=== PATIENT | male | born 1975 | race Caucasian/White ===

== ENCOUNTER 2019-03-24 03:13 | Emergency (ER) | payer OTHER, SELFPAY ==
[2019-03-24 03:17] VITALS: BMI 38.2
[2019-03-24 03:27] VITALS: BP 200/104; PULSE 97; RESP 18; TEMP 37.1; O2SAT 94
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
[2019-03-24 04:18] VITALS: RESP 16
[2019-03-24] MEDS: oxyCODONE-APAP 5-325 mg Tablet 2 TAB PO (04:18)
[2019-03-24 05:02] VITALS: BP 189/108; PULSE 84; RESP 16; O2SAT 95
== END 2019-03-24 05:02 | disposition home or self-care (01) ==
PROVIDERS: Emergency Provider Emergency Medicine; Family Provider Internal Medicine Cardiovascular Disease
DX: S00.83XA Contusion of other part of head, initial encounter (principal); Y04.2XXA Assault by strike against or bumped into by another person, initial encounter; Y99.0 Civilian activity done for income or pay; Z79.84 Long term (current) use of oral hypoglycemic drugs; Z79.82 Long term (current) use of aspirin
CPT/HCPCS: 70486; 99281

== ENCOUNTER 2020-06-23 09:14 | Outpatient (CLI) | payer OTHER, SELFPAY ==
--- NOTE | 2020-06-23 09:30 | USCV_ITS ---
Jose Douglas Age: 44 Gender: M : 1975 Exam Date: 06/23/2020 09:25 Ordering Phys: Kristen Fontenot MD ([email or web address]) Technologist: Tiara Em [place] [facility] [place]: Congestive heart failure BP: / HR: 81 Rhythm: Sinus Technical Quality: Adequate MEASUREMENTS (Male / Female) Normal Values 2D ECHO LV Diastolic Diameter PLAX 4.9 cm 4.2 - 5.9 / 3.9 - 5.3 cm LV Systolic Diameter PLAX 4.0 cm LV Chamber Size 4.4 cm IVS Diastolic Thickness 2.6 cm 0.6 - 1.0 / 0.6 - 0.9 cm IVS Systolic Thickness 1.7 cm LVPW Diastolic Thickness 1.2 cm 0.6 - 1.0 / 0.6 - 0.9 cm LVPW Systolic Thickness 2.5 cm RV Chamber Size 3.7 cm LVOT Diameter 2.0 cm LV Ejection Fraction 2D Teich 39.2 % LV Ejection Fraction MOD 2C 42.6 % LV Ejection Fraction 2C AL 42.1 % LA Diameter 4.7 cm LA Width 3.4 cm LA Height 4.9 cm RA Width 4.2 cm RA Height 4.5 cm Aorta at Sinotubular Diameter 3.8 cm M-MODE LV Diastolic Diameter MM 6.4 cm 4.2 - 5.9 / 3.9 - 5.3 cm LV Systolic Diameter MM 4.1 cm LV Ejection Fraction MM Teich 65.3 % IVS Diastolic Thickness MM 1.5 cm 0.6 - 1.0 / 0.6 - 0.9 cm IVS Systolic Thickness MM 2.0 cm LVPW Diastolic Thickness MM 1.4 cm 0.6 - 1.0 / 0.6 - 0.9 cm LVPW Systolic Thickness MM 2.0 cm Aortic Annulus Diameter 4.3 cm LA Ao Ratio MM 1.2 MV E Point Septal Separation 1.1 cm DOPPLER AV Peak Velocity 182.0 cm/s LVOT Peak Velocity 97.0 cm/s AV Area Cont Eq vti 2.2 cm squared AV Area Cont Eq pk 1.7 cm squared MV Area PHT 5.9 cm squared Mitral E to A Ratio 0.7 MV E' Velocity 34.0 cm/s Mitral E to MV E' Ratio 10.3 Mitral E to LV E' Lateral Ratio 8.0 Mitral E to LV E' Septal Ratio 15.0 TR Peak Velocity 131.9 cm/s TR Peak Gradient 7.0 mmHg TR Mean Velocity 105.8 cm/s TR Mean Gradient 4.6 mmHg TR Velocity Time Integral 31.7 cm TV Peak E Velocity 81.0 cm/s Right Atrial Pressure 3.0 mmHg Pulmonary Artery Systolic Pressu 10.0 mmHg PV Peak Velocity 97.0 cm/s RV Acceleration Time 0.1 s RV Ejection Time 0.4 s RV AcT/ET 0.4 FINDINGS Left Ventricle Normal left ventricular cavity size. Increased left ventricular wall thickness. Moderate concentric left ventricular hypertrophy. Normal left ventricular systolic function. Left ventricular ejection fraction is estimated at 65 %. No regional wall motion abnormalities. Grade I diastolic dysfunction (abnormal relaxation filling pattern), normal to mildly elevated filling pressures. Right Ventricle Normal right ventricular size and systolic function. Right ventricular systolic pressure 10 mmHg. Right Atrium Normal right atrial size. Left Atrium Mildly increased left atrial size. Mitral Valve Mild mitral annular calcification. Mildly thickened mitral valve. Trace mitral valve regurgitation. Aortic Valve Structurally normal trileaflet aortic valve. No aortic valve stenosis. Moderate aortic valve regurgitation. Tricuspid Valve Structurally normal tricuspid valve. Trace tricuspid valve regurgitation. Pulmonic Valve Structurally normal pulmonic valve. No pulmonary valve stenosis. Trace pulmonary valve regurgitation. Pericardium No pericardial effusion. Aorta Normal sized aortic root. CONCLUSIONS 1. Normal left ventricular cavity size. Moderate concentric left ventricular hypertrophy. Normal left ventricular systolic function. Left ventricular ejection fraction is estimated at 65 %. No regional wall motion abnormalities. Grade I diastolic dysfunction (abnormal relaxation filling pattern), normal to mildly elevated filling pressures. 2. Normal right ventricular size and systolic function. 3. Mildly increased left atrial size. 4. Moderate aortic valve regurgitation. 5. When compared to previous echocardiogram dated 09/22/2016, left ventricular systolic function has improved. Kristen Fontenot MD (Electronically Signed) Final Date: 26 June 2020 08:01 S
== END 2020-06-23 09:15 | disposition home or self-care (01) ==
LOC: US 09:15
PROVIDERS: PCP Nurse Practitioner Family; Visit Provider Internal Medicine Cardiovascular Disease
DX: I50.9 Heart failure, unspecified (principal); I51.7 Cardiomegaly; I35.1 Nonrheumatic aortic (valve) insufficiency
CPT/HCPCS: 93306

== ENCOUNTER 2021-05-12 06:19 | Observation (INO) | payer OTHER, SELFPAY ==
[2021-05-12] VITALS (23 sets, daily range): BP systolic 162–201; BP diastolic 84–106; PULSE 68–97; RESP 8–24; TEMP 36.4–37.1; O2SAT 96–99; BMI 37.5
--- NOTE | 2021-05-12 06:31 | ED_ITS ---
HPI - Chest Pain General: Chief Complaint: Chest Pain Stated Complaint: cp Time Seen by Provider: 05/12/21 06:25 Source: patient Mode of arrival: ambulatory Limitations: no limitations History of Present Illness: Patient reports chest pain waking him at 415 this morning. Chest pain is substernal and nonradiating. States chest pain lasted approximately 2 hours. Denies any chest pain now. Denies any shortness of breath or nausea. States he did have feeling of elevated heart rate. Patient states he had a heart cath about 5 years ago that was clear. MD complaint: chest pain Prior episodes: Yes Onset: during rest Pain location: substernal Pain radiation: none Severity: moderate Quality: aching Relieving factors: nothing Exacerbating factors: nothing Associated symptoms: Reports palpitations; Deny abdominal pain, diaphoresis, dyspnea, leg edema, nausea, syncope or vomiting Review of Systems Const: Denies: diaphoresis Eyes: Denies: change in vision ENMT: Denies: throat pain Card: Reports: chest pain and palpitations; Denies: irregular heart rhythm or syncope Resp: Denies: dyspnea, productive cough, non-productive cough or wheezing GI: Denies: abdominal pain, nausea, vomiting or diarrhea : Denies: flank pain Musc: Denies: neck pain, back pain, extremity pain or extremity swelling Skin/Breast: Denies: rash or pruritus Neuro: Denies: headache(s) or numbness in extremities Psych: Denies: anxiety Sam/Lymph: Denies: enlarged lymph nodes [facility] ED PFSH: Medical History Aortic regurgitation Cardiomyopathy Diabetes HTN (hypertension) Hyperlipidemia Family History Other Cancer Diabetes Hypertension Social History Smoking and tobacco status: never smoked Alcohol intake: current Alcohol intake frequency: other Supplemental [facility] Information: Patient reportedly had heart cath about 5 years ago that showed no coronary artery disease. I did review recent cardiology consult in December. Patient had aortic regurgitation on echocardiogram. Medical Data Entry Clerk did confirm he had normal heart cath with no obstructive coronary disease. Physical Exam Const: COMMON NORMALS: no acute distress, patient oriented x3, no limitations and well nourished GENERAL APPEARANCE: cooperative HENMT: COMMON NORMALS: normocephalic and atraumatic HEAD & SCALP: normocephalic and atraumatic FACE & SINUS: normal facial exam Eye: COMMON NORMALS: EOMs intact bilaterally Neck/C-Spine: COMMON NORMALS: full ROM, no lymphadenopathy, supple and no meningeal signs GENERAL: Yes normal visual inspection Lymph: LYMPHATIC: no lymphadenopathy noted Chest: COMMONS NORMALS: normal inspection of the chest and normal palpation of entire chest wall CHEST: No Ecchymosis present and No rash Resp: COMMON NORMALS: normal respiratory effort, No retractions and clear to auscultation bilaterally EFFORT & INSPECTION: No respiratory distress AU SCULTATION: clear to auscultation bilaterally Cardio: COMMON NORMALS: regular rhythm and Peripheral pulses 2+ throughout JUGULAR VENOUS DISTENTION: no JVD RHYTHM: regular rhythm PERIPHERAL PULSES: Peripheral pulses 2+ throughout OTHER: Mild tachycardia. Telemetry shows sinus tachycardia of 103 GI: COMMON NORMALS: Normal to inspection, nondistended, normoactive bowel sounds present and non-tender : COMMON NORMALS: Yes no CVA tenderness BLADDER/KIDNEY EXAM: Yes no CVA tenderness Back/Pelvis: COMMON NORMALS: no CVA tenderness Extremity: COMMON NORMALS: normal to inspection, full ROM and capillary refill normal Neuro: COMMON NORMALS: patient oriented x3, CN's II-XII intact bilaterally, no focal motor deficits and no sensory deficits noted MENINGEAL SIGNS: Yes no meningeal signs Psych: COMMON NORMALS: mental status grossly normal and Normal thought process present THOUGHT PROCESS: Normal thought process present Skin: COMMON NORMALS: no rashes or lesions noted and no wounds GENERAL SKIN EXAM: no rashes or lesions noted Course Vital Signs: Vital signs: Vital Signs Temperature 98.2 F 05/12/21 09:33 Pulse Rate 78 05/12/21 09:33 Respiratory Rate 16 05/12/21 09:33 Blood Pressure 190/85 05/12/21 09:33 Pulse Oximetry 96 05/12/21 09:33 MDM - Chest Pain Medical Decision Making Chest pain Heart score around 5 Lab Data I reviewed the patient's lab results. : 05/12/21 06:28 05/12/21 06:28 Radiology Impressions Chest X-Ray 05/12/21 06:32 IMPRESSION: 1. No definite CHF or pneumonia. 2. Other findings discussed above. Laboratory Results WBC 13.8 10^3/uL (4.0-10.0) H 05/12/21 06:28 RBC 5.93 10^6/uL (4.1-5.3) H 05/12/21 06:28 Hgb 14.9 g/dL (11.7-16.6) 05/12/21 06:28 Hct 46.0 % (42.0-52.0) 05/12/21 06:28 MCV 77.6 fl (80-94) L 05/12/21 06:28 MCH 25.1 pg (28.0-34.0) L 05/12/21 06:28 MCHC 32.4 g/dL (30.0-36.0) 05/12/21 06: RDW 15.2 % (12.1-15.1) H 05/12/21 06:28 Plt Count 301 10^3/cmm (130-400) 05/12/21 06:28 MPV 10.3 fL (7.4-10.4) 05/12/21 06:28 Neut % (Auto) 74.8 % 05/12/21 06:28 Lymph % (Auto) 14.7 % 05/12/21 06:28 [place] % (Auto) 6.2 % 05/12/21 06:28 Eos % (Auto) 2.4 % 05/12/21 06:28 Baso % (Auto) 0.7 % 05/12/21 06:28 Neut # (Auto) 10.34 10^3/uL (1.8-7.7) H 05/12/21 06:28 Lymph # (Auto) 2.0 10^3/uL (0.8-4.8) 05/12/21 06:28 [place] # (Auto) 0.9 10^3/uL (0.2-0.9) 05/12/21 06:28 Eos # (Auto) 0.3 10^3/uL (0.0-0.8) 05/12/21 06:28 Baso # (Auto) 0.1 10^3/uL (0.0-0.1) 05/12/21 06:28 Nucleated RBC % (auto) 0 % 05/12/21 06:28 Nucleated RBCs # 0.0 /100WBC 05/12/21 06:28 Sodium 137 mmol/L (136-145) 05/12/21 06:28 Potassium 3.7 mmol/L (3.5-5.1) 05/12/21 06:28 Chloride 97 mmol/L (98-107) L 05/12/21 06:28 Carbon Dioxide 27 mmol/L (22-29) 05/12/21 06:28 Anion Gap 16.7 (5-19) 05/12/21 06:28 BUN 14 mg/dL (6-20) 05/12/21 06:28 Creatinine 1.0 mg/dL (0.7-1.2) 05/12/21 06:28 GFR Calculation 80.1 mL/min (90-130) L 05/12/21 06:28 Glucose 292 mg/dL (65-115) H 05/12/21 06:28 Calculated Osmolality 295 mOsm/kg (285-295) 05/12/21 06:28 Calcium 8.9 mg/dL (8.5-10.5) 05/12/21 06:28 Troponin T Baseline 69 ng/L (0-15) H 05/12/21 06:28 Troponin T 120 Minute 63.59 ng/L (0-15) H 05/12/21 08:35 Delta Troponin T -5.41 ABS# (0-10) L 05/12/21 08:35 Imaging Data CXR: I personally reviewed and interpreted this imaging study as follows: My impression: No infiltrates or pneumothorax. Nothing acute seen. Radiologist's impression: Exam: XR Chest Exam date and time: 05/12/2021 6:32 AM Age: 45 years old Clinical indication: Angina; Patient HX: Chest pressure started at 430 this am but is gone now; Additional info: Chest pain TECHNIQUE: Imaging protocol: XR of the chest. Views: 1 view. COMPARISON: CR Ribs LEFT w PA Chest [id number] 11/23/2018 8:51 AM FINDINGS: Lungs: No CHF/pulmonary edema. ?Poor inspiration somewhat limits evaluation, especially of the lung bases. ?Visible lungs appear essentially clear. Pleural spaces: No visible pneumothorax. ?No definite pleural fluid. Heart/Mediastinum: Heart size is upper range of normal. Bones/joints: No significant acute finding. XR/XR chest 1V portable [id number] IMPRESSION: 1. No definite CHF or pneumonia. 2. Other findings discussed above. ? Dictated By: Ezkeiel Puga MD Signed By: Ezekiel Puga MD Signed Date/Time: 05/12/21726 EKG Data EKG 1: I personally reviewed and interpreted this EKG as follows: EKG interpretation date: 05/12/21 EKG interpretation time: 06:28 Prior EKG tracings: not available for review Interpretation: Sinus tachycardia with heart rate 103. Normal axis. Left atrial enlargement, normal T waves, except T wave inversion in lead I. LVH. Normal axis. Normal ST segments, except [address] segment elevation in leads V1 and V2 versus early repolarization. Normal QT interval, normal VA interval. EKG 2: I personally reviewed and interpreted this EKG as follows: EKG interpretation date: 05/12/21 EKG interpretation time: 08:33 Prior EKG tracings: available for review Interpretation: EKG shows normal sinus rhythm with heart rate of 77. Nonspecific ST-T changes. Normal VA interval, left atrial enlargement, normal QT interval. LVHT wave inversion lead I and aVL. Otherwise T waves are normal. [address] segment elevation in V1 and V2 versus early repolarization unchanged from previous EKG. Other Data Patient had 325 mg aspirin around 2100 last night 0738: Patient states he continues have no chest pain. 0935: Discussed with hospitalist Dr. Painter. Patient will be admitted to cardiac stepdown unit as observation patient. Discharge Plan Discharge Patient Disposition: Placed in Observation Clinical Impression: Benign essential hypertension Chest pain Qualifiers: Chest pain type: unspecified Qualified Code(s): R07.9 - Chest pain, unspecified Diabetes Qualifiers: Diabetes mellitus type: type 2 Diabetes mellitus fdc insulin use: without intermediate teacher use Diabetes mellitus complication status: with hyperglycemia Qualified Code(s): E11.65 - Type 2 diabetes mellitus with hyperglycemia Coding Level of Care Code ED Copy Coordinator for [facility] Fwd Exam Comprehensive
--- NOTE | 2021-05-12 06:32 | XRR_ITS ---
PROCEDURE INFORMATION: Exam: XR Chest Exam date and time: 05/12/2021 6:32 AM Age: 45 years old Clinical indication: Angina; Patient HX: Chest pressure started at 430 this am but is gone now; Additional info: Chest pain TECHNIQUE: Imaging protocol: XR of the chest. Views: 1 view. COMPARISON: CR Ribs LEFT w PA Chest [id number] 11/23/2018 8:51 AM FINDINGS: Lungs: No CHF/pulmonary edema. Poor inspiration somewhat limits evaluation, especially of the lung bases. Visible lungs appear essentially clear. Pleural spaces: No visible pneumothorax. No definite pleural fluid. Heart/Mediastinum: Heart size is upper range of normal. Bones/joints: No significant acute finding. XR/XR chest 1V portable [id number] IMPRESSION: 1. No definite CHF or pneumonia. 2. Other findings discussed above.
[2021-05-12 06:43] LABS: Basophils # 0.1 10^3/uL (0.0-0.1); Basophils % 0.7 %; Eosinophils # 0.3 10^3/uL (0.0-0.8); Eosinophils % 2.4 %; Hemoglobin 14.9 g/dL (11.7-16.6); Lymphocytes % 14.7 %; Mean Corpuscular HGB Conc 32.4 g/dL (30.0-36.0); Mean Corpuscular Hemoglobin 25.1 pg (28.0-34.0); Mean Corpuscular Volume 77.6 fl (80-94); Mean Platelet Volume 10.3 fL (7.4-10.4); Monocytes # 0.9 10^3/uL (0.2-0.9); Monocytes % 6.2 %; Neutrophils # 10.34 10^3/uL (1.8-7.7); Neutrophils % 74.8 %; Nucleated Red Blood Cells % 0 %; Platelet Count 301 10^3/cmm (130-400); Red Blood Count 5.93 10^6/uL (4.1-5.3); Red Cell Distribution Width 15.2 % (12.1-15.1); White Blood Count 13.8 10^3/uL (4.0-10.0)
--- NOTE | 2021-05-12 06:51 | PC.NURSE ---
report given to zion JOHANSEN
--- NOTE | 2021-05-12 06:58 | PC.NURSE ---
Received report assumed report. NO changes noted from report. at bedside. Denies chest pain.
[2021-05-12 07:00] LABS: Anion Gap 16.7 (5-19); Blood Urea Nitrogen 14 mg/dL (6-20); Calcium 8.9 mg/dL (8.5-10.5); Carbon Dioxide 27 mmol/L (22-29); Chloride 97 mmol/L (98-107); Glomerular Filtration Rate 80.1 mL/min (90-130); Glucose 292 mg/dL (65-115); Osmolality Calculated 295 mOsm/kg (285-295); Potassium 3.7 mmol/L (3.5-5.1); Sodium 137 mmol/L (136-145)
[2021-05-12 07:06] LABS: Troponin(5th) Baseline 69 ng/L (0-15)
[2021-05-12] MEDS: pantoprazole 40 mg SDV IVP (07:09)
[2021-05-12] MEDS: heparin 5,000 unit/mL INJ 1 mL 4000 UNIT IVP (07:50)
[2021-05-12] MEDS: labetalol 5 mg/mL SDV 20mL IVP (07:52)
--- NOTE | 2021-05-12 08:33 | ECG_ITS ---
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 Measurements Intervals [place] Rate: 103 P: 51 [place]: 194 QRS: 18 QRSD: 106 T: 106 QT: 339 QTc: 444 Interpretive Statements SINUS TACHYCARDIA WITH OCCASIONAL SUPRAVENTRICULAR PREMATURE COMPLEXES INCOMPLETE RIGHT BUNDLE BRANCH BLOCK [90+ ms QRS DURATION, TERMINAL R IN V1/V2, 40+ ms S IN I/aVL/V4/V5/V6] ABNORMAL QRS-T ANGLE [QRS-T AXIS DIFFERENCE > 60] Compared to ECG 09/23/2016 19:40:48 Incomplete right bundle-branch block now present Sinus rhythm no longer present T-wave abnormality no longer present Electronically Signed On 05-12-2021 16:06:16 WIRELESS OPERATOR by Oneil Muhammad M.D. [id number]
[2021-05-12] MEDS: insulin regular-human 100 units/1 mL 2 UNIT IVP (08:44)
[2021-05-12 09:17] LABS: Troponin 5 2HR 63.59 ng/L (0-15)
[2021-05-12 09:18] LABS: Troponin 5 2HR Delta -5.41 ABS# (0-10)
--- NOTE | 2021-05-12 10:02 | PC.PHAR ---
pt states he takes care of his own medications-pt states he takes hydralazine 100mg bid prescribed as 100mg tid-pt states he hasnt taken prednisone 20mg daily since last monday ext med history shows last filled 04/29/21 30d/s-notes are made in the pharmacy comments
--- NOTE | 2021-05-12 10:54 | PM.HP ---
Providers/Chief Complaint Admitting Physician: Raheel Painter MD Primary Care Provider: ALVARO Ellison Chief Complaint: cp History of Present Illness Jose Douglas is a 45 year old male which he had substernal chest discomfort as pressure, presented self and waking out of sleep around 4:15 AM this morning. It did not radiate. He reports he has had no recent chest discomfort or exertional symptoms. He reports the discomfort lasted at least 2 hours, but was gone away by the time he arrived in the emergency department. The pain changed over its duration to where it felt more like gas pain at the end. He reports absolutely no discomfort now. He has not had any fever or cough or other symptoms in the last week. He denies any pain with inspiration. He reports he does take Protonix for reflux. He recently thought he had injured his back and has been sleeping more in an upright position. Review of Systems General: Reports: 10 or more systems reviewed and unremarkable except in HPI and below Const: Denies: fever(s) Eyes: Denies: change in vision ENMT: Denies: throat pain Card: Reports: chest pain Resp: Denies: dyspnea GI: Reports: heartburn; Denies: abdominal pain : Denies: flank pain Musc: Reports: back pain Skin/Breast: Denies: rash Neuro: Denies: headache(s) Psych: Denies: anxiety Endo: Denies: polyuria Sam/Lymph: Denies: easy bruising All/Imm: Denies: urticaria Medications/Allergies Home Medications Medication Instructions Recorded Confirmed Last Taken Type amlodipine 10 mg tablet 10 mg PO DAILY 03/24/19 05/12/21 03/23/19 History glipizide 5 mg tablet 5 mg PO DAILY 03/24/19 05/12/21 03/23/19 History metformin 1,000 mg tablet 1,000 mg PO BID 03/24/19 05/12/21 03/23/19 History pantoprazole 40 mg tablet,delayed 40 mg PO DAILY 03/24/19 05/12/21 03/24/19 History release simvastatin 20 mg tablet 20 mg PO DAILY 03/24/19 05/12/21 03/23/19 History aspirin 325 mg tablet 325 mg PO DAILY 05/29/20 05/12/21 Unknown History carvedilol 12.5 mg tablet 12.5 mg PO .COMPLEX #270 tab 05/29/20 05/12/21 Unknown Rx potassium gluconate 595 mg (99 mg) 99 mg PO BID 05/29/20 05/12/21 Unknown History tablet cyclobenzaprine 10 mg tablet 10 mg PO TID PRN 05/12/21 05/12/21 05/11/21 History hydralazine 100 mg tablet 100 mg PO BID 05/12/21 05/12/21 Unknown History prednisone 20 mg tablet 20 mg PO DAILY 05/12/21 05/12/21 05/07/21 History Allergies Allergy/AdvReac Type Severity Reaction Status Date / Time No Known Allergies Allergy Verified 05/12/21 08:17 PFSH Acute PFSH: Medical History (Updated 05/12/21 @ 11:05 by Raheel Painter MD) Aortic regurgitation Cardiomyopathy Diabetes GERD (gastroesophageal reflux disease) History of retinal detachment HTN (hypertension) Hyperlipidemia Surgical History History of cataract surgery History of knee surgery History of tonsillectomy Family History Other Cancer Diabetes Hypertension Social History Smoking and tobacco status: never smoked Alcohol intake: current Alcohol intake frequency: other Vitals/I&O/Wt Last Vital Signs Temp 98.2 F 05/12/21 09:33 Pulse 78 05/12/21 09:33 Resp 16 05/12/21 09:33 BP 190/85 05/12/21 09:33 Pulse Ox 96 05/12/21 09:33 Weight last 48 hrs Weight 129.274 kg Physical Exam Narrative: General exam is a white male, no distress, denies any complaints of discomfort currently. Blood pressure noted to be high. He reports he has not received his medication yet this morning. HEENT pupils equally round. Oropharynx clear Neck is supple no lymphadenopathy or thyromegaly Cardiovascular regular in rhythm without murmur Lungs clear no wheezing or crackles Abdomen is soft nontender positive bowel sounds. No obvious organomegaly exam deferred Extremities no cyanosis clubbing or edema Skin no rash Neuro no focal deficits Data : 05/12/21 06:28 05/12/21 06:28 Other Labs: EKG demonstrates normal sinus rhythm, normal axis, flipped T waves aVL in 1. This is unchanged from previous EKGs Last echocardiogram June 2020 demonstrates LVH, EF 65%, 1/4 diastolic dysfunction and moderate aortic regurgitation Last angiogram 2017 demonstrated luminal irregularities but no formal limiting disease Troponin is 69 with repeat of 64 Chest no infiltrate A&P Assessment and plan (1) Chest pain: Patient with chest discomfort this morning, awakening him from sleep. Multiple risk factors for coronary disease. Last angiogram demonstrated some mild luminal abnormalities but this was in 2017. Serial troponins Has had a recent echocardiogram in June, see under other lab Telemetry Nuclear stress test Cardiology consultation Continue aspirin daily Status: Acute Qualifiers: Chest pain type: unspecified Qualified Code(s): R07.9 - Chest pain, unspecified (2) Aortic regurgitation: Most recent echocardiogram in June Status: Acute Qualifiers: Cardiac valve disease etiology: nonrheumatic Qualified Code(s): I35.1 - Nonrheumatic aortic (valve) insufficiency (3) HTN (hypertension): Did not receive his regular medications this morning Norvasc 10 mg, hydralazine 50 mg now Resume his normal medicine regimen Status: Acute (4) Diabetes: Check hemoglobin A1c, TSH Sliding scale insulin Status: Acute Qualifiers: Diabetes mellitus complication status: with hyperglycemia Diabetes mellitus ferry terminal supervisor insulin use: without ferry terminal supervisor use Diabetes mellitus type: type 2 Qualified Code(s): E11.65 - Type 2 diabetes mellitus with hyperglycemia (5) Hyperlipidemia: Continue statin Status: Acute Qualifiers: Hyperlipidemia type: mixed hyperlipidemia Qualified Code(s): E78.2 - Mixed hyperlipidemia (6) GERD (gastroesophageal reflux disease): Continue Protonix Status: Acute Plan Full code Lovenox for DVT prophylaxis Attestations Medical Necessity Statement*: Will need less than 2 midnight stay for evaluation and treatment of chest discomfort. Coding Level of Care Code Acute Utility Inspector for [facility] Fwd Diagnoses Chest pain R07.9 Chest pain type: unspecified Aortic regurgitation I35.1 Cardiac valve disease etiology: nonrheumatic HTN (hypertension) I10 Diabetes E11.65 Diabetes mellitus complication status: with hyperglycemia Diabetes mellitus mcfp insulin use: without ferry terminal supervisor use Diabetes mellitus type: type 2 Hyperlipidemia E78.2 Hyperlipidemia type: mixed hyperlipidemia GERD (gastroesophageal reflux disease) K21.9
--- NOTE | 2021-05-12 11:02 | ECG_ITS ---
[facility] Test Date: 2021-05-13 Pat Name: Jose Douglas Department: Room: 102 Gender: Male Electrical Cad Technician: Celine Ingram : 1975 Requested By: Raheel Franco Order Number: [id number] Adela MD: Kristen Fontenot M.D. Interpretive Statements NAME OF STUDY: LEXISCAN SESTAMIBI STRESS TEST INDICATION: Chest Pain PROCEDURE: At the baseline, the blood pressure was 196/84 mmHg, oxygen saturation 97% with a heart rate of 79 bpm. The electrocardiogram showed normal sinus rhythm, normal axis. ST and T wave abnormality consider lateral ischemia. The Lexiscan was infused over a period of 20 seconds. A total of 0.4 milligrams of Lexiscan was infused. The stress phase was continued for a total of 5 minutes. Heart rate at the end of the stress phase was 95 bpm, oxygen saturation 96% with a blood pressure of 200/82 mmHg. The EKG at the peak infusion revealed sinus rhythm with no significant ST-T wave changes. The study was terminated due to protocol completion. Sestamibi was injected 20 seconds after the Lexiscan infusion. Blood pressure at the end of the recovery phase was 188/74 mmHg, oxygen saturation 95% with a heart rate of 90 beats per minute. CONCLUSION: 1. No significant EKG changes with the LexiScan infusion. 2. No LexiScan induced chest pain or cardiac arrhythmia. 3. Normal blood pressure and heart rate response. 4. Sestamibi/sestamibi perfusion scan pending; see separate report. Electronically Signed On 05-13-2021 12:04:11 [employer]PERVISOR [employer] by Kristen Fontenot M.D. [id number]
[2021-05-12 11:25] LABS: Estmated Average Glucose 214; Hemoglobin A1C 9.1 % (4.0-6.0)
[2021-05-12] MEDS: hyDRALAzine 50 mg Tablet PO (11:26)
[2021-05-12] MEDS: amlodipine 10 mg Tablet PO (11:26)
[2021-05-12] MEDS: carvedilol 25 mg Tablet PO ×4 (11:27→20:45)
--- NOTE | 2021-05-12 12:04 | PM.CONSULT ---
Providers/Reason For Consult Consulting Physician/Specialty*: KIANNA Gavin MD/cardiology Reason for Consult*: Patient with chest pain and elevated troponin T Requesting Physician: Dr. Raheel Painter Attending Physician: Raheel Painter MD Primary Care Provider: ALVARO Ellison History of Present Illness History of Present Illness Jose Douglas is a 45 year old male with a history of high blood pressure, type 2 diabetes and dyslipidemia, he is present with complaints of chest pain. He was found to have an elevated troponin T. Cardiology consult is requested for further cardiac evaluation recommendations. This patient apparently has been in his baseline state of health up until 450 this morning when he woke up with chest pain. He described the pain as a pressure-like in nature, retrosternal in origin and is radiating across the chest. He may have some shortness of breath. The pain was waxing and waning and was moderate in intensity. The worst pain was 7/10. He waited for an hour or so to see whether the pain is going away. He was thinking that the pain was related to acid reflux. Since there was no relief of symptoms, he woke up his and was brought to the emergency room. By the time he reached the emergency room, the pain was almost completely gone. At the time of my examination, patient is pain-free. Patient has a history of chest pain and actually heart failure. In 2017, he presented with chest pain and uncontrolled blood pressure. He was found to have features of diastolic heart failure. Subsequently underwent a cardiac catheterization which revealed some intimal regularities in all the 3 coronary arteries with no significant stenosis. It was opted to treat him medically. Over the last few years, he has not had any recurrence of chest pain. His blood pressure has been staying somewhat uncontrolled. He has been compliant with medications. He has no documented history for myocardial infarction. His blood pressure was in the 200 range in the emergency room. It is slowly coming down. He was given IV labetalol in the emergency room. His diabetes is fairly under control. No history of a CVA or peripheral artery disease. No history for kidney disease, liver disease or bleeding disorders. Medications/Allergies Home Medications Medication Instructions Recorded Confirmed Last Taken Type amlodipine 10 mg tablet 10 mg PO DAILY 03/24/19 05/12/21 03/23/19 History glipizide 5 mg tablet 5 mg PO DAILY 03/24/19 05/12/21 03/23/19 History metformin 1,000 mg tablet 1,000 mg PO BID 03/24/19 05/12/21 03/23/19 History pantoprazole 40 mg tablet,delayed 40 mg PO DAILY 03/24/19 05/12/21 03/24/19 History release simvastatin 20 mg tablet 20 mg PO DAILY 03/24/19 05/12/21 03/23/19 History aspirin 325 mg tablet 325 mg PO DAILY 05/29/20 05/12/21 Unknown History carvedilol 12.5 mg tablet 12.5 mg PO .COMPLEX #270 tab 05/29/20 05/12/21 Unknown Rx potassium gluconate 595 mg (99 mg) 99 mg PO BID 05/29/20 05/12/21 Unknown History tablet cyclobenzaprine 10 mg tablet 10 mg PO TID PRN 05/12/21 05/12/21 05/11/21 History hydralazine 100 mg tablet 100 mg PO BID 05/12/21 05/12/21 Unknown History prednisone 20 mg tablet 20 mg PO DAILY 05/12/21 05/12/21 05/07/21 History Allergies Allergy/AdvReac Type Severity Reaction Status Date / Time No Known Allergies Allergy Verified 05/12/21 08:17 Current Medications Generic Name Dose Route Start Last Admin Trade Name Freq PRN Reason Stop Dose Admin Amlodipine Besylate 10 mg 05/12/21 11:00 05/12/21 11:26 Amlodipine 10 Mg Tablet PO 10 mg DAILY ASHLEY Administration Carvedilol 25 mg 05/12/21 11:15 05/12/21 11:27 Carvedilol 25 Mg Tablet PO 25 mg 0900 ASHLEY Administration PFSH Acute PFSH: Medical History Aortic regurgitation Cardiomyopathy Diabetes GERD (gastroesophageal reflux disease) History of retinal detachment HTN (hypertension) Hyperlipidemia Surgical History History of cataract surgery History of knee surgery History of tonsillectomy Family History Other Cancer Diabetes Hypertension Social History Smoking and tobacco status: never smoked Alcohol intake: current Alcohol intake frequency: other Vitals/I&O/Wt Last Vital Signs Temp 98.0 F 05/12/21 11:21 Pulse 78 05/12/21 11:21 Resp 16 05/12/21 11:21 BP 185/93 05/12/21 11:21 Pulse Ox 97 05/12/21 11:21 Weight last 48 hrs Weight 285 lb Physical Exam Narrative: GENERAL: The patient is alert and oriented times three. Not in any acute distress. HEENT: No significant pallor, icterus or lymphadenopathy. The pupils are reactant to light. Oral cavity: There are no mucous membrane lesions. Funduscopic examination: The fundus is not visualized NECK: Trachea appears to be central. No masses noted. No JVD or thyromegaly appreciated. No carotid bruit. RESPIRATORY: Chest is symmetrical. No intercostals muscle retraction or any accessory muscle activation. There is no chest wall tenderness. Breath sounds are heard bilaterally. No rales or rhonchi heard. No evidence of any consolidation. BREASTS: Deferred. HEART: The PMI could not be palpated. No other palpable precordial events. S1 and S2 are normal. No S3 or S4 heard. No pericardial rub or any click heard. ABDOMEN: No vessel pulsations or distention. No tenderness. No organomegaly appreciated. No abdominal bruit. Bowel sounds are normally heard. : Deferred. RECTAL: Deferred. LYMPHATIC: No lymphadenopathy noted in the neck or groin. EXTREMITIES: No edema or cyanosis. No clubbing. The pulses are symmetrical bilaterally. The radial, femoral, dorsalis pedis and the posterior tibial pulses are palpated and found to be in good volume and amplitude. MUSCULOSKELETAL: Gait is normal. There is no joint deformity or swelling noted. No joint tenderness or any effusion. The shoulder and hip joints appear to have normal range of motion. SKIN: There are no significant scars or skin rash noted. NEUROPSYCHIATRIC: The patient is alert and oriented x3. Appears to be in a good mood. The higher functions are grossly within normal limits. No tremors or rigidity noted. Data : 05/12/21 06:28 05/12/21 06:28 Other Labs: The EKG from today at 10/12/2021 revealed Normal sinus rhythm with nonspecific T wave changes in the anterolateral and high lateral leads. Normal WI and QRS duration. Possible left radiological. 06/23/20 Echocardiogram CONCLUSIONS ?1. Normal left ventricular cavity size. Moderate concentric left ?ventricular hypertrophy. Normal left ventricular systolic ?function. Left ventricular ejection fraction is estimated at 65 ?%. No regional wall motion abnormalities. Grade I diastolic ?dysfunction (abnormal relaxation filling pattern), normal to ?mildly elevated filling pressures. ?2. Normal right ventricular size and systolic function. ?3. Mildly increased left atrial size. ?4. Moderate aortic valve regurgitation. ?5. When compared to previous echocardiogram dated 09/22/2016, ?left ventricular systolic function has improved. EKG?showed sinus rhythm, possible left atrial enlargement and nonspecific T-wave changes. Transthoracic echocardiogram performed on September?showed mildly increased left ventricle cavity size with moderate left ventricle hypertrophy and mildly decreased left upper systolic function estimated at 45%. ?grade 2 diastolic dysfunction. right ventricle was normal in size and systolic function with mildly increased PA pressures at 44 mmHg. mild right atrial and moderate left atrial enlargement and no major valvular abnormalities. 07/21/17 RENAL US FINDINGS ?Renal arterial flow velocities and renal arterial to aortic flow ?velocity ratios are normal bilaterally.? Normal accleration ?indices.? Normal renal arterial Doppler wave forms.? Normal 2D ?images of the kidneys. ?CONCLUSIONS ?No sonographic evidence of hemodynamically significant renal ?artery stenosis bilaterally. 09/26/2016 [facility] ?Procedure Summary ?#1 Left main is normal ?#2 LAD has luminal irregularities ?#3 LCx has luminal irregularities ?#4 RCA has luminal irregularities Micro: Laboratory Last Values WBC 13.8 10^3/uL (4.0-10.0) H 05/12/21 06:28 RBC 5.93 10^6/uL (4.1-5.3) H 05/12/21 06:28 Hgb 14.9 g/dL (11.7-16.6) 05/12/21 06:28 Hct 46.0 % (42.0-52.0) 05/12/21 06:28 MCV 77.6 fl (80-94) L 05/12/21 06:28 MCH 25.1 pg (28.0-34.0) L 05/12/21 06:28 MCHC 32.4 g/dL (30.0-36.0) 05/12/21 06:28 RDW 15.2 % (12.1-15.1) H 05/12/21 06:28 Plt Count 301 10^3/cmm (130-400) 05/12/21 06:28 MPV 10.3 fL (7.4-10.4) 05/12/21 06:28 Neut % (Auto) 74.8 % 05/12/21 06:28 Lymph % (Auto) 14.7 % 05/12/21 06:28 Terrell % (Auto) 6.2 % 05/12/21 06:28 Eos % (Auto) 2.4 % 05/12/21 06:28 Baso % (Auto) 0.7 % 05/12/21 06:28 Neut # (Auto) 10.34 10^3/uL (1.8-7.7) H 05/12/21 06:28 Lymph # (Auto) 2.0 10^3/uL (0.8-4.8) 05/12/21 06:28 Terrell # (Auto) 0.9 10^3/uL (0.2-0.9) 05/12/21 06:28 Eos # (Auto) 0.3 10^3/uL (0.0-0.8) 05/12/21 06:28 Baso # (Auto) 0.1 10^3/uL (0.0-0.1) 05/12/21 06:28 Nucleated RBC % (auto) 0 % 05/12/21 06:28 Nucleated RBCs # 0.0 /100WBC 05/12/21 06:28 Sodium 137 mmol/L (136-145) 05/12/21 06:28 Potassium 3.7 mmol/L (3.5-5.1) 05/12/21 06:28 Chloride 97 mmol/L (98-107) L 05/12/21 06:28 Carbon Dioxide 27 mmol/L (22-29) 05/12/21 06:28 Anion Gap 16.7 (5-19) 05/12/21 06:28 BUN 14 mg/dL (6-20) 05/12/21 06:28 Creatinine 1.0 mg/dL (0.7-1.2) 05/12/21 06:28 GFR Calculation 80.1 mL/min (90-130) L 05/12/21 06:28 Glucose 292 mg/dL (65-115) H 05/12/21 06:28 Estimat Average Glucose 214 05/12/21 06:28 Hemoglobin A1c 9.1 % (4.0-6.0) H 05/12/21 06:28 Calculated Osmolality 295 mOsm/kg (285-295) 05/12/21 06:28 Calcium 8.9 mg/dL (8.5-10.5) 05/12/21 06:28 Troponin T Baseline 69 ng/L (0-15) H 05/12/21 06:28 Troponin T 120 Minute 63.59 ng/L (0-15) H 05/12/21 08:35 Delta Troponin T -5.41 ABS# (0-10) L 05/12/21 08:35 A&P Assessment and plan (1) Chest pain: The etiology of the chest pain is not clear. Possibly underlying coronary ischemia causing this is a consideration especially in view of his multiple risk factors. The troponin T is trending down. The elevated troponin T most likely related to type II UT. The blood pressure is currently a stage II. Patient seems to be stable otherwise from a hemodynamic standpoint. Status: Acute Qualifiers: Chest pain type: unspecified Qualified Code(s): R07.9 - Chest pain, unspecified (2) Aortic regurgitation: Patient was found to have moderate aortic regurgitation by echocardiogram in June 2020. Repeat echocardiogram would be helpful to reevaluate the aortic valve and LV function. Status: Acute Qualifiers: Cardiac valve disease etiology: nonrheumatic Qualified Code(s): I35.1 - Nonrheumatic aortic (valve) insufficiency (3) Accelerated hypertension: For better control of blood pressure, I may increase the dose of the hydralazine to 100 mg p.o. every 8 hours and carvedilol to 25 mg p.o. twice daily. The blood pressure needs to be closely monitored. Status: Acute (4) Hyperlipidemia: May continue on the current medications. Status: Acute Qualifiers: Hyperlipidemia type: mixed hyperlipidemia Qualified Code(s): E78.2 - Mixed hyperlipidemia (5) Diabetes: The blood sugar seems to be elevated. Management of the hyperglycemia as per the primary Status: Acute Qualifiers: Diabetes mellitus complication status: with hyperglycemia Diabetes mellitus watermelon harvesting supervisor insulin use: without watermelon harvesting supervisor use Diabetes mellitus type: type 2 Qualified Code(s): E11.65 - Type 2 diabetes mellitus with hyperglycemia Plan Based on the clinical progress on the results of the above, further recommendations will be made. Thank you for the opportunity to evaluate this patient make these recommendations Coding Level of Care Code Acute Client Relationship Executive for [facility] History Detailed Exam Detailed Medical Decision Making High Complexity Diagnoses Chest pain R07.9 Chest pain type: unspecified Aortic regurgitation I35.1 Cardiac valve disease etiology: nonrheumatic Accelerated hypertension I10 Hyperlipidemia E78.2 Hyperlipidemia type: mixed hyperlipidemia Diabetes E11.65 Diabetes mellitus complication status: with hyperglycemia Diabetes mellitus watermelon harvesting supervisor insulin use: without watermelon harvesting supervisor use Diabetes mellitus type: type 2
[2021-05-12 12:20] LABS: Glucose Point of Care 206 mg/dL (70-110)
--- NOTE | 2021-05-12 12:33 | ECG_ITS ---
[facility] Test Date: 2021-05-12 Pat Name: Jose Douglas Department: Room: Gender: Male Filler Sifter Helper: : 1975 Requested By: Ketan Duff Order Number: [id number] Adela MD: Oneil Muhammad M.D. Measurements Intervals [place] Rate: 77 P: 12 DC: 193 QRS: 7 QRSD: 102 T: 129 QT: 384 QTc: 435 Interpretive Statements SINUS RHYTHM ST DEVIATION AND MODERATE T-WAVE ABNORMALITY, CONSIDER LATERAL ISCHEMIA [-0.1+ mV T-WAVE IN I/aVL/V5/V6] Compared to ECG 05/12/2021 06:24:01 T-wave abnormality now present Possible ischemia now present Sinus tachycardia no longer present Incomplete right bundle-branch block no longer present Electronically Signed On 05-12-2021 16:05:18 CREDIT CORRESPONDENCE CLERK by Oneil Muhammad M.D. [email or web address] [email or web address].[email or web address]/store/[id number]
--- NOTE | 2021-05-12 12:52 | USCV_ITS ---
Jose Douglas Age: 45 Gender: M : 1975 Exam Date: 05/12/2021 13:51 Ordering Phys: Christie Gavin MD ([email or web address]) Technologist: JERMAIN Exam Location: [facility] [place] Indication: CHEST PAIN/AI BP: 175 / 84 HR: 84 Rhythm: Sinus Technical Quality: Adequate MEASUREMENTS (Male / Female) Normal Values 2D ECHO LV Diastolic Diameter PLAX 4.7 cm 4.2 - 5.9 / 3.9 - 5.3 cm LV Systolic Diameter PLAX 3.3 cm IVS Diastolic Thickness 2.8 cm 0.6 - 1.0 / 0.6 - 0.9 cm IVS Systolic Thickness 2.8 cm LVPW Diastolic Thickness 2.0 cm 0.6 - 1.0 / 0.6 - 0.9 cm LVPW Systolic Thickness 2.4 cm LVOT Diameter 2.0 cm LV Ejection Fraction 2D Teich 56.0 % LV Ejection Fraction MOD 2C 68.1 % LV Ejection Fraction 2C AL 70.5 % LA Diameter 4.1 cm LA Width 3.8 cm LA Height 4.5 cm RA Width 2.9 cm RA Height 4.0 cm Aorta at Sinotubular Diameter 3.4 cm M-MODE Aortic Annulus Diameter 4.1 cm LA Ao Ratio MM 0.9 MV E Point Septal Separation 0.6 cm DOPPLER AV Peak Velocity 144.3 cm/s LVOT Peak Velocity 131.0 cm/s AV Area Cont Eq vti 2.8 cm squared AV Area Cont Eq pk 3.0 cm squared MV Peak Velocity 82.0 cm/s MV Area PHT 3.0 cm squared Mitral E to A Ratio 0.8 MV E' Velocity 32.0 cm/s Mitral E to MV E' Ratio 10.2 Mitral E to LV E' Lateral Ratio 8.4 Mitral E to LV E' Septal Ratio 12.9 TR Peak Velocity 182.0 cm/s TR Peak Gradient 13.2 mmHg TR Mean Velocity 115.2 cm/s TR Mean Gradient 5.7 mmHg TR Velocity Time Integral 31.7 cm TV Peak E Velocity 52.0 cm/s PV Peak Velocity 156.0 cm/s RV Acceleration Time 0.1 s RV Ejection Time 0.3 s RV AcT/ET 0.3 FINDINGS Left Ventricle Normal left ventricular size and systolic function, EF 72 %. Moderate left ventricular hypertrophy. No regional wall motion abnormalities. Right Ventricle The right ventricle is normal in size and function. Right Atrium The right atrium is normal in size. Left Atrium Mildly increased left atrial size. Mitral Valve Thickened mitral valve. Mild mitral annular calcification. Mild mitral valve regurgitation. Aortic Valve Moderate aortic valve regurgitation. Tricuspid Valve Mild tricuspid valve regurgitation. Pulmonic Valve Mild pulmonary valve regurgitation. Pericardium Normal pericardium without effusion. Aorta Normal ascending aorta dimension. CONCLUSIONS Normal left ventricular size and systolic function, EF 72 %. Moderate left ventricular hypertrophy. No regional wall motion abnormalities. Mildly increased left atrial size. Thickened mitral valve. Mild mitral annular calcification. Mild mitral valve regurgitation. Moderate aortic valve regurgitation. Mild pulmonary valve regurgitation. There is no pericardial effusion. There are no intracardiac masses. Compared to the previous study from Jun 24, 2019, there may not be a significant change. Dr Christie Gavin MD FAC (Electronically Signed) Final Date: 12 May 2021 16:42 S
[2021-05-12] MEDS: insulin lispro 100 unit/1 mL SUBCUT ×3 (12:58→20:42)
[2021-05-12 13:01] LABS: Thyroid Stimulating Hormone 0.98 uIU/mL (0.27-4.20)
[2021-05-12 13:25] LABS: Troponin 5 6HR 65.76 ng/L (0-15)
[2021-05-12 13:26] LABS: Troponin 5 6HR Delta -3.24 ng/L (0-12)
[2021-05-12] MEDS: hyDRALAzine 50 mg Tablet 100 MG PO ×2 (15:43→20:41)
[2021-05-12 17:27] LABS: Glucose Point of Care 144 mg/dL (70-110)
[2021-05-12] MEDS: enoxaparin 40 mg/0.4 mL Syringe SUBCUT (18:23)
[2021-05-12 20:32] LABS: Glucose Point of Care 192 mg/dL (70-110)
[2021-05-12] MEDS: atorvastatin 40 mg Tablet 20 MG PO (20:40)
[2021-05-13] VITALS (11 sets, daily range): BP systolic 129–210; BP diastolic 74–100; PULSE 69–90; RESP 9–21; TEMP 36.5–36.7; O2SAT 96–97
[2021-05-13 04:45] LABS: Basophils # 0.1 10^3/uL (0.0-0.1); Basophils % 0.8 %; Eosinophils # 0.2 10^3/uL (0.0-0.8); Eosinophils % 2.2 %; Hematocrit 43.2 % (42.0-52.0); Hemoglobin 13.5 g/dL (11.7-16.6); Lymphocytes # 1.9 10^3/uL (0.8-4.8); Lymphocytes % 19.5 %; Mean Corpuscular HGB Conc 31.3 g/dL (30.0-36.0); Mean Corpuscular Hemoglobin 24.8 pg (28.0-34.0); Mean Corpuscular Volume 79.4 fl (80-94); Monocytes # 0.6 10^3/uL (0.2-0.9); Monocytes % 6.7 %; Neutrophils # 6.73 10^3/uL (1.8-7.7); Nucleated Red Blood Cells % 0 %; Platelet Count 233 10^3/cmm (130-400); Red Blood Count 5.44 10^6/uL (4.1-5.3); Red Cell Distribution Width 15.5 % (12.1-15.1); White Blood Count 9.6 10^3/uL (4.0-10.0)
[2021-05-13 05:07] LABS: Blood Urea Nitrogen 15 mg/dL (6-20); Calcium 8.5 mg/dL (8.5-10.5); Carbon Dioxide 25 mmol/L (22-29); Chloride 99 mmol/L (98-107); Glomerular Filtration Rate 90.4 mL/min (90-130); Glucose 188 mg/dL (65-115); Osmolality Calculated 286 mOsm/kg (285-295); Sodium 135 mmol/L (136-145)
[2021-05-13 05:11] LABS: Anion Gap 14.6 (5-19); Potassium 3.6 mmol/L (3.5-5.1)
--- NOTE | 2021-05-13 05:45 | PC.NURSE ---
Patient admitted with elevated bp x 1 day. Patient alert and oriented. Denied pain all through this shift. BP now 129/83. Patient for stress test this am. Will continue to monitor.
--- NOTE | 2021-05-13 05:50 | PC.NURSE ---
Shift Note Frequent safety and comfort rounds continue. Orders and/or nursing care completed as indicated. Patient monitored for response to intervention and treatment(s). Education provided includes stress test information Patient and/or customer response representative states verbalization. Will continue to monitor.
[2021-05-13 06:40] LABS: Glucose Point of Care 206 mg/dL (70-110)
--- NOTE | 2021-05-13 06:42 | PC.NURSE ---
Patient given dye for stress test today. Informed to drink water given to him. Will continue to monitor.
--- NOTE | 2021-05-13 07:09 | PC.NURSE ---
Dr. Tomas Painter notified of multiple administrations of beta blockers with Exercise Mibi ordered. Verbal orders received to switch patient to Lexiscan stress test.
[2021-05-13] MEDS: regadenoson 0.4 Mg/5 ml Syringe IVP (08:13)
[2021-05-13] MEDS: hyDRALAzine 50 mg Tablet 100 MG PO ×2 (10:42→13:21)
[2021-05-13] MEDS: amlodipine 10 mg Tablet PO (10:42)
[2021-05-13] MEDS: aspirin 325 mg Tablet PO (10:42)
[2021-05-13] MEDS: pantoprazole DR 40 mg Tablet PO (10:43)
--- NOTE | 2021-05-13 10:53 | PC.CHAP ---
Pastoral Care Encounter/Spiritual Assessment Type of Contact [] Declined cloth doffer visit [] Patient/Family/Request visit [] Outpatient visit [] Follow-up visit [] Physician referral [] Code/Alert [x] Routine visit [] Staff referral [] Actively dying [] Patient sleeping [] Family support [] [] Out of room [] Palliative care [] [x] Receiving care in room [] Pre-surgical visit [] Trauma [] Long length of stay [] ICU visit [] Other: Relational/Emotional Strength [x] Patient feels connected with others/family/visitors/staff [] Distress [] Loneliness/isolation [] Abandonment Spirituality of Patient [x] Person of Jenna [] Attends Latter-[employer] of their Jenna [x] Believes in Prayer [] Reads Bible or Mandaen materials [] There are Spiritual issues to be addressed [employer] Manager Interventions [x] Prayer [x] Active listening [x] Non-anxious presence [x] Spiritual/emotional support [] Crisis/trauma care [x] Spiritual counseling [] Bereavement support [] Provided bereavement packet [] Provided Bible/devotional materials [] Provided toy/stuffed animal, coloring book to patient or family member [] Provided Communion [] Anointing/[place] [] Salvation [x] Completed spiritual assessment [] Other: Impact on Illness or Injury [] Angry [] Fearful [x] Anxious [] Often cries [] Exhaustion [] Unable to work [] Unable to attend presybeterian [] Unable to walk/stand [] Unable to read [] Unable to drive [] Unable to eat/drink [] Unable to sleep [] Unable to be with family [] Patient intubated [] Other: Summary had an EKG feels good and is going home Time spent with patient 5 mins
--- NOTE | 2021-05-13 11:03 | NMCV_ITS ---
NM omid perf SPECT r/s* [id number] Jose Douglas Age: 45 Gender: M : 1975 Exam Date: 05/13/2021 07:04 Ordering Phys: Raheel Painter MD Technologist: CIPRIANO Jordan Exam Location: [facility] Indications: CHEST PAIN STRESS TEST [facility] IMAGE PROTOCOL Rest/Stress 1 Lexiscan Day Radiopharmaceutical Dose (mCi) Administration Site Administered by Rest: Tc-99m 10.9 IV CIPRIANO Amaya Sestamibi Stress:Tc-99m 33.0 IV CIPRIANO Amaya Sestamibi Rest: 13-May-2021 60 Discovery 630 Stress: 13-May-2021 30 Discovery 630 0.4mg Lexiscan. Images obtained in supine and prone position. SPECT RESULTS Technical Quality: Excellent Raw Data Analysis: Normal Image Corrections: No attenuation or motion correction applied Summed Stress Score: 0 Summed Rest Score: 0 Summed Difference Score: 0 PERFUSION FINDINGS SPECT images demonstrate homogeneous tracer distribution throughout the myocardium. FUNCTIONAL RESULTS (calculated via Gated SPECT) Stress Image LV EF (%): 45 Stress EDV (mL):212 TID: 0.93 Stress ESV (mL):117 FUNCTIONAL FINDINGS: The left ventricle is normal in size. Transient Ischemia Dilatation of 0.93. There is mildly reduced left ventricular systolic function. The left ventricular ejection fraction is mildly reduced with a value of 45%. There is mild global hypokinesis with no regional wall motion abnormality. Increased end-diastolic and end-systolic volumes. IMPRESSIONS 1. Myocardial perfusion imaging is normal. 2. The left ventricular ejection fraction is mildly reduced with a value of 45%. 3. There is mild global hypokinesis with no regional wall motion abnormality. 4. No EKG changes with Lexiscan infusion. 5. No prior similar studies to compare. Kristen Fontenot MD (Electronically Signed) Final Date: 13 May 2021 12:10 S
[2021-05-13 11:11] LABS: Glucose Point of Care 262 mg/dL (70-110)
[2021-05-13] MEDS: insulin lispro 100 unit/1 mL SUBCUT (11:33)
--- NOTE | 2021-05-13 12:00 | PM.PN ---
Subjective Subjective: No chest pains . Feels well. BP still running high. Medications: Reviewed: Yes Medication Review Details: Current Medications Acetaminophen (Acetaminophen 325 Mg Tablet) 650 mg PO Q6H PRN PRN Reason: Mild/Mod Pain Or Temp >/= 101 Aminophylline (Aminophylline 25 Mg/Ml Sdv 10 Ml) 25 mg IVP Q2M PRN PRN Reason: see dose instructions Stop: 05/14/21 07:11 Amlodipine Besylate (Amlodipine 10 Mg Tablet) 10 mg PO DAILY [facility] Last Admin: 05/13/21 10:42 Dose: 10 mg Documented by: Aspirin (Aspirin 325 Mg Tablet) 325 mg PO DAILY [facility] Last Admin: 05/13/21 10:42 Dose: 325 mg Documented by: Atorvastatin Calcium (Atorvastatin 40 Mg Tablet) 20 mg PO BEDTIME [facility] Last Admin: 05/12/21 20:40 Dose: 20 mg Documented by: Carvedilol (Carvedilol 25 Mg Tablet) 25 mg PO 0900 [facility] Last Admin: 05/12/21 20:44 Dose: 25 mg Documented by: Carvedilol (Carvedilol 25 Mg Tablet) 25 mg PO 2100 [facility] Last Admin: 05/12/21 20:45 Dose: 25 mg Documented by: Dextrose (Dextrose 50% Syringe 50 Ml) 25 ml IVP ONCE PRN; Protocol PRN Reason: hypoglycemia protocol Dextrose (Dextrose 50% Syringe 50 Ml) 50 ml IVP PRN PRN; Protocol PRN Reason: hypoglycemia protocol Enoxaparin Sodium (Enoxaparin 40 Mg/0.4 Ml Syringe) 40 mg SUBCUT Q24H [facility] Last Admin: 05/12/21 18:23 Dose: 40 mg Documented by: Glucagon (Glucagon 1 Mg/Ml Inj 1 Ml) 1 mg IM ONCE PRN; Protocol PRN Reason: Adult Acute Hypoglycemia Prot. Hydralazine HCl (Hydralazine 50 Mg Tablet) 100 mg PO TID [facility] Last Admin: 05/13/21 10:42 Dose: 100 mg Documented by: Dextrose (D5w) 500 mls @ 100 mls/hr IV ONCE PRN; Protocol PRN Reason: Adult Acute Hypoglycemia Prot Insulin Human Lispro (Insulin Lispro 100 Unit/1 Ml) 0 unit SUBCUT WM&BEDTIME [facility]; Protocol Last Admin: 05/13/21 11:33 Dose: 8 unit Documented by: Morphine Sulfate (Morphine 4 Mg/Ml Sdv 1 Ml) 4 mg IVP Q4H PRN PRN Reason: SEVERE PAIN Nitroglycerin (Nitroglycerin 0.4 Mg Sublingual Tablet) 0.4 mg SUBLINGUAL Q5M PRN PRN Reason: CHEST PAIN Stop: 05/14/21 07:11 Ondansetron HCl (Ondansetron 2 Mg/Ml Sdv 2 Ml) 4 mg IVP Q6H PRN PRN Reason: NAUSEA AND VOMITING Ondansetron HCl (Ondansetron 2 Mg/Ml Sdv 2 Ml) 4 mg IVP Q2M PRN PRN Reason: NAUSEA Pantoprazole Sodium (Pantoprazole Dr 40 Mg Tablet) 40 mg PO DAILY [facility] Last Admin: 05/13/21 10:43 Dose: 40 mg Documented by: Vitals/I&O/Wt Last Vital Signs Temp 98.0 F 05/13/21 08:00 Pulse 90 05/13/21 08:21 Resp 16 05/13/21 08:00 BP 188/74 05/13/21 08:21 Pulse Ox 96 05/13/21 08:00 05/12/21 05/13/21 05/13/21 22:59 06:59 14:59 Intake Total 354 / 714 118 / 832 118 / 118 Balance 354 / 714 118 / 832 118 / 118 Weight last 48 hrs Weight 285 lb Physical Exam Narrative: Gen: NAD HEENT/Neck: No JVD CVS: S1, S2 normal. No murmur, rub or gallop RS: CTAB/L INTERN RETAIL: AAOx3, No FND Ext: No edema Data : 05/13/21 04:15 05/13/21 04:15 A&P Assessment and plan (1) Chest pain: likely in setting of uncontrolled HTN -normal echo and stress test. -med changes as below Status: Acute Qualifiers: Chest pain type: unspecified Qualified Code(s): R07.9 - Chest pain, unspecified (2) Accelerated hypertension: -Coreg and hydralazine dose was increased -start on low dose losaratn as well -f/u BMP in 1-2 weeks and f/u with Ms. 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 use Diabetes mellitus type: type 2 Qualified Code(s): E11.65 - Type 2 diabetes mellitus with hyperglycemia (5) Hyperlipidemia: Status: Acute Qualifiers: Hyperlipidemia type: mixed hyperlipidemia Qualified Code(s): E78.2 - Mixed hyperlipidemia Attestations Medical Necessity Statement*: Stable to be discharged Coding Level of Care Code Acute Software Support Analyst for [facility] Fwd Diagnoses Chest pain R07.9 Chest pain type: unspecified Accelerated hypertension I10 Aortic regurgitation I35.1 Cardiac valve disease etiology: nonrheumatic Diabetes E11.65 Diabetes mellitus complication status: with hyperglycemia Diabetes mellitus terminal block assembler insulin use: without terminal block assembler use Diabetes mellitus type: type 2 Hyperlipidemia E78.2 Hyperlipidemia type: mixed hyperlipidemia
--- NOTE | 2021-05-13 12:32 | P.DS_ITS ---
Discharge Providers Date of Admission: 05/12/21 09:40 Date of Discharge: May 13, 2021 Attending Provider at Admission: Raheel Painter MD Attending Provider at Discharge: Raheel Painter MD Primary Care Provider: ALVARO Ellison Diagnoses at Discharge Discharge Diagnosis (1) Chest pain: Status: Acute Qualifiers: Chest pain type: unspecified Qualified Code(s): R07.9 - Chest pain, unspecified (2) Aortic regurgitation: Status: Acute Qualifiers: Cardiac valve disease etiology: nonrheumatic Qualified Code(s): I35.1 - Nonrheumatic aortic (valve) insufficiency (3) Accelerated hypertension: Status: Acute (4) Hyperlipidemia: Status: Acute Qualifiers: Hyperlipidemia type: mixed hyperlipidemia Qualified Code(s): E78.2 - Mixed hyperlipidemia (5) Diabetes: Status: Acute Qualifiers: Diabetes mellitus complication status: with hyperglycemia 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 EKG had no changes from prior EKGs. Past medical history included LVH, previous angiogram approximately 4 years ago with minimal luminal irregularities, hypertension, diabetes. Laboratory demonstrated mildly elevated troponin at 69 with repeat at 6 hours of 65. He had no further chest discomfort while in the hospital. An echocardiogram was performed without change from previous, preserved EF, moderate aortic regurgitation. Blood pressure medication was adjusted secondary to hypertension, and nuclear stress test was performed on May 13. This did not did not demonstrate any evidence of ischemia. He was able to be discharged home on May 13 with discharge instructions. Physical Exam Narrative: General exam no distress Neck is supple Cardiovascular regular rate and rhythm without murmur Lungs clear Abdomen is soft Extremities no cyanosis clubbing or edema Discharge Data Studies Completed and Pending Completed Studies During Hospitalization Category Date Time Status Cardiac Stress Test MIBI [Sestamibi Stress Test Request Exams 05/12/21 11:02 Completed ] Routine XR chest 1V portable [id number] Stat Exams 05/12/21 06:32 Completed NM omid perf SPECT r/s* [id number] Routine Nuc Med 05/13/21 11:03 Completed US echo complete [CV. echo complete* [id number]] Routine Ultrasound 05/12/21 12:52 Completed Pending at discharge Category Date Time Status Cardiac Stress Test MIBI [Sestamibi Stress Test Request Exams 05/12/21 11:02 Stop Req ] Routine Radiology Impressions Chest X-Ray 05/12/21 06:32 IMPRESSION: 1. No definite CHF or pneumonia. 2. Other findings discussed above. Laboratory Results WBC 9.6 10^3/uL (4.0-10.0) 05/13/21 04:15 RBC 5.44 10^6/uL (4.1-5.3) H 05/13/21 04:15 Hgb 13.5 g/dL (11.7-16.6) 05/13/21 04:15 Hct 43.2 % (42.0-52.0) 05/13/21 04:15 MCV 79.4 fl (80-94) L 05/13/21 04:15 MCH 24.8 pg (28.0-34.0) L 05/13/21 04:15 MCHC 31.3 g/dL (30.0-36.0) 05/13/21 04:15 RDW 15.5 % (12.1-15.1) H 05/13/21 04:15 Plt Count 233 10^3/cmm (130-400) 05/13/21 04:15 MPV 11.0 fL (7.4-10.4) H 05/13/21 04:15 Neut % (Auto) 70.0 % 05/13/21 04:15 Lymph % (Auto) 19.5 % 05/13/21 04:15 [place] % (Auto) 6.7 % 05/13/21 04:15 Eos % (Auto) 2.2 % 05/13/21 04:15 Baso % (Auto) 0.8 % 05/13/21 04:15 Neut # (Auto) 6.73 10^3/uL (1.8-7.7) 05/13/21 04:15 Lymph # (Auto) 1.9 10^3/uL (0.8-4.8) 05/13/21 04:15 [place] # (Auto) 0.6 10^3/uL (0.2-0.9) 05/13/21 04:15 Eos # (Auto) 0.2 10^3/uL (0.0-0.8) 05/13/21 04:15 Baso # (Auto) 0.1 10^3/uL (0.0-0.1) 05/13/21 04:15 Nucleated RBC % (auto) 0 % 05/13/21 04:15 Nucleated RBCs # 0.0 /100WBC 05/13/21 04:15 Sodium 135 mmol/L (136-145) L 05/13/21 04:15 Potassium 3.6 mmol/L (3.5-5.1) 05/13/21 04:15 Chloride 99 mmol/L (98-107) 05/13/21 04:15 Carbon Dioxide 25 mmol/L (22-29) 05/13/21 04:15 Anion Gap 14.6 (5-19) 05/13/21 04:15 BUN 15 mg/dL (6-20) 05/13/21 04:15 Creatinine 0.9 mg/dL (0.7-1.2) 05/13/21 04:15 GFR Calculation 90.4 mL/min (90-130) 05/13/21 04:15 Glucose 188 mg/dL (65-115) H 05/13/21 04:15 POC Glucose 262 mg/dL (70-110) H 05/13/21 11:08 Estimat Average Glucose 214 05/12/21 06:28 Hemoglobin A1c 9.1 % (4.0-6.0) H 05/12/21 06:28 Calculated Osmolality 286 mOsm/kg (285-295) 05/13/21 04:15 Calcium 8.5 mg/dL (8.5-10.5) 05/13/21 04:15 Troponin T Baseline 69 ng/L (0-15) H 05/12/21 06:28 Troponin T 120 Minute 63.59 ng/L (0-15) H 05/12/21 08:35 Delta Troponin T -5.41 ABS# (0-10) L 05/12/21 08:35 Troponin T Hi Sens 6Hr 65.76 ng/L (0-15) H 05/12/21 12:42 Troponin T Hi Sens 6Hr Delta -3.24 ng/L (0-12) L 05/12/21 12:42 TSH 0.98 uIU/mL (0.27-4.20) 05/12/21 08:35 Vitals Last Vital Signs Temp 98.0 F 05/13/21 08:00 Pulse 90 05/13/21 08:21 Resp 16 05/13/21 08:00 BP 188/74 05/13/21 08:21 Pulse Ox 96 05/13/21 08:00 Discharge Plan Discharge Patient Disposition: Home Condition: Stable Prescriptions: New hydralazine 50 mg Tablet 100 mg PO TID Qty: 90 0RF carvedilol [Coreg] 25 mg tablet 25 mg PO BID Qty: 60 0RF Rx Instructions: must administer with a meal/food losartan 50 mg tablet 50 mg PO DAILY Qty: 30 0RF Januvia 50 mg tablet 50 mg PO DAILY Qty: 30 0RF Continued aspirin 325 mg tablet 325 mg PO DAILY 0RF cyclobenzaprine 10 mg tablet 10 mg PO TID PRN (Reason: Muscle Spasm) 0RF amlodipine 10 mg Tablet 10 mg PO DAILY 0RF pantoprazole 40 mg Tablet,Delayed Release (Dr/Ec) 40 mg PO DAILY 0RF simvastatin 20 mg Tablet 20 mg PO DAILY 0RF metformin 1,000 mg Tablet 1,000 mg PO BID 0RF glipizide 5 mg Tablet 5 mg PO DAILY 0RF Discontinued potassium gluconate 595 mg (99 mg) tablet 99 mg PO BID 0RF carvedilol 12.5 mg tablet 12.5 mg PO .COMPLEX Qty: 270 3RF Rx Instructions: Take 2 tabs in morning and 1 tab in evening prednisone 20 mg tablet 20 mg PO DAILY 0RF hydralazine 100 mg tablet 100 mg PO BID 0RF Discharge Orders: Discharge Order (Routine); Ordered 05/13/21 Ordered By: Raheel Painter Referrals: Kristen Fontenot MD [Physician] - 2 weeks Guerra,ALVARO Rivas [Primary Care Provider] - 05/19/21 9:00 am Discharge Diet: Cardiac and Diabetic Discharge Activity: Increase activity as tolerated Patient Instructions: Hydralazine (By mouth) (Apresoline), Carvedilol (By mouth) (Coreg, Coreg CR, Hypertenevide-12.5), Sitagliptin (By mouth) (Januvia), Opioid Safety Activity Restrictions/Additional Instructions: Take all meds as prescribed. Take blood sugar morning before meal, and at bedtime before sleep and present to your primary care provider at follow-up. Return for any concerns. 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
--- NOTE | 2021-05-13 13:45 | PC.NURSE ---
Discharge Note Patient discharged to home via private vehicle. All lines removed. Discharge instructions reviewed with patient. Patient verbalized understanding of all teaching. Mobile pharmacy medications and/or prescriptions provided. Belongings/home medications returned.
== END 2021-05-13 13:15 | disposition home or self-care (01) ==
LOC: ER 09:45 → CSU 10:49
PROVIDERS: Admitting Provider Internal Medicine; Emergency Provider Family Medicine; PCP Nurse Practitioner Family; Visit Provider Internal Medicine
DX: R07.9 Chest pain, unspecified (principal); I35.1 Nonrheumatic aortic (valve) insufficiency; I10 Essential (primary) hypertension; E78.2 Mixed hyperlipidemia; E11.65 Type 2 diabetes mellitus with hyperglycemia; Z79.84 Long term (current) use of oral hypoglycemic drugs; Z79.82 Long term (current) use of aspirin
CPT/HCPCS: 36415; 36416; 71045; 78452; 80048; 82962; 83036; 84443; 84484; 85025; 93005; 93017; 93306; 96372; 96374; 96375; 99285; A9500; C9113; G0378; J1644; J1650; J1815; J2785; J3490

== ENCOUNTER 2021-05-15 07:35 | Outpatient (CLI) | payer OTHER, SELFPAY ==
--- NOTE | 2021-05-15 | XRR_ITS ---
PROCEDURE INFORMATION: Exam: XR Lumbosacral Spine Exam date and time: 05/15/2021 7:42 AM Age: 45 years old Clinical indication: Low back pain TECHNIQUE: Imaging protocol: XR of the lumbosacral spine. Views: 2 or 3 views. COMPARISON: No relevant prior studies available. FINDINGS: Bones/joints: Degenerative change. No acute bony injury or malalignment. Soft tissues: Unremarkable. Vasculature: Vascular calcification. XR/XR lumbar spine 2-3V* [id number] IMPRESSION: Degenerative change.
== END 2021-05-15 07:36 | disposition home or self-care (01) ==
LOC: RAD 07:37
PROVIDERS: PCP Nurse Practitioner Family; Visit Provider Nurse Practitioner Family
DX: M54.50 Low back pain, unspecified (principal)
CPT/HCPCS: 72100

== ENCOUNTER 2023-04-11 09:24 | Outpatient (CLI) | payer BC, SELFPAY ==
--- NOTE | 2023-04-11 09:34 | XRR_ITS ---
PROCEDURE INFORMATION: Exam: XR Chest Exam date and time: 04/11/2023 9:42 AM Age: 47 years old Clinical indication: Cough; Additional info: Chronic cough TECHNIQUE: Imaging protocol: Radiologic exam of the chest. Views: 2 views. COMPARISON: CR XR chest 1V portable [id number] 05/12/2021 6:39 AM FINDINGS: Lungs: Unremarkable. No consolidation. Pleural spaces: Unremarkable. No pleural effusion. No pneumothorax. Heart/Mediastinum: Unremarkable. No cardiomegaly. Bones/joints: Unremarkable. XR/XR chest 2V* [id number] IMPRESSION: No acute findings.
== END 2023-04-11 09:25 | disposition home or self-care (01) ==
LOC: RAD 09:31
PROVIDERS: Visit Provider Nurse Practitioner Family
DX: R05.3 Chronic cough (principal)
CPT/HCPCS: 71046

== ENCOUNTER 2023-06-16 08:41 | Inpatient (IN) | payer BC, SELFPAY ==
[2023-06-16] VITALS (12 sets, daily range): BP systolic 124–186; BP diastolic 82–125; PULSE 99–133; RESP 18–26; TEMP 36.6–36.9; O2SAT 91–97; BMI 38.2; BMI 43.2
--- NOTE | 2023-06-16 08:59 | ECG_ITS ---
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 Measurements Intervals [place] Rate: 124 P: 0 [place]: 0 QRS: 38 QRSD: 95 T: 170 QT: 316 QTc: 454 Interpretive Statements ATRIAL FIBRILLATION WITH RAPID VENTRICULAR RESPONSE WITH ABERRANT CONDUCTION OR VENTRICULAR PREMATURE COMPLEXES NONSPECIFIC ST & T-WAVE ABNORMALITY Compared to ECG 05/12/2021 08:29:42 Aberrant conduction of supraventricular beat(s) now present Ventricular premature complex(es) now present Sinus rhythm no longer present Possible ischemia no longer present T-wave abnormality still present Electronically Signed On 06-16-2023 17:06:13 CDT by Christie Gavin M.D. [id number]
--- NOTE | 2023-06-16 08:59 | XR_ITS ---
WS: [id number] Examination: XR chest 1V portable [id number] Reason for Exam: dyspnea/cough Date: June 16, 2023 Comparison: April 11, 2023 Findings: The heart appears prominent in size although this is an AP portable film. The mediastinum not widened . The rohan are prominent The markings are increased with septal lines. No large pleural effusions are identified. Markings appear increased within the right base Impression: The heart appears prominent in size. Septal lines have developed. Mild pulmonary edema could have thi s appearance.
[2023-06-16 09:07] LABS: Basophils # 0.1 10^3/uL (0.0-0.1); Basophils % 0.7 %; Eosinophils # 0.1 10^3/uL (0.0-0.8); Eosinophils % 1.5 %; Hematocrit 32.4 % (37-53); Lymphocytes # 0.9 10^3/uL (0.8-4.8); Lymphocytes % 9.9 %; Mean Corpuscular HGB Conc 30.6 g/dL (30-55); Mean Corpuscular Hemoglobin 23.1 pg (27-33); Mean Corpuscular Volume 75.5 fl (82-101); Mean Platelet Volume 9.5 fL (7.4-10.4); Monocytes # 0.6 10^3/uL (0.2-0.9); Monocytes % 6.6 %; Neutrophils # 7.34 10^3/uL (1.8-7.7); Neutrophils % 80.7 %; Nucleated Red Blood Cells % 0 %; Platelet Count 238 10^3/cmm (157-399); Red Blood Count 4.29 10^6/uL (3.85-5.65); Red Cell Distribution Width 15.3 % (12.1-15.1); White Blood Count 9.09 10^3/uL (3.29-11.43)
[2023-06-16] MEDS: dilTIAZem 5 mg/mL SDV 5 mL 20 MG IVP (09:11)
[2023-06-16] MEDS: dilTIAZem 100 MG in sodium chloride 0.9% (add-van) 100 ML IV (09:21)
[2023-06-16 09:36] LABS: Alanine Aminotransferase 45 U/L (0-41); Albumin Level 3.9 g/dL (3.5-5.2); Alkaline Phosphatase 86 U/L (40-130); Anion Gap 17.1 (5-19); Aspartate Amino Transferase 28 U/L (0-40); Blood Urea Nitrogen 36 mg/dL (6-20); Carbon Dioxide 22 mmol/L (22-29); Chloride 100 mmol/L (98-107); Creatinine Clr Calc Pharmacy 60.5203; Globulin 2.6 g/dL (1.3-4.6); Glomerular Filtration Rate 33.7 mL/min (90-130); Glucose 220 mg/dL (65-115); NT Pro B Type Natriuretic Pept 7991 pg/mL (0-125); Osmolality Calculated 297 mOsm/kg (285-295); Potassium 3.1 mmol/L (3.5-5.1); Sodium 136 mmol/L (136-145); Total Bilirubin 0.5 mg/dL (0.15-1.2); Total Protein 6.5 g/dL (6.6-8.7)
[2023-06-16 09:44] LABS: Troponin(5th) Baseline 111 ng/L (0-15)
--- NOTE | 2023-06-16 09:44 | ED_ITS ---
HPI - Arrhythmia/Palpitations 2 General: Chief Complaint: Arrhythmia/Palpitations Stated Complaint: chest pain Time Seen by Provider: 06/16/23 08:42 Source: patient Mode of arrival: ambulatory History of Present Illness: 47-year-old male presents emergency room with complaints of rapid heart rate and orthopnea generally not feeling well this been ongoing for over a week. Progressively worsening the last couple days he had to sleep sitting upright increasing shortness of breath some mild chest discomfort. Patient has known atrial fibrillation he is not on any anticoagulation he is on Coreg he took all of his regular morning medications despite this he still has a rapid heart rate this morning. He has not noticed any significant swelling in his feet. No medication changes recently. MD complaint: rapid heart beat, heart racing and atrial fibrillation Onset (ago): week(s) (1-2) Duration: constant Severity: moderate Context: occurred during rest Arrhythmia history: atrial fibrillation Associated symptoms: Reports short of breath; Deny anxiety, cough, diaphoresis, muscle cramps, nausea, paresthesias, pre- syncope, sense of impending doom, syncope or vomiting Treatments prior to arrival: beta-eric Review of Systems 2 Const: Denies: fever(s), chills or diaphoresis Card: Reports: chest pain, palpitations, dyspnea on exertion and orthopnea; Denies: syncope or pre-syncope Resp: Denies: dyspnea GI: Denies: abdominal pain, nausea or vomiting : Denies: dysuria, urinary frequency or urinary urgency Musc: Denies: neck pain, back pain or muscle cramps Skin/Breast: Denies: rash Psych: Denies: anxiety PFSH ED 2 PFSH: Medical History GERD (gastroesophageal reflux disease) History of retinal detachment Aortic regurgitation Cardiomyopathy HTN (hypertension) Hyperlipidemia Diabetes Surgical History History of knee surgery History of tonsillectomy History of cataract surgery Family History Other Cancer Diabetes Hypertension Social History Smoking and tobacco/nicotine status: never used tobacco/nicotine Alcohol intake: current Alcohol intake frequency: other Substance/Drug Use: never Physical Exam 2 Const: GENERAL APPEARANCE: cooperative and comfortable O RIENTATION/CONSCIOUSNESS: Yes awake, Yes oriented to person, Yes oriented to place and Yes oriented to time HENMT: COMMON NORMALS: normocephalic, atraumatic and hearing grossly normal bilaterally HEAD & SCALP: normocephalic and atraumatic Resp: COMMON NORMALS: normal respiratory effort, No retractions, No use of accessory muscles and clear to auscultation bilaterally AUSCULTATION: clear to auscultation bilaterally Cardio: COMMON NORMALS: No murmurs present (Cardio) RATE: tachycardic R HYTHM: abnormal rhythm irregularly irregular GI: COMMON NORMALS: Soft to palpation and No hepatosplenomegaly present A USCULTATION: Yes normoactive bowel sounds PALPATION: Yes Soft to palpation, No Tenderness to palpation present (GI), No Guarding due to palpation present (GI) and Yes No hepatosplenomegaly present Extremity: COMMON NORMALS: normal to inspection, capillary refill normal and no calf tenderness GENERAL: Yes edema Neuro: SENSORIUM/ORIENTATION: Yes oriented to person, Yes oriented to place and Yes oriented to time Skin: COMMON NORMALS: no rashes or lesions noted GENERAL SKIN EXAM: no rashes or lesions noted Course 2 Vital Signs: Vital signs: Vital Signs Temperature 98.1 F 06/16/23 08:51 Pulse Rate 131 H 06/16/23 08:51 Respiratory Rate 18 06/16/23 09:02 Blood Pressure 186/114 06/16/23 09:02 Pulse Oximetry 96 06/16/23 09:02 Oxygen Delivery Me thod Room Air 06/16/23 09:02 MDM - Arrhythmia/Palpitations Medical Decision Making A-fib with RVR poorly controlled new onset congestive heart failure and acute kidney injury as well as anemia. Troponin is elevated. Will start on heparin for now run out of troponin series. Additionally is hypokalemic will give potassium supplement. Discussed with hospitalist orders written for admission consult to cardiology Medical Records I reviewed the patient's medical records. Lab Data I reviewed the patient's lab results. 06/16/23 09:00 06/16/23 09:00 Laboratory Results WBC 9.09 10^3/uL (3.29-11.43) 06/16/23 09:00 RBC 4.29 10^6/uL (3.85-5.65) 06/16/23 09:00 Hgb 9.90 g/dL (11.27-16.99) L 06/16/23 09:00 Hct 32.4 % (37-53) L 06/16/23 09:00 MCV 75.5 fl (82-101) L 06/16/23 09:00 MCH 23.1 pg (27-33) L 06/16/23 09:00 MCHC 30.6 g/dL (30-55) 06/16/23 09:00 RDW 15.3 % (12.1-15.1) H 06/16/23 09:00 Plt Count 238 10^3/cmm (157-399) 06/16/23 09:00 MPV 9.5 fL (7.4-10.4) 06/16/23 09:00 Neut % (Auto) 80.7 % 06/16/23 09:00 Lymph % (Auto) 9.9 % 06/16/23 09:00 [place] % (Auto) 6.6 % 06/16/23 09:00 Eos % (Auto) 1.5 % 06/16/23 09:00 Baso % (Auto) 0.7 % 06/16/23 09:00 Neut # (Auto) 7.34 10^3/uL (1.8-7.7) 06/16/23 09:00 Lymph # (Auto) 0.9 10^3/uL (0.8-4.8) 06/16/23 09:00 [place] # (Auto) 0.6 10^3/uL (0.2-0.9) 06/16/23 09:00 Eos # (Auto) 0.1 10^3/uL (0.0-0.8) 06/16/23 09:00 Baso # (Auto) 0.1 10^3/uL (0.0-0.1) 06/16/23 09:00 Nucleated RBC % (auto) 0 % 06/16/23 09:00 Nucleated RBCs # 0.0 /100WBC 06/16/23 09:00 Sodium 136 mmol/L (136-145) 06/16/23 09:00 Potassium 3.1 mmol/L (3.5-5.1) L 06/16/23 09:00 Chloride 100 mmol/L (98-107) 06/16/23 09:00 Carbon Dioxide 22 mmol/L (22-29) 06/16/23 09:00 Anion Gap 17.1 (5-19) 06/16/23 09:00 BUN 36 mg/dL (6-20) H 06/16/23 09:00 Creatinine 2.1 mg/dL (0.7-1.2) H 06/16/23 09:00 GFR Calculation 33.7 mL/min (90-130) L 06/16/23 09:00 Glucose 220 mg/dL (65-115) H 06/16/23 09:00 Calculated Osmolality 297 mOsm/kg (285-295) H 06/16/23 09:00 Calcium 9.0 mg/dL (8.5-10.5) 06/16/23 09:00 Magnesium 1.8 mg/dL (1.7-2.3) 06/16/23 09:00 Iron 21 ug/dL (59-158) L 06/16/23 09:00 Iron Cancelled 06/16/23 09:00 TIBC 393 mcg/dl 06/16/23 09:00 % Saturation 5.3 % (20-50) L 06/16/23 09:00 Unsat Iron Binding 372 ug/dL (112-347) H 06/16/23 09:00 Ferritin 44 ng/mL (30-400) 06/16/23 09:00 Total Bilirubin 0.5 mg/dL (0.15-1.2) 06/16/23 09:00 AST 28 U/L (0-40) 06/16/23 09:00 ALT 45 U/L (0-41) H 06/16/23 09:00 Alkaline Phosphatase 86 U/L (40-130) 06/16/23 09:00 Troponin T Baseline 111 ng/L (0-15) H* 06/16/23 09:00 NT-Pro-B Natriuret Pep 7991 pg/mL (0-125) H 06/16/23 09:00 Total Protein 6.5 g/dL (6.6-8.7) L 06/16/23 09:00 Albumin 3.9 g/dL (3.5-5.2) 06/16/23 09:00 Globulin 2.6 g/dL (1.3-4.6) 06/16/23 09:00 TSH 1.48 uIU/mL (0.27-4.20) 06/16/23 09:00 All radiology interpretation(s) finalized by discharge Discharge Plan Discharge Patient Disposition: Admitted As Inpatient Admit Provider: Raheel Painter Clinical Impression: Atrial fibrillation with RVR, Congestive heart failure, Acute kidney injury, Elevated troponin I level, Hypokalemia Condition: Stable Coding Level of Care Code ED Destination Specialist for Luiz Botello
[2023-06-16 10:18] LABS: Ferritin 44 ng/mL (30-400); Iron 21 ug/dL (59-158); Magnesium 1.8 mg/dL (1.7-2.3); Percent Saturation 5.3 % (20-50); Thyroid Stimulating Hormone 1.48 uIU/mL (0.27-4.20); Total Iron Binding Capacity 393 mcg/dl; Unsaturated Iron Binding 372 ug/dL (112-347)
[2023-06-16] MEDS: pantoprazole 40 mg SDV 80 MG IVP (10:26)
[2023-06-16] MEDS: hyDRALAzine 20 mg/mL INJ 1 mL IVP (10:28)
[2023-06-16] MEDS: potassium phosphate (mEq K) 40 MEQ in sodium chloride 0.9% (100 ml) 100 ML 27.2699999999999996 MEQ IV (10:30)
--- NOTE | 2023-06-16 10:46 | ECG_ITS ---
[facility] Test Date: 2023-06-16 Pat Name: Jose Douglas Department: Room: 104 Gender: Male Special Education Educational Assistant: : 1975 Requested By: Tariq Lyn Order Number: [id number] Adela MD: Christie Gavin M.D. Measurements Intervals Yulan Rate: 100 P: 0 TX: 0 QRS: 43 QRSD: 98 T: 152 QT: 340 QTc: 440 Interpretive Statements ATRIAL FIBRILLATION WITH RAPID VENTRICULAR RESPONSE WITH ABERRANT CONDUCTION OR VENTRICULAR PREMATURE COMPLEXES POSSIBLE RIGHT VENTRICULAR CONDUCTION DELAY [RSR (QR) IN V1/V2] NONSPECIFIC ST & T-WAVE ABNORMALITY Compared to ECG 06/16/2023 08:46:35 No significant changes Electronically Signed On 06-16-2023 17:36:16 CDT by Christie Gavin M.D. [email or web address]
[2023-06-16 11:10] LABS: Troponin 5 2HR 95.32 ng/L (0-15)
[2023-06-16 11:11] LABS: Troponin 5 2HR Delta -15.68 ABS# (0-10)
--- NOTE | 2023-06-16 11:15 | P.HP_ITS ---
Documented by User: Susu Carroll [facility] 06/16/23 13:52 Providers/Chief Complaint 2 Admitting Physician: Raheel Painter MD Primary Care Provider: ALVARO Ellison Chief Complaint: chest pain History of Present Illness Jose Douglas is a 47 year old male with past medical history of GERD, Aortic regurgitation, cardiomyopathy, hypertension, hyperlipidemia, and diabetes present to the hospital today with chief complaint of AFib w/ RVR. About a month ago Mr. Douglas was placed on a 2 week holiter monitor by his PCP for palpitations and shortness of breath. After this trial he was then diagnosed 2 weeks ago for Arterial fibrillation and unable to see a follow-up with a cardiology until late July. Mr. Douglas begin to have more difficulty accomplishing at home task. About 0 this morning he was unable to fall back asleep and began having heart palpitation and shortness of breath. He was unable to get comfortable and came to the Emergency Room to be evaluated. Symptoms have been at least 1 week in duration, associated with orthopnea, dyspnea on exertion. No fever, blood in stool, black or tarry stool, abdominal pain, nosebleeds, severe reflux. Mr. Douglas is currently in Afib with a heart rate ranging from 106-125. He denies chest pain, blood in stool, fever. He reports cough(lasting about 2 months), nausea, intermittent shortness of breath occurring with heart palpitations. While in the Emergency Department patient received 20mg IVP hydralazine, 80mg IVP protonix, Iron Sucrose 200mg IV, cardizem 20mg IV blous, and placed on Cardizem drip- currently at a titratable rate of 10mg/hr. A CBC, CMP, Tropoinin series, TSH, BNP, Iron, Ferritin, magnesium were obtained. A EKG, chest x-ray were ordered as well. Patient to be transferred to [facility] for further treatment of arterial fibrillation. He has not had a colonoscopy or EGD in the past. Review of Systems 2 General: Reports: 10 or more systems reviewed and unremarkable except in HPI and below Medications/Allergies Home Medications Medication Instructions Recorded Confirmed Last Taken Type amlodipine 10 mg tablet 10 mg PO DAILY 03/24/19 06/16/23 06/16/23 History glipizide 5 mg tablet 5 mg PO DAILY 03/24/19 06/16/2306/15/24 History metformin 1,000 mg tablet 1,000 mg PO BID 03/24/19 06/16/23 06/16/23 History pantoprazole 40 mg tablet,delayed 40 mg PO DAILY 03/24/19 06/16/23 06/16/23 History release simvastatin 20 mg tablet 20 mg PO DAILY 03/24/19 06/16/23 06/16/23 History aspirin 325 mg tablet 325 mg PO DAILY 05/29/20 06/16/23 06/16/23 History carvedilol 25 mg tablet (Coreg) 25 mg PO BID #60 tabs 05/13/21 06/16/23 06/16/23 Rx sitagliptin phosphate 50 mg tablet 50 mg PO DAILY #30 tabs 05/13/21 06/16/23 06/16/23 Rx (Januvia) hydralazine 50 mg tablet 100 mg PO TID 06/25/21 06/16/23 06/16/23 History losartan 100 mg tablet 100 mg PO DAILY #30 tabs 04/20/23 06/16/23 06/16/23 Rx Allergies Allergy/AdvReac Type Severity Reaction Status Date / Time No Known Allergies Allergy Verified 05/12/21 08:17 PFSH Acute 2 PFSH: Medical History Coronary artery disease Nonobstructive on angiogram 2017 Nuclear stress test May/2021 mild global hypokinesis, no perfusion defects GERD (gastroesophageal reflux disease) History of retinal detachment Aortic regurgitation Cardiomyopathy HTN (hypertension) Hyperlipidemia Diabetes Surgical History History of knee surgery History of tonsillectomy History of cataract surgery Family History Other Cancer Diabetes Hypertension Social History Smoking and tobacco/nicotine status: never used tobacco/nicotine Alcohol intake: current Alcohol intake frequency: other Substance/Drug Use: never Vitals/I&O/Wt Last Vital Signs Temp 98.1 F 06/16/23 08:51 Pulse 131 H 06/16/23 08:51 Resp 18 06/16/23 09:02 BP 186/114 06/16/23 09:02 Pulse Ox 96 06/16/23 09:02 O2 Del Method Room Air 06/16/23 09:02 06/15/23 06/16/23 06/16/23 22:59 06:59 14:59 Intake Total 13.333 / 13.333 Balance 13.333 / 13.333 Weight last 48 hrs Weight 290 lb Physical Exam 2 Narrative: General exam is an white male, reports feeling short of breath. HEENT: Atraumatic normocephalic. Oropharynx clear Neck is supple no lymphadenopathy thyromegaly Cardiovascular irregular rhythm, elevated rate. Lungs clear breath sounds bilaterally. On room air. Abdomen is soft, large, non-tender, with positive bowel sounds. No obvious organomegaly exams deferred Extremities no cyanosis, cap refill brisk. Trace edema. Skin no rash Neuro no focal deficits, full ROM. Data 06/16/23 09:00 06/16/23 09:00 Other Labs: 06/16/23 Hgb 9.9, Hct 32.4 MCV 75.5, MCH 23.1 K 3.1 BUN 36, Linoleum Layer Helper 2.1 AST 28, ALT 45 Troponin basline 111, tropinin 120min 95.32 BNP 7991 TSH 1.48 Iron 21, Ferritin 44 Mag 1.8 Chest 06/16/23 X-ray IMPRESSION: The heart appears prominent in size. Septal lines have developed. Mild pulmonary edema could have this appearance. EKG 06/16/23 IMPRESSION Atrial Fibrillation with rapid ventricular response, a heart rate of 100. A&P Assessment and plan (1) Atrial fibrillation with RVR: Caridac Monitoring Echo ordered IV drip Cardizem ordered, infusing. Heparin drip (2) Congestive heart failure: IVP Lasix 40mg Q24 Monitor close I&O (3) Aortic regurgitation: Qualifiers: Cardiac valve disease etiology: nonrheumatic Qualified Code(s): I35.1 - Nonrheumatic aortic (valve) insufficiency (4) Elevated troponin I level: Secondary to (5) Anemia: (6) Hypokalemia: K 3.1 on admission, replace with 40 meq PO now and additional order for am Cardaic monitoring CMP am (7) Acute kidney injury: Renal dosing medications on renal toxic medications (8) Diabetes: Qualifiers: Diabetes mellitus complication status: with hyperglycemia Diabetes mellitus longshore equipment operator insulin use: without longshore equipment operator use Diabetes mellitus type: t ype 2 Qualified Code(s): E11.65 - Type 2 diabetes mellitus with hyperglycemia Coding Level of Care Code 89892 Diagnoses Atrial fibrillation with RVR I48.91 Congestive heart failure I50.9 Nonrheumatic aortic valve insufficiency I35.1 Cardiac valve disease etiology: nonrheumatic Elevated troponin I level R79.89 Anemia D64.9 Hypokalemia E87.6 Acute kidney injury N17.9 Diabetes E11.65 Diabetes mellitus complication status: with hyperglycemia Diabetes mellitus longshore equipment operator insulin use: without intermediate use Diabetes mellitus type: type 2 Time Spent (min) 59 Documented by User: Raheel Painter MD 06/16/23 14:00 Providers/Chief Complaint 2 Chief Complaint: chest pain History of Present Illness Jose Douglas is a 47 year old male with past medical history of GERD, Aortic regurgitation, cardiomyopathy, hypertension, hyperlipidemia, and diabetes present to the hospital today with chief complaint of AFib w/ RVR. About a month ago Mr. Douglas was placed on a 2 week holiter monitor by his PCP for palpitations and shortness of breath. After this trial he was then diagnosed 2 weeks ago for Arterial fibrillation and unable to see a follow-up with a cardiology until late July. Mr. Douglas begin to have more difficulty accomplishing at home task. About 0400 this morning he was unable to fall back asleep and began having heart palpitation and shortness of breath. He was unable to get comfortable and came to the Emergency Room to be evaluated. Symptoms have been at least 1 week in duration, associated with orthopnea, dyspnea on exertion. No fever, blood in stool, black or tarry stool, abdominal pain, nosebleeds, severe reflux. Mr. Douglas is currently in Afib with a heart rate ranging from 106-125. He denies chest pain, blood in stool, fever. He reports cough(lasting about 2 months), nausea, intermittent shortness of breath occurring with heart palpitations. While in the Emergency Department patient received 20mg IVP hydralazine, 80mg IVP protonix, cardizem 20mg IV blous, and placed on Cardizem drip- currently at a titratable rate of 10mg/hr. A CBC, CMP, Tropoinin series, TSH, BNP, Iron, Ferritin, magnesium were obtained. A EKG, chest x-ray were ordered as well. Patient to be transferred to [facility] for further treatment of arterial fibrillation. He has not had a colonoscopy or EGD in the past. Review of Systems 2 Card: Reports: palpitations; Denies: chest pain Resp: Reports: dyspnea GI: Denies: abdominal pain, nausea, vomiting, change in stool character or hematochezia Medications/Allergies Home Medications Medication Instructions Recorded Confirmed Last Taken Type amlodipine 10 mg tablet 10 mg PO DAILY 03/24/19 06/16/23 06/16/23 History glipizide 5 mg tablet 5 mg PO DAILY 03/24/19 06/16/23 06/16/23 History metformin 1,000 mg tablet 1,000 mg PO BID 03/24/19 06/16/23 06/16/23 History pantoprazole 40 mg tablet,delayed 40 mg PO DAILY 03/24/19 06/16/23 06/16/23 History release simvastatin 20 mg tablet 20 mg PO DAILY 03/24/19 06/16/23 06/16/23 History aspirin 325 mg tablet 325 mg PO DAILY 05/29/20 06/16/23 06/16/23 History carvedilol 25 mg tablet (Coreg) 25 mg PO BID #60 tabs 05/13/21 06/16/23 06/16/23 Rx sitagliptin phosphate 50 mg tablet 50 mg PO DAILY #30 tabs 05/13/21 06/16/23 06/16/23 Rx (Januvia) hydralazine 50 mg tablet 100 mg PO TID 06/25/21 06/16/23 06/16/23 History losartan 100 mg tablet 100 mg PO DAILY #30 tabs 04/20/23 06/16/23 06/16/23 Rx Allergies Allergy/AdvReac Type Severity Reaction Status Date / Time No Known Allergies Allergy Verified 05/12/21 08:17 PFSH Acute 2 PFSH: Medical History Coronary artery disease Nonobstructive on angiogram 2017 Nuclear stress test May/2021 mild global hypokinesis, no perfusion defects GERD (gastroesophageal reflux disease) History of retinal detachment Aortic regurgitation Cardiomyopathy HTN (hypertension) Hyperlipidemia Diabetes Surgical History History of knee surgery History of tonsillectomy History of cataract surgery Family History Other Cancer Diabetes Hypertension Social History Smoking and tobacco/nicotine status: never used tobacco/nicotine Alcohol intake: current Alcohol intake frequency: other Substance/Drug Use: never Physical Exam 2 Narrative: General exam is an white male, reports feeling short of breath. HEENT: Atraumatic normocephalic. Oropharynx clear Neck is supple no lymphadenopathy thyromegaly Cardiovascular irregular, irregular rhythm, elevated rate. Lungs clear breath sounds bilaterally. On room air. Abdomen is soft, large, non-tender, with positive bowel sounds. No obvious organomegaly exams deferred Extremities no cyanosis, cap refill brisk. Trace edema. Skin no rash Neuro no focal deficits, full ROM. Data 06/16/23 09:00 06/16/23 09:00 Other Labs: 06/16/23 Hgb 9.9, Hct 32.4 MCV 75.5, MCH 23.1 K 3.1 BUN 36, Linoleum Layer Helper 2.1 AST 28, ALT 45 Troponin basline 111, tropinin 120min 95.32 BNP 7991 TSH 1.48 Iron 21, Ferritin 44 Mag 1.8 Chest 06/16/23 X-ray IMPRESSION: The heart appears prominent in size. Septal lines have developed. Mild pulmonary edema could have this appearance. I reviewed this personally. EKG 06/16/23 IMPRESSION Atrial Fibrillation with rapid ventricular response, a heart rate of 100. I reviewed this personally. Nonspecific ST-T wave changes. A&P Assessment and plan (1) Atrial fibrillation with RVR: Caridac Monitoring Echo ordered IV drip Cardizem ordered, infusing. Initiate p.o. Cardizem Continue his home carvedilol Heparin drip Echocardiogram Cardiology consult Magnesium, TSH checked and normal Potassium we are supplementing Secondary to heart failure, Lasix 40 mg IV x 1, reassess in the morning (2) Congestive heart failure: Lasix as above Monitor close I&O Check echocardiogram. (3) Aortic regurgitation: Check echocardiogram Qualifiers: Cardiac valve disease etiology: nonrheumatic Qualified Code(s): I35.1 - Nonrheumatic aortic (valve) insufficiency (4) Elevated troponin I level: Likely type II elevation Previous coronary cath in 2017 demonstrated nonobstructive coronary disease. Nuclear stress test several years ago demonstrated no ischemia. Cardiology will review as well. (5) Anemia: MCV is low Iron studies demonstrate iron deficiency anemia Iron infusion today Cautiously giving heparin, monitoring for any bleeding Repeat CBC tomorrow He has never had an EGD or colonoscopy Protonix 40 mg IV every 12 hours (6) Hypokalemia: K 3.1 on admission, replaced with 40 mill equivalents IV from the emergency department. Will give some p.o. and tonight and recheck potassium in the morning. Magnesium was checked and normal. Cardaic monitoring CMP am (7) Acute kidney injury: Renal dosing medications on renal toxic medications Renal ultrasound, to make sure no obstruction is present Hold ARB (8) Diabetes: Sliding scale insulin Consistent carb diet Qualifiers: Diabetes mellitus complication status: with hyperglycemia Diabetes mellitus intermediate insulin use: without longshore equipment operator use Diabetes mellitus type: t ype 2 Qualified Code(s): E11.65 - Type 2 diabetes mellitus with hyperglycemia Plan Hypertension Reduce hydralazine dose to 50 mg 3 times daily to make room for addition of Cardizem. Hold amlodipine. Stop losartan secondary to renal insufficiency, at least briefly. Continue carvedilol. Other medical problems as outlined in past medical history Full code Heparin and SCDs will suffice for DVT prophylaxis Attestations 2 Medical Necessity Statement*: Needs rater than 2 midnight stay for eval and treatment of CHF, Afib with RVR Diagnoses Atrial fibrillation with RVR I48.91 Congestive heart failure I50.9 Nonrheumatic aortic valve insufficiency I35.1 Cardiac valve disease etiology: nonrheumatic Elevated troponin I level R79.89 Anemia D64.9 Hypokalemia E87.6 Acute kidney injury N17.9 Diabetes E11.65 Diabetes mellitus complication status: with hyperglycemia Diabetes mellitus longshore equipment operator insulin use: without intermediate use Diabetes mellitus type: type 2 Time Spent (min) 59
--- NOTE | 2023-06-16 12:04 | P.CONIM_ITS ---
Providers/Reason For Consult 2 Consulting Physician/Specialty*: Oneil Muhammad MD/ Cardiology Reason for Consult*: Atrial fibrillation with RVR/ Troponin elevation Requesting Physician: Dr Mccormick Attending Physician: Raheel Painter MD Primary Care Provider: ALVARO Ellison History of Present Illness History of Present Illness Jose Douglas is a 47 year old male with past medical history of diabetes, hypertension who was recently diagnosed with atrial fibrillation. He had prior cath several years ago that did not show obstructive CAD. He came to hospital with worsening shortness of breath. He was recently diagnosed with atrial fibrillation. Also has orthopnea. NT proBNP is over 7000. Initial troponin was elevated at 111 however has trended down. He has anemia. Also creatinine is elevated at 2.1. This is a bump from previous labs which are not recent. His blood pressure is elevated. Heart rates are in 110-130 bpm range. He says he has occasional chest pressure. But no severe pain. Review of Systems 2 General: Reports: 10 or more systems reviewed and unremarkable except in HPI and below Card: Reports: palpitations; Denies: chest pain Resp: Reports: dyspnea GI: Denies: abdominal pain, nausea, vomiting, change in stool character or hematochezia Medications/Allergies Home Medications Medication Instructions Recorded Confirmed Last Taken Type amlodipine 10 mg tablet 10 mg PO DAILY 03/24/19 06/16/23 06/16/23 History glipizide 5 mg tablet 5 mg PO DAILY 03/24/19 06/16/23 06/16/23 History metformin 1,000 mg tablet 1,000 mg PO BID 03/24/19 06/16/23 06/16/23 History pantoprazole 40 mg tablet,delayed 40 mg PO DAILY 03/24/19 06/16/23 06/16/23 History release simvastatin 20 mg tablet 20 mg PO DAILY 03/24/19 06/16/23 06/16/23 History aspirin 325 mg tablet 325 mg PO DAILY 05/29/20 06/16/23 06/16/23 History carvedilol 25 mg tablet (Coreg) 25 mg PO BID #60 tabs 05/13/21 06/16/23 06/16/23 Rx sitagliptin phosphate 50 mg tablet 50 mg PO DAILY #30 tabs 05/13/21 06/16/23 06/16/23 Rx (Januvia) hydralazine 50 mg tablet 100 mg PO TID 06/25/21 06/16/23 06/16/23 History losartan 100 mg tablet 100 mg PO DAILY #30 tabs 04/20/23 06/16/23 06/16/23 Rx Allergies Allergy/AdvReac Type Severity Reaction Status Date / Time No Known Allergies Allergy Verified 05/12/21 08:17 Current Medications Generic Name Dose Route Start Last Admin Trade Name Freq PRN Reason Stop Dose Admin Diltiazem HCl 100 mg/ Sodium 100 mls @ 0 mls/hr 06/16/23 09:00 06/16/23 10:58 Chloride IV 15 mg/hr .Q0M ASHLEY 15 mls/hr Titration Protocol Per Protocol Potassium Phosphate 40 meq/ 108.5106 mls @ 27.273 mls/hr 06/16/23 10:00 06/16/23 10:30 Sodium Chloride IV 06/16/23 13:58 27.27 mls/hr ONCE ONE Administration PFSH Acute 2 PFSH: Medical History Coronary artery disease Nonobstructive on angiogram 2017 Nuclear stress test May/2021 mild global hypokinesis, no perfusion defects GERD (gastroesophageal reflux disease) History of retinal detachment Aortic regurgitation Cardiomyopathy HTN (hypertension) Hyperlipidemia Diabetes Surgical History History of knee surgery History of tonsillectomy History of cataract surgery Family History Other Cancer Diabetes Hypertension Social History Smoking and tobacco/nicotine status: never used tobacco/nicotine Alcohol intake: current Alcohol intake frequency: other Substance/Drug Use: never Vitals/I&O/Wt Last Vital Signs Temp 98.1 F 06/16/23 08:51 Pulse 105 H 06/16/23 11:15 Resp 26 H 06/16/23 11:15 BP 127/92 06/16/23 11:15 Pulse Ox 97 06/16/23 11:15 O2 Del Method Room Air 06/16/23 09:02 06/15/23 06/16/2306/15/24 22:59 06:59 14:59 Intake Total 13.333 / 13.333 Balance 13.333 / 13.333 Weight last 48 hrs Weight 290 lb Physical Exam 2 Narrative: GENERAL: Patient is alert, awake and oriented x3. [] NECK: No jugular vein distension. [] HEENT: No cyanosis. No icterus. No pallor. [] HEART: Regular S1 and S2. No murmur, rub or gallop. [] LUNGS:Diminished air entry bilaterally. CENTRAL NERVOUS SYSTEM: Grossly nonfocal. [] EXTREMITIES: Lower extremities with 1+ edema bilaterally. Data 06/17/23 06:22 06/17/23 06:22 A&P Assessment and plan (1) Atrial fibrillation with RVR: (2) Congestive heart failure: (3) Aortic regurgitation: Qualifiers: Cardiac valve disease etiology: nonrheumatic Qualified Code(s): I35.1 - Nonrheumatic aortic (valve) insufficiency (4) Elevated troponin I level: (5) Anemia: (6) Hypokalemia: (7) Acute kidney injury: (8) Diabetes: Qualifiers: Diabetes mellitus complication status: with hyperglycemia Diabetes mellitus middle or intermediate school principal insulin use: without middle or intermediate school principal use Diabetes mellitus type: t e 2 Qualified Code(s): E11.65 - Type 2 diabetes mellitus with hyperglycemia Plan Patient has presented with atrial fibrillation with RVR. Currently on Cardizem drip. We will continue with that. Continue Coreg. Can uptitrate as needed. He has renal failure and anemia. Will need further workup on low hemoglobin. Denies dark stools. Continue IV lasix. Will need to monitor renal function Blood pressure is elevated. If BP stays elevated, will start po hydralazine 100mg TID Order echocardiogram Thank you for involving us with care of this patient. We will continue to follow. please call with questions. Consult Attestations 2 Medical Necessity Statement: Care expected to cross 2 midnights. Coding Level of Care Code Acute Code for [facility] Fwd Diagnoses Atrial fibrillation with RVR I48.91 Congestive heart failure I50.9 Nonrheumatic aortic valve insufficiency I35.1 Cardiac valve disease etiology: nonrheumatic Elevated troponin I level R79.89 Anemia D64.9 Hypokalemia E87.6 Acute kidney injury N17.9 Diabetes E11.65 Diabetes mellitus complication status: with hyperglycemia Diabetes mellitus nursing home insulin use: without middle or intermediate school principal use Diabetes mellitus type: type 2
--- NOTE | 2023-06-16 12:19 | PC.NURSE ---
Patient presents to [facility] from the ED via a bed at 1200.
--- NOTE | 2023-06-16 12:39 | US_ITS ---
WS: [id number] RENAL ULTRASOUND HISTORY: renal failure COMPARISON: None available. Extremely limited evaluation of the kidneys. TECHNIQUE: 2-D and color Doppler imaging of the kidney submitted. Right kidney: 11.9 cm x 6.5 cm x 6.8 cm. Cortex: 1.3 cm Poorly visualized kidney. Mass would be difficult to exclude. There is no hydronephrosis identified. Left kidney: 11.0 cm x 7.1 cm x 6.0 cm. Cortex: 1.2 cm Poorly visualized kidney. It would be difficult to exclude mass or hydronephrosis. Aorta: Not visualized. Urinary Bladder: Not visualized. IMPRESSION: Technically very limited evaluation of the kidneys. Neither kidney is well visualized. It would be di fficult to exclude hydronephrosis or mass.
[2023-06-16] MEDS: heparin 5,000 unit/mL INJ 1 mL IV (13:24)
[2023-06-16] MEDS: heparin drip 25,000 UNIT/500 ML PREMIX 42 UNIT IV (13:27)
[2023-06-16] MEDS: FUROsemide 10 mg/mL SDV 4mL 40 MG IVP (14:58)
[2023-06-16] MEDS: dilTIAZem 30 mg Tablet PO ×2 (14:58→19:27)
[2023-06-16] MEDS: hyDRALAzine 50 mg Tablet PO (14:59)
[2023-06-16] MEDS: iron sucrose 200 MG in sodium chloride 0.9% (100 ml) 100 ML 220 MG IV (14:59)
--- NOTE | 2023-06-16 15:13 | ECG_ITS ---
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 Measurements Intervals [place] Rate: 121 P: 0 HI: 0 QRS: 47 QRSD: 103 T: 122 QT: 340 QTc: 483 Interpretive Statements ATRIAL FIBRILLATION WITH RAPID VENTRICULAR RESPONSE WITH ABERRANT CONDUCTION OR VENTRICULAR PREMATURE COMPLEXES INCOMPLETE RIGHT BUNDLE BRANCH BLOCK [90+ ms QRS DURATION, TERMINAL R IN V1/V2, 40+ ms S IN I/aVL/V4/V5/V6] NONSPECIFIC ST & T-WAVE ABNORMALITY Compared to ECG 06/16/2023 10:46:07 Incomplete right bundle-branch block now present T-wave abnormality still present Electronically Signed On 06-16-2023 17:40:28 CDT by Christie Gavin M.D. [id number]
[2023-06-16 15:15] LABS: Creatine Phosphokinase 122 U/L (39-308)
[2023-06-16 15:24] LABS: Troponin 5 6HR 101.9 ng/L (0-15); Troponin 5 6HR Delta -9.1 ng/L (0-12)
[2023-06-16] MEDS: dilTIAZem 100 MG in sodium chloride 0.9% (add-van) 100 ML 15 MG IV ×2 (16:02→21:52)
[2023-06-16 16:28] LABS: Bilirubin Urine Neg (Negative); Blood Urine Neg (Negative); Glucose Urine UA Norm (Normal); Ketones Urine Negative (Negative); Nitrate Urine Negative (Negative); Protein Urine Trace (Negative); Specific Gravity, Urine 1.015 (1.005-1.030); Urine Appearance Clear (CLEAR); Urine Color Yellow (Yellow); pH Urine 5 (5-7)
[2023-06-16 16:29] LABS: Add Urine Microscopic? YES; Leukocyte Esterase Urine Negative (Negative); Urobilinogen Urine Neg (Negative)
--- NOTE | 2023-06-16 16:31 | PC.NURSE ---
Provider is notified that patients blood pressures have been elevated since coming to the unit. Provider ordered an additional 25mg of hydralazine PO for now, and change his dose to hydralazine 100mg TID starting tonight.
[2023-06-16 16:32] LABS: Glucose Point of Care 140 mg/dL (70-110)
[2023-06-16 16:33] LABS: Add Urine Culture? No; Bacteria Urine TRACE /hpf; RBC Urine RARE /hpf (0-2); Squamous Epithelial Cell Urine RARE /hpf (0-5); WBC Urine RARE /hpf (0-5)
[2023-06-16] MEDS: hyDRALAzine 25 mg Tablet PO (16:38)
[2023-06-16] MEDS: carvedilol 25 mg Tablet PO (17:42)
[2023-06-16] MEDS: potassium chloride ER 20 mEq Tablet PO (17:42)
[2023-06-16 18:17] LABS: Partial Thromboplastin Time 55.9 SECONDS (23.9-36.7)
[2023-06-16] MEDS: pantoprazole 40 mg SDV IVP (19:27)
[2023-06-16] MEDS: acetaminophen 325 mg Tablet 650 MG PO (19:28)
[2023-06-16] MEDS: hyDRALAzine 50 mg Tablet 100 MG PO (20:45)
[2023-06-16 22:01] LABS: Glucose Point of Care 238 mg/dL (70-110)
[2023-06-17] VITALS (59 sets, daily range): BP systolic 139–195; BP diastolic 90–127; PULSE 87–136; RESP 12–34; TEMP 36.5–37.3; O2SAT 90–97
[2023-06-17] LABS: Partial Thromboplastin Time 78.4 SECONDS (23.9-36.7)
[2023-06-17] MEDS: heparin drip 25,000 UNIT/500 ML PREMIX 39 UNIT IV (00:28)
[2023-06-17] MEDS: dilTIAZem 30 mg Tablet PO ×2 (01:25→08:37)
[2023-06-17] MEDS: dilTIAZem 100 MG in sodium chloride 0.9% (add-van) 100 ML 10 MG IV (04:19)
[2023-06-17] MEDS: hyDRALAzine 50 mg Tablet 100 MG PO ×3 (04:53→20:40)
--- NOTE | 2023-06-17 04:53 | PC.NURSE ---
pt bp elevated throughout the night. currently 168/121. nurse called dr for orders. dr said to give dose of hydralazine early.
--- NOTE | 2023-06-17 06:00 | USCV_ITS ---
Jose Douglas Age: 47 Gender: M : 1975 Exam Date: 06/17/2023 14:03 Ordering Phys: Raheel Painter MD Technologist: Jaiden Morgan Exam Location: [facility] [place] Indication: a fib BP: 168 / 127 HR: 104 Rhythm: Atrial fibrillation Technical Quality: Adequate MEASUREMENTS (Male / Female) Normal Values 2D ECHO LVOT Diameter 2.5 cm LV Ejection Fraction MOD 2C 77.6 % LV Ejection Fraction 2C AL 50.1 % LA Diameter 5.2 cm RA Systolic Volume 4C AL 97.1 ml RA Systolic Volume 4C MOD 97.3 ml Aorta at Sinotubular Diameter 2.9 cm IVC Diameter 2.6 cm M-MODE LA Ao Ratio MM 1.3 AV Cusp Separation MM 2.0 cm DOPPLER AV Peak Velocity 116.0 cm/s LVOT Peak Velocity 89.0 cm/s AV Area Cont Eq vti 3.0 cm squared AV Area Cont Eq pk 3.6 cm squared MV Peak Velocity 139.0 cm/s MV Area PHT 7.0 cm squared Mitral E to A Ratio 22.7 TR Peak Velocity 330.0 cm/s TR Peak Gradient 43.6 mmHg TR Mean Velocity 206.0 cm/s TR Mean Gradient 20.3 mmHg TR Velocity Time Integral 58.5 cm PV Peak Velocity 95.0 cm/s FINDINGS Left Ventricle Left ventricle is normal in size. LV systolic function is normal with EF of 55-60%. No regional wall motion abnormalities are seen. Diastolic function is indeterminate because of atrial fibrillation. Right Ventricle Normal in size and function Right Atrium Dilated Left Atrium Dilated Mitral Valve Mild mitral annular calcification. Mild mitral regurgitation. Aortic Valve Structurally normal aortic valve. Trace aortic regurgitation. No significant stenosis. Tricuspid Valve Mild tricuspid regurgitation. Insufficient TR jet to evaluate RVSP. Pulmonic Valve Not well visualized Pericardium Trace pericardial effusion Aorta Normal in size IVC Dilated CONCLUSIONS LV systolic function is normal with EF of 55-60% Diastolic function is indeterminate because of atrial fibrillation Biatrial dilation Mild mitral regurgitation Trace aortic regurgitation Mild tricuspid regurgitation Trace pericardial effusion IVC is dilated. Oneil Muhammad MD (Electronically Signed) Final Date: 18 June 2023 09:20 S
[2023-06-17 06:50] LABS: Basophils # 0.1 10^3/uL (0.0-0.1); Basophils % 0.7 %; Eosinophils # 0.3 10^3/uL (0.0-0.8); Eosinophils % 2.5 %; Hematocrit 30.3 % (37-53); Lymphocytes # 1.3 10^3/uL (0.8-4.8); Lymphocytes % 11.4 %; Mean Corpuscular Hemoglobin 23.7 pg (27-33); Mean Corpuscular Volume 76.3 fl (82-101); Mean Platelet Volume 10.3 fL (7.4-10.4); Monocytes % 8.5 %; Neutrophils # 8.56 10^3/uL (1.8-7.7); Neutrophils % 76.3 %; Nucleated Red Blood Cells % 0 %; Platelet Count 256 10^3/cmm (157-399); Red Blood Count 3.97 10^6/uL (3.85-5.65); Red Cell Distribution Width 15.6 % (12.1-15.1); White Blood Count 11.23 10^3/uL (3.29-11.43)
[2023-06-17 06:53] LABS: Glucose Point of Care 165 mg/dL (70-110)
[2023-06-17 07:02] LABS: Alanine Aminotransferase 37 U/L (0-41); Albumin Level 3.8 g/dL (3.5-5.2); Alkaline Phosphatase 72 U/L (40-130); Anion Gap 16.3 (5-19); Aspartate Amino Transferase 18 U/L (0-40); Blood Urea Nitrogen 34 mg/dL (6-20); Calcium 8.8 mg/dL (8.5-10.5); Carbon Dioxide 22 mmol/L (22-29); Chloride 104 mmol/L (98-107); Globulin 2.8 g/dL (1.3-4.6); Glomerular Filtration Rate 33.7 mL/min (90-130); Glucose 169 mg/dL (65-115); Magnesium 1.9 mg/dL (1.7-2.3); Osmolality Calculated 300 mOsm/kg (285-295); Potassium 3.3 mmol/L (3.5-5.1); Sodium 139 mmol/L (136-145); Total Bilirubin 0.6 mg/dL (0.15-1.2); Total Protein 6.6 g/dL (6.6-8.7)
[2023-06-17 07:06] LABS: Partial Thromboplastin Time 74.2 SECONDS (23.9-36.7)
[2023-06-17 07:07] LABS: Creatinine Clr Calc Pharmacy 64.5168
--- NOTE | 2023-06-17 07:39 | PM.PN ---
Subjective Subjective: Patient still short of breath. No chest pain. Heart rates are better controlled today. Blood pressure still elevated. Vitals/I&O/Wt Last Vital Signs Temp 98.2 F 06/17/23 07:09 Pulse 109 H 06/17/23 07:09 Resp 30 H 06/17/23 07:09 BP 189/120 06/17/23 07:09 Pulse Ox 93 06/17/23 07:09 O2 Del Method Room Air 06/17/23 07:09 06/16/23 06/17/23 06/17/23 22:59 06:59 14:59 Intake Total 482.0106 / 495.3436 1357.683 / 1853.0266 Output Total 1600 / 1600 375 / 1975 Balance -1117.9894 / -1104.6564 982.683 / -121.9734 Weight last 48 hrs Weight 326 lb 9.6 oz Weight 328 lb Weight 290 lb Physical Exam Narrative: GENERAL: Patient is alert, awake and oriented x3. [] NECK: No jugular vein distension. [] HEENT: No cyanosis. No icterus. No pallor. [] HEART: Regular S1 and S2. No murmur, rub or gallop. [] LUNGS:Diminished air entry bilaterally. CENTRAL NERVOUS SYSTEM: Grossly nonfocal. [] EXTREMITIES: Lower extremities with 1+ edema bilaterally. Data 06/18/23 03:02 06/18/23 03:02 A&P Assessment and plan (1) Atrial fibrillation with RVR: (2) Congestive heart failure: (3) Aortic regurgitation: Qualifiers: Cardiac valve disease etiology: nonrheumatic Qualified Code(s): I35.1 - Nonrheumatic aortic (valve) insufficiency (4) Elevated troponin I level: (5) Anemia: (6) Hypokalemia: (7) Acute kidney injury: (8) Diabetes: Qualifiers: Diabetes mellitus complication status: with hyperglycemia Diabetes mellitus senior living insulin use: without senior living use Diabetes mellitus type: type 2 Qualified Code(s): E11.65 - Type 2 diabetes mellitus with hyperglycemia Plan Initiate hydralazine 100 mg 3 times daily. Aggressive diuretic therapy. Monitor I&O's and renal function. Echo pending. Heart rates are better controlled. In case by tomorrow heart rates are still uncontrolled, can consider initiating amiodarone. Monitor Hemoglobin. Anticoagulation Thank you for involving us with care of this patient. We will continue to follow. please call with questions. Attestations Medical Necessity Statement*: Care expected to cross 2 midnights. Coding Level of Care Code Acute Code for [facility] Fwd Diagnoses Atrial fibrillation with RVR I48.91 Congestive heart failure I50.9 Nonrheumatic aortic valve insufficiency I35.1 Cardiac valve disease etiology: nonrheumatic Elevated troponin I level R79.89 Anemia D64.9 Hypokalemia E87.6 Acute kidney injury N17.9 Diabetes E11.65 Diabetes mellitus complication status: with hyperglycemia Diabetes mellitus senior living insulin use: without senior living use Diabetes mellitus type: type 2
[2023-06-17] MEDS: atorvastatin 40 mg Tablet 20 MG PO (08:37)
[2023-06-17] MEDS: pantoprazole 40 mg SDV IVP ×2 (08:37→20:37)
[2023-06-17] MEDS: carvedilol 25 mg Tablet PO ×2 (08:37→17:26)
[2023-06-17] MEDS: aspirin 81 mg EC Tablet PO (08:37)
--- NOTE | 2023-06-17 10:36 | CTR_ITS ---
PROCEDURE INFORMATION: Exam: CT Abdomen And Pelvis Without Contrast Exam date and time: 06/17/2023 10:58 AM Age: 47 years old Clinical indication: Other: Aman; Additional info: Aman on ckd, possible obs nephropathy TECHNIQUE: Imaging protocol: Computed tomography of the abdomen and pelvis without contrast. Radiation optimization: All CT scans at this facility use at least one of these dose optimization techniques: automated exposure control; mA and/or kV adjustment per patient size (includes targeted exams where dose is matched to clinical indication); or iterative reconstruction. COMPARISON: US renal BI* [id number] 06/16/2023 2:49 PM RADIATION DOSE METRICS: Total DLP (mGy-cm): 1335.23 FINDINGS: Lungs: See Pleural spaces finding. Pleural spaces: Moderate bilateral pleural effusions are noted along with bibasilar atelectasis.The prostate gland is abnormally enlarged. Liver: Normal. No mass. Gallbladder and bile ducts: Normal. No calcified stones. No ductal dilation. Pancreas: Normal. No ductal dilation. Spleen: Normal. No splenomegaly. Adrenal glands: Normal. No mass. Kidneys and ureters: Normal. No hydronephrosis. Stomach and bowel: Unremarkable. No obstruction. No mucosal thickening. Appendix: No evidence of appendicitis. Intraperitoneal space: Unremarkable. No free air. No significant fluid collection. Vasculature: Unremarkable. No abdominal aortic aneurysm. Lymph nodes: Unremarkable. No enlarged lymph nodes. Urinary bladder: Unremarkable as visualized. Reproductive: See Pleural spaces finding. Bones/joints: Unremarkable. No acute fracture. Soft tissues: There is diffuse body wall edema. CT/CT abdomen pelvis wo con [id number] IMPRESSION: 1. Pleural effusions with diffuse body wall edema 2. Prostate enlargement 3. I see no cause for acute renal insufficiency
[2023-06-17 11:08] LABS: Amphetamines Screen Urine Negative (Negative); Barbiturates Screen Urine Negative (Negative); Benzodiazepines Screen Urine Negative (Negative); Cocaine Screen Urine Negative (Negative); Opiate Screen Urine Negative (Negative); PCP Screen Urine Negative (Negative); THC Screen Urine Negative (Negative)
[2023-06-17 11:09] LABS: Potassium, Radom Urine 17 mmol/L; Urine Creatinine 83 mg/dL (39-259); Urine Random Chloride 29 mmol/L; Urine Random Sodium 36 mmol/L
[2023-06-17 11:18] LABS: Estmated Average Glucose 177; Hemoglobin A1C 7.8 % (4.0-6.0)
[2023-06-17 11:19] LABS: Vitamin B12 189 pg/mL (232-1245)
[2023-06-17 11:30] LABS: Glucose Point of Care 205 mg/dL (70-110)
[2023-06-17] MEDS: amiodarone 150 MG/100 ML PREMIX 400 MG IV (12:08)
[2023-06-17] MEDS: potassium chloride ER 20 mEq Tablet 40 MEQ PO (12:09)
[2023-06-17] MEDS: cloNIDine 0.1 mg/24 hr Patch 1 PATCH TRANSDERMA (12:09)
[2023-06-17] MEDS: benzonatate 100 mg Capsule 200 MG PO ×3 (12:10→20:39)
[2023-06-17] MEDS: dilTIAZem 30 mg Tablet 60 MG PO ×3 (12:10→20:40)
[2023-06-17] MEDS: FUROsemide 10 mg/mL SDV 10mL 60 MG IVP ×2 (12:11→20:37)
[2023-06-17] MEDS: cyanocobalamin 1,000 mcg/mL SDV 1000 MCG IM (12:25)
[2023-06-17 13:15] LABS: Partial Thromboplastin Time 41.2 SECONDS (23.9-36.7)
--- NOTE | 2023-06-17 13:36 | PM.PN ---
Subjective Subjective: Hospital course, labs appreciated. Today morning seen with multiple family members at bedside. He is on 10 of IV Cardizem. Heart rate still running in more than 110, A-fib. Patient complaining of difficulty in breathing and cough specially when he is trying to lie down. Currently he is sitting up with head of the bed at 75 degrees. Vitals/I&O/Wt Last Vital Signs Temp 97.8 F 06/17/23 11:27 Pulse 117 H 06/17/23 11:27 Resp 20 H 06/17/23 11:27 BP 168/127 06/17/23 11:27 Pulse Ox 94 06/17/23 11:27 O2 Del Method Room Air 06/17/23 11:27 06/16/23 06/17/23 06/17/23 22:59 06:59 14:59 Intake Total 482.0106 / 495.3436 1357.683 / 1853.0266 1220 / 1220 Output Total 1600 / 1600 375 / 1975 Balance -1117.9894 / -1104.6564 982.683 / -121.9734 1220 / 1220 Weight last 48 hrs Weight 148.143 kg Weight 148.778 kg Weight 131.542 kg Physical Exam Narrative: General: No acute distress, AO x3 HEENT: PERRLA, pupils bilaterally equal and reactive Chest: Normal vesicular breath sounds, fine Guirgius bilaterally in lower zone equal good air entry bilaterally CVS: S1-S2 irregularly irregular no murmurs, tachycardia, no gallops, no rubs Abdomen: Soft, nontender, no organomegaly, bowel sounds present Neuro: No focal deficits, no facial deformity, AO x3, power 5/5 in all limbs Data 06/17/23 06:22 06/17/23 06:22 A&P Assessment and plan (1) Atrial fibrillation with RVR: Patient continues to remain in RVR. Not controlled currently on Cardizem of IV 10, 30 4 times daily orally, Coreg 25 mg twice daily. Switch to IV amiodarone. 150 mg bolus followed by IV drip. Stop IV Cardizem. Change oral Cardizem to 60 4 times daily. Continue with Coreg 25 mg twice daily. TSH normal. Echocardiogram once heart rate below 100. Continue with heparin drip for anticoagulation. Artemio Vascor 3 for hypertension, CHF type 2 diabetes mellitus. Patient will be discharged on oral anticoagulation. (2) Congestive heart failure: Strict input output charting, daily weights. Patient also has concerns for JOLANTA versus CKD. Tolliver catheterization. He is agreeable for now. IV Lasix 60 mg 3 times daily. Target negative of 1 to 1.5 L in next 24 hours. Fluid restriction less than 1500 cc. (3) Uncontrolled hypertension: Goal blood pressure less than 140/90 mmHg Blood pressure is extremely elevated. Continue with hydralazine 100 mg 3 times daily, Coreg 25 mg twice daily, Cardizem 60 mg 4 times a day. Holding off on losartan given JOLANTA versus CKD. If needed will start on clonidine patch. (4) Elevated troponin I level: Likely type II elevation in setting of uncontrolled hypertension was congestive heart failure and atrial fibrillation. Previous coronary cath in 2017 demonstrated nonobstructive coronary disease. Nuclear stress test several years ago demonstrated no ischemia. Patient would benefit from Lexiscan stress test once euvolemic. (5) Anemia: Denies any black tarry bowel movements. Stool for occult blood. High concern for iron deficiency anemia. Appreciate iron panel. Check vitamin B12 and folate levels. Start on IV iron for overall 5-day course. Day 2 today. Continue with heparin drip for now. If stool palpable is positive we will plan for EGD or colonoscopy. Continue Protonix 40 mg twice daily for now. (6) Hypokalemia: Plan for aggressive diuresis. Repeat in afternoon. Replete accordingly. (7) Acute kidney injury: JOLANTA versus CKD. Last creatinine from few years ago normal. Cannot rule out hypertensive CKD. Check CT abdomen pelvis to rule out obstructive nephropathy. Tolliver catheterization as above. Flomax 0.4 daily. Medical reconciliation done for nephrotoxic drugs. Check urine lites, urine creatinine, urine eosinophils. (8) Diabetes: Check A1c. Sliding scale insulin Consistent carb diet Qualifiers: Diabetes mellitus complication status: with hyperglycemia Diabetes mellitus detention insulin use: without long lines operator use Diabetes mellitus type: type 2 Qualified Code(s): E11.65 - Type 2 diabetes mellitus with hyperglycemia (9) Aortic regurgitation: Check echocardiogram Qualifiers: Cardiac valve disease etiology: nonrheumatic Qualified Code(s): I35.1 - Nonrheumatic aortic (valve) insufficiency (10) Cardiomyopathy: Qualifiers: Cardiomyopathy type: other Qualified Code(s): I42.8 - Other cardiomyopathies Plan Full code Carb consistent diet Protonix will be sufficient for PUD prophylaxis Heparin drip will be sufficient for DVT prophylaxis Attestations Medical Necessity Statement*: Requires further hospitalization for management of A-fib with RVR, uncontrolled hypertension, congestive heart failure requiring aggressive diuresis Diagnoses Atrial fibrillation with RVR I48.91 Congestive heart failure I50.9 Uncontrolled hypertension I10 Elevated troponin I level R79.89 Anemia D64.9 Hypokalemia E87.6 Acute kidney injury N17.9 Diabetes E11.65 Diabetes mellitus complication status: with hyperglycemia Diabetes mellitus long lines operator insulin use: without long lines operator use Diabetes mellitus type: type 2 Nonrheumatic aortic valve insufficiency I35.1 Cardiac valve disease etiology: nonrheumatic Other cardiomyopathy I42.8 Cardiomyopathy type: other
[2023-06-17] MEDS: heparin drip 25,000 UNIT/500 ML PREMIX 44 UNIT IV (14:09)
[2023-06-17 14:18] LABS: Urine Creatinine 194 mg/dL (39-259)
[2023-06-17 14:22] LABS: Add Urine Microscopic? YES; Bilirubin Urine Neg (Negative); Blood Urine Neg (Negative); Glucose Urine UA 1+ (Normal); Ketones Urine Negative (Negative); Leukocyte Esterase Urine Negative (Negative); Nitrate Urine Negative (Negative); Protein Urine 1+ (Negative); Specific Gravity, Urine 1.025 (1.005-1.030); Urine Appearance Clear (CLEAR); Urine Color Yellow (Yellow); Urobilinogen Urine Norm (Negative); WBC Urine RARE /hpf (0-5); pH Urine 5 (5-7)
[2023-06-17 14:23] LABS: Add Urine Culture? No; Bacteria Urine 1+ /hpf
[2023-06-17 14:50] LABS: Eosinophil Urine No Eosinophils Seen; Urine Eosinophil Count 0 (0-0)
[2023-06-17] MEDS: FUROsemide 10 mg/mL SDV 4mL 40 MG IVP (15:05)
[2023-06-17] MEDS: tamsulosin 0.4 mg Capsule 0.800000000000000044 MG PO (15:05)
[2023-06-17 16:36] LABS: Glucose Point of Care 244 mg/dL (70-110)
[2023-06-17 20:50] LABS: Glucose Point of Care 228 mg/dL (70-110)
[2023-06-17 20:51] LABS: Partial Thromboplastin Time 95.4 SECONDS (23.9-36.7)
[2023-06-18] VITALS (9 sets, daily range): BP systolic 135–170; BP diastolic 90–110; PULSE 82–123; RESP 14–27; TEMP 36.5–37; O2SAT 92–97
[2023-06-18] MEDS: heparin drip 25,000 UNIT/500 ML PREMIX 36 UNIT IV (02:38)
[2023-06-18 03:52] LABS: Basophils % 0.3 %; Eosinophils # 0.1 10^3/uL (0.0-0.8); Hematocrit 29.3 % (37-53); Lymphocytes # 1.1 10^3/uL (0.8-4.8); Lymphocytes % 9.6 %; Mean Corpuscular HGB Conc 30.7 g/dL (30-55); Mean Corpuscular Hemoglobin 23.4 pg (27-33); Mean Corpuscular Volume 76.1 fl (82-101); Mean Platelet Volume 11.1 fL (7.4-10.4); Monocytes # 0.9 10^3/uL (0.2-0.9); Monocytes % 8.2 %; Neutrophils # 8.95 10^3/uL (1.8-7.7); Neutrophils % 80.5 %; Nucleated Red Blood Cells % 0 %; Platelet Count 243 10^3/cmm (157-399); Red Blood Count 3.85 10^6/uL (3.85-5.65); Red Cell Distribution Width 15.8 % (12.1-15.1); White Blood Count 11.11 10^3/uL (3.29-11.43)
[2023-06-18 04:04] LABS: Chol HDL Ratio 3.41 mg/dL (1.0-5.00); Cholesterol 140 mg/dL (0-200); HDL Cholesterol 41 mg/dL (60-100); LDL Cholesterol Calculated 86 mg/dL (50-129); Magnesium 1.7 mg/dL (1.7-2.3); Triglycerides 67 mg/dL (0-150); VLDL Cholestrol Calculation 13 mg/dL (0-30)
[2023-06-18 04:07] LABS: Alanine Aminotransferase 29 U/L (0-41); Albumin Level 3.8 g/dL (3.5-5.2); Alkaline Phosphatase 70 U/L (40-130); Anion Gap 14.6 (5-19); Aspartate Amino Transferase 12 U/L (0-40); Blood Urea Nitrogen 33 mg/dL (6-20); Calcium 8.9 mg/dL (8.5-10.5); Carbon Dioxide 24 mmol/L (22-29); Chloride 104 mmol/L (98-107); Creatinine Clr Calc Pharmacy 67.7427; Globulin 2.5 g/dL (1.3-4.6); Glomerular Filtration Rate 35.7 mL/min (90-130); Glucose 202 mg/dL (65-115); Osmolality Calculated 301 mOsm/kg (285-295); Potassium 3.6 mmol/L (3.5-5.1); Sodium 139 mmol/L (136-145); Total Bilirubin 0.6 mg/dL (0.15-1.2); Total Protein 6.3 g/dL (6.6-8.7)
[2023-06-18 04:19] LABS: Folate Level 12.8 ng/mL (4.5-32.2)
[2023-06-18] MEDS: FUROsemide 10 mg/mL SDV 10mL 60 MG IVP (04:19)
[2023-06-18 06:26] LABS: Glucose Point of Care 175 mg/dL (70-110)
--- NOTE | 2023-06-18 09:07 | PM.PN ---
Subjective Subjective: Patient is diuresing. Heart rate fluctuates quite a lot however is better than yesterday Vitals/I&O/Wt Last Vital Signs Temp 98.1 F 06/18/23 07:02 Pulse 108 H 06/18/23 07:02 Resp 27 H 06/18/23 07:02 BP 153/100 06/18/23 07:02 Pulse Ox 94 06/18/23 07:02 O2 Del Method Nasal Cannula 06/18/23 07:02 06/17/23 06/18/23 06/18/23 22:59 06:59 14:59 Intake Total 1202.867 / 2522.867 654.133 / 3177.000 240 / 240 Output Total 750 / 750 1200 / 1950 Balance 452.867 / 1772.867 -545.867 / 1227.000 240 / 240 Weight last 48 hrs Weight 329 lb 9.6 oz Weight 326 lb 9.6 oz Weight 328 lb Physical Exam Narrative: GENERAL: Patient is alert, awake and oriented x3. [] NECK: No jugular vein distension. [] HEENT: No cyanosis. No icterus. No pallor. [] HEART: Regular S1 and S2. No murmur, rub or gallop. [] LUNGS:Diminished air entry bilaterally. CENTRAL NERVOUS SYSTEM: Grossly nonfocal. [] EXTREMITIES: Lower extremities with 1+ edema bilaterally. Urinary Catheter Management: Tolliver: Cath Placed During This Visit: yes Reason for Continuing Indwelling Catheter: Accurate Measurement of Urinary Output in Critically Ill Patients Urinary Catheter Date of Insertion: 06/17/23 Urinary Catheter Time of Insertion: 13:15 Data 06/19/23 06:36 06/18/23 19:24 Micro: Microbiology 06/17/23 15:32 Occult Blood (FIT) - Final Stool Routine Collection A&P Assessment and plan (1) Atrial fibrillation with RVR: (2) Congestive heart failure: (3) Aortic regurgitation: Qualifiers: Cardiac valve disease etiology: nonrheumatic Qualified Code(s): I35.1 - Nonrheumatic aortic (valve) insufficiency (4) Elevated troponin I level: (5) Anemia: (6) Hypokalemia: (7) Acute kidney injury: (8) Diabetes: Qualifiers: Diabetes mellitus complication status: with hyperglycemia Diabetes mellitus mcfp insulin use: without intermediate frame tender use Diabetes mellitus type: type 2 Qualified Code(s): E11.65 - Type 2 diabetes mellitus with hyperglycemia Plan Heart rates have improved however still fluctuate quite a lot. Continue Coreg, Cardizem and amiodarone. Uptitrate diuretic therapy. Blood pressure has improved but still borderline elevated. Keep n.p.o. past midnight. If heart rates are not controlled by tomorrow, may consider ÁNGEL cardioversion Continue anticoagulation Thank you for involving us with care of this patient. We will continue to follow. please call with questions. Attestations Medical Necessity Statement*: Care expected to cross 2 midnights. Coding Level of Care Code Acute Code for [facility] Diagnoses Atrial fibrillation with RVR I48.91 Congestive heart failure I50.9 Nonrheumatic aortic valve insufficiency I35.1 Cardiac valve disease etiology: nonrheumatic Elevated troponin I level R79.89 Anemia D64.9 Hypokalemia E87.6 Acute kidney injury N17.9 Diabetes E11.65 Diabetes mellitus complication status: with hyperglycemia Diabetes mellitus mcfp insulin use: without intermediate frame tender use Diabetes mellitus type: type 2
[2023-06-18] MEDS: hyDRALAzine 50 mg Tablet 100 MG PO ×3 (09:20→21:33)
[2023-06-18] MEDS: benzonatate 100 mg Capsule 200 MG PO ×3 (09:20→21:33)
[2023-06-18] MEDS: metOLazone 5 MG Tablet PO (09:21)
[2023-06-18] MEDS: aspirin 81 mg EC Tablet PO (09:21)
[2023-06-18] MEDS: tamsulosin 0.4 mg Capsule 0.800000000000000044 MG PO (09:21)
[2023-06-18] MEDS: isosorbide mononitrate ER 60 mg Tablet PO (09:21)
[2023-06-18] MEDS: carvedilol 25 mg Tablet PO ×2 (09:22→16:54)
[2023-06-18] MEDS: atorvastatin 40 mg Tablet 20 MG PO (09:22)
[2023-06-18] MEDS: dilTIAZem 30 mg Tablet 60 MG PO ×4 (09:23→21:33)
[2023-06-18] MEDS: cyanocobalamin 1,000 mcg/mL SDV 1000 MCG IM (09:23)
[2023-06-18] MEDS: FUROsemide 10 mg/mL SDV 10mL 80 MG IVP ×2 (09:24→15:42)
[2023-06-18] MEDS: pantoprazole 40 mg SDV IVP ×2 (09:24→21:30)
--- NOTE | 2023-06-18 09:32 | PM.PN ---
Subjective Subjective: No acute events overnight. Still complaining of feeling short of breath on laying down flat. Still at 75 degrees head of the bed elevation. Urine output of around 2 L yesterday but overall around 1 L positive. Denies any chest pain, nausea or vomiting. Blood pressure slightly better but still on the higher side. Heart rate better controlled. Currently on amiodarone drip. Vitals/I&O/Wt Last Vital Signs Temp 98.1 F 06/18/23 07:02 Pulse 108 H 06/18/23 07:02 Resp 27 H 06/18/23 07:02 BP 153/100 06/18/23 07:02 Pulse Ox 94 06/18/23 07:02 O2 Del Method Nasal Cannula 06/18/23 07:02 06/17/23 06/18/23 06/18/23 22:59 06:59 14:59 Intake Total 1202.867 / 2522.867 654.133 / 3177.000 240 / 240 Output Total 750 / 750 1200 / 1950 Balance 452.867 / 1772.867 -545.867 / 1227.000 240 / 240 Weight last 48 hrs Weight 149.504 kg Weight 148.143 kg Weight 148.778 kg Physical Exam Narrative: General: No acute distress, AO x3 HEENT: PERRLA, pupils bilaterally equal and reactive Chest: Normal vesicular breath sounds, fine Guirgius bilaterally in lower zone equal good air entry bilaterally CVS: S1-S2 irregularly irregular no murmurs, tachycardia, no gallops, no rubs Abdomen: Soft, nontender, no organomegaly, bowel sounds present Neuro: No focal deficits, no facial deformity, AO x3, power 5/5 in all limbs Urinary Catheter Management: Tolliver: Cath Placed During This Visit: yes Reason for Continuing Indwelling Catheter: Accurate Measurement of Urinary Output in Critically Ill Patients Urinary Catheter Date of Insertion: 06/17/23 Urinary Catheter Time of Insertion: 13:15 Data 06/18/23 03:02 06/18/23 03:02 Micro: Microbiology 06/17/23 15:32 Occult Blood (FIT) - Final Stool Routine Collection A&P Assessment and plan (1) Atrial fibrillation with RVR: Patient continues to remain in RVR. Not controlled currently on Cardizem of IV 10, 30 4 times daily orally, Coreg 25 mg twice daily. Continue with amiodarone drip. Stopped as per the protocol. Will transition to 200 mg twice daily. Continue with Cardizem 60 mg 4 times a day. Coreg 25 mg twice daily. Care discussed in detail with cardiology. If remains tachycardic plan for possible cardioversion in next 24 hours. N.p.o. after midnight. Echocardiogram done shows a normal EF of 55 to 60%, biatrial enlargement, mild MR, trace AI, mild TR with trace pericardial effusion and dilated IVC. Continue with heparin drip for anticoagulation. Artemio Vascor 3 for hypertension, CHF type 2 diabetes mellitus. Patient will be discharged on oral anticoagulation. (2) Congestive heart failure: Strict input output charting, daily weights. Patient also has concerns for JOLANTA versus CKD. Tolliver catheterization. He is agreeable for now. Target net negative of 1 to 1.5 L in next 24 hours. Increase Lasix to 80 mg twice daily. Will plan on adding 1 more dose depending on the urine output in next 4 to 5 hours. Metolazone 5 mg oral daily. Counseled about fluid restriction less than 1500 cc. (3) Uncontrolled hypertension: Goal blood pressure less than 140/90 mmHg Blood pressure is extremely elevated. Slightly better today. Continue with hydralazine 100 mg 3 times daily, Coreg 25 mg twice daily, Cardizem 60 mg 4 times a day, clonidine 0.1 mg patch. Add Imdur 60 mg daily. If blood pressure still elevated will plan to transition to nitro drip. (4) Acute kidney injury: JOLANTA versus CKD. Creatinine stable for now around 2. BUN slightly improving. Last creatinine from few years ago normal. Cannot rule out hypertensive CKD. CT abdomen pelvis negative for obstructive nephropathy but does show prostate enlargement Tolliver catheterization as above. Flomax 0.4 daily. Medical reconciliation done for nephrotoxic drugs. Appreciate urine lites, urine creatinine, urine eosinophils. (5) Anemia: Denies any black tarry bowel movements. Stool for occult blood pending. Hemoglobin slightly downtrending from 9.9 2 days ago to 9 today. Iron deficiency on iron panel, vitamin B12 levels low. Continue with IV iron to finish a 5-day course, cyanocobalamin shot daily. Continue with heparin drip for now. If stool for occult blood is positive we will plan for EGD or colonoscopy. Continue Protonix 40 mg twice daily for now. (6) Elevated troponin I level: Likely type II elevation in setting of uncontrolled hypertension was congestive heart failure and atrial fibrillation. Previous coronary cath in 2017 demonstrated nonobstructive coronary disease. Nuclear stress test several years ago demonstrated no ischemia. Patient would benefit from Lexiscan stress test once euvolemic. (7) Hypokalemia: Plan for aggressive diuresis. Repeat in afternoon. Replete accordingly. (8) Diabetes: A1c 7.8. Takes glipizide at home. Depending on the renal functions closer to discharge we will have to decide about oral hypoglycemic. Would benefit from Jardiance on discharge given heart failure For now continue with sliding scale insulin Consistent carb diet Qualifiers: Diabetes mellitus complication status: with hyperglycemia Diabetes mellitus manager of security insulin use: without [facility] use Diabetes mellitus type: type 2 Qualified Code(s): E11.65 - Type 2 diabetes mellitus with hyperglycemia (9) Aortic regurgitation: Appreciated on cardiogram. Qualifiers: Cardiac valve disease etiology: nonrheumatic Qualified Code(s): I35.1 - Nonrheumatic aortic (valve) insufficiency (10) Cardiomyopathy: Qualifiers: Cardiomyopathy type: other Qualified Code(s): I42.8 - Other cardiomyopathies Plan Full code Carb consistent diet Protonix will be sufficient for PUD prophylaxis Heparin drip will be sufficient for DVT prophylaxis Attestations Medical Necessity Statement*: Requires further hospitalization for management of hypoxia in setting of congestive heart failure, hypertensive urgency, A-fib with RVR, JOLANTA versus CKD Diagnoses Atrial fibrillation with RVR I48.91 Congestive heart failure I50.9 Uncontrolled hypertension I10 Acute kidney injury N17.9 Anemia D64.9 Elevated troponin I level R79.89 Hypokalemia E87.6 Diabetes E11.65 Diabetes mellitus complication status: with hyperglycemia Diabetes mellitus [facility] insulin use: without manager of security use Diabetes mellitus type: type 2 Nonrheumatic aortic valve insufficiency I35.1 Cardiac valve disease etiology: nonrheumatic Other cardiomyopathy I42.8 Cardiomyopathy type: other
[2023-06-18 10:00] LABS: Partial Thromboplastin Time 43.9 SECONDS (23.9-36.7)
[2023-06-18 11:35] LABS: Glucose Point of Care 207 mg/dL (70-110)
[2023-06-18] MEDS: magnesium hydroxide 30 mL UDC PO ×2 (12:14→21:32)
[2023-06-18 15:09] LABS: Blood Urea Nitrogen 33 mg/dL (6-20); Calcium 8.8 mg/dL (8.5-10.5); Carbon Dioxide 23 mmol/L (22-29); Chloride 102 mmol/L (98-107); Glomerular Filtration Rate 33.7 mL/min (90-130); Glucose 230 mg/dL (65-115); Osmolality Calculated 301 mOsm/kg (285-295); Sodium 138 mmol/L (136-145)
[2023-06-18 15:10] LABS: Anion Gap 16.5 (5-19); Creatinine Clr Calc Pharmacy 64.8445; Potassium 3.5 mmol/L (3.5-5.1)
[2023-06-18 16:27] LABS: Glucose Point of Care 214 mg/dL (70-110)
[2023-06-18] MEDS: sennosides-docusate Tablet 1 TAB PO (16:53)
[2023-06-18] MEDS: amiodarone 200 mg Tablet PO (16:53)
[2023-06-18 18:38] LABS: Partial Thromboplastin Time 64.5 SECONDS (23.9-36.7)
[2023-06-18 19:46] LABS: Anion Gap 13.5 (5-19); Blood Urea Nitrogen 32 mg/dL (6-20); Calcium 8.6 mg/dL (8.5-10.5); Carbon Dioxide 26 mmol/L (22-29); Chloride 103 mmol/L (98-107); Creatinine Clr Calc Pharmacy 64.8445; Glomerular Filtration Rate 33.7 mL/min (90-130); Glucose 240 mg/dL (65-115); Magnesium 2.2 mg/dL (1.7-2.3); Osmolality Calculated 303 mOsm/kg (285-295); Potassium 3.5 mmol/L (3.5-5.1); Sodium 139 mmol/L (136-145)
[2023-06-18 21:03] LABS: Glucose Point of Care 274 mg/dL (70-110)
[2023-06-19] VITALS (10 sets, daily range): BP systolic 121–153; BP diastolic 63–121; PULSE 84–118; RESP 18–24; TEMP 36.5–36.8; O2SAT 94–97
[2023-06-19 01:10] LABS: Partial Thromboplastin Time 74.4 SECONDS (23.9-36.7)
[2023-06-19] MEDS: heparin drip 25,000 UNIT/500 ML PREMIX 41 UNIT IV (04:40)
--- NOTE | 2023-06-19 04:42 | PC.NURSE ---
upon completion of a heparin bag infusion, it was discovered that bag hadn't been scanned in the mar. heparin infused at 41ml/hr for the entire bag. new bag scanned at is infusing at ml/hr.
[2023-06-19 06:36] LABS: Glucose Point of Care 164 mg/dL (70-110)
[2023-06-19 06:58] LABS: Basophils # 0.1 10^3/uL (0.0-0.1); Basophils % 0.6 %; Eosinophils # 0.2 10^3/uL (0.0-0.8); Eosinophils % 2.1 %; Hematocrit 30.3 % (37-53); Lymphocytes # 1.2 10^3/uL (0.8-4.8); Lymphocytes % 11.8 %; Mean Corpuscular HGB Conc 30.7 g/dL (30-55); Mean Corpuscular Hemoglobin 23.3 pg (27-33); Mean Corpuscular Volume 75.8 fl (82-101); Mean Platelet Volume 10.4 fL (7.4-10.4); Monocytes # 0.8 10^3/uL (0.2-0.9); Monocytes % 7.9 %; Neutrophils # 7.48 10^3/uL (1.8-7.7); Neutrophils % 76.9 %; Nucleated Red Blood Cells % 0 %; Platelet Count 247 10^3/cmm (157-399); Red Cell Distribution Width 15.7 % (12.1-15.1); White Blood Count 9.73 10^3/uL (3.29-11.43)
[2023-06-19 07:15] LABS: Partial Thromboplastin Time 86.7 SECONDS (23.9-36.7)
--- NOTE | 2023-06-19 07:15 | P.PN_ITS ---
Subjective 2 Subjective: Patient is doing better. Has been diuresing well. Creatinine trended up. Heart rates still uncontrolled with minimal activity. Vitals/I&O/Wt Last Vital Signs Temp 97.7 F 06/19/23 04:00 Pulse 89 06/19/23 06:00 Resp 24 H 06/19/23 04:00 BP 149/99 06/19/23 04:00 Pulse Ox 95 06/19/23 04:00 O2 Del Method Nasal Cannula 06/19/23 04:00 06/18/23 06/19/23 06/19/23 22:59 06:59 14:59 Intake Total 1024.393 / 1760.793 Output Total 4000 / 5950 2800 / 8750 Balance -2975.607 / -4189.207 -2800 / -6989.207 Weight last 48 hrs Weight 312 lb Weight 329 lb 9.6 oz Physical Exam 2 Narrative: GENERAL: Patient is alert, awake and oriented x3. [] NECK: No jugular vein distension. [] HEENT: No cyanosis. No icterus. No pallor. [] HEART: Regular S1 and S2. No murmur, rub or gallop. [] LUNGS:Diminished air entry bilaterally. CENTRAL NERVOUS SYSTEM: Grossly nonfocal. [] EXTREMITIES: Lower extremities with 1+ edema bilaterally. Urinary Catheter Management: Tolliver: Cath Placed During This Visit: yes Reason for Continuing Indwelling Catheter: Accurate Measurement of Urinary Output in Critically Ill Patients Urinary Catheter Date of Insertion: 06/17/23 Urinary Catheter Time of Insertion: 13:15 Data 06/20/23 03:09 06/20/23 03:09 A&P Assessment and plan (1) Atrial fibrillation with RVR: (2) Congestive heart failure: (3) Aortic regurgitation: Qualifiers: Cardiac valve disease etiology: nonrheumatic Qualified Code(s): I35.1 - Nonrheumatic aortic (valve) insufficiency (4) Elevated troponin I level: (5) Anemia: (6) Hypokalemia: (7) Acute kidney injury: (8) Diabetes: Qualifiers: Diabetes mellitus complication status: with hyperglycemia Diabetes mellitus prison insulin use: without prison use Diabetes mellitus type: t ype 2 Qualified Code(s): E11.65 - Type 2 diabetes mellitus with hyperglycemia Plan Heart rates uncontrolled intermittently. Continue Coreg, Cardizem and amiodarone. Cardioversion tomorrow if heart rates are still uncontrolled. He has been diuresing well since up titration of diuretics. Continue IV Lasix and metolazone. Close I&O's. Monitor renal function. Continue anticoagulation with heparin. Tomorrow we will switch to Eliquis. Patient will need stress test once stable as troponins were elevated at admission. Can be done as outpatient. Thank you for involving us with care of this patient. We will continue to follow. please call with questions. Attestations 2 Medical Necessity Statement*: Care expected to cross 2 midnights. Coding Level of Care Code Acute Code for [facility] Diagnoses Atrial fibrillation with RVR I48.91 Congestive heart failure I50.9 Nonrheumatic aortic valve insufficiency I35.1 Cardiac valve disease etiology: nonrheumatic Elevated troponin I level R79.89 Anemia D64.9 Hypokalemia E87.6 Acute kidney injury N17.9 Diabetes E11.65 Diabetes mellitus complication status: with hyperglycemia Diabetes mellitus prison insulin use: without prison use Diabetes mellitus type: type 2
[2023-06-19 07:18] LABS: Alanine Aminotransferase 26 U/L (0-41); Albumin Level 3.7 g/dL (3.5-5.2); Alkaline Phosphatase 70 U/L (40-130); Anion Gap 12.5 (5-19); Aspartate Amino Transferase 19 U/L (0-40); Blood Urea Nitrogen 33 mg/dL (6-20); Calcium 9.3 mg/dL (8.5-10.5); Carbon Dioxide 30 mmol/L (22-29); Chloride 101 mmol/L (98-107); Creatinine Clr Calc Pharmacy 60.0625; Globulin 2.9 g/dL (1.3-4.6); Glucose 168 mg/dL (65-115); Osmolality Calculated 301 mOsm/kg (285-295); Potassium 3.5 mmol/L (3.5-5.1); Sodium 140 mmol/L (136-145); Total Bilirubin 0.5 mg/dL (0.15-1.2); Total Protein 6.6 g/dL (6.6-8.7)
[2023-06-19 07:19] LABS: Magnesium 2.3 mg/dL (1.7-2.3)
[2023-06-19] MEDS: hyDRALAzine 50 mg Tablet 100 MG PO ×3 (10:00→22:03)
[2023-06-19] MEDS: cyanocobalamin 1,000 mcg/mL SDV 1000 MCG IM (10:01)
[2023-06-19] MEDS: sennosides-docusate Tablet 1 TAB PO ×2 (10:02→17:23)
[2023-06-19] MEDS: isosorbide mononitrate ER 60 mg Tablet PO (10:02)
[2023-06-19] MEDS: amiodarone 200 mg Tablet PO ×2 (10:02→17:24)
--- NOTE | 2023-06-19 10:02 | PC.CHAP ---
Pastoral Care Encounter/Spiritual Assessment Type of Contact [] Declined machine woodworking sander visit [] Patient/Family/Request visit [] Outpatient visit [] Follow-up visit [] Physician referral [] Code/Alert [x] Routine visit [] Staff referral [] Actively dying [] Patient sleeping [] Family support [] [] Out of room [] Palliative care [] [] Receiving care in room [] Pre-surgical visit [] Trauma [] Long length of stay [] ICU visit [] Other: Relational/Emotional Strength [] Patient feels connected with others/family/visitors/staff [] Distress [] Loneliness/isolation [] Abandonment Spirituality of Patient [x] Person of Jenna [] Attends Catholic of their Jenna [x] Believes in Prayer [] Reads Bible or Christian materials [] There are Spiritual issues to be addressed Flocculator Operator Interventions [x] Prayer [x] Active listening [] Non-anxious presence [] Spiritual/emotional support [] Crisis/trauma care [] Spiritual counseling [] Bereavement support [] Provided bereavement packet [x] Provided Bible/devotional materials [] Provided toy/stuffed animal, coloring book to patient or family member [] Provided Communion [] Anointing/Finley [] Salvation [x] Completed spiritual assessment [] Other: Impact on Illness or Injury [] Angry [] Fearful [] Anxious [] Often cries [] Exhaustion [] Unable to work [] Unable to attend yarsani [] Unable to walk/stand [] Unable to read [] Unable to drive [] Unable to eat/drink [] Unable to sleep [] Unable to be with family [] Patient intubated [] Other: Summary Time spent with patient 5 min
[2023-06-19] MEDS: carvedilol 25 mg Tablet PO ×2 (10:03→17:24)
[2023-06-19] MEDS: metOLazone 5 MG Tablet PO (10:03)
[2023-06-19] MEDS: atorvastatin 40 mg Tablet 20 MG PO (10:03)
[2023-06-19] MEDS: FUROsemide 10 mg/mL SDV 10mL 80 MG IVP ×3 (10:04→17:23)
[2023-06-19] MEDS: dilTIAZem 30 mg Tablet 60 MG PO ×4 (10:04→21:00)
[2023-06-19] MEDS: tamsulosin 0.4 mg Capsule 0.800000000000000044 MG PO (10:04)
[2023-06-19] MEDS: aspirin 81 mg EC Tablet PO (10:05)
[2023-06-19] MEDS: pantoprazole 40 mg SDV IVP ×2 (10:05→20:59)
[2023-06-19] MEDS: benzonatate 100 mg Capsule 200 MG PO ×3 (10:05→20:59)
[2023-06-19 12:16] LABS: Glucose Point of Care 166 mg/dL (70-110)
--- NOTE | 2023-06-19 12:20 | P.PN_ITS ---
Subjective 2 Subjective: No acute overnight events noted. But he admits having occasional chest pains that are relieved with p.o. Maalox. He is still on amiodarone drip for now, Vitals/I&O/Wt Last Vital Signs Temp 98.3 F 06/19/23 11:54 Pulse 117 H 06/19/23 11:54 Resp 19 H 06/19/23 11:54 BP 141/90 06/19/23 11:54 Pulse Ox 96 06/19/23 11:54 O2 Del Method Nasal Cannula 06/19/23 11:54 O2 Flow Rate 2 06/19/23 08:47 06/18/23 06/19/23 06/19/23 22:59 06:59 14:59 Intake Total 1024.393 / 1760.793 136.667 / 136.667 Output Total 4000 / 5950 2800 / 8750 1000 / 1000 Balance -2975.607 / -4189.207 -2800 / -6989.207 -863.333 / -863.333 Weight last 48 hrs Weight 141.521 kg Weight 149.504 kg Physical Exam 2 Narrative: He is alert he is alert awake oriented x 3 chest clear to auscultation bilaterally Cardiovascular S1-S2 normal irregular but no murmurs Abdomen soft nontender nondistended normal bowel sounds Extremities bilateral 2+ pitting edema present. Urinary Catheter Management: Tolliver: Cath Placed During This Visit: yes Reason for Continuing Indwelling Catheter: Accurate Measurement of Urinary Output in Critically Ill Patients Urinary Catheter Date of Insertion: 06/17/23 Urinary Catheter Time of Insertion: 13:15 Data 06/19/23 06:36 06/19/23 06:36 Other data: 2 D ECHO LV systolic function is normal with EF of 55-60% Diastolic function is indeterminate because of atrial fibrillation Biatrial dilation Mild mitral regurgitation Trace aortic regurgitation Mild tricuspid regurgitation Trace pericardial effusion IVC is dilated. A&P Assessment and plan (1) Atrial fibrillation with RVR: (2) Uncontrolled hypertension: (3) Anemia: (4) Acute kidney injury: (5) Congestive heart failure: (6) Diabetes: Qualifiers: Diabetes mellitus complication status: with hyperglycemia Diabetes mellitus residential insulin use: without oracle developer use Diabetes mellitus type: t ype 2 Qualified Code(s): E11.65 - Type 2 diabetes mellitus with hyperglycemia Plan (1) Atrial fibrillation with RVR: Continue with amiodarone drip. Continue with Cardizem 60 mg 4 times a day. Coreg 25 mg twice daily. Care discussed with cardiology. If remains tachycardic plan for possible cardioversion in am. N.p.o. after midnight. Continue with heparin drip for anticoagulation. Plan for oral anticoagulation as outpatient (2) Congestive heart failure: Strict input output charting, daily weights. Continue with aggressive diuresis for now. Metolazone 5 mg oral daily. Counseled about fluid restriction less than 1500 cc. (3) Uncontrolled hypertension: Goal blood pressure less than 140/90 mmHg Blood pressure especially diastolic is still is elevated but improving Continue with hydralazine 100 mg 3 times daily, Coreg 25 mg twice daily, Cardizem 60 mg 4 times a day, clonidine 0.1 mg patch. Add Imdur 60 mg daily. (4) Acute kidney injury: JOLANTA versus CKD. Cannot rule out hypertensive CKD. Flomax 0.4 daily. Medical reconciliation done for nephrotoxic drugs. Appreciate urine lites, urine creatinine, urine eosinophils. (5) Anemia: Hemoglobin slightly downtrending from 9.9 2 days ago to 9.3 today. Iron deficiency on iron panel, vitamin B12 levels low. Continue with IV iron to finish a 5-day course, cyanocobalamin shot daily. Continue with heparin drip for now. (6) Elevated troponin I level: Likely type II elevation in setting of uncontrolled hypertension was congestive heart failure and atrial fibrillation. Previous coronary cath in 2017 demonstrated nonobstructive coronary disease. Nuclear stress test several years ago demonstrated no ischemia. (7) Hypokalemia: Resolved (8) Diabetes: A1c 7.8. Takes glipizide at home. Consistent carb diet Full code Carb consistent diet Protonix will be sufficient for PUD prophylaxis Heparin drip will be sufficient for DVT prophylaxis Attestations 2 Medical Necessity Statement*: Patient needs continued hospitalization for uncontrolled atrial fibrillation which is managed with IV heparin drip and amiodarone drip and with possible cardioversion in a.m. also being managed for congestive heart failure with diuresis. Time Spent in Patient Care: 30 minutes Coding Level of Care Code Acute Code for [facility] Diagnoses Atrial fibrillation with RVR I48.91 Uncontrolled hypertension I10 Anemia D64.9 Acute kidney injury N17.9 Congestive heart failure I50.9 Diabetes E11.65 Diabetes mellitus complication status: with hyperglycemia Diabetes mellitus residential insulin use: without oracle developer use Diabetes mellitus type: type 2 Time Spent (min) 30
[2023-06-19 15:05] LABS: Partial Thromboplastin Time 56.4 SECONDS (23.9-36.7)
[2023-06-19 17:00] LABS: Glucose Point of Care 188 mg/dL (70-110)
[2023-06-19] MEDS: heparin drip 25,000 UNIT/500 ML PREMIX 36 UNIT IV (18:26)
[2023-06-19 20:45] LABS: Glucose Point of Care 271 mg/dL (70-110)
[2023-06-19 21:04] LABS: Partial Thromboplastin Time 58.8 SECONDS (23.9-36.7)
[2023-06-20] VITALS (8 sets, daily range): BP systolic 115–135; BP diastolic 66–88; PULSE 69–101; RESP 14–28; TEMP 36.7–37.1; O2SAT 90–97
[2023-06-20] MEDS: FUROsemide 10 mg/mL SDV 10mL 80 MG IVP (00:35)
[2023-06-20 03:53] LABS: Platelet Count 279 10^3/cmm (157-399)
[2023-06-20 04:46] LABS: Anion Gap 15.9 (5-19); Blood Urea Nitrogen 39 mg/dL (6-20); Calcium 9.6 mg/dL (8.5-10.5); Carbon Dioxide 31 mmol/L (22-29); Chloride 93 mmol/L (98-107); Creatinine Clr Calc Pharmacy 55.0573; Glomerular Filtration Rate 28.9 mL/min (90-130); Glucose 168 mg/dL (65-115); Osmolality Calculated 297 mOsm/kg (285-295); Sodium 137 mmol/L (136-145)
[2023-06-20 04:48] LABS: Partial Thromboplastin Time 67.3 SECONDS (23.9-36.7)
[2023-06-20 04:54] LABS: Potassium 2.9 mmol/L (3.5-5.1)
[2023-06-20] MEDS: potassium chloride ER 20 mEq Tablet 40 MEQ PO ×3 (05:52→14:52)
[2023-06-20 06:20] LABS: Glucose Point of Care 164 mg/dL (70-110)
--- NOTE | 2023-06-20 08:32 | PM.PN ---
Subjective Subjective: Patient has been diuresing well. Creatinine has trended up. Cardioverted successfully back to normal sinus rhythm Vitals/I&O/Wt Last Vital Signs Temp 98.2 F 06/20/23 07:55 Pulse 101 H 06/20/23 06:00 Resp 21 H 06/20/23 04:00 BP 135/70 06/20/23 04:00 Pulse Ox 90 06/20/23 04:00 O2 Del Method Nasal Cannula 06/20/23 04:00 O2 Flow Rate 2 06/19/23 20:00 06/19/23 06/20/23 06/20/23 22:59 06:59 14:59 Intake Total 1199.333 / 2136.000 550 / 2686.000 Output Total 3100 / 7600 1450 / 9050 Balance -1900.667 / -5464.000 -900 / -6364.000 Weight last 48 hrs Weight 305 lb Weight 312 lb Physical Exam Narrative: GENERAL: Patient is alert, awake and oriented x3. [] NECK: No jugular vein distension. [] HEENT: No cyanosis. No icterus. No pallor. [] HEART: Regular S1 and S2. No murmur, rub or gallop. [] LUNGS:Diminished air entry bilaterally. CENTRAL NERVOUS SYSTEM: Grossly nonfocal. [] EXTREMITIES: Lower extremities with 1+ edema bilaterally. Urinary Catheter Management: Tolliver: Cath Placed During This Visit: yes Reason for Continuing Indwelling Catheter: Accurate Measurement of Urinary Output in Critically Ill Patients Urinary Catheter Date of Insertion: 06/17/23 Urinary Catheter Time of Insertion: 13:15 Data 06/20/23 03:09 06/21/23 03:26 A&P Assessment and plan (1) Atrial fibrillation with RVR: (2) Congestive heart failure: (3) Aortic regurgitation: Qualifiers: Cardiac valve disease etiology: nonrheumatic Qualified Code(s): I35.1 - Nonrheumatic aortic (valve) insufficiency (4) Elevated troponin I level: (5) Anemia: (6) Hypokalemia: (7) Acute kidney injury: (8) Diabetes: Qualifiers: Diabetes mellitus complication status: with hyperglycemia Diabetes mellitus intermediate insulin use: without termite inspector use Diabetes mellitus type: type 2 Qualified Code(s): E11.65 - Type 2 diabetes mellitus with hyperglycemia Plan Patient is diuresing well. Can down titrate diuretic therapy. Monitor renal function. Monitor I&O's. Continue anticoagulation. Heparin switched to eliquis Patient was successfully cardioverted back to normal sinus rhythm. ÁNGEL was performed that ruled out left atrial appendage thrombus. Thank you for involving us with care of this patient. We will continue to follow. please call with questions. Attestations Medical Necessity Statement*: Care expected to cross 2 midnights. Coding Level of Care Code Acute Code for [facility] Diagnoses Atrial fibrillation with RVR I48.91 Congestive heart failure I50.9 Nonrheumatic aortic valve insufficiency I35.1 Cardiac valve disease etiology: nonrheumatic Elevated troponin I level R79.89 Anemia D64.9 Hypokalemia E87.6 Acute kidney injury N17.9 Diabetes E11.65 Diabetes mellitus complication status: with hyperglycemia Diabetes mellitus intermediate insulin use: without termite inspector use Diabetes mellitus type: type 2
--- NOTE | 2023-06-20 09:55 | W.PM.OPSUD ---
Surgery/Procedure H&P Update DATE OF PROCEDURE: June 20, 2023 DATE H&P PERFORMED: 06/16/23 H&P UPDATE INFORMATION: I have reviewed H&P completed within last 30 days, I have examined patient prior to procedure and Changes to prior documentation as noted here CHANGES TO PREVIOUS DOCUMENTATION: Patient's heart rates are not controlled even at high doses of rate and rhythm controlling medications. Plan for ÁNGEL/Cardioversion PREOP DIAGNOSIS: Atrial fibrillation with RVR PRIMARY INDICATION FOR PROCEDURE: Atrial fibrillation with RVR PLANNED PROCEDURE: Transesophageal echocardiogram with cardioversion. Anesthesia team available for sedation PATIENT REASSESSED PRIOR TO SEDATION, WITH NO CHANGE NOTED: Yes
--- NOTE | 2023-06-20 10:00 | USCV_ITS ---
Jose Douglas Age: 47 Gender: M : 1975 Exam Date: 06/20/2023 10:09 Ordering Phys: Oneil Muhammad M.D ([email or web address]) Technologist: Exam [place] [facility] [place]: afib BP: / HR: Rhythm: Sinus Technical Quality: Good MEASUREMENTS (Male / Female) Normal Values Medications Complications None Proc. Components After anesthesia team sedated the patient, we proceeded with insertion of ÁNGEL probe. FINDINGS Left Ventricle Left ventricle is normal in size. LV systolic function is normal with EF of 55-60%. Right Ventricle Normal in size and fucntion Right Atrium Normal in size Left Atrium Appears dilated. LA Appendage No left atrial appendage thrombus. IA Septum Grossly normal Mitral Valve Thickened. Aortic Valve Aortic valve is structurally normal. Tricuspid Valve Grossly normal Pulmonic Valve Not well visualized Pericardium Normal Aorta Normal CONCLUSIONS LV systolic function is normal with EF of 55-60% No left atrial appendage thrombus Oneil Muhammad MD (Electronically Signed) Final Date: 25 June 2023 12:19 S
--- NOTE | 2023-06-20 10:07 | PC.NURSE ---
TIME OUT FOR TOMMY GUIDED ÁNGEL and SYNCHRONIZED CARDIOVERSION 1007-verified pt, , procedure, allergies. pt and team agreed to proceed. MINING ANALYST at bedside for propofol IV prior to procedures and airway mgt. suction set-up, 1009-ÁNGEL with TOMMY guide performed by Dr Muhammad. 1012-Dr Muhammad agreed to proceed with Sync Cardioversion with 200J. Pt converted to SR w/PAC's and PVC's. EKG taken. VS monitored.
[2023-06-20] MEDS: apixaban 5 mg Tablet PO ×2 (10:20→21:30)
[2023-06-20] MEDS: amiodarone 200 mg Tablet PO ×2 (10:20→16:49)
[2023-06-20] MEDS: dilTIAZem 30 mg Tablet 60 MG PO ×3 (10:21→16:48)
--- NOTE | 2023-06-20 10:21 | PM.PROC ---
Procedure Note: Date of procedure: 06/20/23 Pre-procedure diagnosis: Atrial fibrillation with RVR Post-procedure diagnosis: other (Normal sinus rhythm) Procedure: ÁNGEL/ Cardioversion: After anesthesia team sedated patient, we proceeded with advancing ÁNGEL probe. Left atrial appendage thrombus was ruled out. We then successfully cardioverted him with 200 J synchronized DCCV shock x1. Patient converted to normal sinus rhythm. Performing Provider: Oneil Muhammad Complications: None Pathology: none sent Condition: stable Disposition: no change Coding Level of Care Code Acute Code for [facility]
[2023-06-20] MEDS: atorvastatin 40 mg Tablet 20 MG PO (10:25)
[2023-06-20] MEDS: hyDRALAzine 50 mg Tablet 100 MG PO ×3 (10:26→21:30)
--- NOTE | 2023-06-20 10:30 | P.ANESASSM_ITS ---
Pre-Anesthetic Assessment Height/Weight: Height 1.85 m Weight 138.346 kg Temp Pulse Resp BP Pulse Ox O2 Del Method O2 Flow Rate 98.2 F 101 H 21 H 135/70 90 Nasal Cannula 2 06/20/23 07:55 06/20/23 06:00 06/20/23 04:00 06/20/23 04:00 06/20/23 04:00 06/20/23 04:00 06/19/23 20:00 Preop Diagnosis: Atrial fibrillation with RVR ÁNGEL/cardioversion Familial anesthetic complications: none Was Beta Devon taken within 24 hours: Yes Was Clonidine taken within 24 hours: N/A Social No alcohol and No tobacco Exam alert, oriented x 3 and clear to auscultation bilaterally irregular Airway Submandibular: within normal limits Cervical ROM: within normal limits Mallampati: Class II Dentition: full CV/HEM Atrial Fibrillation and Hypertension Chronic Renal Insufficiency GI Gastroesophageal Reflux Disease Metabolic Diabetes Mellitus, Hyperlipidemia and Morbid Obesity Anesthetic Plan ASA status: 3 Anesthesia: MAC Medications/Allergies Home Medications Medication Instructions Recorded Confirmed Last Taken Type amlodipine 10 mg tablet 10 mg PO DAILY 03/24/19 06/16/23 06/16/23 History glipizide 5 mg tablet 5 mg PO DAILY 03/24/19 06/16/23 06/16/23 History metformin 1,000 mg tablet 1,000 mg PO BID 03/24/19 06/16/23 06/16/23 History pantoprazole 40 mg tablet,delayed 40 mg PO DAILY 03/24/19 06/16/23 06/16/23 History release simvastatin 20 mg tablet 20 mg PO DAILY 03/24/19 06/16/23 06/16/23 History aspirin 325 mg tablet 325 mg PO DAILY 05/29/20 06/16/23 06/16/23 History carvedilol 25 mg tablet (Coreg) 25 mg PO BID #60 tabs 05/13/21 06/16/23 06/16/23 Rx sitagliptin phosphate 50 mg tablet 50 mg PO DAILY #30 tabs 05/13/21 06/16/23 06/16/23 Rx (Januvia) hydralazine 50 mg tablet 100 mg PO TID 06/25/21 06/16/23 06/16/23 History losartan 100 mg tablet 100 mg PO DAILY #30 tabs 04/20/23 06/16/23 06/16/23 Rx Allergies Allergy/AdvReac Type Severity Reaction Status Date / Time No Known Allergies Allergy Verified 05/12/21 08:17 Current Medications Generic Name Dose Route Start Last Admin Trade Name Anna PRN Reason Stop Dose Admin Acetaminophen 650 mg 06/16/23 12:37 06/16/23 19:28 Acetaminophen 325 Mg Tablet PO 650 mg Q6H PRN Administration Mild/Mod Pain Or Temp >/= 101 Amiodarone HCl 200 mg 06/18/23 18:00 06/20/23 10:20 Amiodarone 200 Mg Tablet PO 200 mg BID ASHLEY Administration Apixaban 5 mg 06/20/23 09:00 06/20/23 10:20 Apixaban 5 Mg Tablet PO 5 mg BID@0900,2100 ASHLEY Administration Aspirin 81 mg 06/17/23 09:00 06/19/23 10:05 Aspirin 81 Mg Ec Tablet PO 81 mg DAILY ASHLEY Administration Atorvastatin Calcium 20 mg 06/17/23 09:00 06/20/23 10:25 Atorvastatin 40 Mg Tablet PO 20 mg DAILY ASHLEY Administration Benzonatate 200 mg 06/17/23 11:30 06/19/23 20:59 Benzonatate 100 Mg Capsule PO 200 mg TID ASHLEY Administration Cyanocobalamin 1,000 mcg 06/17/23 12:10 06/19/23 10:01 Cyanocobalamin 1,000 Mcg/Ml Sdv IM 1,000 mcg DAILY ASHLEY Administration Diltiazem HCl 60 mg 06/17/23 13:00 06/20/23 10:21 Diltiazem 30 Mg Tablet PO 60 mg QID ASHLEY Administration Hydralazine HCl 100 mg 06/16/23 21:00 06/19/23 22:03 Hydralazine 50 Mg Tablet PO 100 mg TID ASHLEY Administration Amiodarone HCl/Dextrose 360 mg in 200 mls @ 0 mls/hr 06/17/23 11:24 06/18/23 16:55 Nexterone IV 0 mg/min .Q0M ASHLEY 0 mls/hr Titration Protocol Per Protocol Insulin Human Lispro 0 unit 06/16/23 18:00 06/20/23 09:12 Insulin Lispro 100 Unit/1 Ml SUBCUT Not Given WM&BED[facility] Protocol Isosorbide Mononitrate 60 mg 06/18/23 09:00 06/20/23 10:17 Isosorbide Mononitrate Er 60 Mg Tablet PO Not Given DAILY ASHLEY Magnesium Hydroxide 30 ml 06/18/23 21:00 06/19/23 21:01 Magnesium Hydroxide 30 Ml Udc PO Not Given BEDTIME ASHLEY Metolazone 5 mg 06/18/23 09:00 06/19/23 10:03 Metolazone 5 Mg Tablet PO 5 mg DAILY ASHLEY Administration Pantoprazole Sodium 40 mg 06/16/23 20:00 06/19/23 20:59 Pantoprazole 40 Mg Sdv IVP 40 mg Q12H ASHLEY Administration Senna/Docusate Sodium 1 tab 06/18/23 18:00 06/19/23 17:23 Sennosides-Docusate Tablet PO 1 tab BID ASHLEY Administration Tamsulosin HCl 0.8 mg 06/17/23 14:50 06/19/23 10:04 Tamsulosin 0.4 Mg Capsule PO 0.8 mg DAILY ASHLEY Administration PFS Anesthesia Medical History Coronary artery disease Nonobstructive on angiogram 2017 Nuclear stress test May/2021 mild global hypokinesis, no perfusion defects GERD (gastroesophageal reflux disease) History of retinal detachment Aortic regurgitation Cardiomyopathy HTN (hypertension) Hyperlipidemia Diabetes Surgical History History of knee surgery History of tonsillectomy History of cataract surgery Family History Other Cancer Diabetes Hypertension Social History Smoking and tobacco/nicotine status: never used tobacco/nicotine Alcohol intake: current Alcohol intake frequency: other Substance/Drug Use: never Data Anesthesia 06/20/23 03:09 06/20/23 03:09 Short CBC 06/19/23 06/20/23 Range/Units 06:36 03:09 WBC 9.73 (3.29-11.43) 10^3/uL Hgb 9.30 L (11.27-16.99) g/dL Hct 30.3 L (37-53) % MCV 75.8 L (82-101) fl Plt Count 247 279 (157-399) 10^3/cmm Neut % (Auto) 76.9 % Neut # (Auto) 7.48 (1.8-7.7) 10^3/uL BMP 06/18/23 06/18/23 06/19/23 14:40 19:24 06:36 Sodium 138 139 140 Potassium 3.5 3.5 3.5 Chloride 102 103 101 Carbon Dioxide 23 26 30 H BUN 33 H 32 H 33 H Creatinine 2.1 H 2.1 H 2.2 H Glucose 230 H 240 H 168 H Calcium 8.8 8.6 9.3 06/20/23 03:09 Sodium 137 Potassium 2.9 L Chloride 93 L Carbon Dioxide 31 H BUN 39 H Creatinine 2.4 H Glucose 168 H Calcium 9.6 Liver Function 06/19/23 Range/Units 06:36 Total Bilirubin 0.5 (0.15-1.2) mg/dL AST 19 (0-40) U/L ALT 26 (0-41) U/L Alkaline Phosphatase 70 (40-130) U/L Albumin 3.7 (3.5-5.2) g/dL Coags 06/18/23 06/19/23 06/19/23 18:15 00:43 06:36 APTT 64.5 H 74.4 H 86.7 H 06/19/23 06/19/23 06/20/23 14:40 20:42 03:09 APTT 56.4 H 58.8 H 67.3 H Cardiac Studies: 2 Echocardiogram 06/17/23 Echocardiogram Ultrasound 06/23/20 Sestamibi Stress Test (Cardiology) 05/12 Holter Monitor 05/04/23
--- NOTE | 2023-06-20 10:31 | ANE.PACU2 ---
Inpatient post-anesthesia follow up: Airway intact: Yes Vital signs: Temperature 98.2 F Pulse Rate 101 Respiratory Rate 21 Blood Pressure 135/70 Pulse Oximetry 90 Oxygen Delivery Me thod [ Nasal Cannula Current Rate & Del eulogio] Oxygen Delivery Me thod Nasal Cannula Oxygen Flow Rate [ Current Rate 2 & Delivery] Oxygen Flow Rate 2 Fraction of Inspir ed Oxygen Hydration adequate: Yes Nausea and vomiting: No Pain level: 2 Mental status: Baseline
--- NOTE | 2023-06-20 10:32 | ECG_ITS ---
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 Measurements Intervals [place] Rate: 78 P: 5 GA: 184 QRS: 15 QRSD: 105 T: 112 QT: 404 QTc: 462 Interpretive Statements SINUS RHYTHM WITH FREQUENT VENTRICULAR PREMATURE COMPLEXES WITH OCCASIONAL SUPRAVENTRICULAR PREMATURE COMPLEXES NONSPECIFIC T-WAVE ABNORMALITY Compared to ECG 06/16/2023 15:13:43 Atrial fibrillation no longer present Aberrant conduction of supraventricular beat(s) no longer present Incomplete right bundle-branch block no longer present T-wave abnormality still present Electronically Signed On 06-20-2023 21:20:40 CDT by Christie Gavin M.D. [email or web address]
[2023-06-20] MEDS: sennosides-docusate Tablet 1 TAB PO ×2 (10:43→16:49)
[2023-06-20] MEDS: benzonatate 100 mg Capsule 200 MG PO ×3 (10:44→21:30)
[2023-06-20] MEDS: pantoprazole 40 mg SDV IVP ×2 (10:45→21:30)
[2023-06-20] MEDS: metOLazone 5 MG Tablet PO (10:45)
[2023-06-20] MEDS: aspirin 81 mg EC Tablet PO (10:47)
[2023-06-20] MEDS: FUROsemide 10 mg/mL SDV 4mL 40 MG IVP ×2 (10:59→21:51)
[2023-06-20] MEDS: carvedilol 12.5 mg Tablet PO ×2 (10:59→16:49)
[2023-06-20 11:53] LABS: Glucose Point of Care 206 mg/dL (70-110)
[2023-06-20 12:38] LABS: Partial Thromboplastin Time 33.5 SECONDS (23.9-36.7)
--- NOTE | 2023-06-20 14:07 | PM.PN ---
Subjective Subjective: He is looking better today comfortable lying in bed but still admits to having episodes of shortness of breath and palpitation while going to the bathroom. Denies any chest pain or dizziness Medications: Reviewed: Yes Vitals/I&O/Wt Last Vital Signs Temp 98.2 F 06/20/23 07:55 Pulse 101 H 06/20/23 06:00 Resp 21 H 06/20/23 04:00 BP 135/70 06/20/23 04:00 Pulse Ox 90 06/20/23 04:00 O2 Del Method Nasal Cannula 06/20/23 04:00 O2 Flow Rate 2 06/19/23 20:00 06/19/23 06/20/23 06/20/23 22:59 06:59 14:59 Intake Total 1199.333 / 2136.000 550 / 2686.000 860 / 860 Output Total 3100 / 7600 1450 / 9050 1400 / 1400 Balance -1900.667 / -5464.000 -900 / -6364.000 -540 / -540 Weight last 48 hrs Weight 138.346 kg Weight 141.521 kg Physical Exam Narrative: He is alert he is alert awake oriented x 3 chest clear to auscultation bilaterally Cardiovascular S1-S2 normal irregular but no murmurs Abdomen soft nontender nondistended normal bowel sounds Extremities bilateral 2+ pitting edema present. Urinary Catheter Management: Tolliver: Cath Placed During This Visit: yes Reason for Continuing Indwelling Catheter: Accurate Measurement of Urinary Output in Critically Ill Patients Urinary Catheter Date of Insertion: 06/17/23 Urinary Catheter Time of Insertion: 13:15 Data 06/20/23 03:09 06/20/23 03:09 A&P Assessment and plan (1) Atrial fibrillation with RVR: (2) Uncontrolled hypertension: (3) Anemia: (4) Acute kidney injury: (5) Congestive heart failure: (6) Diabetes: Qualifiers: Diabetes mellitus complication status: with hyperglycemia Diabetes mellitus manager long term care insulin use: without nursing home use Diabetes mellitus type: type 2 Qualified Code(s): E11.65 - Type 2 diabetes mellitus with hyperglycemia Plan (1) Atrial fibrillation with RVR: Continue with amiodarone drip. Continue with Cardizem 60 mg 4 times a day. Coreg 25 mg twice daily. Care discussed with cardiology. ÁNGEL/ Cardioversion: After anesthesia team sedated patient, cardiology proceeded with advancing ÁNGEL probe. Left atrial appendage thrombus was ruled out. We then successfully cardioverted him with 200 J synchronized DCCV shock x1. Patient converted to normal sinus rhythm. (2) Congestive heart failure: Strict input output charting, daily weights. Continue with diuresis for now. Metolazone 5 mg oral daily. Counseled about fluid restriction less than 1500 cc. (3) Uncontrolled hypertension: Goal blood pressure less than 140/90 mmHg Blood pressure especially diastolic is still is elevated but improving Continue with hydralazine 100 mg 3 times daily, Coreg 25 mg twice daily, Cardizem 60 mg 4 times a day, clonidine 0.1 mg patch. Add Imdur 60 mg daily. (4) Acute kidney injury: JOLANTA versus CKD. Creatinine trending up to 2.4 from 2.1. Will decrease IV Lasix to 40 mg every 12 hours Flomax 0.4 daily. Medical reconciliation done for nephrotoxic drugs. Appreciate urine lites, urine creatinine, urine eosinophils. (5) Anemia: Stable. Full code Carb consistent diet Protonix will be sufficient for PUD prophylaxis He is on p.o. Eliquis 5 mg twice a day will continue same for DVT prophylaxis Attestations Medical Necessity Statement*: He needs continued hospitalization for cardiac monitoring post cardioversion for uncontrolled A-fib. If stable will plan to discharge home tomorrow Time Spent in Patient Care: 20 minutes Coding Level of Care Code Acute Code for Chg Fwd Diagnoses Atrial fibrillation with RVR I48.91 Uncontrolled hypertension I10 Anemia D64.9 Acute kidney injury N17.9 Congestive heart failure I50.9 Diabetes E11.65 Diabetes mellitus complication status: with hyperglycemia Diabetes mellitus manager long term care insulin use: without nursing home use Diabetes mellitus type: type 2 Time Spent (min) 20
[2023-06-20 17:40] LABS: Glucose Point of Care 257 mg/dL (70-110)
--- NOTE | 2023-06-20 17:48 | PC.NURSE ---
notified doctor that pt has been refusing his humalog insulin sq here. he said he usually takes oral metformin, januvia and glipizide. notified doctor on this. doctor received notification but no further orders relayed.
[2023-06-20 20:46] LABS: Glucose Point of Care 321 mg/dL (70-110)
[2023-06-21] VITALS (11 sets, daily range): BP systolic 130–152; BP diastolic 65–91; PULSE 68–74; RESP 12–25; TEMP 36.7–37.4; O2SAT 92–98; BMI 37.7
--- NOTE | 2023-06-21 01:15 | PC.NURSE ---
Cardizem 60mg 2100 dose was held per parameters on order.
[2023-06-21 04:14] LABS: Anion Gap 13.2 (5-19); Blood Urea Nitrogen 42 mg/dL (6-20); Calcium 9.7 mg/dL (8.5-10.5); Carbon Dioxide 35 mmol/L (22-29); Chloride 93 mmol/L (98-107); Creatinine Clr Calc Pharmacy 46.6187; Glomerular Filtration Rate 24.2 mL/min (90-130); Glucose 173 mg/dL (65-115); Osmolality Calculated 301 mOsm/kg (285-295); Potassium 3.2 mmol/L (3.5-5.1); Sodium 138 mmol/L (136-145)
[2023-06-21 06:28] LABS: Glucose Point of Care 172 mg/dL (70-110)
--- NOTE | 2023-06-21 06:44 | PM.PN ---
Subjective Subjective: Patient is staying in normal sinus rhythm. Breathing is improved. Creatinine went up. Vitals/I&O/Wt Last Vital Signs Temp 98.0 F 06/21/23 04:06 Pulse 70 06/21/23 05:19 Resp 18 06/21/23 04:06 BP 152/91 06/21/23 04:06 Pulse Ox 98 06/21/23 04:06 O2 Del Method Nasal Cannula 06/20/23 16:50 O2 Flow Rate 2 06/20/23 16:50 06/20/23 06/20/23 06/21/23 14:59 22:59 06:59 Intake Total 860 / 860 400 / 1260 Output Total 2150 / 2150 1000 / 3150 2800 / 5950 Balance -1290 / -1290 -1000 / -2290 -2400 / -4690 Weight last 48 hrs Weight 286 lb 2 oz Weight 305 lb Physical Exam Narrative: GENERAL: Patient is alert, awake and oriented x3. [] NECK: No jugular vein distension. [] HEENT: No cyanosis. No icterus. No pallor. [] HEART: Regular S1 and S2. No murmur, rub or gallop. [] LUNGS:Diminished air entry bilaterally. CENTRAL NERVOUS SYSTEM: Grossly nonfocal. [] EXTREMITIES: Lower extremities with 1+ edema bilaterally. Urinary Catheter Management: Tolliver: Cath Placed During This Visit: yes Reason for Continuing Indwelling Catheter: Accurate Measurement of Urinary Output in Critically Ill Patients Urinary Catheter Date of Insertion: 06/17/23 Urinary Catheter Time of Insertion: 13:15 Data 06/20/23 03:09 06/22/23 04:36 A&P Assessment and plan (1) Atrial fibrillation with RVR: (2) Congestive heart failure: (3) Aortic regurgitation: Qualifiers: Cardiac valve disease etiology: nonrheumatic Qualified Code(s): I35.1 - Nonrheumatic aortic (valve) insufficiency (4) Elevated troponin I level: (5) Anemia: (6) Hypokalemia: (7) Acute kidney injury: (8) Diabetes: Qualifiers: Diabetes mellitus complication status: with hyperglycemia Diabetes mellitus skilled nursing insulin use: without petroleum terminal plant operator use Diabetes mellitus type: type 2 Qualified Code(s): E11.65 - Type 2 diabetes mellitus with hyperglycemia Plan Patient staying in normal sinus rhythm. We will continue with Coreg, Cardizem and amiodarone. Monitor telemonitoring. Creatinine went up. Will down titrate diuretic therapy. Monitor renal function tomorrow and if stable or improving, can be discharged. Thank you for involving us with care of this patient. please call with questions. Attestations Medical Necessity Statement*: Care expected to cross 2 midnights. Coding Level of Care Code [facility] Atrial fibrillation with RVR I48.91 Congestive heart failure I50.9 Nonrheumatic aortic valve insufficiency I35.1 Cardiac valve disease etiology: nonrheumatic Elevated troponin I level R79.89 Anemia D64.9 Hypokalemia E87.6 Acute kidney injury N17.9 Diabetes E11.65 Diabetes mellitus complication status: with hyperglycemia Diabetes mellitus skilled nursing insulin use: without petroleum terminal plant operator use Diabetes mellitus type: type 2
[2023-06-21] MEDS: benzonatate 100 mg Capsule 200 MG PO ×3 (08:40→20:31)
[2023-06-21] MEDS: aspirin 81 mg EC Tablet PO (08:40)
[2023-06-21] MEDS: potassium chloride ER 20 mEq Tablet 40 MEQ PO ×2 (08:40→16:59)
[2023-06-21] MEDS: carvedilol 12.5 mg Tablet PO ×2 (08:40→10:25)
[2023-06-21] MEDS: dilTIAZem 30 mg Tablet 60 MG PO ×3 (08:41→16:47)
[2023-06-21] MEDS: hyDRALAzine 50 mg Tablet 100 MG PO ×3 (08:41→20:31)
[2023-06-21] MEDS: metOLazone 5 MG Tablet PO (08:41)
[2023-06-21] MEDS: sennosides-docusate Tablet 1 TAB PO ×2 (08:41→17:39)
[2023-06-21] MEDS: atorvastatin 40 mg Tablet 20 MG PO (08:41)
[2023-06-21] MEDS: isosorbide mononitrate ER 60 mg Tablet PO (08:41)
[2023-06-21] MEDS: tamsulosin 0.4 mg Capsule 0.800000000000000044 MG PO (08:41)
[2023-06-21] MEDS: amiodarone 200 mg Tablet PO ×2 (08:41→17:40)
[2023-06-21] MEDS: apixaban 5 mg Tablet PO ×2 (08:41→20:31)
[2023-06-21] MEDS: pantoprazole 40 mg SDV IVP ×2 (08:42→20:30)
[2023-06-21 11:46] LABS: Glucose Point of Care 225 mg/dL (70-110)
[2023-06-21] MEDS: cyanocobalamin 1,000 mcg Tablet 1000 MCG PO (12:58)
[2023-06-21] MEDS: sodium chloride 0.9% 500 ML IV (12:59)
--- NOTE | 2023-06-21 13:40 | P.PN_ITS ---
Subjective 2 Subjective: No acute overnight events noted. Reports feeling better, will try to wean off oxygen and monitor saturations. Medications: Reviewed: Yes Vitals/I&O/Wt Last Vital Signs Temp 99.4 F 06/21/23 11:32 Pulse 74 06/21/23 13:13 Resp 19 H 06/21/23 13:13 BP 130/65 06/21/23 11:32 Pulse Ox 98 06/21/23 11:32 O2 Del Method Nasal Cannula 06/21/23 11:32 O2 Flow Rate 1 06/21/23 11:32 06/20/23 06/21/23 06/21/23 22:59 06:59 14:59 Intake Total 400 / 1260 660 / 660 Output Total 1000 / 3150 2800 / 5950 700 / 700 Balance -1000 / -2290 -2400 / -4690 -40 / -40 Weight last 48 hrs Weight 129.784 kg Weight 138.346 kg Physical Exam 2 Narrative: He is alert he is alert awake oriented x 3 chest clear to auscultation bilaterally Cardiovascular S1-S2 normal irregular but no murmurs Abdomen soft nontender nondistended normal bowel sounds Extremities bilateral 2+ pitting edema present. Urinary Catheter Management: Tolliver: Cath Placed During This Visit: yes Reason for Continuing Indwelling Catheter: Accurate Measurement of Urinary Output in Critically Ill Patients Urinary Catheter Date of Insertion: 06/17/23 Urinary Catheter Time of Insertion: 13:15 Data 06/20/23 03:09 06/21/23 03:26 A&P Assessment and plan (1) Atrial fibrillation with RVR: (2) Uncontrolled hypertension: (3) Anemia: (4) Acute kidney injury: (5) Congestive heart failure: (6) Diabetes: Qualifiers: Diabetes mellitus complication status: with hyperglycemia Diabetes mellitus remote computer terminal operator insulin use: without remote computer terminal operator use Diabetes mellitus type: t ype 2 Qualified Code(s): E11.65 - Type 2 diabetes mellitus with hyperglycemia Plan (1) Atrial fibrillation with RVR: Continue with Cardizem 60 mg 4 times a day. Coreg 25 mg twice daily. Care discussed with cardiology. s/p ÁNGEL/ Cardioversion: (2) Congestive heart failure: Strict input output charting, daily weights. Discontinue IV Lasix Metolazone 5 mg oral daily. Counseled about fluid restriction less than 1000 cc. (3) Uncontrolled hypertension: Blood pressure stable and improved Continue with hydralazine 100 mg 3 times daily, Coreg 25 mg twice daily, Cardizem 60 mg 4 times a day, clonidine 0.1 mg patch. Add Imdur 60 mg daily. (4) Acute kidney injury: JOLANTA versus CKD. Creatinine trending up to 2.8 from 2.1. Flomax 0.4 daily. Medical reconciliation done for nephrotoxic drugs. Repeat BMP in a.m. (5) Anemia: Stable. Full code Carb consistent diet Protonix will be sufficient for PUD prophylaxis He is on p.o. Eliquis 5 mg twice a day will continue same for DVT prophylaxis Attestations 2 Medical Necessity Statement*: He needs continued hospitalization for cardiac monitoring, weaning from supplemental oxygen and acute renal failure likely secondary to diuresis. Time Spent in Patient Care: 20 minutes Coding Level of Care Code Acute Code for g Fwd Diagnoses Atrial fibrillation with RVR I48.91 Uncontrolled hypertension I10 Anemia D64.9 Acute kidney injury N17.9 Congestive heart failure I50.9 Diabetes E11.65 Diabetes mellitus complication status: with hyperglycemia Diabetes mellitus remote computer terminal operator insulin use: without remote computer terminal operator use Diabetes mellitus type: type 2 Time Spent (min) 20
[2023-06-21] MEDS: carvedilol 25 mg Tablet PO (17:39)
[2023-06-21 17:51] LABS: Glucose Point of Care 288 mg/dL (70-110)
[2023-06-21 21:32] LABS: Glucose Point of Care 218 mg/dL (70-110)
[2023-06-22] VITALS (7 sets, daily range): BP systolic 156–158; BP diastolic 83–99; PULSE 71–85; RESP 17–18; TEMP 36.6–36.9; O2SAT 93–97
[2023-06-22 05:22] LABS: Anion Gap 13.7 (5-19); Blood Urea Nitrogen 46 mg/dL (6-20); Calcium 9.4 mg/dL (8.5-10.5); Carbon Dioxide 33 mmol/L (22-29); Chloride 95 mmol/L (98-107); Creatinine Clr Calc Pharmacy 50.4609; Glomerular Filtration Rate 27.6 mL/min (90-130); Glucose 157 mg/dL (65-115); Osmolality Calculated 301 mOsm/kg (285-295); Potassium 3.7 mmol/L (3.5-5.1); Sodium 138 mmol/L (136-145)
[2023-06-22 06:25] LABS: Glucose Point of Care 155 mg/dL (70-110)
--- NOTE | 2023-06-22 06:25 | P.PN_ITS ---
Subjective 2 Subjective: Doing well. Staying in normal rhythm Vitals/I&O/Wt Last Vital Signs Temp 98.2 F 06/22/23 04:00 Pulse 72 06/22/23 05:39 Resp 18 06/22/23 04:00 BP 158/87 06/22/23 04:00 Pulse Ox 97 06/22/23 04:00 O2 Del Method Room Air 06/22/23 04:00 O2 Flow Rate 1 06/21/23 11:32 06/21/23 06/21/23 06/22/23 14:59 22:59 06:59 Intake Total 1160 / 1160 700 / 1860 740 / 2600 Output Total 700 / 700 800 / 1500 800 / 2300 Balance 460 / 460 -100 / 360 -60 / 300 Weight last 48 hrs Weight 285 lb 14.4 oz Weight 286 lb 2 oz Physical Exam 2 Narrative: GENERAL: Patient is alert, awake and oriented x3. [] NECK: No jugular vein distension. [] HEENT: No cyanosis. No icterus. No pallor. [] HEART: Regular S1 and S2. No murmur, rub or gallop. [] LUNGS:Diminished air entry bilaterally. CENTRAL NERVOUS SYSTEM: Grossly nonfocal. [] EXTREMITIES: Lower extremities with 1+ edema bilaterally. Urinary Catheter Management: Tolliver: Cath Placed During This Visit: yes, but has since been removed by the nurse Reason for Continuing Indwelling Catheter: Decision to DC Catheter Urinary Catheter Date of Insertion: 06/17/23 Urinary Catheter Time of Insertion: 13:15 Date Urinary Catheter Removed: 06/21/23 Time Urinary Catheter Discontinued: 20:30 Data 06/20/23 03:09 06/22/23 04:36 A&P Assessment and plan (1) Atrial fibrillation with RVR: (2) Congestive heart failure: (3) Aortic regurgitation: Qualifiers: Cardiac valve disease etiology: nonrheumatic Qualified Code(s): I35.1 - Nonrheumatic aortic (valve) insufficiency (4) Elevated troponin I level: (5) Anemia: (6) Hypokalemia: (7) Acute kidney injury: (8) Diabetes: Qualifiers: Diabetes mellitus complication status: with hyperglycemia Diabetes mellitus terminal gauger insulin use: without terminal gauger use Diabetes mellitus type: t ype 2 Qualified Code(s): E11.65 - Type 2 diabetes mellitus with hyperglycemia Plan Patient is doing well. No chest pain. Staying in normal rhythm Continue eliquis and amiodarone Renal function improving Thank you for involving us with care of this patient. please call with questions. Attestations 2 Medical Necessity Statement*: Care expected to cross 2 midnights. Coding Level of Care Code Acute Code for [facility] Fwd Diagnoses Atrial fibrillation with RVR I48.91 Congestive heart failure I50.9 Nonrheumatic aortic valve insufficiency I35.1 Cardiac valve disease etiology: nonrheumatic Elevated troponin I level R79.89 Anemia D64.9 Hypokalemia E87.6 Acute kidney injury N17.9 Diabetes E11.65 Diabetes mellitus complication status: with hyperglycemia Diabetes mellitus custodial insulin use: without custodial use Diabetes mellitus type: type 2
--- NOTE | 2023-06-22 06:25 | PC.NURSE ---
per parameters on MAR for cardizem, 2100 60mg cardizem was held, Dr Latham was notified.
[2023-06-22] MEDS: hyDRALAzine 50 mg Tablet 100 MG PO (09:16)
[2023-06-22] MEDS: isosorbide mononitrate ER 60 mg Tablet PO (09:16)
[2023-06-22] MEDS: amiodarone 200 mg Tablet PO (09:17)
[2023-06-22] MEDS: aspirin 81 mg EC Tablet PO (09:17)
[2023-06-22] MEDS: tamsulosin 0.4 mg Capsule 0.800000000000000044 MG PO (09:17)
[2023-06-22] MEDS: sennosides-docusate Tablet 1 TAB PO (09:17)
[2023-06-22] MEDS: cyanocobalamin 1,000 mcg Tablet 1000 MCG PO (09:17)
[2023-06-22] MEDS: apixaban 5 mg Tablet PO (09:17)
[2023-06-22] MEDS: pantoprazole 40 mg SDV IVP (09:17)
[2023-06-22] MEDS: metOLazone 5 MG Tablet PO (09:17)
[2023-06-22] MEDS: atorvastatin 40 mg Tablet 20 MG PO (09:17)
[2023-06-22] MEDS: carvedilol 25 mg Tablet PO (09:17)
[2023-06-22] MEDS: dilTIAZem 30 mg Tablet 60 MG PO (09:17)
[2023-06-22] MEDS: benzonatate 100 mg Capsule 200 MG PO (09:30)
--- NOTE | 2023-06-22 09:44 | PM.DCS ---
Discharge Providers Date of Admission: 06/16/23 10:06 Date of Discharge: June 22, 2023 Attending Provider at Admission: Raheel Painter MD Attending Provider at Discharge: Rupali Mckoy MD Primary Care Provider: ALVARO Ellison Diagnoses at Discharge Discharge Diagnosis (1) Atrial fibrillation with RVR: Status: Acute (2) Congestive heart failure: Status: Acute (3) Aortic regurgitation: Status: Acute Qualifiers: Cardiac valve disease etiology: nonrheumatic Qualified Code(s): I35.1 - Nonrheumatic aortic (valve) insufficiency (4) Elevated troponin I level: Status: Acute (5) Anemia: Status: Acute (6) Hypokalemia: Status: Acute (7) Acute kidney injury: Status: Acute (8) Diabetes: Status: Acute Qualifiers: Diabetes mellitus complication status: with hyperglycemia Diabetes mellitus 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 Cardizem, he was also started on heparin drip and amiodarone drip for A-fib with RVR. After 2 days of amiodarone drip he was still in A-fib with RVR with dyspnea orthopnea and occasional chest tightness. So he went for cardioversion and started feeling better with normal sinus rhythm in 70s and blood pressure well-controlled on hydralazine 100 mg 3 times daily, Coreg 25 mg twice daily, Cardizem 60 mg 4 times a day, clonidine 0.1 mg patch. Add Imdur 60 mg daily. He is doing better and ready to be discharged home today. Follow-up with MELISSA as outpatient in 1 week Outpatient follow-up with Josephine nurse practitioner in 1 week. Physical Exam Urinary Catheter Management: Tolliver: Cath Placed During This Visit: yes, but has since been removed by the nurse Reason for Continuing Indwelling Catheter: Decision to DC Catheter Urinary Catheter Date of Insertion: 06/17/23 Urinary Catheter Time of Insertion: 13:15 Date Urinary Catheter Removed: 06/21/23 Time Urinary Catheter Discontinued: 20:30 Discharge Data Studies Completed and Pending Completed Studies During Hospitalization Category Date Time Status CT abdomen pelvis wo con [id number] Routine Cat Scan 06/17/23 10:36 Completed XR chest 1V portable [id number] Stat Exams 06/16/23 08:59 Completed CV. echo complete* [id number] Routine Ultrasound 06/17/23 06:00 Completed US renal BI* [id number] Routine Ultrasound 06/16/23 12:39 Completed Pending at discharge Category Date Time Status [place] Á[place] [id number] Routine Ultrasound 06/20/23 10:00 Taken Radiology Impressions Abdomen/Pelvis CT 06/17/23 10:36 IMPRESSION: 1. Pleural effusions with diffuse body wall edema 2. Prostate enlargement 3. I see no cause for acute renal insufficiency Laboratory Results WBC 9.73 10^3/uL (3.29-11.43) 06/19/23 06:36 RBC 4.00 10^6/uL (3.85-5.65) 06/19/23 06:36 Hgb 9.30 g/dL (11.27-16.99) L 06/19/23 06:36 Hct 30.3 % (37-53) L 06/19/23 06:36 MCV 75.8 fl (82-101) L 06/19/23 06:36 MCH 23.3 pg (27-33) L 06/19/23 06:36 MCHC 30.7 g/dL (30-55) 06/19/23 06:36 RDW 15.7 % (12.1-15.1) H 06/19/23 06:36 Plt Count 279 10^3/cmm (157-399) 06/20/23 03:09 MPV 10.4 fL (7.4-10.4) 06/19/23 06:36 Neut % (Auto) 76.9 % 06/19/23 06:36 Lymph % (Auto) 11.8 % 06/19/23 06:36 Rains % (Auto) 7.9 % 06/19/23 06:36 Eos % (Auto) 2.1 % 06/19/23 06:36 Baso % (Auto) 0.6 % 06/19/23 06:36 Neut # (Auto) 7.48 10^3/uL (1.8-7.7) 06/19/23 06:36 Lymph # (Auto) 1.2 10^3/uL (0.8-4.8) 06/19/23 06:36 Rains # (Auto) 0.8 10^3/uL (0.2-0.9) 06/19/23 06:36 Eos # (Auto) 0.2 10^3/uL (0.0-0.8) 06/19/23 06:36 Baso # (Auto) 0.1 10^3/uL (0.0-0.1) 06/19/23 06:36 Nucleated RBC % (auto) 0 % 06/19/23 06:36 Nucleated RBCs # 0.0 /100WBC 06/19/23 06:36 APTT 33.5 SECONDS (23.9-36.7) D 06/20/23 10:50 Sodium 138 mmol/L (136-145) 06/22/23 04:36 Potassium 3.7 mmol/L (3.5-5.1) 06/22/23 04:36 Chloride 95 mmol/L (98-107) L 06/22/23 04:36 Carbon Dioxide 33 mmol/L (22-29) H 06/22/23 04:36 Anion Gap 13.7 (5-19) 06/22/23 04:36 BUN 46 mg/dL (6-20) H 06/22/23 04:36 Creatinine 2.5 mg/dL (0.7-1.2) H 06/22/23 04:36 GFR Calculation 27.6 mL/min (90-130) L 06/22/23 04:36 Glucose 157 mg/dL (65-115) H 06/22/23 04:36 POC Glucose 155 mg/dL (70-110) H 06/22/23 06:20 Estimat Average Glucose 177 06/17/23 06:22 Hemoglobin A1c 7.8 % (4.0-6.0) H 06/17/23 06:22 Calculated Osmolality 301 mOsm/kg (285-295) H 06/22/23 04:36 Calcium 9.4 mg/dL (8.5-10.5) 06/22/23 04:36 Magnesium 2.0 mg/dL (1.7-2.3) 06/20/23 03:09 Iron 21 ug/dL (59-158) L 06/16/23 09:00 Iron Cancelled 06/16/23 09:00 TIBC 393 mcg/dl 06/16/23 09:00 % Saturation 5.3 % (20-50) L 06/16/23 09:00 Unsat Iron Binding 372 ug/dL (112-347) H 06/16/23 09:00 Ferritin 44 ng/mL (30-400) 06/16/23 09:00 Total Bilirubin 0.5 mg/dL (0.15-1.2) 06/19/23 06:36 AST 19 U/L (0-40) 06/19/23 06:36 ALT 26 U/L (0-41) 06/19/23 06:36 Alkaline Phosphatase 70 U/L (40-130) 06/19/23 06:36 Creatine Kinase 122 U/L (39-308) 06/16/23 14:44 Troponin T Baseline 111 ng/L (0-15) H* 06/16/23 09:00 Troponin T 120 Minute 95.32 ng/L (0-15) H 06/16/23 10:46 Delta Troponin T -15.68 ABS# (0-10) L 06/16/23 10:46 Troponin T Hi Sens 6Hr 101.9 ng/L (0-15) H 06/16/23 14:44 Troponin T Hi Sens 6Hr Delta -9.1 ng/L (0-12) L 06/16/23 14:44 NT-Pro-B Natriuret Pep 7991 pg/mL (0-125) H 06/16/23 09:00 Total Protein 6.6 g/dL (6.6-8.7) 06/19/23 06:36 Albumin 3.7 g/dL (3.5-5.2) 06/19/23 06:36 Globulin 2.9 g/dL (1.3-4.6) 06/19/23 06:36 Triglycerides 67 mg/dL (0-150) 06/18/23 03:02 Cholesterol 140 mg/dL (0-200) 06/18/23 03:02 LDL Cholesterol, Calc 86 mg/dL (50-129) 06/18/23 03:02 Total VLDL Cholesterol 13 mg/dL (0-30) 06/18/23 03:02 HDL Cholesterol 41 mg/dL (60-100) L 06/18/23 03:02 Cholesterol/HDL Ratio 3.41 mg/dL (1.0-5.00) 06/18/23 03:02 Vitamin B12 189 pg/mL (232-1245) L 06/17/23 06:22 Folate 12.8 ng/mL (4.5-32.2) 06/18/23 03:02 TSH 1.48 uIU/mL (0.27-4.20) 06/16/23 09:00 Urine Color Yellow (Yellow) 06/17/23 13:00 Urine Appearance Clear (CLEAR) 06/17/23 13:00 Urine pH 5 (5-7) 06/17/23 13:00 Ur Specific [place] 1.025 (1.005-1.030) 06/17/23 13:00 Urine Protein 1+ (Negative) H 06/17/23 13:00 Urine Glucose (UA) 1+ (Normal) H 06/17/23 13:00 Urine Ketones Negative (Negative) 06/17/23 13:00 Urine Blood Neg (Negative) 06/17/23 13:00 Urine Nitrate Negative (Negative) 06/17/23 13:00 Urine Bilirubin Neg (Negative) 06/17/23 13:00 Urine Urobilinogen Norm mg/dL (Negative) 06/17/23 13:00 Ur Leukocyte Esterase Negative (Negative) 06/17/23 13:00 Urine RBC None /hpf (0-2) 06/17/23 13:00 Urine WBC Rare /hpf (0-5) 06/17/23 13:00 Ur Eosinophil Smear 0 (0-0) 06/17/23 13:00 Ur Squamous Epith Cells None /hpf (0-5) 06/17/23 13:00 Amorphous Sediment Not Reportable 06/17/23 13:00 Urine Bacteria 1+ /hpf (NONE) H 06/17/23 13:00 Urine Eosinophils No eosinophils seen 06/17/23 13:00 Ur Random Sodium 36 mmol/L 06/16/23 15:45 Ur Random Potassium 17 mmol/L 06/16/23 15:45 Ur Random Chloride 29 mmol/L 06/16/23 15:45 Urine Creatinine 194 mg/dL (39-259) 06/17/23 13:00 Urine Opiates Screen Negative ng/mL (Negative) 06/16/23 15:45 Ur Barbiturates Screen Negative ng/mL (Negative) 06/16/23 15:45 Ur Phencyclidine Scrn Negative ng/mL (Negative) 06/16/23 15:45 Ur Amphetamines Screen Negative ng/mL (Negative) 06/16/23 15:45 U Benzodiazepines Scrn Negative ng/mL (Negative) 06/16/23 15:45 Urine Cocaine Screen Negative ng/mL (Negative) 06/16/23 15:45 U Marijuana (THC) Screen Negative ng/mL (Negative) 06/16/23 15:45 Vitals Last Vital Signs Temp 98.5 F 06/22/23 07:21 Pulse 73 06/22/23 07:21 Resp 18 06/22/23 07:21 BP 156/99 06/22/23 07:21 Pulse Ox 94 06/22/23 07:21 O2 Del Method Room Air 06/22/23 07:21 O2 Flow Rate 1 06/21/23 11:32 Discharge Plan Discharge Patient Disposition: Home Condition: Stable Prescriptions: New Eliquis 5 mg Tablet 5 mg PO BID@0900,2100 30 Days Qty: 60 0RF carvedilol 25 mg Tablet 25 mg PO BID 30 Days Qty: 60 0RF Vitamin B-12 1,000 mcg Tablet 1,000 mcg PO DAILY 30 Days Qty: 30 0RF aspirin 81 mg Tablet,Delayed Release (Dr/Ec) 81 mg PO DAILY 30 Days Qty: 30 0RF isosorbide mononitrate 60 mg Tablet Extended Release 24 Hr 60 mg PO DAILY 30 Days Qty: 30 0RF tamsulosin 0.4 mg Capsule 0.8 mg PO DAILY 30 Days Qty: 30 0RF hydralazine 50 mg Tablet 100 mg PO TID 30 Days Qty: 180 0RF diltiazem HCl 30 mg Tablet 60 mg PO QID 30 Days Qty: 240 0RF Pacerone 200 mg Tablet 200 mg PO BID 7 Days Qty: 14 0RF amiodarone 200 mg tablet 200 mg PO DAILY 30 Days Qty: 30 0RF Lasix 40 mg tablet 40 mg PO BID 30 Days Qty: 60 0RF atorvastatin 40 mg Tablet 20 mg PO DAILY 30 Days Qty: 30 0RF Continued hydralazine 50 mg tablet 100 mg PO TID carvedilol [Coreg] 25 mg tablet 25 mg PO BID Qty: 60 0RF Rx Instructions: must administer with a meal/food Januvia 50 mg tablet 50 mg PO DAILY Qty: 30 0RF pantoprazole 40 mg Tablet,Delayed Release (Dr/Ec) 40 mg PO DAILY metformin 1,000 mg Tablet 1,000 mg PO BID glipizide 5 mg Tablet 5 mg PO DAILY Discontinued aspirin 325 mg tablet 325 mg PO DAILY losartan 100 mg tablet 100 mg PO DAILY Qty: 30 0RF amlodipine 10 mg Tablet 10 mg PO DAILY simvastatin 20 mg Tablet 20 mg PO DAILY Discharge Orders: Discharge Order (Routine); Ordered 06/22/23 Ordered By: Rupali Mckoy Referrals: Josephine Domínguez FNP [Nurse Practitioner] - 07/04/23 2:30 pm Guerra,ALVARO Rivas [Primary Care Provider] - 06/28/23 11:30 am Discharge Diet: Cardiac Discharge Activity: Resume usual activity Patient Instructions: Diltiazem (By mouth), Furosemide (By mouth), Amiodarone (By mouth), Hydralazine (By mouth), Isosorbide Mononitrate (By mouth), Atorvastatin (By mouth), Tamsulosin (By mouth), Carvedilol (By mouth), Apixaban (By mouth) (Eliquis), Heart Failure (DC), A-fib (Atrial Fibrillation) (DC), Cardioversion (DC), CHF Stoplight, Opioid Safety Plan of Treatment: Follow-up with lab test MELISSA in 1 week Follow-up FLOORING INSTALLER Josephine in 1 week Discharge Attestations Time Spent in Discharge Care*: less than 30 min Quality Metrics Clinical Quality Measures [ No reported AMI, CVA or VTE this stay] Coding Level of Care Code Acute Code for [facility] Fwd Diagnoses Atrial fibrillation with RVR I48.91 Congestive heart failure I50.9 Nonrheumatic aortic valve insufficiency I35.1 Cardiac valve disease etiology: nonrheumatic Elevated troponin I level R79.89 Anemia D64.9 Hypokalemia E87.6 Acute kidney injury N17.9 Diabetes E11.65 Diabetes mellitus complication status: with hyperglycemia Diabetes mellitus usp insulin use: without usp use Diabetes mellitus type: type 2
--- NOTE | 2023-06-22 10:28 | PM.DCS ---
Discharge Providers Date of Admission: 06/16/23 10:06 Date of Discharge: June 22, 2023 Attending Provider at Admission: Raheel Painter MD Attending Provider at Discharge: Rupali Mckoy MD Consults: cardiology Primary Care Provider: ALVARO Ellison Diagnoses at Discharge Discharge Diagnosis (1) Atrial fibrillation with RVR: Status: Acute (2) Congestive heart failure: Status: Acute (3) Aortic regurgitation: Status: Acute Qualifiers: Cardiac valve disease etiology: nonrheumatic Qualified Code(s): I35.1 - Nonrheumatic aortic (valve) insufficiency (4) Elevated troponin I level: Status: Acute (5) Anemia: Status: Acute (6) Hypokalemia: Status: Acute (7) Acute kidney injury: Status: Acute (8) Diabetes: Status: Acute Qualifiers: Diabetes mellitus complication status: with hyperglycemia Diabetes mellitus long distance operator insulin use: without halfway use Diabetes mellitus type: type 2 Qualified Code(s): E11.65 - Type 2 diabetes mellitus with hyperglycemia Reason for Visit Reason for Visit: chest pain Brief History: Jose Douglas is a 47 year old male with past medical history of GERD, Aortic regurgitation, cardiomyopathy, hypertension, hyperlipidemia, and diabetes present to the hospital today with chief complaint of AFib w/ RVR. About a month ago Mr. Douglas was placed on a 2 week holter monitor by his PCP for palpitations and shortness of breath. After this trial he was then diagnosed 2 weeks ago for Atrial fibrillation and unable to see a follow-up with a cardiology until late July. Mr. Douglas begin to have more difficulty accomplishing at home task. About 0400 this morning he was unable to fall back asleep and began having heart palpitation and shortness of breath. He was unable to get comfortable and came to the Emergency Room to be evaluated. Symptoms have been at least 1 week in duration, associated with orthopnea, dyspnea on exertion. No fever, blood in stool, black or tarry stool, abdominal pain, nosebleeds, severe reflux. Mr. Douglas is currently in Afib with a heart rate ranging from 106-125. He denies chest pain, blood in stool, fever. He reports cough(lasting about 2 months), nausea, intermittent shortness of breath occurring with heart palpitations. Hospital Course Hospital Course During the hospital stay he was started on IV Cardizem he was started on IV Cardizem and p.o. Cardizem, he was also started on heparin drip and amiodarone drip for A-fib with RVR. After 2 days of amiodarone drip he was still in A-fib with RVR with dyspnea orthopnea and occasional chest tightness. So he went for cardioversion and started feeling better with normal sinus rhythm in 70s and blood pressure well-controlled on hydralazine 100 mg 3 times daily, Coreg 25 mg twice daily, Cardizem 60 mg 4 times a day, clonidine 0.1 mg patch. Add Imdur 60 mg daily. He is doing better and ready to be discharged home today. Follow-up with MELISSA as outpatient in 1 week Outpatient follow-up with Josephine nurse practitioner in 1 week. Physical Exam Narrative: He is alert he is alert awake oriented x 3 chest clear to auscultation bilaterally Cardiovascular S1-S2 normal irregular but no murmurs Abdomen soft nontender nondistended normal bowel sounds Extremities bilateral 2+ pitting edema present. Urinary Catheter Management: Tolliver: Cath Placed During This Visit: yes, but has since been removed by the nurse Reason for Continuing Indwelling Catheter: Decision to DC Catheter Urinary Catheter Date of Insertion: 06/17/23 Urinary Catheter Time of Insertion: 13:15 Date Urinary Catheter Removed: 06/21/23 Time Urinary Catheter Discontinued: 20:30 Discharge Data Studies Completed and Pending Completed Studies During Hospitalization Category Date Time Status CT abdomen pelvis wo con [id number] Routine Cat Scan 06/17/23 10:36 Completed XR chest 1V portable [id number] Stat Exams 06/16/23 08:59 Completed CV. echo complete* [id number] Routine Ultrasound 06/17/23 06:00 Completed US renal BI* [id number] Routine Ultrasound 06/16/23 12:39 Completed Pending at discharge Category Date Time Status [place] Á[place] [id number] Routine Ultrasound 06/20/23 10:00 Taken Radiology Impressions Abdomen/Pelvis CT 06/17/23 10:36 IMPRESSION: 1. Pleural effusions with diffuse body wall edema 2. Prostate enlargement 3. I see no cause for acute renal insufficiency Laboratory Results WBC 9.73 10^3/uL (3.29-11.43) 06/19/23 06:36 RBC 4.00 10^6/uL (3.85-5.65) 06/19/23 06:36 Hgb 9.30 g/dL (11.27-16.99) L 06/19/23 06:36 Hct 30.3 % (37-53) L 06/19/23 06:36 MCV 75.8 fl (82-101) L 06/19/23 06:36 MCH 23.3 pg (27-33) L 06/19/23 06:36 MCHC 30.7 g/dL (30-55) 06/19/23 06:36 RDW 15.7 % (12.1-15.1) H 06/19/23 06:36 Plt Count 279 10^3/cmm (157-399) 06/20/23 03:09 MPV 10.4 fL (7.4-10.4) 06/19/23 06:36 Neut % (Auto) 76.9 % 06/19/23 06:36 Lymph % (Auto) 11.8 % 06/19/23 06:36 [place] % (Auto) 7.9 % 06/19/23 06:36 Eos % (Auto) 2.1 % 06/19/23 06:36 Baso % (Auto) 0.6 % 06/19/23 06:36 Neut # (Auto) 7.48 10^3/uL (1.8-7.7) 06/19/23 06:36 Lymph # (Auto) 1.2 10^3/uL (0.8-4.8) 06/19/23 06:36 [place] # (Auto) 0.8 10^3/uL (0.2-0.9) 06/19/23 06:36 Eos # (Auto) 0.2 10^3/uL (0.0-0.8) 06/19/23 06:36 Baso # (Auto) 0.1 10^3/uL (0.0-0.1) 06/19/23 06:36 Nucleated RBC % (auto) 0 % 06/19/23 06:36 Nucleated RBCs # 0.0 /100WBC 06/19/23 06:36 APTT 33.5 SECONDS (23.9-36.7) D 06/20/23 10:50 Sodium 138 mmol/L (136-145) 06/22/23 04:36 Potassium 3.7 mmol/L (3.5-5.1) 06/22/23 04:36 Chloride 95 mmol/L (98-107) L 06/22/23 04:36 Carbon Dioxide 33 mmol/L (22-29) H 06/22/23 04:36 Anion Gap 13.7 (5-19) 06/22/23 04:36 BUN 46 mg/dL (6-20) H 06/22/23 04:36 Creatinine 2.5 mg/dL (0.7-1.2) H 06/22/23 04:36 GFR Calculation 27.6 mL/min (90-130) L 06/22/23 04:36 Glucose 157 mg/dL (65-115) H 06/22/23 04:36 POC Glucose 155 mg/dL (70-110) H 06/22/23 06:20 Estimat Average Glucose 177 06/17/23 06:22 Hemoglobin A1c 7.8 % (4.0-6.0) H 06/17/23 06:22 Calculated Osmolality 301 mOsm/kg (285-295) H 06/22/23 04:36 Calcium 9.4 mg/dL (8.5-10.5) 06/22/23 04:36 Magnesium 2.0 mg/dL (1.7-2.3) 06/20/23 03:09 Iron 21 ug/dL (59-158) L 06/16/23 09:00 Iron Cancelled 06/16/23 09:00 TIBC 393 mcg/dl 06/16/23 09:00 % Saturation 5.3 % (20-50) L 06/16/23 09:00 Unsat Iron Binding 372 ug/dL (112-347) H 06/16/23 09:00 Ferritin 44 ng/mL (30-400) 06/16/23 09:00 Total Bilirubin 0.5 mg/dL (0.15-1.2) 06/19/23 06:36 AST 19 U/L (0-40) 06/19/23 06:36 ALT 26 U/L (0-41) 06/19/23 06:36 Alkaline Phosphatase 70 U/L (40-130) 06/19/23 06:36 Creatine Kinase 122 U/L (39-308) 06/16/23 14:44 Troponin T Baseline 111 ng/L (0-15) H* 06/16/23 09:00 Troponin T 120 Minute 95.32 ng/L (0-15) H 06/16/23 10:46 Delta Troponin T -15.68 ABS# (0-10) L 06/16/23 10:46 Troponin T Hi Sens 6Hr 101.9 ng/L (0-15) H 06/16/23 14:44 Troponin T Hi Sens 6Hr Delta -9.1 ng/L (0-12) L 06/16/23 14:44 NT-Pro-B Natriuret Pep 7991 pg/mL (0-125) H 06/16/23 09:00 Total Protein 6.6 g/dL (6.6-8.7) 06/19/23 06:36 Albumin 3.7 g/dL (3.5-5.2) 06/19/23 06:36 Globulin 2.9 g/dL (1.3-4.6) 06/19/23 06:36 Triglycerides 67 mg/dL (0-150) 06/18/23 03:02 Cholesterol 140 mg/dL (0-200) 06/18/23 03:02 LDL Cholesterol, Calc 86 mg/dL (50-129) 06/18/23 03:02 Total VLDL Cholesterol 13 mg/dL (0-30) 06/18/23 03:02 HDL Cholesterol 41 mg/dL (60-100) L 06/18/23 03:02 Cholesterol/HDL Ratio 3.41 mg/dL (1.0-5.00) 06/18/23 03:02 Vitamin B12 189 pg/mL (232-1245) L 06/17/23 06:22 Folate 12.8 ng/mL (4.5-32.2) 06/18/23 03:02 TSH 1.48 uIU/mL (0.27-4.20) 06/16/23 09:00 Urine Color Yellow (Yellow) 06/17/23 13:00 Urine Appearance Clear (CLEAR) 06/17/23 13:00 Urine pH 5 (5-7) 06/17/23 13:00 Ur Specific [place] 1.025 (1.005-1.030) 06/17/23 13:00 Urine Protein 1+ (Negative) H 06/17/23 13:00 Urine Glucose (UA) 1+ (Normal) H 06/17/23 13:00 Urine Ketones Negative (Negative) 06/17/23 13:00 Urine Blood Neg (Negative) 06/17/23 13:00 Urine Nitrate Negative (Negative) 06/17/23 13:00 Urine Bilirubin Neg (Negative) 06/17/23 13:00 Urine Urobilinogen Norm mg/dL (Negative) 06/17/23 13:00 Ur Leukocyte Esterase Negative (Negative) 06/17/23 13:00 Urine RBC None /hpf (0-2) 06/17/23 13:00 Urine WBC Rare /hpf (0-5) 06/17/23 13:00 Ur Eosinophil Smear 0 (0-0) 06/17/23 13:00 Ur Squamous Epith Cells None /hpf (0-5) 06/17/23 13:00 Amorphous Sediment Not Reportable 06/17/23 13:00 Urine Bacteria 1+ /hpf (NONE) H 06/17/23 13:00 Urine Eosinophils No eosinophils seen 06/17/23 13:00 Ur Random Sodium 36 mmol/L 06/16/23 15:45 Ur Random Potassium 17 mmol/L 06/16/23 15:45 Ur Random Chloride 29 mmol/L 06/16/23 15:45 Urine Creatinine 194 mg/dL (39-259) 06/17/23 13:00 Urine Opiates Screen Negative ng/mL (Negative) 06/16/23 15:45 Ur Barbiturates Screen Negative ng/mL (Negative) 06/16/23 15:45 Ur Phencyclidine Scrn Negative ng/mL (Negative) 06/16/23 15:45 Ur Amphetamines Screen Negative ng/mL (Negative) 06/16/23 15:45 U Benzodiazepines Scrn Negative ng/mL (Negative) 06/16/23 15:45 Urine Cocaine Screen Negative ng/mL (Negative) 06/16/23 15:45 U Marijuana (THC) Screen Negative ng/mL (Negative) 06/16/23 15:45 Vitals Last Vital Signs Temp 98.5 F 06/22/23 07:21 Pulse 78 06/22/23 10:26 Resp 18 06/22/23 07:21 BP 156/99 06/22/23 07:21 Pulse Ox 93 06/22/23 10:26 O2 Del Method Room Air 06/22/23 10:26 O2 Flow Rate 1 06/21/23 11:32 Discharge Plan Discharge Patient Disposition: Home Condition: Stable Prescriptions: New Eliquis 5 mg Tablet 5 mg PO BID@0900,2100 30 Days Qty: 60 0RF carvedilol 25 mg Tablet 25 mg PO BID 30 Days Qty: 60 0RF Vitamin B-12 1,000 mcg Tablet 1,000 mcg PO DAILY 30 Days Qty: 30 0RF aspirin 81 mg Tablet,Delayed Release (Dr/Ec) 81 mg PO DAILY 30 Days Qty: 30 0RF isosorbide mononitrate 60 mg Tablet Extended Release 24 Hr 60 mg PO DAILY 30 Days Qty: 30 0RF tamsulosin 0.4 mg Capsule 0.8 mg PO DAILY 30 Days Qty: 30 0RF hydralazine 50 mg Tablet 100 mg PO TID 30 Days Qty: 180 0RF diltiazem HCl 30 mg Tablet 60 mg PO QID 30 Days Qty: 240 0RF Pacerone 200 mg Tablet 200 mg PO BID 7 Days Qty: 14 0RF amiodarone 200 mg tablet 200 mg PO DAILY 30 Days Qty: 30 0RF Lasix 40 mg tablet 40 mg PO BID 30 Days Qty: 60 0RF atorvastatin 40 mg Tablet 20 mg PO DAILY 30 Days Qty: 30 0RF Continued hydralazine 50 mg tablet 100 mg PO TID carvedilol [Coreg] 25 mg tablet 25 mg PO BID Qty: 60 0RF Rx Instructions: must administer with a meal/food Januvia 50 mg tablet 50 mg PO DAILY Qty: 30 0RF pantoprazole 40 mg Tablet,Delayed Release (Dr/Ec) 40 mg PO DAILY metformin 1,000 mg Tablet 1,000 mg PO BID glipizide 5 mg Tablet 5 mg PO DAILY Discontinued aspirin 325 mg tablet 325 mg PO DAILY losartan 100 mg tablet 100 mg PO DAILY Qty: 30 0RF amlodipine 10 mg Tablet 10 mg PO DAILY simvastatin 20 mg Tablet 20 mg PO DAILY Discharge Orders: Discharge Order (Routine); Ordered 06/22/23 Ordered By: Rupali Mckoy Referrals: Josephine Domínguez FNP [Nurse Practitioner] - 07/04/23 2:30 pm Guerra,ALVARO Rivas [Primary Care Provider] - 06/28/23 11:30 am Discharge Diet: Cardiac Discharge Activity: Resume usual activity Patient Instructions: Heart Failure (DC), CHF Stoplight, Opioid Safety Plan of Treatment: Follow-up with lab test MELISSA in 1 week Follow-up LEARNING AND DEVELOPMENT DIRECTOR Josephine in 1 week Discharge Attestations Time Spent in Discharge Care*: less than 30 min Quality Metrics Clinical Quality Measures [ No reported AMI, CVA or VTE this stay] Coding Level of Care Code Acute Code for [facility] Fwd Diagnoses Atrial fibrillation with RVR I48.91 Congestive heart failure I50.9 Nonrheumatic aortic valve insufficiency I35.1 Cardiac valve disease etiology: nonrheumatic Elevated troponin I level R79.89 Anemia D64.9 Hypokalemia E87.6 Acute kidney injury N17.9 Diabetes E11.65 Diabetes mellitus complication status: with hyperglycemia Diabetes mellitus halfway insulin use: without halfway use Diabetes mellitus type: type 2 Time Spent (min) 25
[2023-06-22 11:45] LABS: Glucose Point of Care 164 mg/dL (70-110)
--- NOTE | 2023-06-22 13:12 | PC.NURSE ---
Discharge Note Patient discharged to home via ambulatory accompanied by SO. Discharge instructions reviewed with patient and/or distribution sales representative. Mobile pharmacy medications and/or prescriptions provided. Belongings/home medications returned. Meds to bed delivered. discharge packet provided to pt.
== END 2023-06-22 12:20 | disposition home or self-care (01) | DRG 309 ==
LOC: ER 09:44 → CSU 10:14
PROVIDERS: Family Medicine; Internal Medicine; Student in an Organized Health Care Education/Training Program; Admitting Provider Internal Medicine; Emergency Provider Family Medicine; PCP Nurse Practitioner Family; Visit Provider Internal Medicine
DX: I48.91 Unspecified atrial fibrillation (principal); I13.0 Hypertensive heart and chronic kidney disease with heart failure and stage 1 through stage 4 chronic kidney disease, or unspecified chronic kidney disease; I50.30 Unspecified diastolic (congestive) heart failure; N17.9 Acute kidney failure, unspecified; K21.9 Gastro-esophageal reflux disease without esophagitis; I35.1 Nonrheumatic aortic (valve) insufficiency; I42.9 Cardiomyopathy, unspecified; E11.22 Type 2 diabetes mellitus with diabetic chronic kidney disease; N18.9 Chronic kidney disease, unspecified; E78.5 Hyperlipidemia, unspecified; E11.65 Type 2 diabetes mellitus with hyperglycemia; I25.10 Atherosclerotic heart disease of native coronary artery without angina pectoris; R79.89 Other specified abnormal findings of blood chemistry; D50.9 Iron deficiency anemia, unspecified; E87.6 Hypokalemia; R09.02 Hypoxemia; I16.0 Hypertensive urgency; D63.1 Anemia in chronic kidney disease; Z79.84 Long term (current) use of oral hypoglycemic drugs
CPT/HCPCS: 36415; 36416; 51702; 71045; 74176; 76770; 80048; 80053; 80061; 80306; 81001; 81015; 82274; 82436; 82550; 82570; 82607; 82728; 82746; 82962; 83036; 83540; 83550; 83735; 83880; 84133; 84300; 84443; 84484; 85025; 85049; 85730; 85999; 93005; 93306; 93312; 93320; 93325; 94760; 96365; 96366; 96367; 96372; 96375; 96376; 99285; A4222; C9113; J0283; J0360; J1644; J1756; J1940; J2704; J3420; J3490; J7040

== ENCOUNTER 2023-06-25 14:16 | Inpatient (IN) | payer BC, SELFPAY ==
[2023-06-25] VITALS (19 sets, daily range): BP systolic 105–139; BP diastolic 63–82; PULSE 85–111; RESP 8–24; TEMP 36.3–36.6; O2SAT 94–98; BMI 38.0
--- NOTE | 2023-06-25 15:05 | ECG_ITS ---
[facility] Test Date: 2023-06-25 Pat Name: Jose Douglas Department: Room: Gender: Male Filament Maker: : 1975 Requested By: Tanya Lyn Order Number: [id number] Adela MD: Christie Gavin M.D. Measurements Intervals [place] Rate: 89 P: 0 AL: 0 QRS: -5 QRSD: 104 T: 117 QT: 395 QTc: 482 Interpretive Statements ATRIAL FIBRILLATION ST DEVIATION AND MODERATE T-WAVE ABNORMALITY, CONSIDER LATERAL ISCHEMIA [-0.1+ mV T-WAVE IN I/aVL/V5/V6] Compared to ECG 06/20/2023 10:32:23 Possible ischemia now present Sinus rhythm no longer present Ventricular premature complex(es) no longer present T-wave abnormality still present Electronically Signed On 06-25-2023 20:51:55 CDT by Christie Gavin M.D. [email or web address] [id number]
--- NOTE | 2023-06-25 15:05 | XRR_ITS ---
PROCEDURE INFORMATION: Exam: XR Chest Exam date and time: 06/25/2023 3:24 PM Age: 47 years old Clinical indication: Pain; Other: Afib; Chest pressure; Additional info: Chest pain TECHNIQUE: Imaging protocol: Radiologic exam of the chest. Views: 1 view. COMPARISON: CR XR chest 1V portable [id number] 06/16/2023 9:17 AM FINDINGS: Lungs: Unremarkable. No consolidation. Pleural spaces: Unremarkable. No pleural effusion. No pneumothorax. Heart/Mediastinum: Unremarkable. No cardiomegaly. Bones/joints: Unremarkable. XR/XR chest 1V portable [id number] IMPRESSION: No acute findings.
--- NOTE | 2023-06-25 15:11 | ED_ITS ---
HPI - Chest Pain 2 General: Chief Complaint: Chest Pain Stated Complaint: chest pain Time Seen by Provider: 06/25/23 15:00 History of Present Illness: 47-year-old man with a history of hypert ension, hyperlipidemia, type 2 diabetes mellitus coronary artery disease cardiomyopathy and atrial fibrillation on amiodarone and diltiazem and Eliquis who was admitted a couple of days back and cardioverted who presents to the emergency room back in A-fib with some chest discomfort and weakness and malaise. No fever. No chills. Some shortness of breath. No abdominal pain. No nausea or vomiting. Review of Systems 2 Narrative: Constitutional symptoms: Negative except as documented in HPI. Skin symptoms: Negative except as documented in HPI. Eye symptoms: Negative except as documented in HPI. ENMT symptoms: Negative except as documented in HPI. Respiratory symptoms: Negative except as documented in HPI. Cardiovascular symptoms: Negative except as documented in HPI. Gastrointestinal symptoms: Negative except as documented in HPI. Genitourinary symptoms: Negative except as documented in HPI. Musculoskeletal symptoms: Negative except as documented in HPI. Neurologic symptoms: Negative except as documented in HPI. Psychiatric symptoms: Negative except as documented in HPI. Endocrine symptoms: Negative except as documented in HPI. PFSH ED 2 PFSH: Medical History Coronary artery disease Nonobstructive on angiogram 2017 Nuclear stress test May/2021 mild global hypokinesis, no perfusion defects GERD (gastroesophageal reflux disease) History of retinal detachment Aortic regurgitation Cardiomyopathy HTN (hypertension) Hyperlipidemia Diabetes Surgical History History of knee surgery History of tonsillectomy History of cataract surgery Family History Other Cancer Diabetes Hypertension Social History Smoking and tobacco/nicotine status: never used tobacco/nicotine Alcohol intake: current Alcohol intake frequency: other Substance/Drug Use: never Physical Exam 2 Narrative: EXAM NARRATIVE: General: Alert, no acute distress. Skin: Warm, dry. Head: Normocephalic, atraumatic. Neck: Supple, trachea midline. Eye: Extraocular movements are intact. Ears, nose, mouth and throat: mucosa moist. Cardiovascular: Irregularly irregular, mildly tachycardic at times,, Normal peripheral perfusion. Respiratory: Lungs are clear to auscultation, respirations are non-labored, breath sounds are equal, Symmetrical chest wall expansion. Gastrointestinal: Soft, Nontender, Non distended, Normal bowel sounds. Musculoskeletal: Normal ROM, no deformity. Neurological: Alert and oriented, No focal neurological deficit observed. Psychiatric: Cooperative, appropriate mood & affect. Course 2 Vital Signs: Vital signs: Vital Signs Temperature 97.9 F 06/25/23 14:23 Pulse Rate 102 H 06/25/23 16:45 Respiratory Rate 16 06/25/23 16:45 Blood Pressure 123/68 06/25/23 16:45 Pulse Oximetry 94 06/25/23 16:45 Oxygen Delivery Me thod Room Air 06/25/23 16:45 MDM - Chest Pain Medical Decision Making Medical decision making: Differential diagnosis including but not limited to and based on the above HPI, review of systems and physical exam: for patient with palpitations: atrial fibrillation with rapid ventricular response. ventricular tachycardia. sinus tachycardia. PVCs. also concern for underlying issues causing tachycardia. Infection, electrolyte abnormalities and thyroid issues Orders placed to evaluate differential diagnosis based on the above differential, HPI and physical exam Lab Review: Laboratory results were reviewed and interpreted by myself the emergency room physician. White count is 9. Hemoglobin is 11 these are stable. His BUN and creatinine have elevated to 43 and 3.2. He was at 2.4 with his creatinine on discharge. proBNP is down to 2000 from 9000. All of these things point towards he has been over diuresed and I am giving him a 500 bolus of fluid. EKG: Time 1418 rate 81 atrial fibrillation with controlled rate, No ST-T changes, no ectopy, This was reviewed and interpreted by the ER physician at 1425. Repeat EKG: Time 1702 rate 91 atrial fibrillation with controlled rate, No ST-T changes, now with some PVCs, This was reviewed and interpreted by myself the ER physician at 1706. Chest x-ray: No acute process. No infiltrate. No pneumothorax. Stable cardiomegaly as compared with x-ray done on 06/16/23. This was reviewed and interpreted by myself the ER physician. I reviewed the patient's medical record. Reviewed the patient's discharge summary from couple days ago. Reexamination: Patient remains stable. He has an irregular heart rhythm that is rate controlled at this time. He bounces between 90-105. No altered mental status. No increased work of breathing. Lab Data 06/25/23 15:10 06/25/23 15:10 Radiology Impressions Chest X-Ray 06/25/23 15:05 IMPRESSION: No acute findings. Laboratory Results WBC 8.58 10^3/uL (3.29-11.43) 06/25/23 15:10 RBC 4.86 10^6/uL (3.85-5.65) 06/25/23 15:10 Hgb 11.10 g/dL (11.27-16.99) L 06/25/23 15:10 Hct 36.0 % (37-53) L 06/25/23 15:10 MCV 74.1 fl (82-101) L 06/25/23 15:10 MCH 22.8 pg (27-33) L 06/25/23 15:10 MCHC 30.8 g/dL (30-55) 06/25/23 15:10 RDW 15.1 % (12.1-15.1) 06/25/23 15:10 Plt Count 318 10^3/cmm (157-399) 06/25/23 15:10 MPV 9.8 fL (7.4-10.4) 06/25/23 15:10 Neut % (Auto) 74.1 % 06/25/23 15:10 Lymph % (Auto) 13.4 % 06/25/23 15:10 [place] % (Auto) 9.4 % 06/25/23 15:10 Eos % (Auto) 2.1 % 06/25/23 15:10 Baso % (Auto) 0.7 % 06/25/23 15:10 Neut # (Auto) 6.35 10^3/uL (1.8-7.7) 06/25/23 15:10 Lymph # (Auto) 1.2 10^3/uL (0.8-4.8) 06/25/23 15:10 [place] # (Auto) 0.8 10^3/uL (0.2-0.9) 06/25/23 15:10 Eos # (Auto) 0.2 10^3/uL (0.0-0.8) 06/25/23 15:10 Baso # (Auto) 0.1 10^3/uL (0.0-0.1) 06/25/23 15:10 Nucleated RBC % (auto) 0 % 06/25/23 15:10 Nucleated RBCs # 0.0 /100WBC 06/25/23 15:10 Sodium 135 mmol/L (136-145) L 06/25/23 15:10 Potassium 3.5 mmol/L (3.5-5.1) 06/25/23 15:10 Chloride 92 mmol/L (98-107) L 06/25/23 15:10 Carbon Dioxide 30 mmol/L (22-29) H 06/25/23 15:10 Anion Gap 16.5 (5-19) 06/25/23 15:10 BUN 43 mg/dL (6-20) H 06/25/23 15:10 Creatinine 3.2 mg/dL (0.7-1.2) H 06/25/23 15:10 GFR Calculation 20.7 mL/min (90-130) L 06/25/23 15:10 Glucose 153 mg/dL (65-115) H 06/25/23 15:10 Calculated Osmolality 294 mOsm/kg (285-295) 06/25/23 15:10 Calcium 9.6 mg/dL (8.5-10.5) 06/25/23 15:10 Magnesium 1.8 mg/dL (1.7-2.3) 06/25/23 15:10 Total Bilirubin 0.4 mg/dL (0.15-1.2) 06/25/23 15:10 AST 27 U/L (0-40) 06/25/23 15:10 ALT 35 U/L (0-41) 06/25/23 15:10 Alkaline Phosphatase 76 U/L (40-130) 06/25/23 15:10 Troponin T Baseline 93 ng/L (0-15) H 06/25/23 15:10 NT-Pro-B Natriuret Pep 2771 pg/mL (0-125) H 06/25/23 15:10 Total Protein 6.6 g/dL (6.6-8.7) 06/25/23 15:10 Albumin 4.0 g/dL (3.5-5.2) 06/25/23 15:10 Globulin 2.6 g/dL (1.3-4.6) 06/25/23 15:10 TSH 2.21 uIU/mL (0.27-4.20) 06/25/23 15:10 Urine Color Yellow (Yellow) 06/25/23 16:21 Urine Appearance Clear (CLEAR) 06/25/23 16:21 Urine pH 5 (5-7) 06/25/23 16:21 Ur Specific [place] 1.010 (1.005-1.030) 06/25/23 16:21 Urine Protein Neg (Negative) 06/25/23 16:21 Urine Glucose (UA) Norm (Normal) 06/25/23 16:21 Urine Ketones Negative (Negative) 06/25/23 16:21 Urine Blood Neg (Negative) 06/25/23 16:21 Urine Nitrate Negative (Negative) 06/25/23 16:21 Urine Bilirubin Neg (Negative) 06/25/23 16:21 Urine Urobilinogen Norm mg/dL (Negative) 06/25/23 16:21 Ur Leukocyte Esterase Negative (Negative) 06/25/23 16:21 Urine RBC None /hpf (0-2) 06/25/23 16:21 Urine WBC 0-4 /hpf (0-5) H 06/25/23 16:21 Ur Squamous Epith Cells None /hpf (0-5) 06/25/23 16:21 Amorphous Sediment Not Reportable 06/25/23 16:21 Urine Bacteria Trace /hpf (NONE) 06/25/23 16:21 All radiology interpretation(s) finalized by discharge Other Data Assessment and plan: Atrial fibrillation Acute on chronic renal failure -Patient is appropriately anticoagulated. Rate is controlled at rest. I am giving a 500 bolus because he appears to be dehydrated/over diuresed. Creatinine is up from 2.5-3.5. His proBNP is down from 9000 2000. And he has low blood pressure. -I discussed the patient with the hospitalist on-call who is admitting the patient. - Discussed findings and plan with patient. Answered any questions. - All laboratory values were reviewed and interpreted personally by myself, the ER physician - All imaging was reviewed and interpreted personally by myself, the ER physician. - Evaluation and treatment of this problem were appropriate in the emergency setting Discharge Plan Discharge Patient Disposition: Admitted As Inpatient Clinical Impression: Atrial fibrillation, Acute on chronic renal insufficiency Condition: Stable Coding Level of Care Code ED Balance Wheel Facer for Luiz Botello
[2023-06-25 15:21] LABS: Basophils # 0.1 10^3/uL (0.0-0.1); Basophils % 0.7 %; Eosinophils # 0.2 10^3/uL (0.0-0.8); Eosinophils % 2.1 %; Lymphocytes # 1.2 10^3/uL (0.8-4.8); Lymphocytes % 13.4 %; Mean Corpuscular HGB Conc 30.8 g/dL (30-55); Mean Corpuscular Hemoglobin 22.8 pg (27-33); Mean Corpuscular Volume 74.1 fl (82-101); Mean Platelet Volume 9.8 fL (7.4-10.4); Monocytes # 0.8 10^3/uL (0.2-0.9); Monocytes % 9.4 %; Neutrophils # 6.35 10^3/uL (1.8-7.7); Neutrophils % 74.1 %; Nucleated Red Blood Cells % 0 %; Platelet Count 318 10^3/cmm (157-399); Red Blood Count 4.86 10^6/uL (3.85-5.65); Red Cell Distribution Width 15.1 % (12.1-15.1); White Blood Count 8.58 10^3/uL (3.29-11.43)
[2023-06-25 15:46] LABS: Troponin(5th) Baseline 93 ng/L (0-15)
[2023-06-25 15:56] LABS: Alanine Aminotransferase 35 U/L (0-41); Alkaline Phosphatase 76 U/L (40-130); Anion Gap 16.5 (5-19); Aspartate Amino Transferase 27 U/L (0-40); Blood Urea Nitrogen 43 mg/dL (6-20); Calcium 9.6 mg/dL (8.5-10.5); Carbon Dioxide 30 mmol/L (22-29); Chloride 92 mmol/L (98-107); Globulin 2.6 g/dL (1.3-4.6); Glomerular Filtration Rate 20.7 mL/min (90-130); Glucose 153 mg/dL (65-115); Magnesium 1.8 mg/dL (1.7-2.3); NT Pro B Type Natriuretic Pept 2771 pg/mL (0-125); Osmolality Calculated 294 mOsm/kg (285-295); Potassium 3.5 mmol/L (3.5-5.1); Sodium 135 mmol/L (136-145); Thyroid Stimulating Hormone 2.21 uIU/mL (0.27-4.20); Total Bilirubin 0.4 mg/dL (0.15-1.2); Total Protein 6.6 g/dL (6.6-8.7)
[2023-06-25 15:57] LABS: Creatinine Clr Calc Pharmacy 39.5732
[2023-06-25 16:55] LABS: Add Urine Culture? No; Bacteria Urine TRACE /hpf; Bilirubin Urine Neg (Negative); Blood Urine Neg (Negative); Glucose Urine UA Norm (Normal); Ketones Urine Negative (Negative); Leukocyte Esterase Urine Negative (Negative); Nitrate Urine Negative (Negative); Protein Urine Neg (Negative); Urine Appearance Clear (CLEAR); Urine Color Yellow (Yellow); Urobilinogen Urine Norm (Negative); WBC Urine 0-4 /hpf (0-5); pH Urine 5 (5-7)
--- NOTE | 2023-06-25 17:05 | ECG_ITS ---
[facility] Test Date: 2023-06-25 Pat Name: Jose Douglas Department: Room: Gender: Male Communications Technician: : 1975 Requested By: Tanya Lyn Order Number: [id number] Chapman MD: Chirstie Gavin M.D. Measurements Intervals [place] Rate: 91 P: 0 IN: 0 QRS: 6 QRSD: 103 T: 129 QT: 396 QTc: 489 Interpretive Statements ATRIAL FIBRILLATION WITH ABERRANT CONDUCTION OR VENTRICULAR PREMATURE COMPLEXES MODERATE T-WAVE ABNORMALITY, CONSIDER LATERAL ISCHEMIA [-0.1+ mV T-WAVE IN I/aVL/V5/V6] Compared to ECG 06/25/2023 14:18:19 Ventricular premature complex(es) now present Aberrant conduction of supraventricular beat(s) now present T-wave abnormality still present Possible ischemia still present Electronically Signed On 06-25-2023 21:02:15 CDT by Christie Gavin M.D. [id number]
[2023-06-25] MEDS: sodium chloride 0.9% 500 ML 999 ML IV (17:27)
--- NOTE | 2023-06-25 17:27 | P.HP_ITS ---
Providers/Chief Complaint 2 Primary Care Provider: ALVARO Ellison Chief Complaint: chest pain History of Present Illness Jose Douglas is a 47 year old male with past medical history of GERD, Aortic regurgitation, cardiomyopathy, hypertension, hyperlipidemia, and diabetes presented with complaint of chest discomfort and uneasiness since 1 day. He was recently admitted to the hospital for A-fib with RVR, acute renal failure and uncontrolled hypertension and was discharged on . He underwent cardioversion and was converted to normal sinus rhythm before discharge. His blood pressure was well-controlled and acute renal failure improved on discharge. He was discharged with p.o. Cardizem 60 mg 4 times a day, clonidine 0.1 mg patch, Coreg 25 mg twice a day, hydralazine 100 mg 3 times a day, Lasix 40 mg twice a day. Today he presented with chest discomfort and found to have A-fib with RVR, and acute renal failure with creatinine of 3.2. In ER he was found to be hypotensive and received 500 mL normal saline bolus x 1. He denies any chest pain, shortness of breath, dizziness, vomiting, or fever. He admits to taking medications regularly and denies any alcohol intake smoking or excessive caffeine intake. Review of Systems 2 General: Reports: 10 or more systems reviewed and unremarkable except in HPI and below Medications/Allergies Home Medications Medication Instructions Recorded Confirmed Last Taken Type glipizide 5 mg tablet 5 mg PO DAILY 03/24/19 06/16/23 06/16/23 History metformin 1,000 mg tablet 1,000 mg PO BID 03/24/19 06/16/23 06/16/23 History pantoprazole 40 mg tablet,delayed 40 mg PO DAILY 03/24/19 06/16/23 06/16/23 History release carvedilol 25 mg tablet (Coreg) 25 mg PO BID #60 tabs 05/13/21 06/16/23 06/16/23 Rx sitagliptin phosphate 50 mg tablet 50 mg PO DAILY #30 tabs 05/13/21 06/16/23 06/16/23 Rx (Januvia) hydralazine 50 mg tablet 100 mg PO TID 06/25/21 06/16/23 06/16/23 History amiodarone 200 mg tablet 200 mg PO DAILY 30 days #30 tabs 06/22/23 Unknown Rx amiodarone 200 mg tablet (Pacerone) 200 mg PO BID 7 days #14 tabs 06/22/23 Unknown Rx apixaban 5 mg tablet (Eliquis) 5 mg PO BID@0900,2100 30 days #60 06/22/23 Unknown Rx tabs aspirin 81 mg tablet,delayed 81 mg PO DAILY 30 days #30 tabs 06/22/23 Unknown Rx release atorvastatin 40 mg tablet 20 mg (1/2 x 40 mg) PO DAILY 30 06/22/23 Unknown Rx days #30 tabs carvedilol 25 mg tablet 25 mg PO BID 30 days #60 tabs 06/22/23 Unknown Rx cyanocobalamin (vitamin B-12) 1,000 mcg PO DAILY 30 days #30 tabs 06/22/23 Unknown Rx 1,000 mcg tablet (Vitamin B-12) diltiazem HCl 30 mg tablet 60 mg (2 x 30 mg) PO QID 30 days 06/22/23 Unknown Rx #240 tabs furosemide 40 mg tablet (Lasix) 40 mg PO BID 30 days #60 tabs 06/22/23 Unknown Rx hydralazine 50 mg tablet 100 mg (2 x 50 mg) PO TID 30 days 06/22/23 Unknown Rx #180 tabs isosorbide mononitrate 60 mg 60 mg PO DAILY 30 days #30 tabs 06/22/23 Unknown Rx tablet,extended release 24 hr tamsulosin 0.4 mg capsule 0.8 mg (2 x 0.4 mg) PO DAILY 30 06/22/23 Unknown Rx days #30 caps Allergies Allergy/AdvReac Type Severity Reaction Status Date / Time No Known Allergies Allergy Verified 05/12/21 08:17 PFSH Acute 2 PFSH: Medical History Coronary artery disease Nonobstructive on angiogram 2017 Nuclear stress test May/2021 mild global hypokinesis, no perfusion defects GERD (gastroesophageal reflux disease) History of retinal detachment Aortic regurgitation Cardiomyopathy HTN (hypertension) Hyperlipidemia Diabetes Surgical History History of knee surgery History of tonsillectomy History of cataract surgery Family History Other Cancer Diabetes Hypertension Social History Smoking and tobacco/nicotine status: never used tobacco/nicotine Alcohol intake: current Alcohol intake frequency: other Substance/Drug Use: never Vitals/I&O/Wt Last Vital Signs Temp 97.9 F 06/25/23 14:23 Pulse 102 H 06/25/23 16:45 Resp 16 06/25/23 16:45 BP 123/68 06/25/23 16:45 Pulse Ox 94 06/25/23 16:45 O2 Del Method Room Air 06/25/23 16:45 Weight last 48 hrs Weight 130.635 kg Physical Exam 2 Narrative: He is alert he is alert awake oriented x 3 chest clear to auscultation bilaterally Cardiovascular S1-S2 normal irregular but no murmurs Abdomen soft nontender nondistended normal bowel sounds Extremities no edema noted Urinary Catheter Management: Tolliver: Cath Placed During This Visit: yes, but has since been removed by the nurse Reason for Continuing Indwelling Catheter: Decision to DC Catheter Urinary Catheter Date of Insertion: 06/17/23 Urinary Catheter Time of Insertion: 13:15 Date Urinary Catheter Removed: 06/21/23 Time Urinary Catheter Discontinued: 20:30 Data 06/25/23 15:10 06/25/23 15:10 A&P Assessment and plan (1) Acute on chronic renal insufficiency: (2) Atrial fibrillation: Plan 47 year old male with past medical history of GERD, Aortic regurgitation, cardiomyopathy, hypertension, hyperlipidemia, and diabetes presented with complaint of chest discomfort and uneasiness since 1 day. Found to have A-fib with RVR, acute renal failure Of 3.2. 1. A-fib with RVR Admit to CSU Will continue with p.o. amiodarone 100mg bid and Cardizem 60 mg 4 times a day for now Follow-up cardiology for IV Cardizem drip 2. Acute renal failure- Likely secondary to medication induced Will hold off Lasix and metformin for now Daily I's and O's 3. Resume home medications 4. Cardiac diet 5. DVT prophylaxis, he is already on Eliquis for anticoagulation 6. GI prophylaxis with IV Pepcid 20 mg twice daily 7. CODE STATUS discussed, patient is full code for now Attestations 2 Medical Necessity Statement*: He needs hospitalization not more than 2 midnights for management of A-fib with rapid ventricular rate and acute renal failure Time Spent in Patient Care: 30 minutes Coding Level of Care Code Acute Code for Chg Fwd Diagnoses Acute on chronic renal insufficiency N28.9; N18.9 Atrial fibrillation I48.91 Time Spent (min) 30
[2023-06-25 18:26] LABS: Troponin 5 1HR 87.63 ng/L (0-15)
[2023-06-25 18:27] LABS: Troponin 5 1HR Delta -5.37 ABS# (0-10)
[2023-06-25] MEDS: sodium chloride 0.9% 1,000 ML 75 ML IV (20:06)
[2023-06-25 20:09] LABS: Glucose Point of Care 94 mg/dL (70-110)
[2023-06-25] MEDS: amiodarone 200 mg Tablet PO (20:10)
[2023-06-25] MEDS: carvedilol 25 mg Tablet PO (20:10)
[2023-06-25] MEDS: famotidine 20 mg/2 mL INJ IVP (20:10)
[2023-06-25] MEDS: hyDRALAzine 50 mg Tablet 100 MG PO (20:13)
[2023-06-25] MEDS: apixaban 5 mg Tablet PO (21:12)
[2023-06-25] MEDS: dilTIAZem 30 mg Tablet 60 MG PO (21:12)
--- NOTE | 2023-06-25 21:24 | ECG_ITS ---
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 Measurements Intervals [place] Rate: 107 P: 0 MA: 0 QRS: 10 QRSD: 106 T: 113 QT: 395 QTc: 529 Interpretive Statements ATRIAL FIBRILLATION WITH RAPID VENTRICULAR RESPONSE NONSPECIFIC T-WAVE ABNORMALITY Compared to ECG 06/25/2023 17:02:26 Ventricular premature complex(es) no longer present Aberrant conduction of supraventricular beat(s) no longer present Possible ischemia no longer present T-wave abnormality still present Electronically Signed On 06-26-2023 19:33:20 CDT by Christie Gavin M.D. [id number]
[2023-06-25 21:57] LABS: Troponin 5 6HR 85.76 ng/L (0-15); Troponin 5 6HR Delta -7.24 ng/L (0-12)
[2023-06-26] VITALS (8 sets, daily range): BP systolic 121–158; BP diastolic 65–106; PULSE 81–98; RESP 9–23; TEMP 36.6–36.9; O2SAT 92–97
[2023-06-26 05:02] LABS: Basophils # 0.1 10^3/uL (0.0-0.1); Basophils % 0.9 %; Eosinophils # 0.2 10^3/uL (0.0-0.8); Hematocrit 34.3 % (37-53); Lymphocytes # 1.5 10^3/uL (0.8-4.8); Lymphocytes % 17.3 %; Mean Corpuscular HGB Conc 31.5 g/dL (30-55); Mean Corpuscular Hemoglobin 23.4 pg (27-33); Mean Corpuscular Volume 74.2 fl (82-101); Mean Platelet Volume 9.6 fL (7.4-10.4); Monocytes # 0.9 10^3/uL (0.2-0.9); Monocytes % 9.8 %; Neutrophils # 6.11 10^3/uL (1.8-7.7); Neutrophils % 69.5 %; Nucleated Red Blood Cells % 0 %; Platelet Count 277 10^3/cmm (157-399); Red Blood Count 4.62 10^6/uL (3.85-5.65); Red Cell Distribution Width 15.4 % (12.1-15.1); White Blood Count 8.79 10^3/uL (3.29-11.43)
[2023-06-26 05:20] LABS: Anion Gap 12.6 (5-19); Blood Urea Nitrogen 43 mg/dL (6-20); Calcium 9.2 mg/dL (8.5-10.5); Carbon Dioxide 31 mmol/L (22-29); Chloride 98 mmol/L (98-107); Creatinine Clr Calc Pharmacy 40.7757; Glomerular Filtration Rate 21.5 mL/min (90-130); Glucose 131 mg/dL (65-115); Magnesium 1.7 mg/dL (1.7-2.3); Osmolality Calculated 299 mOsm/kg (285-295); Potassium 3.6 mmol/L (3.5-5.1); Sodium 138 mmol/L (136-145)
[2023-06-26] MEDS: famotidine 20 mg/2 mL INJ IVP ×2 (06:05→17:47)
[2023-06-26 06:29] LABS: Glucose Point of Care 128 mg/dL (70-110)
[2023-06-26] MEDS: atorvastatin 40 mg Tablet 20 MG PO (08:42)
[2023-06-26] MEDS: carvedilol 25 mg Tablet PO ×2 (08:42→17:47)
[2023-06-26] MEDS: tamsulosin 0.4 mg Capsule 0.8 MG PO (08:42)
[2023-06-26] MEDS: isosorbide mononitrate ER 60 mg Tablet PO (08:42)
[2023-06-26] MEDS: amiodarone 200 mg Tablet PO ×2 (08:43→17:47)
[2023-06-26] MEDS: dilTIAZem 30 mg Tablet 60 MG PO ×4 (08:43→21:43)
[2023-06-26] MEDS: aspirin 81 mg EC Tablet PO (08:43)
[2023-06-26] MEDS: hyDRALAzine 50 mg Tablet 100 MG PO ×2 (08:43→17:48)
[2023-06-26] MEDS: apixaban 5 mg Tablet PO ×2 (08:43→21:43)
[2023-06-26] MEDS: sodium chloride 0.9% 1,000 ML 75 ML IV ×2 (08:44→21:44)
--- NOTE | 2023-06-26 10:46 | PC.CHAP ---
Pastoral Care Encounter/Spiritual Assessment Type of Contact [] Declined replanting machine operator visit [] Patient/Family/Request visit [] Outpatient visit [] Follow-up visit [] Physician referral [] Code/Alert [x] Routine visit [] Staff referral [] Actively dying [] Patient sleeping [] Family support [] [] Out of room [] Palliative care [] [] Receiving care in room [] Pre-surgical visit [] Trauma [] Long length of stay [] ICU visit [] Other: Relational/Emotional Strength [] Patient feels connected with others/family/visitors/staff [] Distress [] Loneliness/isolation [] Abandonment Spirituality of Patient [x] Person of Jenna [] Attends Presyb[employer]ian of their Jenna [x] Believes in Prayer [x] Reads Bible or Alevism materials [] There are Spiritual issues to be addressed Manager Chemistry Interventions [x] Prayer [x] Active listening [] Non-anxious presence [] Spiritual/emotional support [] Crisis/trauma care [] Spiritual counseling [] Bereavement support [] Provided bereavement packet [] Provided Bible/devotional materials [] Provided toy/stuffed animal, coloring book to patient or family member [] Provided Communion [] Anointing/[place] [] Salvation [x] Completed spiritual assessment [] Other: Impact on Illness or Injury [] Angry [] Fearful [] Anxious [] Often cries [] Exhaustion [] Unable to work [] Unable to attend nondenominational [] Unable to walk/stand [] Unable to read [] Unable to drive [] Unable to eat/drink [] Unable to sleep [] Unable to be with family [] Patient intubated [] Other: Summary Time spent with patient 5 min
[2023-06-26 10:51] LABS: Glucose Point of Care 172 mg/dL (70-110)
--- NOTE | 2023-06-26 16:15 | P.PN_ITS ---
Subjective 2 Subjective: No acute overnight events noted, he denies any chest pain or tightness, dizziness or shortness of breath. Medications: Reviewed: Yes Vitals/I&O/Wt Last Vital Signs Temp 98.5 F 06/26/23 04:00 Pulse 91 06/26/23 12:56 Resp 9 L 06/26/23 12:56 BP 121/90 06/26/23 12:56 Pulse Ox 97 06/26/23 12:56 O2 Del Method Nasal Cannula 06/26/23 04:00 06/26/23 06/26/23 06/26/23 06:59 14:59 22:59 Intake Total 1307.5 / 1307.5 Output Total 975 / 975 300 / 300 175 / 475 Balance -975 / -475 1007.5 / 1007.5 -175 / 832.5 Weight last 48 hrs Weight 130.181 kg Weight 130.861 kg Weight 130.635 kg Physical Exam 2 Narrative: He is alert he is alert awake oriented x 3 chest clear to auscultation bilaterally Cardiovascular S1-S2 normal irregular but no murmurs Abdomen soft nontender nondistended normal bowel sounds Extremities no edema noted Urinary Catheter Management: Tolliver: Cath Placed During This Visit: yes, but has since been removed by the nurse Reason for Continuing Indwelling Catheter: Decision to DC Catheter Urinary Catheter Date of Insertion: 06/17/23 Urinary Catheter Time of Insertion: 13:15 Date Urinary Catheter Removed: 06/21/23 Time Urinary Catheter Discontinued: 20:30 Data 06/26/23 04:53 06/26/23 04:53 A&P Assessment and plan (1) Acute on chronic renal insufficiency: (2) Atrial fibrillation: Plan 47 year old male with past medical history of GERD, Aortic regurgitation, cardiomyopathy, hypertension, hyperlipidemia, and diabetes presented with complaint of chest discomfort and uneasiness since 1 day. Found to have A-fib with RVR, acute renal failure Of 3.2. 1. A-fib with RVR Admitd to CSU for telemonitoring Will continue with p.o. amiodarone 100mg bid and Cardizem 60 mg 4 times a day for now Asymptomatic since admission, no need for further intervention at this time 2. Acute renal failure- Likely secondary to medication induced Will hold off Lasix and metformin for now Daily I's and O's Continue IV fluids normal saline at 75 cc/h Will check BMP at 6 PM today 3. Resume home medications 4. Cardiac diet 5. DVT prophylaxis, he is already on Eliquis for anticoagulation 6. GI prophylaxis with IV Pepcid 20 mg twice daily 7. CODE STATUS discussed, patient is full code for now Attestations 2 Medical Necessity Statement*: He needs continued hospitalization for cardiac monitoring for atrial fibrillation with RVR and management of acute renal failure with IV fluids. Time Spent in Patient Care: 15 minutes Coding Level of Care Code Acute Code for Chg Fwd Diagnoses Acute on chronic renal insufficiency N28.9; N18.9 Atrial fibrillation I48.91 Time Spent (min) 15
[2023-06-26 17:28] LABS: Glucose Point of Care 182 mg/dL (70-110)
[2023-06-26 21:16] LABS: Anion Gap 14.5 (5-19); Blood Urea Nitrogen 37 mg/dL (6-20); Calcium 9.1 mg/dL (8.5-10.5); Carbon Dioxide 30 mmol/L (22-29); Chloride 96 mmol/L (98-107); Creatinine Clr Calc Pharmacy 42.1349; Glomerular Filtration Rate 22.4 mL/min (90-130); Glucose 166 mg/dL (65-115); Osmolality Calculated 296 mOsm/kg (285-295); Potassium 3.5 mmol/L (3.5-5.1); Sodium 137 mmol/L (136-145)
[2023-06-26 21:22] LABS: Glucose Point of Care 162 mg/dL (70-110)
[2023-06-27 01:02] VITALS: BP 129/80; PULSE 67; RESP 26; O2SAT 88
[2023-06-27 04:05] VITALS: BP 146/75; PULSE 83; RESP 12; TEMP 36.7; O2SAT 92
[2023-06-27 04:07] VITALS: BMI 38.1
[2023-06-27 06:00] VITALS: PULSE 86
[2023-06-27] MEDS: famotidine 20 mg/2 mL INJ IVP (06:10)
[2023-06-27 06:25] LABS: Glucose Point of Care 120 mg/dL (70-110)
[2023-06-27 07:08] VITALS: BP 154/104; PULSE 89; RESP 19; TEMP 36.9; O2SAT 94
[2023-06-27] MEDS: hyDRALAzine 50 mg Tablet 100 MG PO (08:35)
[2023-06-27] MEDS: isosorbide mononitrate ER 60 mg Tablet PO (08:35)
[2023-06-27] MEDS: aspirin 81 mg EC Tablet PO (08:35)
[2023-06-27] MEDS: dilTIAZem 30 mg Tablet 60 MG PO (08:35)
[2023-06-27] MEDS: atorvastatin 40 mg Tablet 20 MG PO (08:35)
[2023-06-27] MEDS: apixaban 5 mg Tablet PO (08:35)
[2023-06-27] MEDS: amiodarone 200 mg Tablet PO (08:35)
[2023-06-27] MEDS: carvedilol 25 mg Tablet PO (08:35)
[2023-06-27] MEDS: tamsulosin 0.4 mg Capsule 0.8 MG PO (08:35)
[2023-06-27 08:52] LABS: Anion Gap 15.7 (5-19); Blood Urea Nitrogen 33 mg/dL (6-20); Calcium 9.4 mg/dL (8.5-10.5); Carbon Dioxide 29 mmol/L (22-29); Chloride 97 mmol/L (98-107); Creatinine Clr Calc Pharmacy 48.8211; Glomerular Filtration Rate 26.4 mL/min (90-130); Glucose 136 mg/dL (65-115); Osmolality Calculated 295 mOsm/kg (285-295); Potassium 3.7 mmol/L (3.5-5.1); Sodium 138 mmol/L (136-145)
--- NOTE | 2023-06-27 09:20 | PC.CHAP ---
Pastoral Care Encounter/Spiritual Assessment Type of Contact [] Declined property disposal manager visit [] Patient/Family/Request visit [] Outpatient visit [] Follow-up visit [] Physician referral [] Code/Alert [x] Routine visit [] Staff referral [] Actively dying [] Patient sleeping [] Family support [] [] Out of room [] Palliative care [] [] Receiving care in room [] Pre-surgical visit [] Trauma [] Long length of stay [] ICU visit [] Other: Relational/Emotional Strength [x] Patient feels connected with others/family/visitors/staff [] Distress [] Loneliness/isolation [] Abandonment Spirituality of Patient [x] Person of Jenna [] Attends Episcopal of their Jenna [x] Believes in Prayer [] Reads Bible or Pentecostalism materials [] There are Spiritual issues to be addressed Sweatband Flanger Interventions [x] Prayer [x] Active listening [] Non-anxious presence [x] Spiritual/emotional support [] Crisis/trauma care [] Spiritual counseling [] Bereavement support [] Provided bereavement packet [] Provided Bible/devotional materials [] Provided toy/stuffed animal, coloring book to patient or family member [] Provided Communion [] Anointing/[place] [] Salvation [x] Completed spiritual assessment [] Other: Impact on Illness or Injury [] Angry [] Fearful [] Anxious [] Often cries [] Exhaustion [] Unable to work [] Unable to attend mandaeism [] Unable to walk/stand [] Unable to read [] Unable to drive [] Unable to eat/drink [] Unable to sleep [] Unable to be with family [] Patient intubated [] Other: Summary Time spent with patient 5 min
[2023-06-27 11:36] VITALS: BP 150/99; PULSE 93; RESP 17; TEMP 36.8; O2SAT 93
[2023-06-27 11:42] LABS: Glucose Point of Care 173 mg/dL (70-110)
--- NOTE | 2023-06-27 11:42 | PM.DCS ---
Discharge Providers Date of Admission: 06/26/23 16:35 Date of Discharge: June 27, 2023 Attending Provider at Admission: Rupali Mckoy MD Attending Provider at Discharge: Rupali Mckoy MD Primary Care Provider: ALVARO Ellison Diagnoses at Discharge Discharge Diagnosis (1) Acute on chronic renal insufficiency: Status: Acute (2) Atrial fibrillation: Status: Acute Reason for Visit Reason for Visit: chest pain Brief History: Jose Douglas is a 47 year old male with past medical history of GERD, Aortic regurgitation, cardiomyopathy, hypertension, hyperlipidemia, and diabetes present to the hospital today with chief complaint of AFib w/ RVR. About a month ago Mr. Douglas was placed on a 2 week holter monitor by his PCP for palpitations and shortness of breath. After this trial he was then diagnosed 2 weeks ago for Atrial fibrillation and unable to see a follow-up with a cardiology until late July. Mr. Douglas begin to have more difficulty accomplishing at home task. About 0400 this morning he was unable to fall back asleep and began having heart palpitation and shortness of breath. He was unable to get comfortable and came to the Emergency Room to be evaluated. Symptoms have been at least 1 week in duration, associated with orthopnea, dyspnea on exertion. No fever, blood in stool, black or tarry stool, abdominal pain, nosebleeds, severe reflux. Mr. Douglas is currently in Afib with a heart rate ranging from 106-125. He denies chest pain, blood in stool, fever. He reports cough(lasting about 2 months), nausea, intermittent shortness of breath occurring with heart palpitations. Hospital Course Hospital Course He was on continuous telemetry monitoring which showed atrial fibrillation with rate controlled. His chest tightness and uneasiness resolved on admission. He was also being monitored for acute on chronic renal failure secondary to diuresis. He received IV fluids normal saline and his creatinine improved to 2.6. Discontinued his home medication metformin and Lasix in view of acute renal failure. He is doing better and is ready to be discharged home today Follow-up with PCP tomorrow Follow-up in cardiology clinic in 1 week Will give p.o. Jardiance 10 mg daily for diabetes management. Physical Exam Narrative: He is alert he is alert awake oriented x 3 chest clear to auscultation bilaterally Cardiovascular S1-S2 normal irregular but no murmurs Abdomen soft nontender nondistended normal bowel sounds Extremities no edema noted Urinary Catheter Management: [place]: Cath Placed During This Visit: yes, but has since been removed by the nurse Reason for Continuing Indwelling Catheter: Decision to DC Catheter Urinary Catheter Date of Insertion: 06/17/23 Urinary Catheter Time of Insertion: 13:15 Date Urinary Catheter Removed: 06/21/23 Time Urinary Catheter Discontinued: 20:30 Discharge Data Studies Completed and Pending Completed Studies During Hospitalization Category Date Time Status XR chest 1V portable [id number] Stat Exams 06/25/23 15:05 Completed Radiology Impressions Chest X-Ray 06/25/23 15:05 IMPRESSION: No acute findings. Laboratory Results WBC 8.79 10^3/uL (3.29-11.43) 06/26/23 04:53 RBC 4.62 10^6/uL (3.85-5.65) 06/26/23 04:53 Hgb 10.80 g/dL (11.27-16.99) L 06/26/23 04:53 Hct 34.3 % (37-53) L 06/26/23 04:53 MCV 74.2 fl (82-101) L 06/26/23 04:53 MCH 23.4 pg (27-33) L 06/26/23 04:53 MCHC 31.5 g/dL (30-55) 06/26/23 04:53 RDW 15.4 % (12.1-15.1) H 06/26/23 04:53 Plt Count 277 10^3/cmm (157-399) 06/26/23 04:53 MPV 9.6 fL (7.4-10.4) 06/26/23 04:53 Neut % (Auto) 69.5 % 06/26/23 04:53 Lymph % (Auto) 17.3 % 06/26/23 04:53 [place] % (Auto) 9.8 % 06/26/23 04:53 Eos % (Auto) 2.0 % 06/26/23 04:53 Baso % (Auto) 0.9 % 06/26/23 04:53 Neut # (Auto) 6.11 10^3/uL (1.8-7.7) 06/26/23 04:53 Lymph # (Auto) 1.5 10^3/uL (0.8-4.8) 06/26/23 04:53 [place] # (Auto) 0.9 10^3/uL (0.2-0.9) 06/26/23 04:53 Eos # (Auto) 0.2 10^3/uL (0.0-0.8) 06/26/23 04:53 Baso # (Auto) 0.1 10^3/uL (0.0-0.1) 06/26/23 04:53 Nucleated RBC % (auto) 0 % 06/26/23 04:53 Nucleated RBCs # 0.0 /100WBC 06/26/23 04:53 Sodium 138 mmol/L (136-145) 06/27/23 08:22 Potassium 3.7 mmol/L (3.5-5.1) 06/27/23 08:22 Chloride 97 mmol/L (98-107) L 06/27/23 08:22 Carbon Dioxide 29 mmol/L (22-29) 06/27/23 08:22 Anion Gap 15.7 (5-19) 06/27/23 08:22 BUN 33 mg/dL (6-20) H 06/27/23 08:22 Creatinine 2.6 mg/dL (0.7-1.2) H 06/27/23 08:22 GFR Calculation 26.4 mL/min (90-130) L 06/27/23 08:22 Glucose 136 mg/dL (65-115) H 06/27/23 08:22 POC Glucose 120 mg/dL (70-110) H 06/27/23 06:17 Calculated Osmolality 295 mOsm/kg (285-295) 06/27/23 08:22 Calcium 9.4 mg/dL (8.5-10.5) 06/27/23 08:22 Magnesium 1.7 mg/dL (1.7-2.3) 06/26/23 04:53 Total Bilirubin 0.4 mg/dL (0.15-1.2) 06/25/23 15:10 AST 27 U/L (0-40) 06/25/23 15:10 ALT 35 U/L (0-41) 06/25/23 15:10 Alkaline Phosphatase 76 U/L (40-130) 06/25/23 15:10 Troponin T Baseline 93 ng/L (0-15) H 06/25/23 15:10 Troponin T 120 Minute 87.63 ng/L (0-15) H 06/25/23 17:50 Delta Troponin T -5.37 ABS# (0-10) L 06/25/23 17:50 Troponin T Hi Sens 6Hr 85.76 ng/L (0-15) H 06/25/23 21:25 Troponin T Hi Sens 6Hr Delta -7.24 ng/L (0-12) L 06/25/23 21:25 NT-Pro-B Natriuret Pep 2771 pg/mL (0-125) H 06/25/23 15:10 Total Protein 6.6 g/dL (6.6-8.7) 06/25/23 15:10 Albumin 4.0 g/dL (3.5-5.2) 06/25/23 15:10 Globulin 2.6 g/dL (1.3-4.6) 06/25/23 15:10 TSH 2.21 uIU/mL (0.27-4.20) 06/25/23 15:10 Urine Color Yellow (Yellow) 06/25/23 16:21 Urine Appearance Clear (CLEAR) 06/25/23 16:21 Urine pH 5 (5-7) 06/25/23 16:21 Ur Specific [place] 1.010 (1.005-1.030) 06/25/23 16:21 Urine Protein Neg (Negative) 06/25/23 16:21 Urine Glucose (UA) Norm (Normal) 06/25/23 16:21 Urine Ketones Negative (Negative) 06/25/23 16:21 Urine Blood Neg (Negative) 06/25/23 16:21 Urine Nitrate Negative (Negative) 06/25/23 16:21 Urine Bilirubin Neg (Negative) 06/25/23 16:21 Urine Urobilinogen Norm mg/dL (Negative) 06/25/23 16:21 Ur Leukocyte Esterase Negative (Negative) 06/25/23 16:21 Urine RBC None /hpf (0-2) 06/25/23 16:21 Urine WBC 0-4 /hpf (0-5) H 06/25/23 16:21 Ur Squamous Epith Cells None /hpf (0-5) 06/25/23 16:21 Amorphous Sediment Not Reportable 06/25/23 16:21 Urine Bacteria Trace /hpf (NONE) 06/25/23 16:21 Vitals Last Vital Signs Temp 98.2 F 06/27/23 11:36 Pulse 93 06/27/23 11:36 Resp 17 06/27/23 11:36 BP 150/99 06/27/23 11:36 Pulse Ox 93 06/27/23 11:36 O2 Del Method Room Air 06/27/23 11:36 Discharge Plan Discharge Patient Disposition: Home Condition: Stable Prescriptions: New Jardiance 10 mg tablet 10 mg PO DAILY 10 Days Qty: 10 0RF Continued carvedilol [Coreg] 25 mg tablet 25 mg PO BID Qty: 60 0RF Rx Instructions: must administer with a meal/food Januvia 50 mg tablet 50 mg PO DAILY Qty: 30 0RF pantoprazole 40 mg Tablet,Delayed Release (Dr/Ec) 40 mg PO DAILY glipizide 5 mg Tablet 5 mg PO DAILY Eliquis 5 mg Tablet 5 mg PO BID@0900,2100 30 Days Qty: 60 0RF cyanocobalamin (vitamin B-12) [Vitamin B-12] 1,000 mcg Tablet 1,000 mcg PO DAILY 30 Days Qty: 30 0RF aspirin 81 mg Tablet,Delayed Release (Dr/Ec) 81 mg PO DAILY 30 Days Qty: 30 0RF isosorbide mononitrate 60 mg Tablet Extended Release 24 Hr 60 mg PO DAILY 30 Days Qty: 30 0RF tamsulosin 0.4 mg Capsule 0.8 mg PO DAILY 30 Days Qty: 30 0RF hydralazine 50 mg Tablet 100 mg PO TID 30 Days Qty: 180 0RF diltiazem HCl 30 mg Tablet 60 mg PO QID 30 Days Qty: 240 0RF amiodarone [Pacerone] 200 mg Tablet 200 mg PO BID 7 Days Qty: 14 0RF Rx Instructions: for seven days amiodarone 200 mg tablet 200 mg PO DAILY 30 Days Qty: 30 0RF Rx Instructions: to start daily after completing 7 days BID atorvastatin 40 mg Tablet 20 mg PO DAILY 30 Days Qty: 30 0RF Discontinued metformin 1,000 mg Tablet 1,000 mg PO BID furosemide [Lasix] 40 mg tablet 40 mg PO BID 30 Days Qty: 60 0RF Discharge Orders: Discharge Order (Routine); Ordered 06/27/23 Ordered By: Rupali Mckoy Referrals: Guerra,LAURENT RivasP [Primary Care Provider] - Discharge Diet: Cardiac Discharge Activity: Increase activity as tolerated Patient Instructions: Opioid Safety Discharge Attestations Time Spent in Discharge Care*: less than 30 min Quality Metrics Clinical Quality Measures [ No reported AMI, CVA or VTE this stay] Coding Level of Care Code Acute Code for Chg Fwd Diagnoses Acute on chronic renal insufficiency N28.9; N18.9 Atrial fibrillation I48.91 Time Spent (min) 15
[2023-06-27 13:56] VITALS: BP 150/99; PULSE 93; RESP 17; TEMP 36.8; O2SAT 93
== END 2023-06-27 14:20 | disposition home or self-care (01) | DRG 309 ==
LOC: ER 17:07 → CSU 18:42
PROVIDERS: Admitting Provider Internal Medicine; Emergency Provider Emergency Medicine; PCP Nurse Practitioner Family; Visit Provider Internal Medicine
DX: I48.20 Chronic atrial fibrillation, unspecified (principal); N17.9 Acute kidney failure, unspecified; Z79.01 Long term (current) use of anticoagulants; K21.9 Gastro-esophageal reflux disease without esophagitis; I35.1 Nonrheumatic aortic (valve) insufficiency; I25.10 Atherosclerotic heart disease of native coronary artery without angina pectoris; I42.9 Cardiomyopathy, unspecified; I10 Essential (primary) hypertension; E78.5 Hyperlipidemia, unspecified; E11.9 Type 2 diabetes mellitus without complications; Z79.84 Long term (current) use of oral hypoglycemic drugs; I95.9 Hypotension, unspecified
CPT/HCPCS: 36415; 36416; 71045; 80048; 80053; 81001; 82962; 83735; 83880; 84443; 84484; 85025; 93005; 94664; 96361; 96374; 96376; 99285; A9270; G0378; J3490; J7030; J7040; J9999

== ENCOUNTER 2024-03-13 17:58 | Observation (INO) | payer BC, SELFPAY ==
[2024-03-13] VITALS (14 sets, daily range): BP systolic 169–230; BP diastolic 95–117; PULSE 102–127; RESP 16–23; TEMP 36.7–37.1; O2SAT 96–99; BMI 38.2
--- NOTE | 2024-03-13 18:04 | ECG_ITS ---
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 Measurements Intervals [place] Rate: 128 P: 0 [place]: 0 QRS: -24 QRSD: 102 T: 99 QT: 342 QTc: 500 Interpretive Statements ATRIAL FIBRILLATION WITH RAPID VENTRICULAR RESPONSE BORDERLINE LEFT AXIS DEVIATION [QRS AXIS < -20] MODERATE T-WAVE ABNORMALITY, CONSIDER LATERAL ISCHEMIA [-0.1+ mV T-WAVE IN I/aVL/V5/V6] Compared to ECG 06/25/2023 21:24:53 Possible ischemia now present T-wave abnormality still present Electronically Signed On 03-14-2024 12:28:09 REWORK MACHINE OPERATOR by Oneil Muhammad M.D. [email or web address]
--- NOTE | 2024-03-13 18:04 | XRR_ITS ---
PROCEDURE INFORMATION: Exam: XR Chest Exam date and time: 03/13/2024 7:28 PM Age: 48 years old Clinical indication: Pain; Angina pectoris; Additional info: Cp TECHNIQUE: Imaging protocol: Radiologic exam of the chest. Views: 1 view. COMPARISON: CR XR chest 1V portable [id number] 06/25/2023 3:24 PM FINDINGS: Lungs: Mild interstitial prominence. Pleural spaces: Unremarkable. No pleural effusion. No pneumothorax. Heart/Mediastinum: See Vasculature finding. Vasculature: Borderline cardiomegaly and uncoiling of the thoracic aorta. Bones/joints: Unremarkable. XR/XR chest 1V portable [id number] IMPRESSION: No acute findings.
--- NOTE | 2024-03-13 18:31 | ED_ITS ---
HPI - Chest Pain 2 General: Chief Complaint: Chest Pain Stated Complaint: chest pain Time Seen by Provider: 03/13/24 18:20 Source: patient Mode of arrival: ambulatory Limitations: no limitations History of Present Illness: 48-year-old male who has a history of A- fib along with hypertension states he has been having some chest pain throughout the day today states he is also developed palpitations and has been in A-fib and had ablation a few months ago. He states the pain currently is a pressure pain rates it a 2 out of 10 denies any shortness of breath denies any worsening improving factors. Associated symptoms: Deny abdominal pain, dyspnea, fever(s), nausea or vomiting Related Data Home Medications Medication Instructions Recorded Confirmed glipizide 5 mg tablet 5 mg PO DAILY 03/24/19 08/09/23 pantoprazole 40 mg tablet,delayed 40 mg PO DAILY 03/24/19 08/09/23 release amiodarone 200 mg tablet 200 mg PO DAILY 08/09/23 08/09/23 apixaban 5 mg tablet (Eliquis) 5 mg PO BID 08/09/23 08/09/23 aspirin 81 mg tablet,delayed 81 mg PO DAILY 08/09/23 08/09/23 release atorvastatin 20 mg tablet 20 mg PO DAILY 08/09/23 08/09/23 hydralazine 50 mg tablet 50 mg PO TID 08/09/23 08/09/23 isosorbide mononitrate 60 mg 60 mg PO DAILY 08/09/23 08/09/23 tablet,extended release 24 hr mecobalamin (vitamin B12) 1,000 1,000 mcg PO DAILY 08/09/23 08/09/23 mcg chewable tablet (B12 Active) pantoprazole 40 mg tablet,delayed 40 mg PO DAILY 08/09/23 08/09/23 release tamsulosin 0.4 mg capsule 0.4 mg PO DAILY 08/09/23 08/09/23 Previous Rx's Medication Instructions Recorded carvedilol 25 mg tablet (Coreg) 25 mg PO BID #60 tabs 05/13/21 sitagliptin phosphate 50 mg tablet 50 mg PO DAILY #30 tabs 05/13/21 (Januvia) Allergies Allergy/AdvReac Type Severity Reaction Status Date / Time No Known Allergies Allergy Verified 03/13/24 18:16 Review of Systems 2 Const: Denies: fever(s), chills, body aches or change in appetite ENMT: Denies: throat pain or dental pain Card: Reports: chest pain Resp: Denies: dyspnea GI: Denies: abdominal pain, nausea, vomiting or diarrhea Musc: Denies: neck pain or back pain Skin/Breast: Denies: rash Neuro: Denies: headache(s) PFSH ED 2 PFSH: Medical History Aortic regurgitation Diabetes Coronary artery disease Nonobstructive on angiogram 2017 Nuclear stress test May/2021 mild global hypokinesis, no perfusion defects GERD (gastroesophageal reflux disease) History of retinal detachment Cardiomyopathy HTN (hypertension) Hyperlipidemia Surgical History History of knee surgery History of tonsillectomy History of cataract surgery Family History Other Cancer Diabetes Hypertension Social History Smoking and tobacco/nicotine status: former use of tobacco/nicotine Alcohol intake: current Alcohol intake frequency: other Substance/Drug Use: never Physical Exam 2 Const: COMMON NORMALS: patient oriented x3 HENMT: COMMON NORMALS: normocephalic and atraumatic HEAD & SCALP: n ormocephalic and atraumatic Eye: COMMON NORMALS: Equal, round and reactive pupils present and EOMs intact bilaterally PUPIL: Yes Equal, round and reactive pupils present Neck/C-Spine: COMMON NORMALS: full ROM Chest: COMMONS NORMALS: normal inspection of the chest and normal palpation of entire chest wall Resp: COMMON NORMALS: normal respiratory effort, No retractions, No use of accessory muscles and clear to auscultation bilaterally AUSCULTATION: clear to auscultation bilaterally Cardio: RATE: tachycardic RHYTHM: abnormal rhythm irregularly irregular Extremity: COMMON NORMALS: normal to inspection and full ROM Neuro: COMMON NORMALS: patient oriented x3, moves all extremities and no focal motor deficits Psych: COMMON NORMALS: mental status grossly normal, Normal thought process present and cooperative THOUGHT PROCESS: Normal thought process present Skin: COMMON NORMALS: no rashes or lesions noted and no wounds GENERAL SKIN EXAM: no rashes or lesions noted Course 2 Vital Signs: Vital signs: Vital Signs Temperature 98.1 F 03/13/24 18:06 Pulse Rate 105 H 03/13/24 19:36 Respiratory Rate 16 03/13/24 19:36 Blood Pressure 200/100 03/13/24 19:36 Pulse Oximetry 97 03/13/24 19:36 Oxygen Delivery Me thod Room Air 03/13/24 19:36 MDM - Chest Pain Medical Decision Making Patient presents here with A-fib with RVR heart rate improving here on a Cardizem drip had some chest pain as well and hypertension I spoke with the hospitalist will admit at this time for the A-fib with RVR we will trend his troponins. Medical Records I reviewed the patient's medical records. Lab Data I reviewed the patient's lab results. 03/13/24 18:35 03/13/24 18:35 Laboratory Results WBC 10.54 10^3/uL (3.29-11.43) 03/13/24 18:35 RBC 6.25 10^6/uL (3.85-5.65) H 03/13/24 18:35 Hgb 13.90 g/dL (11.27-16.99) 03/13/24 18:35 Hct 44.1 % (37-53) 03/13/24 18:35 MCV 70.6 fl (82-101) L 03/13/24 18:35 MCH 22.2 pg (27-33) L 03/13/24 18:35 MCHC 31.5 g/dL (30-55) 03/13/24 18:35 RDW 18.9 % (12.1-15.1) H 03/13/24 18:35 Plt Count 240 10^3/cmm (157-399) 03/13/24 18:35 MPV 9.6 fL (7.4-10.4) 03/13/24 18:35 Neut % (Auto) 82.7 % 03/13/24 18:35 Lymph % (Auto) 8.0 % 03/13/24 18:35 [place] % (Auto) 6.2 % 03/13/24 18:35 Eos % (Auto) 2.0 % 03/13/24 18:35 Baso % (Auto) 0.6 % 03/13/24 18:35 Neut # (Auto) 8.73 10^3/uL (1.8-7.7) H 03/13/24 18:35 Lymph # (Auto) 0.8 10^3/uL (0.8-4.8) 03/13/24 18:35 [place] # (Auto) 0.7 10^3/uL (0.2-0.9) 03/13/24 18:35 Eos # (Auto) 0.2 10^3/uL (0.0-0.8) 03/13/24 18:35 Baso # (Auto) 0.1 10^3/uL (0.0-0.1) 03/13/24 18:35 Nucleated RBC % (auto) 0 % 03/13/24 18:35 Nucleated RBCs # 0.0 /100WBC 03/13/24 18:35 PT 12.80 SECONDS (12.1-14.9) 03/13/24 18:35 INR 0.90 (0.8-1.2) 03/13/24 18:35 Sodium 133 mmol/L (136-145) L 03/13/24 18:35 Potassium 3.2 mmol/L (3.5-5.1) L 03/13/24 18:35 Chloride 95 mmol/L (98-107) L 03/13/24 18:35 Carbon Dioxide 25 mmol/L (22-29) 03/13/24 18:35 Anion Gap 16.2 (5-19) 03/13/24 18:35 BUN 22 mg/dL (6-20) H 03/13/24 18:35 Creatinine 2.0 mg/dL (0.7-1.2) H 03/13/24 18:35 GFR Calculation 35.5 mL/min (90-130) L 03/13/24 18:35 Glucose 253 mg/dL (65-115) H 03/13/24 18:35 Calculated Osmolality 288 mOsm/kg (285-295) 03/13/24 18:35 Calcium 9.6 mg/dL (8.5-10.5) 03/13/24 18:35 Total Bilirubin 0.6 mg/dL (0.15-1.2) 03/13/24 18:35 AST 25 U/L (0-40) 03/13/24 18:35 ALT 28 U/L (0-41) 03/13/24 18:35 Alkaline Phosphatase 112 U/L (40-130) 03/13/24 18:35 Troponin T Baseline 112 ng/L (0-15) H* 03/13/24 18:35 Total Protein 7.3 g/dL (6.6-8.7) 03/13/24 18:35 Albumin 4.1 g/dL (3.5-5.2) 03/13/24 18:35 Globulin 3.2 g/dL (1.3-4.6) 03/13/24 18:35 Lipase 73 U/L (13-60) H 03/13/24 18:35 All radiology interpretation(s) finalized by discharge Discharge Plan Discharge Patient Disposition: Admitted As Inpatient Clinical Impression: Atrial fibrillation with RVR, HTN (hypertension), Chest pain Condition: Stable Prescriptions: No Action Eliquis 5 mg tablet 5 mg PO BID aspirin 81 mg tablet,delayed release (DR/EC) 81 mg PO DAILY pantoprazole 40 mg tablet,delayed release (DR/EC) 40 mg PO DAILY tamsulosin 0.4 mg capsule 0.4 mg PO DAILY amiodarone 200 mg tablet 200 mg PO DAILY isosorbide mononitrate 60 mg tablet extended release 24 hr 60 mg PO DAILY hydralazine 50 mg tablet 50 mg PO TID atorvastatin 20 mg tablet 20 mg PO DAILY mecobalamin (vitamin B12) [B12 Active] 1,000 mcg tablet,chewable 1,000 mcg PO DAILY carvedilol [Coreg] 25 mg tablet 25 mg PO BID Qty: 60 0RF Rx Instructions: must administer with a meal/food Januvia 50 mg tablet 50 mg PO DAILY Qty: 30 0RF pantoprazole 40 mg Tablet,Delayed Release (Dr/Ec) 40 mg PO DAILY glipizide 5 mg Tablet 5 mg PO DAILY Referrals: Guerra,ALVARO Rivas [Primary Care Provider] - Coding Level of Care Code ED Fish Bait Processing Supervisor for Luiz Botello
[2024-03-13] MEDS: dilTIAZem 5 mg/mL SDV 5 mL 20 MG IVP (18:41)
[2024-03-13] MEDS: aspirin 81 mg Chew Tablet 324 MG PO (18:41)
[2024-03-13 18:44] LABS: Basophils # 0.1 10^3/uL (0.0-0.1); Basophils % 0.6 %; Eosinophils # 0.2 10^3/uL (0.0-0.8); Hematocrit 44.1 % (37-53); Lymphocytes # 0.8 10^3/uL (0.8-4.8); Mean Corpuscular HGB Conc 31.5 g/dL (30-55); Mean Corpuscular Hemoglobin 22.2 pg (27-33); Mean Corpuscular Volume 70.6 fl (82-101); Mean Platelet Volume 9.6 fL (7.4-10.4); Monocytes # 0.7 10^3/uL (0.2-0.9); Monocytes % 6.2 %; Neutrophils # 8.73 10^3/uL (1.8-7.7); Neutrophils % 82.7 %; Nucleated Red Blood Cells % 0 %; Platelet Count 240 10^3/cmm (157-399); Red Blood Count 6.25 10^6/uL (3.85-5.65); Red Cell Distribution Width 18.9 % (12.1-15.1); White Blood Count 10.54 10^3/uL (3.29-11.43)
[2024-03-13 19:03] LABS: Alanine Aminotransferase 28 U/L (0-41); Albumin Level 4.1 g/dL (3.5-5.2); Alkaline Phosphatase 112 U/L (40-130); Anion Gap 16.2 (5-19); Aspartate Amino Transferase 25 U/L (0-40); Blood Urea Nitrogen 22 mg/dL (6-20); Calcium 9.6 mg/dL (8.5-10.5); Carbon Dioxide 25 mmol/L (22-29); Chloride 95 mmol/L (98-107); Globulin 3.2 g/dL (1.3-4.6); Glomerular Filtration Rate 35.5 mL/min (90-130); Glucose 253 mg/dL (65-115); Lipase 73 U/L (13-60); Osmolality Calculated 288 mOsm/kg (285-295); Potassium 3.2 mmol/L (3.5-5.1); Sodium 133 mmol/L (136-145); Total Bilirubin 0.6 mg/dL (0.15-1.2); Total Protein 7.3 g/dL (6.6-8.7)
[2024-03-13 19:05] LABS: Troponin(5th) Baseline 112 ng/L (0-15)
[2024-03-13] MEDS: dilTIAZem 100 MG in sodium chloride 0.9% (add-van) 100 ML IV (19:09)
--- NOTE | 2024-03-13 19:24 | ECG_ITS ---
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 Measurements Intervals [place] Rate: 106 P: 51 [place]: 168 QRS: -11 QRSD: 108 T: 124 QT: 413 QTc: 549 Interpretive Statements SINUS TACHYCARDIA WITH OCCASIONAL SUPRAVENTRICULAR PREMATURE COMPLEXES MODERATE T-WAVE ABNORMALITY, CONSIDER LATERAL ISCHEMIA [-0.1+ mV T-WAVE IN I/aVL/V5/V6] Compared to ECG 03/13/2024 18:08:30 Atrial fibrillation no longer present T-wave abnormality still present Possible ischemia still present Electronically Signed On 03-14-2024 12:34:36 CONCRETE TESTER by Oniel Muhammad M.D. [email or web address]
--- NOTE | 2024-03-13 19:34 | P.HP_ITS ---
Providers/Chief Complaint 2 Primary Care Provider: ALVARO Ellison Chief Complaint: chest pain History of Present Illness Jose Douglas is a 48 year old male GERD, Aortic regurgitation, cardiomyopathy, hypertension, hyperlipidemia, and diabetes, chronic kidney disease, morbid obesity, failed cardioversion, status post ablation presented with chief complaint of palpitations associated chest discomfort. Patient has been put on Cardizem drip, potassium low I have requested magnesium level. Significantly high troponin. 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 His chest pain subsided with rate control. He has not noticed any nausea vomiting or diaphoresis. He is hypertensive. At the time of evaluation he has maxed on Cardizem 50 mg and his heart rate is around 100-1 10, blood pressure still on higher side, no active chest pain. Patient does not have any coronary stent history, stating that his chest pain was pressure-like sensation, nonradiating which improved with rate control Review of Systems 2 Const: Denies: fever(s) Eyes: Denies: change in vision ENMT: Denies: throat pain Card: Reports: chest pain and palpitations Resp: Reports: dyspnea GI: Denies: abdominal pain : Denies: flank pain Musc: Denies: neck pain Medications/Allergies Home Medications Medication Instructions Recorded Confirmed Last Taken Type glipizide 5 mg tablet 5 mg PO DAILY 03/24/19 08/09/23 06/16/23 History pantoprazole 40 mg tablet,delayed 40 mg PO DAILY 03/24/19 08/09/23 06/16/23 History release carvedilol 25 mg tablet (Coreg) 25 mg PO BID #60 tabs 05/13/21 08/09/23 06/16/23 Rx sitagliptin phosphate 50 mg tablet 50 mg PO DAILY #30 tabs 05/13/21 08/09/23 06/16/23 Rx (Januvia) amiodarone 200 mg tablet 200 mg PO DAILY 08/09/23 08/09/23 Unknown History apixaban 5 mg tablet (Eliquis) 5 mg PO BID 08/09/23 08/09/23 Unknown History aspirin 81 mg tablet,delayed 81 mg PO DAILY 08/09/23 08/09/23 Unknown History release atorvastatin 20 mg tablet 20 mg PO DAILY 08/09/23 08/09/23 Unknown History hydralazine 50 mg tablet 50 mg PO TID 08/09/23 08/09/23 Unknown History isosorbide mononitrate 60 mg 60 mg PO DAILY 08/09/23 08/09/23 Unknown History tablet,extended release 24 hr mecobalamin (vitamin B12) 1,000 1,000 mcg PO DAILY 08/09/23 08/09/23 Unknown History mcg chewable tablet (B12 Active) pantoprazole 40 mg tablet,delayed 40 mg PO DAILY 08/09/23 08/09/23 Unknown History release tamsulosin 0.4 mg capsule 0.4 mg PO DAILY 08/09/23 08/09/23 Unknown History Allergies Allergy/AdvReac Type Severity Reaction Status Date / Time No Known Allergies Allergy Verified 03/13/24 18:16 PFSH Acute 2 PFSH: Medical History Aortic regurgitation Diabetes Coronary artery disease Nonobstructive on angiogram 2016 Nuclear stress test May/2021 mild global hypokinesis, no perfusion defects GERD (gastroesophageal reflux disease) History of retinal detachment Cardiomyopathy HTN (hypertension) Hyperlipidemia Surgical History (Updated 03/13/24 @ 20:26 by Dat Quiñonez MD) H/O cardiac radiofrequency ablation History of knee surgery History of tonsillectomy History of cataract surgery Family History Other Cancer Diabetes Hypertension Social History Smoking and tobacco/nicotine status: former use of tobacco/nicotine Alcohol intake: current Alcohol intake frequency: other Substance/Drug Use: never Vitals/I&O/Wt Last Vital Signs Temp 98.1 F 03/13/24 18:06 Pulse 110 H 03/13/24 19:15 Resp 20 H 01/01/25 19:15 BP 174/99 03/13/24 19:15 Pulse Ox 98 03/13/24 19:15 O2 Del Method Room Air 03/13/24 18:37 Weight last 48 hrs Weight 131.542 kg Physical Exam 2 Narrative: A-fib RVR heart rate 110 Currently on Cardizem drip 15 GCS 15 No active sign of heart failure Morbidly obese Hypertensive No active chest pain Variable S1-S2 Abdomen distended nontender at the bedside Nonfocal neuroexam Data 03/13/24 18:35 03/13/24 18:35 A&P Assessment and plan (1) HTN (hypertension): (2) Aortic regurgitation: Qualifiers: Cardiac valve disease etiology: nonrheumatic Qualified Code(s): I35.1 - Nonrheumatic aortic (valve) insufficiency (3) Coronary artery disease: (4) Chest pain: (5) Atrial fibrillation: Qualifiers: Atrial fibrillation type: paroxysmal Qualified Code(s): I48.0 - Paroxysmal atrial fibrillation (6) Atrial fibrillation with RVR: (7) Diabetes: Qualifiers: Diabetes mellitus complication status: with hyperglycemia Diabetes mellitus manager intermediate insulin use: without manager intermediate use Diabetes mellitus type: t ype 2 Qualified Code(s): E11.65 - Type 2 diabetes mellitus with hyperglycemia (8) GERD (gastroesophageal reflux disease): Plan A-fib RVR Failed cardioversion Has not taken amiodarone for quite some time, not taking Eliquis as well Patient is stating that he has seen cardiology [employer]RETCH[employer]PER[employer] he was in agreement with holding these medications He has been on Cardizem 25 mg every 6 hours, recently it has been switched to 360 mg standard release which she has not started yet Keep magnesium above 2 potassium above 4, Chest pain related to A-fib RVR No active chest pain at the time of evaluation Monitor troponin serial troponin EKG Nonobstructive coronary disease Second hour troponin is pending If troponin keeps trending up he will need ACS protocol with angiogram Monitor for now If troponin trended down with no recurrence of chest pain it could be type II VT requested echo Uncontrolled hypertension: History of underlying coronary disease Creatinine 2.0 Patient takes losartan He needs med rec at the time of discharge, I would not continue losartan at this point Patient also takes amlodipine Hypokalemia: To be replenished Check magnesium level Obstructive sleep apnea?, Patient does endorse of snoring, also takes naps in the daytime No official diagnosis Request overnight pulse ox study Full code Consistent carb diet Restart Eliquis . Patient may need help manager financial Attestations 2 Medical Necessity Statement*: More than 2 midnights anticipated Diagnoses HTN (hypertension) I10 Nonrheumatic aortic valve insufficiency I35.1 Cardiac valve disease etiology: nonrheumatic Coronary artery disease I25.10 Chest pain R07.9 Paroxysmal atrial fibrillation I48.0 Atrial fibrillation type: paroxysmal Atrial fibrillation with RVR I48.91 Diabetes E11.65 Diabetes mellitus complication status: with hyperglycemia Diabetes mellitus correction insulin use: without correction use Diabetes mellitus type: type 2 GERD (gastroesophageal reflux disease) K21.9
[2024-03-13] MEDS: potassium chloride ER 20 mEq Tablet 40 MEQ PO (19:51)
[2024-03-13 20:28] LABS: Magnesium 1.6 mg/dL (1.7-2.3)
[2024-03-13 20:29] LABS: Troponin 5 2HR Delta -1.9 ABS# (0-10)
[2024-03-13 20:31] LABS: Troponin 5 2HR 110.1 ng/L (0-15)
--- NOTE | 2024-03-13 20:46 | USCV_ITS ---
Jose Douglas Age: 48 Gender: M : 1975 Exam Date: 03/13/2024 21:40 Ordering Phys: Dat Quiñonez MD Technologist: RONY Exam Location: [facility] [place] Indication: UA, morbid obesity, CM, HTN, HL, DM, chronic renal dz, hx Afib, s/p ablation. BP: 177 / 107 HR: 99 Rhythm: Atrial fibrillation Technical Quality: Adequate MEASUREMENTS (Male / Female) Normal Values 2D ECHO LV Diastolic Diameter PLAX 4.3 cm 4.2 - 5.9 / 3.9 - 5.3 cm IVS Diastolic Thickness 2.5 cm 0.6 - 1.0 / 0.6 - 0.9 cm IVS Systolic Thickness 3.0 cm LVPW Diastolic Thickness 2.2 cm 0.6 - 1.0 / 0.6 - 0.9 cm LVPW Systolic Thickness 2.2 cm LVOT Diameter 2.4 cm LV Ejection Fraction 2D Teich 57.3 % LV Ejection Fraction MOD 4C 54.0 % LV Ejection Fraction MOD 2C 62.6 % LV Ejection Fraction 2C AL 66.6 % LA Diameter 6.1 cm LA Sys Volume AL 156.9 cm cubed LA Sys Volume Index AL 59.1 cm cubed/m squared Aorta at Sinotubular Diameter 3.4 cm IVC Diameter 2.0 cm M-MODE LA Ao Ratio MM 1.6 AV Cusp Separation MM 1.8 cm DOPPLER AV Peak Velocity 127.0 cm/s LVOT Peak Velocity 96.0 cm/s AV Area Cont Eq vti 3.1 cm squared AV Area Cont Eq pk 3.5 cm squared MV Peak Velocity 135.0 cm/s MV Area PHT 3.2 cm squared Mitral E to A Ratio 0.0 TV Peak E Velocity 60.0 cm/s PV Peak Velocity 120.0 cm/s FINDINGS Left Ventricle Left ventricle is normal size. LV systolic function is normal with EF of 60 to 65%. No regional wall motion abnormalities are seen. Left ventricular hypertrophy Right Ventricle Normal in size and function Right Atrium Dilated Left Atrium Dilated Mitral Valve Mild mitral annular calcification. Mild mitral regurgitation. Aortic Valve Structurally normal aortic valve. No significant stenosis. Tricuspid Valve Insufficient TR jet to calculate RVSP Pulmonic Valve Not well visualized Pericardium Normal Aorta Normal in size IVC Appears to be normal. CONCLUSIONS LV systolic function is normal with EF of 60 to 65%. Left ventricular hypertrophy seen. Left atrial dilation. Mild mitral regurgitation. Compared to prior echocardiogram from 06/2023, no significant changes are seen. Oneil Muhammad MD (Electronically Signed) Final Date: 14 March 2024 12:19 S
[2024-03-13 21:00] LABS: Glucose Point of Care 224 mg/dL (70-110)
[2024-03-13] MEDS: apixaban 5 mg Tablet PO (21:21)
[2024-03-13] MEDS: dilTIAZem 30 mg Tablet 90 MG PO (21:21)
[2024-03-13] MEDS: hyDRALAzine 50 mg Tablet PO (21:21)
[2024-03-13] MEDS: magnesium sulfate premix 1 GM/100 ML PIGGYBACK IV (21:21)
[2024-03-13 21:26] LABS: Triglycerides 129 mg/dL (0-150)
[2024-03-13] MEDS: acetaminophen 500 mg Tablet PO (22:23)
[2024-03-14] VITALS (7 sets, daily range): BP systolic 149–170; BP diastolic 70–89; PULSE 85–99; RESP 12–26; TEMP 37–38; O2SAT 92–98; BMI 38.2
--- NOTE | 2024-03-14 00:04 | ECG_ITS ---
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 Measurements Intervals Lucile Rate: 103 P: 75 MO: 197 QRS: 1 QRSD: 101 T: 131 QT: 367 QTc: 481 Interpretive Statements SINUS TACHYCARDIA WITH FREQUENT SUPRAVENTRICULAR PREMATURE COMPLEXES MODERATE T-WAVE ABNORMALITY, CONSIDER LATERAL ISCHEMIA [-0.1+ mV T-WAVE IN I/aVL/V5/V6] Compared to ECG 03/13/2024 19:24:28 No significant changes Electronically Signed On 03-14-2024 12:32:43 EMT DRIVER by Oneil Muhammad M.D. [email or web address]
[2024-03-14] MEDS: dilTIAZem 100 MG in sodium chloride 0.9% (add-van) 100 ML 12.5 MG IV (01:23)
[2024-03-14 01:38] LABS: Troponin 5 6HR Delta 1.2 ng/L (0-12)
[2024-03-14 01:46] LABS: Troponin 5 6HR 113.2 ng/L (0-15)
[2024-03-14] MEDS: dilTIAZem 30 mg Tablet 90 MG PO ×4 (03:03→20:29)
[2024-03-14 03:41] LABS: Basophils # 0.1 10^3/uL (0.0-0.1); Basophils % 0.6 %; Eosinophils # 0.1 10^3/uL (0.0-0.8); Eosinophils % 1.2 %; Hematocrit 42.5 % (37-53); Lymphocytes # 0.7 10^3/uL (0.8-4.8); Lymphocytes % 7.2 %; Mean Corpuscular HGB Conc 31.8 g/dL (30-55); Mean Corpuscular Hemoglobin 22.7 pg (27-33); Mean Corpuscular Volume 71.4 fl (82-101); Mean Platelet Volume 9.8 fL (7.4-10.4); Monocytes # 0.6 10^3/uL (0.2-0.9); Neutrophils # 8.06 10^3/uL (1.8-7.7); Neutrophils % 84.3 %; Nucleated Red Blood Cells % 0 %; Platelet Count 227 10^3/cmm (157-399); Red Blood Count 5.95 10^6/uL (3.85-5.65); Red Cell Distribution Width 19.3 % (12.1-15.1); White Blood Count 9.56 10^3/uL (3.29-11.43)
[2024-03-14 04:05] LABS: Anion Gap 17.1 (5-19); Blood Urea Nitrogen 20 mg/dL (6-20); Calcium 8.7 mg/dL (8.5-10.5); Carbon Dioxide 24 mmol/L (22-29); Chloride 98 mmol/L (98-107); Creatinine Clr Calc Pharmacy 73.9388; Glomerular Filtration Rate 42.9 mL/min (90-130); Glucose 204 mg/dL (65-115); Magnesium 1.6 mg/dL (1.7-2.3); Osmolality Calculated 290 mOsm/kg (285-295); Potassium 3.1 mmol/L (3.5-5.1); Sodium 136 mmol/L (136-145)
[2024-03-14] MEDS: magnesium sulfate premix 2 GM/50 ML PIGGYBACK IV (06:48)
[2024-03-14] MEDS: lidocaine 1% 5 ML in potassium chloride premix 100 ML 52.5 ML IV ×2 (06:49→10:11)
[2024-03-14 07:12] LABS: Glucose Point of Care 199 mg/dL (70-110)
[2024-03-14] MEDS: apixaban 5 mg Tablet PO ×2 (08:07→20:29)
[2024-03-14] MEDS: magnesium oxide 400 mg tablet PO ×2 (08:07→18:10)
[2024-03-14] MEDS: hyDRALAzine 50 mg Tablet PO ×3 (08:08→20:29)
[2024-03-14] MEDS: tamsulosin 0.4 mg Capsule PO (08:08)
[2024-03-14] MEDS: amlodipine 10 mg Tablet PO (08:08)
[2024-03-14] MEDS: pantoprazole DR 40 mg Tablet PO (08:08)
[2024-03-14] MEDS: acetaminophen 500 mg Tablet PO (09:00)
--- NOTE | 2024-03-14 11:05 | PC.NURSE ---
Addendum entered by Ji Berkowitz RN 03/14/24 14:50: Around 1200pm -Educated pt on high blood glucose result and the importance of getting his insulin per sliding scale, pt refused to get insulin. advise pt to bring his home meds for his diabetes but he said he does not have any at home and is waiting to get his medicines refilled at his pharmacy. Original Note: pt refused to take his Insulin per sliding scale and Imdur Per pt he is not taking Imdur anymore and his pcp took him off of it. He also only takes jardiance and januvia. informed pt that he might need to take insulin shots for time being since some of his diabetic meds are not available in the pharmacy and has to bring them from home. Notified of pt's refusal to meds.
[2024-03-14] MEDS: carvedilol 25 mg Tablet 12.5 MG PO ×2 (11:13→18:10)
[2024-03-14 11:53] LABS: Glucose Point of Care 259 mg/dL (70-110)
--- NOTE | 2024-03-14 12:11 | PM.CONSULT ---
Documented by User: Christie Gavin MD 03/15/24 08:46 Providers/Reason For Consult Consulting Physician/Specialty*: KIANNA Gavin MD/cardiology Reason for Consult*: Patient with atrial fibrillation, status post ablation presenting with atrial fibrillation rapid ventricular rate Requesting Physician: Dr. Quiñonez Attending Physician: Dat Quiñonez MD Primary Care Provider: ALVARO Ellison History of Present Illness History of Present Illness Jose Douglas is a 48 year old male Review of Systems Narrative: CONSTITUTIONAL: No fever or chills. EYES: No blurring of vision or other visual disturbances lately. ENT: No hoarseness of voice, auditory disturbances or sore throat. CARDIOVASCULAR: As mentioned above. RESPIRATORY: No significant cough. GASTROINTESTINAL: No hematemesis or melena. GENITOURINARY: No dysuria or hematuria. INTEGUMENTARY: No skin rashes or history of skin cancer. NEURO: No transient ischemic attacks or amaurosis. PSYCHIATRIC: No history of psychosis or major depression. HEMATOLOGIC: No bleeding disorders or significant anemia. ENDOCRINE: No history of polyuria or polydipsia. MUSCULOSKELETAL: No recent joint pain or swelling. ALLERGY/IMMUNOLOGY: As mentioned above. Medications/Allergies Home Medications Medication Instructions Recorded Confirmed Last Taken Type glipizide 5 mg tablet 5 mg PO DAILY 03/24/19 03/13/24 03/13/24 History pantoprazole 40 mg tablet,delayed 40 mg PO DAILY 03/24/19 03/13/24 03/13/24 History release sitagliptin phosphate 50 mg tablet 50 mg PO DAILY #30 tabs 05/13/21 03/13/24 03/13/24 Rx (Januvia) apixaban 5 mg tablet (Eliquis) 5 mg PO BID 08/09/23 03/13/24 03/13/24 History aspirin 81 mg tablet,delayed 81 mg PO DAILY 08/09/23 03/13/24 03/13/24 History release atorvastatin 20 mg tablet 20 mg PO DAILY 08/09/23 03/13/24 03/13/24 History hydralazine 50 mg tablet 50 mg PO TID 08/09/23 03/13/24 03/13/24 History mecobalamin (vitamin B12) 1,000 1,000 mcg PO DAILY 08/09/23 03/13/24 03/13/24 History mcg chewable tablet (B12 Active) pantoprazole 40 mg tablet,delayed 40 mg PO DAILY 08/09/23 03/13/24 03/13/24 History release tamsulosin 0.4 mg capsule 0.4 mg PO DAILY 08/09/23 03/13/24 03/13/24 History amlodipine 10 mg tablet (Norvasc) 10 mg PO DAILY 03/13/24 03/13/24 03/13/24 History carvedilol 25 mg tablet (Coreg) 25 mg PO BID 03/13/24 03/13/24 03/13/24 History diltiazem HCl 360 mg 360 mg PO DAILY 03/13/24 03/13/24 03/13/24 History capsule,extended release 24 hr (Cardizem CD) empagliflozin 10 mg tablet 10 mg PO DAILY 03/13/24 03/13/24 Unknown History (Jardiance) losartan 25 mg tablet (Cozaar) 25 mg PO DAILY 03/13/24 03/13/24 Unknown History polysaccharide iron complex 150 mg 150 mg PO DAILY 03/13/24 03/13/24 Unknown History iron capsule (Poly-Iron) potassium chloride 20 mEq 20 meq PO DAILY 03/13/24 03/13/24 03/13/24 History tablet,extended release (K-Tab) Allergies Allergy/AdvReac Type Severity Reaction Status Date / Time No Known Allergies Allergy Verified 03/13/24 18:16 Current Medications Generic Name Dose Route Start Last Admin Trade Name Freq PRN Reason Stop Dose Admin Acetaminophen 500 mg 03/13/24 20:46 03/14/24 09:00 Acetaminophen 500 Mg Tablet PO 500 mg Q4H PRN Administration fever Amlodipine Besylate 10 mg 03/14/24 09:00 03/14/24 08:08 Amlodipine 10 Mg Tablet PO 10 mg DAILY ASHLEY Administration Apixaban 5 mg 03/13/24 21:00 03/14/24 08:07 Apixaban 5 Mg Tablet PO 5 mg BID@0900,2100 ASHLEY Administration Carvedilol 12.5 mg 03/14/24 09:52 03/14/24 11:13 Carvedilol 25 Mg Tablet PO 12.5 mg BID ASHLEY Administration Diltiazem HCl 90 mg 03/13/24 21:00 03/14/24 08:07 Diltiazem 30 Mg Tablet PO 90 mg Q6H ASHLEY Administration Hydralazine HCl 50 mg 03/13/24 21:00 03/14/24 08:08 Hydralazine 50 Mg Tablet PO 50 mg TID ASHLEY Administration Diltiazem HCl 100 mg/ Sodium 100 mls @ 0 mls/hr 03/13/24 19:00 03/14/24 10:10 Chloride IV Infused .Q0M ASHLEY Titration Protocol Per Protocol Insulin Human Lispro 0 unit 03/13/24 21:00 03/14/24 08:11 Insulin Lispro 100 Unit/1 Ml SUBCUT Not Given WM&BEDTIME ASHLEY Protocol Isosorbide Mononitrate 60 mg 03/14/24 09:00 03/14/24 08:11 Isosorbide Mononitrate Er 60 Mg Tablet PO Not Given DAILY ASHLEY Magnesium Oxide 400 mg 03/14/24 09:00 03/14/24 08:07 Magnesium Oxide 400 Mg Tablet PO 400 mg BID ASHLEY Administration Pantoprazole Sodium 40 mg 03/14/24 09:00 03/14/24 08:[address] 40 Mg Tablet PO 40 mg DAILY ASHLEY Administration Tamsulosin HCl 0.4 mg 03/14/24 09:00 03/14/24 08:08 Tamsulosin 0.4 Mg Capsule PO 0.4 mg DAILY ASHLEY Administration PFSH Acute PFSH: Medical History Aortic regurgitation Diabetes Coronary artery disease Nonobstructive on angiogram 2017 Nuclear stress test May/2021 mild global hypokinesis, no perfusion defects GERD (gastroesophageal reflux disease) History of retinal detachment Cardiomyopathy HTN (hypertension) Hyperlipidemia Surgical History H/O cardiac radiofrequency ablation History of knee surgery History of tonsillectomy History of cataract surgery Family History Other Cancer Diabetes Hypertension Social History Smoking and tobacco/nicotine status: former use of tobacco/nicotine Alcohol intake: current Alcohol intake frequency: other Substance/Drug Use: never Vitals/I&O/Wt Last Vital Signs Temp 98.7 F 03/14/24 11:48 Pulse 952 H 03/14/24 11:48 Resp 20 H 03/14/24 11:48 BP 149/88 03/14/24 11:48 Pulse Ox 98 03/14/24 11:48 O2 Del Method Room Air 03/14/24 11:48 03/13/24 03/14/24 03/14/24 22:59 06:59 14:59 Intake Total 108.750 / 108.750 118.833 / 227.583 306.667 / 306.667 Output Total 450 / 450 Balance 108.750 / 108.750 -331.167 / -222.417 306.667 / 306.667 Weight last 48 hrs Weight 289 lb 9.6 oz Weight 290 lb Weight 290 lb Physical Exam Narrative: GENERAL: The patient is alert and oriented times three. Not in any acute distress. Obese HEENT: No significant pallor, icterus or lymphadenopathy.Oral cavity: There are no mucous membrane lesions. NECK: Trachea appears to be central. No masses noted. No JVD or thyromegaly appreciated. RESPIRATORY: Chest is symmetrical. No intercostals muscle retraction or any accessory muscle activation. There is no chest wall tenderness. Breath sounds are heard bilaterally. No rales or rhonchi heard. No evidence of any consolidation. BREASTS: Deferred. HEART: The heart sounds are normal. No S3 or S4. No significant murmurs. No pericardial rub ABDOMEN: No vessel pulsations or distention. No tenderness. No organomegaly appreciated. Bowel sounds are normally heard. : Deferred. RECTAL: Deferred. LYMPHATIC: No lymphadenopathy noted in the neck. EXTREMITIES: No edema or cyanosis. No clubbing. MUSCULOSKELETAL: No acute joint deformities or swelling SKIN: There are no significant rashes or ecchymosis NEUROPSYCHIATRIC: The patient is alert and oriented x3. Appears to be in a good mood. No tremors or rigidity noted. Data 03/15/24 03:23 03/15/24 03:23 Other Labs: Laboratory Last Values WBC 9.56 10^3/uL (3.29-11.43) 03/14/24 03:10 RBC 5.95 10^6/uL (3.85-5.65) H 03/14/24 03:10 Hgb 13.50 g/dL (11.27-16.99) 03/14/24 03:10 Hct 42.5 % (37-53) 03/14/24 03:10 MCV 71.4 fl (82-101) L 03/14/24 03:10 MCH 22.7 pg (27-33) L 03/14/24 03:10 MCHC 31.8 g/dL (30-55) 03/14/24 03:10 RDW 19.3 % (12.1-15.1) H 03/14/24 03:10 Plt Count 227 10^3/cmm (157-399) 03/14/24 03:10 MPV 9.8 fL (7.4-10.4) 03/14/24 03:10 Neut % (Auto) 84.3 % 03/14/24 03:10 Lymph % (Auto) 7.2 % 03/14/24 03:10 [place] % (Auto) 6.0 % 03/14/24 03:10 Eos % (Auto) 1.2 % 03/14/24 03:10 Baso % (Auto) 0.6 % 03/14/24 03:10 Neut # (Auto) 8.06 10^3/uL (1.8-7.7) H 03/14/24 03:10 Lymph # (Auto) 0.7 10^3/uL (0.8-4.8) L 03/14/24 03:10 [place] # (Auto) 0.6 10^3/uL (0.2-0.9) 03/14/24 03:10 Eos # (Auto) 0.1 10^3/uL (0.0-0.8) 03/14/24 03:10 Baso # (Auto) 0.1 10^3/uL (0.0-0.1) 03/14/24 03:10 Nucleated RBC % (auto) 0 % 03/14/24 03:10 Nucleated RBCs # 0.0 /100WBC 03/14/24 03:10 PT 12.80 SECONDS (12.1-14.9) 03/13/24 18:35 INR 0.90 (0.8-1.2) 03/13/24 18:35 Sodium 136 mmol/L (136-145) 03/14/24 03:10 Potassium 3.1 mmol/L (3.5-5.1) L 03/14/24 03:10 Chloride 98 mmol/L (98-107) 03/14/24 03:10 Carbon Dioxide 24 mmol/L (22-29) 03/14/24 03:10 Anion Gap 17.1 (5-19) 03/14/24 03:10 BUN 20 mg/dL (6-20) 03/14/24 03:10 Creatinine 1.7 mg/dL (0.7-1.2) H 03/14/24 03:10 GFR Calculation 42.9 mL/min (90-130) L 03/14/24 03:10 Glucose 204 mg/dL (65-115) H 03/14/24 03:10 POC Glucose 349 mg/dL (70-110) H 03/14/24 20:29 Calculated Osmolality 290 mOsm/kg (285-295) 03/14/24 03:10 Calcium 8.7 mg/dL (8.5-10.5) 03/14/24 03:10 Magnesium 1.6 mg/dL (1.7-2.3) L 03/14/24 03:10 Total Bilirubin 0.6 mg/dL (0.15-1.2) 03/13/24 18:35 AST 25 U/L (0-40) 03/13/24 18:35 ALT 28 U/L (0-41) 03/13/24 18:35 Alkaline Phosphatase 112 U/L (40-130) 03/13/24 18:35 Troponin T Baseline 112 ng/L (0-15) H* 03/13/24 18:35 Troponin T 120 Minute 110.1 ng/L (0-15) H 03/13/24 20:05 Delta Troponin T -1.9 ABS# (0-10) L 03/13/24 20:05 Troponin T Hi Sens 6Hr 113.2 ng/L (0-15) H 03/14/24 01:16 Troponin T Hi Sens 6Hr Delta 1.2 ng/L (0-12) 03/14/24 01:16 Total Protein 7.3 g/dL (6.6-8.7) 03/13/24 18:35 Albumin 4.1 g/dL (3.5-5.2) 03/13/24 18:35 Globulin 3.2 g/dL (1.3-4.6) 03/13/24 18:35 Triglycerides 129 mg/dL (0-150) 03/13/24 20:05 Lipase 73 U/L (13-60) H 03/13/24 18:35 A&P Assessment and plan (1) Atrial fibrillation with RVR: The patient apparently had a cardioversion and RF ablation in the past. He has noncompliance to medication could be a major contributing factor. According to him, he stopped taking all his medications except the diltiazem and the hydralazine. He is restarted on the carvedilol and Eliquis. Since he is in sinus rhythm, I will hold off on any other medication at this time. (2) Accelerated hypertension: Most likely from the noncompliance of medications. The blood pressure seems to be getting under control. Will continue to optimize his antihypertensive medications. Since he is on Cardizem, the maximum dose, I will try to maximize the dose of the ARB instead of the amlodipine. (3) Chest pain: This could be related to accelerated hypertension and atrial fibrillation. However because of elevated troponin T and multiple risk factors, it might be appropriate to do a Myocardial perfusion imaging to rule out any underlying coronary ischemia. This was discussed with the patient which he understood well and consented to proceed Qualifiers: Chest pain type: unspecified Qualified Code(s): R07.9 - Chest pain, unspecified (4) Chronic kidney disease (CKD): The kidney function appears to be stable. May continue to observe the kidney function. Qualifiers: Chronic kidney disease stage: stage 3 (moderate) Chronic kidney disease stage 3 subtype: stage 3a (GFR 45-59) Qualified Code(s): N18.31 - Chronic kidney disease, stage 3a (5) Hyperlipidemia: May continue on the current medications. Qualifiers: Hyperlipidemia type: mixed hyperlipidemia Qualified Code(s): E78.2 - Mixed hyperlipidemia Plan Based on the clinical progress and the results of the above, further recommendations will be made. Will try to get the medical records from the [facility] Thank for the opportunity well this patient make these recommendations Consult Attestations Medical Necessity Statement: Patient requires continued hospital stay for close monitoring and further management Coding Level of Care Code 21349 Diagnoses Atrial fibrillation with RVR I48.91 Accelerated hypertension I10 Chest pain, unspecified type R07.9 Chest pain type: unspecified Stage 3a chronic kidney disease N18.31 Chronic kidney disease stage: stage 3 (moderate) Chronic kidney disease stage 3 subtype: stage 3a (GFR 45-59) Mixed hyperlipidemia E78.2 Hyperlipidemia type: mixed hyperlipidemia Documented by User: Amber Radford NP 03/15/24 08:32 Providers/Reason For Consult Reason for Consult*: Patient with atrial fibrillation, status post ablation presenting with atrial fibrillation rapid ventricular rate History of Present Illness History of Present Illness This is a very pleasant 56-year-old gentleman with a history of aortic regurg, A-fib with RVR status post ablation about 3 months ago at [facility], hypertension, hyperlipidemia, CKD, and diabetes. He is a former smoker. He has a history or normal coronary angiogram in 2016. Previous stress test in 2021 was normal. He came into our emergency room yesterday evening for chest discomfort and palpitations. He states that he was sitting down and developed some chest pressure at the center of his chest with associated nausea. Denied vomiting or chills with this. He states that it was not really painful but he could tell there was some pressure present. He checked his blood pressure and it was 240/130. That is when he decided to come into the emergency room. He states for several months now he has not been able to take most of his medication due to financial reasons. He tells me the only medications he has been taking for rate control is the cardizem. He states he just recently saw his EP doctor's nurse practitioner, and got a good report. Apparently, he has not been taking his Eliquis either. In the emergency room he was given IV push diltiazem, started on a drip, and then converted to oral Diltiazem 90 mg q6. Carvedilol was restarted. He converted back to sinus tachycardia. Current rates are on average anywhere from 90-102. After his rate was controlled, his chest pain subsided. Blood pressure was 170/89 at the time of my assessment. Magnesium and potassium levels were low on admission. These have been replaced. Echo was done that showed normal EF w/o wall motion abnormalities. Chest x-ray was normal. Troponins were elevated at 112-110-113.2. Troponin is elevated at baseline due to CKD. Medications/Allergies Home Medications Medication Instructions Recorded Confirmed Last Taken Type glipizide 5 mg tablet 5 mg PO DAILY 03/24/19 03/13/24 03/13/24 History pantoprazole 40 mg tablet,delayed 40 mg PO DAILY 03/24/19 03/13/24 03/13/24 History release sitagliptin phosphate 50 mg tablet 50 mg PO DAILY #30 tabs 05/13/21 03/13/24 03/13/24 Rx (Januvia) apixaban 5 mg tablet (Eliquis) 5 mg PO BID 08/09/23 03/13/24 03/13/24 History aspirin 81 mg tablet,delayed 81 mg PO DAILY 08/09/23 03/13/24 03/13/24 History release atorvastatin 20 mg tablet 20 mg PO DAILY 08/09/23 03/13/24 03/13/24 History hydralazine 50 mg tablet 50 mg PO TID 08/09/23 03/13/24 03/13/24 History mecobalamin (vitamin B12) 1,000 1,000 mcg PO DAILY 08/09/23 03/13/24 03/13/24 History mcg chewable tablet (B12 Active) pantoprazole 40 mg tablet,delayed 40 mg PO DAILY 08/09/23 03/13/24 03/13/24 History release tamsulosin 0.4 mg capsule 0.4 mg PO DAILY 08/09/23 03/13/24 03/13/24 History amlodipine 10 mg tablet (Norvasc) 10 mg PO DAILY 03/13/24 03/13/24 03/13/24 History carvedilol 25 mg tablet (Coreg) 25 mg PO BID 03/13/24 03/13/24 03/13/24 History diltiazem HCl 360 mg 360 mg PO DAILY 03/13/24 03/13/24 03/13/24 History capsule,extended release 24 hr (Cardizem CD) empagliflozin 10 mg tablet 10 mg PO DAILY 03/13/24 03/13/24 Unknown History (Jardiance) losartan 25 mg tablet (Cozaar) 25 mg PO DAILY 03/13/24 03/13/24 Unknown History polysaccharide iron complex 150 mg 150 mg PO DAILY 03/13/24 03/13/24 Unknown History iron capsule (Poly-Iron) potassium chloride 20 mEq 20 meq PO DAILY 03/13/24 03/13/24 03/13/24 History tablet,extended release (K-Tab) Allergies Allergy/AdvReac Type Severity Reaction Status Date / Time No Known Allergies Allergy Verified 03/13/24 18:16 PFSH Acute PFSH: Medical History Aortic regurgitation Diabetes Coronary artery disease Nonobstructive on angiogram 2017 Nuclear stress test May/2021 mild global hypokinesis, no perfusion defects GERD (gastroesophageal reflux disease) History of retinal detachment Cardiomyopathy HTN (hypertension) Hyperlipidemia Surgical History H/O cardiac radiofrequency ablation History of knee surgery History of tonsillectomy History of cataract surgery Family History Other Cancer Diabetes Hypertension Social History Smoking and tobacco/nicotine status: former use of tobacco/nicotine Alcohol intake: current Alcohol intake frequency: other Substance/Drug Use: never Data 03/15/24 03:23 03/15/24 03:23 Other data: Left heart cath. 2017 Procedure Summary #1 Left main is normal #2 LAD has luminal irregularities #3 LCx has luminal irregularities #4 RCA has luminal irregularities Stress test 2021 IMPRESSIONS 1. Myocardial perfusion imaging is normal. 2. The left ventricular ejection fraction is mildly reduced with a value of 45%. 3. There is mild global hypokinesis with no regional wall motion abnormality. 4. No EKG changes with Lexiscan infusion. 5. No prior similar studies to compare. Echo 03/13/2024 CONCLUSIONS LV systolic function is normal with EF of 60 to 65%. Left ventricular hypertrophy seen. Left atrial dilation. Mild mitral regurgitation. Compared to prior echocardiogram from 06/2023, no significant changes are seen. A&P Assessment and plan (1) Atrial fibrillation with RVR: (2) Accelerated hypertension: (3) Chest pain: Qualifiers: Chest pain type: unspecified Qualified Code(s): R07.9 - Chest pain, unspecified (4) Chronic kidney disease (CKD): Qualifiers: Chronic kidney disease stage: stage 3 (moderate) Chronic kidney disease stage 3 subtype: stage 3a (GFR 45-59) Qualified Code(s): N18.31 - Chronic kidney disease, stage 3a (5) Hyperlipidemia: Qualifiers: Hyperlipidemia type: mixed hyperlipidemia Qualified Code(s): E78.2 - Mixed hyperlipidemia Coding Level of Care Code 15885 Diagnoses Atrial fibrillation with RVR I48.91 Accelerated hypertension I10 Chest pain, unspecified type R07.9 Chest pain type: unspecified Stage 3a chronic kidney disease N18.31 Chronic kidney disease stage: stage 3 (moderate) Chronic kidney disease stage 3 subtype: stage 3a (GFR 45-59) Mixed hyperlipidemia E78.2 Hyperlipidemia type: mixed hyperlipidemia
--- NOTE | 2024-03-14 14:36 | P.PN_ITS ---
Subjective 2 Subjective: This morning. He is chest pain free however still hypertensive. Cardizem drip has been turned off and he has been transition back to oral. Feels better overall. Vitals/I&O/Wt Last Vital Signs Temp 98.7 F 03/14/24 11:48 Pulse 95 03/14/24 11:48 Resp 20 H 03/14/24 11:48 BP 149/88 03/14/24 11:48 Pulse Ox 98 03/14/24 11:48 O2 Del Method Room Air 03/14/24 11:48 03/13/24 03/14/24 03/14/24 22:59 06:59 14:59 Intake Total 108.750 / 108.750 118.833 / 227.583 847.667 / 847.667 Output Total 450 / 450 Balance 108.750 / 108.750 -331.167 / -222.417 847.667 / 847.667 Weight last 48 hrs Weight 131.36 kg Weight 131.542 kg Weight 131.542 kg Physical Exam 2 Narrative: No acute distress resting comfortably in bed. GCS 15 No active sign of heart failure Morbidly obese Hypertensive No active chest pain Variable S1-S2 Abdomen distended nontender at the bedside Nonfocal neuroexam Data 03/14/24 03:10 03/14/24 03:10 A&P Assessment and plan (1) HTN (hypertension): (2) Aortic regurgitation: Qualifiers: Cardiac valve disease etiology: nonrheumatic Qualified Code(s): I35.1 - Nonrheumatic aortic (valve) insufficiency (3) Coronary artery disease: (4) Chest pain: (5) Atrial fibrillation: Qualifiers: Atrial fibrillation type: paroxysmal Qualified Code(s): I48.0 - Paroxysmal atrial fibrillation (6) Atrial fibrillation with RVR: (7) Diabetes: Qualifiers: Diabetes mellitus complication status: with hyperglycemia Diabetes mellitus group home insulin use: without middle or intermediate school principal use Diabetes mellitus type: t ype 2 Qualified Code(s): E11.65 - Type 2 diabetes mellitus with hyperglycemia (8) GERD (gastroesophageal reflux disease): Plan A-fib RVR Failed cardioversion Has not taken amiodarone for quite some time, not taking Eliquis as well Patient is stating that he has seen cardiology FIBER ANALYST he was in agreement with holding these medications He has been on Cardizem 25 mg every 6 hours, recently it has been switched to 360 mg standard release which she has not started yet Keep magnesium above 2 potassium above 4, Chest pain related to A-fib RVR No active chest pain at the time of evaluation Monitor troponin serial troponin EKG Nonobstructive coronary disease Second hour troponin is pending If troponin keeps trending up he will need ACS protocol with angiogram Monitor for now If troponin trended down with no recurrence of chest pain it could be type II [place] requested echo Uncontrolled hypertension: History of underlying coronary disease Creatinine 2.0 Patient takes losartan He needs med rec at the time of discharge, I would not continue losartan at this point Patient also takes amlodipine Hypokalemia: To be replenished Check magnesium level Obstructive sleep apnea?, Patient does endorse of snoring, also takes naps in the daytime No official diagnosis Request overnight pulse ox study Full code Consistent carb diet Restart Eliquis . Patient may need help healthcare financial analyst 03/14/2024 -Restart home Coreg. ?consult cardiology for further recs - optimize BP - continue to monitor on tele Attestations 2 Medical Necessity Statement*: More than 2 midnights anticipated Diagnoses HTN (hypertension) I10 Nonrheumatic aortic valve insufficiency I35.1 Cardiac valve disease etiology: nonrheumatic Coronary artery disease I25.10 Chest pain R07.9 Paroxysmal atrial fibrillation I48.0 Atrial fibrillation type: paroxysmal Atrial fibrillation with RVR I48.91 Diabetes E11.65 Diabetes mellitus complication status: with hyperglycemia Diabetes mellitus middle or intermediate school principal insulin use: without group home use Diabetes mellitus type: type 2 GERD (gastroesophageal reflux disease) K21.9
--- NOTE | 2024-03-14 15:12 | PC.NURSE ---
Called his pharmacy Called [facility] in regards of his jardiance,ervin..Pharmacist said, his medicines has refills but it will not be delivered between 11-1pm tomorrow.
[2024-03-14 16:59] LABS: Glucose Point of Care 263 mg/dL (70-110)
[2024-03-14] MEDS: losartan 50 mg Tablet PO (19:28)
[2024-03-14 20:46] LABS: Glucose Point of Care 349 mg/dL (70-110)
--- NOTE | 2024-03-14 21:46 | ECG_ITS ---
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 Interpretive Statements Lung unchanged pre/post procedure; Intraprocedure shortess of breath; Symptoms resoled by discharge PROCEDURE: At the baseline, the EKG revealed sinus rhythm with PVCs and PACs nonspecific ST-T changes. The baseline heart was 84 bpm with a blood pressue of 171/84 mm of Hg Lexiscan was infused over a period of 20 seconds. A total of 0.4 milligrams of Lexiscan was infused. The stress phase was continued for a total of 5 minutes. Heart rate at the end of the stress phase was 91 bpm with a blood pressure 172/80 mm of Hg. The EKG at the peak infusion revealed no significant changes. Sestamibi was injected 20 seconds after the Lexiscan infusion. Heart rate at the end of the recovery phase was 90 bpm with a blood pressure of 180/79 mm of Hg. CONCLUSION: 1. No significant EKG changes with the LexiScan infusion 2. No LexiScan induced chest pain or cardiac arrhythmia 3. Normal blood pressure and heart rate response 4. Sestamibi/sestamibi perfusion scan pending; see separate report. Electronically Signed On 03-17-2024 17:21:21 BUSINESS ANALYTICS SPECIALIST by Christie Gavin M.D. [email or web address]
[2024-03-15] VITALS (7 sets, daily range): BP systolic 139–180; BP diastolic 69–89; PULSE 79–85; RESP 13–30; TEMP 36.5–37; O2SAT 93–96
[2024-03-15] MEDS: acetaminophen 500 mg Tablet PO (03:40)
[2024-03-15] MEDS: dilTIAZem 30 mg Tablet 90 MG PO ×2 (03:40→09:24)
[2024-03-15 03:51] LABS: Basophils # 0.1 10^3/uL (0.0-0.1); Basophils % 0.6 %; Eosinophils # 0.4 10^3/uL (0.0-0.8); Eosinophils % 4.1 %; Hematocrit 40.6 % (37-53); Lymphocytes # 1.2 10^3/uL (0.8-4.8); Lymphocytes % 14.1 %; Mean Corpuscular Hemoglobin 22.3 pg (27-33); Mean Corpuscular Volume 71.9 fl (82-101); Mean Platelet Volume 9.9 fL (7.4-10.4); Monocytes # 0.8 10^3/uL (0.2-0.9); Monocytes % 9.4 %; Neutrophils # 6.12 10^3/uL (1.8-7.7); Neutrophils % 71.2 %; Nucleated Red Blood Cells % 0 %; Platelet Count 207 10^3/cmm (157-399); Red Blood Count 5.65 10^6/uL (3.85-5.65); Red Cell Distribution Width 19.1 % (12.1-15.1); White Blood Count 8.59 10^3/uL (3.29-11.43)
[2024-03-15 04:23] LABS: Blood Urea Nitrogen 20 mg/dL (6-20); Calcium 8.7 mg/dL (8.5-10.5); Carbon Dioxide 24 mmol/L (22-29); Chloride 97 mmol/L (98-107); Creatinine Clr Calc Pharmacy 78.5031; Glucose 225 mg/dL (65-115); Magnesium 2.1 mg/dL (1.7-2.3); Osmolality Calculated 288 mOsm/kg (285-295); Sodium 134 mmol/L (136-145)
[2024-03-15 06:22] LABS: Glucose Point of Care 188 mg/dL (70-110)
[2024-03-15] MEDS: regadenoson 0.4 Mg/5 ml Syringe IVP (08:23)
--- NOTE | 2024-03-15 08:46 | PM.PN ---
Subjective Subjective: Patient had the Myocardial perfusion imaging today. He was found to have a small area of inconsistent reversible defect in the inferior wall region, most likely artifactual. Patient is remaining chest pain-free. Blood pressure also seems to be getting under control. No arrhythmias on the monitor. Medications: Medication Review Details: Current Medications Acetaminophen (Acetaminophen 500 Mg Tablet) 500 mg PO Q4H PRN PRN Reason: fever Last Admin: 03/15/24 03:40 Dose: 500 mg Albuterol/Ipratropium (Ipratropium-Albuterol 3 Ml Neb) 3 ml INHALATION Q6H PRN PRN Reason: SHORTNESS OF BREATH Aminophylline (Aminophylline 25 Mg/Ml Sdv 20 Ml) 25 mg IVP Q2M PRN PRN Reason: see dose instructions Stop: 03/16/24 06:15 Apixaban (Apixaban 5 Mg Tablet) 5 mg PO BID@0900,2100 [facility] Last Admin: 03/15/24 09:24 Dose: 5 mg Carvedilol (Carvedilol 25 Mg Tablet) 12.5 mg PO BID [facility] Last Admin: 03/15/24 09:25 Dose: 12.5 mg Diltiazem HCl (Diltiazem 30 Mg Tablet) 90 mg PO Q6H [facility] Last Admin: 03/15/24 09:24 Dose: 90 mg Glucagon (Glucagon 1 Mg/Ml Kit 1 Ml) 1 mg IM ONCE PRN; Protocol PRN Reason: Adult Acute Hypoglycemia Nursing Prot. Hydralazine HCl (Hydralazine 50 Mg Tablet) 50 mg PO TID [facility] Last Admin: 03/15/24 09:25 Dose: 50 mg Diltiazem HCl 100 mg/ Sodium (Chloride) 100 mls @ 0 mls/hr IV .Q0M [facility]; Protocol Last Titration: 03/14/24 10:10 Dose: Infused Dextrose (D5w) 500 mls @ 0 mls/hr IV ONCE PRN; Protocol PRN Reason: Adult Acute Hypoglycemia Prot Dextrose (D10w) 125 mls @ 750 mls/hr IV PRN PRN; Protocol PRN Reason: Adult Acute Hypoglycemia Nursing Protocol Dextrose (D10w) 250 mls @ 1,000 mls/hr IV PRN PRN; Protocol PRN Reason: Adult Acute Hypoglycemia Nursing Protocol Insulin Human Lispro (Insulin Lispro 100 Unit/1 Ml) 0 unit SUBCUT WM&BEDTIME [facility]; Protocol Last Admin: 03/15/24 12:05 Dose: Not Given Isosorbide Mononitrate (Isosorbide Mononitrate Er 60 Mg Tablet) 60 mg PO DAILY [facility] Last Admin: 03/15/24 09:25 Dose: 60 mg Losartan Potassium (Losartan 50 Mg Tablet) 50 mg PO DAILY [facility] Last Admin: 03/15/24 10:12 Dose: 50 mg Magnesium Oxide (Magnesium Oxide 400 Mg Tablet) 400 mg PO BID [facility] Last Admin: 03/15/24 09:25 Dose: 400 mg Morphine Sulfate (Morphine Ir 15 Mg Tablet) 15 mg PO Q6H PRN PRN Reason: MODERATE PAIN Nitroglycerin (Nitroglycerin 0.4 Mg Sublingual Tablet) 0.4 mg SUBLINGUAL Q5M PRN PRN Reason: CHEST PAIN Stop: 03/16/24 06:15 Ondansetron HCl (Ondansetron 2 Mg/Ml Sdv 2 Ml) 4 mg IVP Q6H PRN PRN Reason: NAUSEA AND VOMITING Ondansetron HCl (Ondansetron 2 Mg/Ml Sdv 2 Ml) 4 mg IVP Q2M PRN PRN Reason: NAUSEA Pantoprazole Sodium (Pantoprazole Dr 40 Mg Tablet) 40 mg PO DAILY [facility] Last Admin: 03/15/24 09:24 Dose: 40 mg Tamsulosin HCl (Tamsulosin 0.4 Mg Capsule) 0.4 mg PO DAILY [facility] Last Admin: 03/15/24 09:24 Dose: 0.4 mg Vitals/I&O/Wt Last Vital Signs Temp 98.6 F 03/15/24 04:00 Pulse 79 03/15/24 08:39 Resp 22 H 03/15/24 04:00 BP 180/69 03/15/24 08:39 Pulse Ox 93 03/15/24 04:00 O2 Del Method Room Air 03/15/24 04:00 03/14/24 03/15/24 03/15/24 22:59 06:59 14:59 Intake Total 760 / 1607.667 880 / 2487.667 Output Total 300 / 300 Balance 760 / 1607.667 880 / 2487.667 -300 / -300 Weight last 48 hrs Weight 291 lb 14.4 oz Weight 289 lb 9.6 oz Weight 290 lb Weight 290 lb Physical Exam Narrative: GENERAL: The patient is alert and oriented times three. Not in any acute distress. Obese HEENT: No significant pallor, icterus or lymphadenopathy.Oral cavity: There are no mucous membrane lesions. NECK: Trachea appears to be central. No masses noted. No JVD or thyromegaly appreciated. RESPIRATORY: Chest is symmetrical. No intercostals muscle retraction or any accessory muscle activation. There is no chest wall tenderness. Breath sounds are heard bilaterally. No rales or rhonchi heard. No evidence of any consolidation. BREASTS: Deferred. HEART: The heart sounds are normal. No S3 or S4. No significant murmurs. No pericardial rub ABDOMEN: No vessel pulsations or distention. No tenderness. No organomegaly appreciated. Bowel sounds are normally heard. : Deferred. RECTAL: Deferred. LYMPHATIC: No lymphadenopathy noted in the neck. EXTREMITIES: No edema or cyanosis. No clubbing. MUSCULOSKELETAL: No acute joint deformities or swelling SKIN: There are no significant rashes or ecchymosis NEUROPSYCHIATRIC: The patient is alert and oriented x3. Appears to be in a good mood. No tremors or rigidity noted. Data 03/15/24 03:23 03/15/24 03:23 Other Labs: Laboratory Last Values WBC 8.59 10^3/uL (3.29-11.43) 03/15/24 03:23 RBC 5.65 10^6/uL (3.85-5.65) 03/15/24 03:23 Hgb 12.60 g/dL (11.27-16.99) 03/15/24 03:23 Hct 40.6 % (37-53) 03/15/24 03:23 MCV 71.9 fl (82-101) L 03/15/24 03:23 MCH 22.3 pg (27-33) L 03/15/24 03:23 MCHC 31.0 g/dL (30-55) 03/15/24 03:23 RDW 19.1 % (12.1-15.1) H 03/15/24 03:23 Plt Count 207 10^3/cmm (157-399) 03/15/24 03:23 MPV 9.9 fL (7.4-10.4) 03/15/24 03:23 Neut % (Auto) 71.2 % 03/15/24 03:23 Lymph % (Auto) 14.1 % 03/15/24 03:23 [place] % (Auto) 9.4 % 03/15/24 03:23 Eos % (Auto) 4.1 % 03/15/24 03:23 Baso % (Auto) 0.6 % 03/15/24 03:23 Neut # (Auto) 6.12 10^3/uL (1.8-7.7) 03/15/24 03:23 Lymph # (Auto) 1.2 10^3/uL (0.8-4.8) 03/15/24 03:23 [place] # (Auto) 0.8 10^3/uL (0.2-0.9) 03/15/24 03:23 Eos # (Auto) 0.4 10^3/uL (0.0-0.8) 03/15/24 03:23 Baso # (Auto) 0.1 10^3/uL (0.0-0.1) 03/15/24 03:23 Nucleated RBC % (auto) 0 % 03/15/24 03:23 Nucleated RBCs # 0.0 /100WBC 03/15/24 03:23 PT 12.80 SECONDS (12.1-14.9) 03/13/24 18:35 INR 0.90 (0.8-1.2) 03/13/24 18:35 Sodium 134 mmol/L (136-145) L 03/15/24 03:23 Potassium 3.0 mmol/L (3.5-5.1) L 03/15/24 03:23 Chloride 97 mmol/L (98-107) L 03/15/24 03:23 Carbon Dioxide 24 mmol/L (22-29) 03/15/24 03:23 Anion Gap 16.0 (5-19) 03/15/24 03:23 BUN 20 mg/dL (6-20) 03/15/24 03:23 Creatinine 1.6 mg/dL (0.7-1.2) H 03/15/24 03:23 GFR Calculation 46.0 mL/min (90-130) L 03/15/24 03:23 Glucose 225 mg/dL (65-115) H 03/15/24 03:23 POC Glucose 188 mg/dL (70-110) H 03/15/24 06:16 Calculated Osmolality 288 mOsm/kg (285-295) 03/15/24 03:23 Calcium 8.7 mg/dL (8.5-10.5) 03/15/24 03:23 Magnesium 2.1 mg/dL (1.7-2.3) 03/15/24 03:23 Total Bilirubin 0.6 mg/dL (0.15-1.2) 03/13/24 18:35 AST 25 U/L (0-40) 03/13/24 18:35 ALT 28 U/L (0-41) 03/13/24 18:35 Alkaline Phosphatase 112 U/L (40-130) 03/13/24 18:35 Troponin T Baseline 112 ng/L (0-15) H* 03/13/24 18:35 Troponin T 120 Minute 110.1 ng/L (0-15) H 03/13/24 20:05 Delta Troponin T -1.9 ABS# (0-10) L 03/13/24 20:05 Troponin T Hi Sens 6Hr 113.2 ng/L (0-15) H 03/14/24 01:16 Troponin T Hi Sens 6Hr Delta 1.2 ng/L (0-12) 03/14/24 01:16 Total Protein 7.3 g/dL (6.6-8.7) 03/13/24 18:35 Albumin 4.1 g/dL (3.5-5.2) 03/13/24 18:35 Globulin 3.2 g/dL (1.3-4.6) 03/13/24 18:35 Triglycerides 129 mg/dL (0-150) 03/13/24 20:05 Lipase 73 U/L (13-60) H 03/13/24 18:35 A&P Assessment and plan (1) Atrial fibrillation with RVR: The patient apparently had a cardioversion and RF ablation in the past. He has noncompliance to medication could be a major contributing factor. According to him, he stopped taking all his medications except the diltiazem and the hydralazine. He is restarted on the carvedilol and Eliquis. Since he is in sinus rhythm, I will hold off on any other medication at this time. (2) Accelerated hypertension: Most likely from the noncompliance of medications. The blood pressure seems to be getting under control. Will continue to optimize his antihypertensive medications. Since he is on Cardizem, the maximum dose, I will try to maximize the dose of the ARB instead of the amlodipine. (3) Chest pain: Currently pain-free. The results of Myocardial perfusion imaging was discussed with the patient. In the absence of any ongoing chest pain, it may be appropriate to continue on the current treatment. Chances of him having significant coronary artery disease may be low, based on the perfusion scan results. Qualifiers: Chest pain type: unspecified Qualified Code(s): R07.9 - Chest pain, unspecified (4) Chronic kidney disease (CKD): The kidney function appears to be stable. May continue to observe the kidney function. Qualifiers: Chronic kidney disease stage: stage 3 (moderate) Chronic kidney disease stage 3 subtype: stage 3a (GFR 45-59) Qualified Code(s): N18.31 - Chronic kidney disease, stage 3a (5) Hyperlipidemia: May continue on the current medications. Qualifiers: Hyperlipidemia type: mixed hyperlipidemia Qualified Code(s): E78.2 - Mixed hyperlipidemia (6) Hypokalemia: Hypokalemia need to be corrected. Patient was given of 40 of potassium as a K rider. Also was given 20 of potassium p.o. Plan Based on the clinical progress and the results of the above, further recommendations will be made. Will try to get the medical records from the [facility] Thank for the opportunity well this patient make these recommendations Attestations Medical Necessity Statement*: Deferred to the primary Coding Level of Care Code Acute Code for [facility] Diagnoses Atrial fibrillation with RVR I48.91 Accelerated hypertension I10 Chest pain, unspecified type R07.9 Chest pain type: unspecified Stage 3a chronic kidney disease N18.31 Chronic kidney disease stage: stage 3 (moderate) Chronic kidney disease stage 3 subtype: stage 3a (GFR 45-59) Mixed hyperlipidemia E78.2 Hyperlipidemia type: mixed hyperlipidemia Hypokalemia E87.6
[2024-03-15] MEDS: pantoprazole DR 40 mg Tablet PO (09:24)
[2024-03-15] MEDS: tamsulosin 0.4 mg Capsule PO (09:24)
[2024-03-15] MEDS: apixaban 5 mg Tablet PO (09:24)
[2024-03-15] MEDS: carvedilol 25 mg Tablet 12.5 MG PO (09:25)
[2024-03-15] MEDS: isosorbide mononitrate ER 60 mg Tablet PO (09:25)
[2024-03-15] MEDS: magnesium oxide 400 mg tablet PO (09:25)
[2024-03-15] MEDS: hyDRALAzine 50 mg Tablet PO (09:25)
[2024-03-15] MEDS: potassium chloride ER 20 mEq Tablet PO (10:11)
[2024-03-15] MEDS: lidocaine 1% 5 ML in potassium chloride premix 100 ML 26.25 ML IV (10:11)
[2024-03-15] MEDS: losartan 50 mg Tablet PO (10:12)
[2024-03-15 11:16] LABS: Glucose Point of Care 279 mg/dL (70-110)
--- NOTE | 2024-03-15 14:22 | PM.DCS ---
Discharge Providers Date of Admission: 03/13/24 19:35 Date of Discharge: March 15, 2024 Attending Provider at Admission: Dat Quiñonez MD Attending Provider at Discharge: Maryam Paige MD Primary Care Provider: ALVARO Ellison Diagnoses at Discharge Discharge Diagnosis (1) Atrial fibrillation with RVR: Status: Resolved (2) Accelerated hypertension: Status: Resolved (3) Chest pain: Status: Resolved Qualifiers: Chest pain type: unspecified Qualified Code(s): R07.9 - Chest pain, unspecified (4) Chronic kidney disease (CKD): Status: Chronic Qualifiers: Chronic kidney disease stage: stage 3 (moderate) Chronic kidney disease stage 3 subtype: stage 3a (GFR 45-59) Qualified Code(s): N18.31 - Chronic kidney disease, stage 3a (5) Hyperlipidemia: Status: Acute Qualifiers: Hyperlipidemia type: mixed hyperlipidemia Qualified Code(s): E78.2 - Mixed hyperlipidemia (6) Hypokalemia: Status: Resolved Reason for Visit Reason for Visit: chest pain Hospital Course Hospital Course Patient presented to the hospital with A-fib with RVR who had failed cardioversion. Patient was on any amiodarone anymore. He was treated for atrial fibrillation cardiology was consulted patient was transitioned to oral Cardizem after Cardizem drip. He also had uncontrolled hypertension and chest pain. Stress test was done which appeared to be abnormal. Cardiology was consulted and patient was sent home in stable condition to follow-up with cardiology as an outpatient. No interventions were planned at this time. Medications were adjusted for his hypertension. Physical Exam Narrative: No acute distress resting comfortably in bed. GCS 15 No active sign of heart failure Morbidly obese Hypertensive No active chest pain Variable S1-S2 Abdomen distended nontender Nonfocal neuroexam Discharge Data Studies Completed and Pending Completed Studies During Hospitalization Category Date Time Status Sestamibi Stress Test Request Routine Exams 03/14/24 21:46 Draft XR chest 1V portable [id number] Stat Exams 03/13/24 18:04 Completed NM omid perf SPECT r/s* [id number] Routine Nuc Med 03/15/24 21:47 Completed CV. echo complete* [id number] Routine Ultrasound 03/13/24 20:46 Completed Radiology Impressions Chest X-Ray 03/13/24 18:04 IMPRESSION: No acute findings. Laboratory Results WBC 8.59 10^3/uL (3.29-11.43) 03/15/24 03: RBC 5.65 10^6/uL (3.85-5.65) 03/15/24 03:23 Hgb 12.60 g/dL (11.27-16.99) 03/15/24 03:23 Hct 40.6 % (37-53) 03/15/24 03:23 MCV 71.9 fl (82-101) L 03/15/24 03:23 MCH 22.3 pg (27-33) L 03/15/24 03:23 MCHC 31.0 g/dL (30-55) 03/15/24 03:23 RDW 19.1 % (12.1-15.1) H 03/15/24 03:23 Plt Count 207 10^3/cmm (157-399) 03/15/24 03:23 MPV 9.9 fL (7.4-10.4) 03/15/24 03:23 Neut % (Auto) 71.2 % 03/15/24 03:23 Lymph % (Auto) 14.1 % 03/15/24 03:23 [place] % (Auto) 9.4 % 03/15/24 03:23 Eos % (Auto) 4.1 % 03/15/24 03:23 Baso % (Auto) 0.6 % 03/15/24 03:23 Neut # (Auto) 6.12 10^3/uL (1.8-7.7) 03/15/24 03:23 Lymph # (Auto) 1.2 10^3/uL (0.8-4.8) 03/15/24 03:23 [place] # (Auto) 0.8 10^3/uL (0.2-0.9) 03/15/24 03:23 Eos # (Auto) 0.4 10^3/uL (0.0-0.8) 03/15/24 03:23 Baso # (Auto) 0.1 10^3/uL (0.0-0.1) 03/15/24 03:23 Nucleated RBC % (auto) 0 % 03/15/24 03:23 Nucleated RBCs # 0.0 /100WBC 03/15/24 03:23 PT 12.80 SECONDS (12.1-14.9) 03/13/24 18:35 INR 0.90 (0.8-1.2) 03/13/24 18:35 Sodium 134 mmol/L (136-145) L 03/15/24 03:23 Potassium 3.0 mmol/L (3.5-5.1) L 03/15/24 03:23 Chloride 97 mmol/L (98-107) L 03/15/24 03:23 Carbon Dioxide 24 mmol/L (22-29) 03/15/24 03:23 Anion Gap 16.0 (5-19) 03/15/24 03:23 BUN 20 mg/dL (6-20) 03/15/24 03:23 Creatinine 1.6 mg/dL (0.7-1.2) H 03/15/24 03:23 GFR Calculation 46.0 mL/min (90-130) L 03/15/24 03:23 Glucose 225 mg/dL (65-115) H 03/15/24 03:23 POC Glucose 279 mg/dL (70-110) H 03/15/24 11:08 Calculated Osmolality 288 mOsm/kg (285-295) 03/15/24 03:23 Calcium 8.7 mg/dL (8.5-10.5) 03/15/24 03:23 Magnesium 2.1 mg/dL (1.7-2.3) 03/15/24 03:23 Total Bilirubin 0.6 mg/dL (0.15-1.2) 03/13/24 18:35 AST 25 U/L (0-40) 03/13/24 18:35 ALT 28 U/L (0-41) 03/13/24 18:35 Alkaline Phosphatase 112 U/L (40-130) 03/13/24 18:35 Troponin T Baseline 112 ng/L (0-15) H* 03/13/24 18:35 Troponin T 120 Minute 110.1 ng/L (0-15) H 03/13/24 20:05 Delta Troponin T -1.9 ABS# (0-10) L 03/13/24 20:05 Troponin T Hi Sens 6Hr 113.2 ng/L (0-15) H 03/14/24 01:16 Troponin T Hi Sens 6Hr Delta 1.2 ng/L (0-12) 03/14/24 01:16 Total Protein 7.3 g/dL (6.6-8.7) 03/13/24 18:35 Albumin 4.1 g/dL (3.5-5.2) 03/13/24 18:35 Globulin 3.2 g/dL (1.3-4.6) 03/13/24 18:35 Triglycerides 129 mg/dL (0-150) 03/13/24 20:05 Lipase 73 U/L (13-60) H 03/13/24 18:35 Vitals Last Vital Signs Temp 97.7 F 03/15/24 11:43 Pulse 83 03/15/24 11:43 Resp 19 H 03/15/24 11:43 BP 153/77 03/15/24 11:43 Pulse Ox 93 03/15/24 04:00 O2 Del Method Room Air 03/15/24 04:00 Discharge Plan Discharge Patient Disposition: Home Condition: Stable Prescriptions: New magnesium oxide 400 mg (241.3 mg magnesium) Tablet 400 mg PO BID Qty: 60 0RF Continued Eliquis 5 mg tablet 5 mg PO BID aspirin 81 mg tablet,delayed release (DR/EC) 81 mg PO DAILY pantoprazole 40 mg tablet,delayed release (DR/EC) 40 mg PO DAILY tamsulosin 0.4 mg capsule 0.4 mg PO DAILY hydralazine 50 mg tablet 50 mg PO TID atorvastatin 20 mg tablet 20 mg PO DAILY mecobalamin (vitamin B12) [B12 Active] 1,000 mcg tablet,chewable 1,000 mcg PO DAILY Januvia 50 mg tablet 50 mg PO DAILY Qty: 30 0RF glipizide 5 mg Tablet 5 mg PO DAILY amlodipine [Norvasc] 10 mg tablet 10 mg PO DAILY carvedilol [Coreg] 25 mg tablet 25 mg PO BID diltiazem HCl [Cardizem CD] 360 mg capsule,extended release 24hr 360 mg PO DAILY Jardiance 10 mg tablet 10 mg PO DAILY potassium chloride [K-Tab] 20 mEq tablet extended release 20 meq PO DAILY polysaccharide iron complex [Poly-Iron] 150 mg iron capsule 150 mg PO DAILY Changed losartan [Cozaar] 25 mg tablet 50 mg PO DAILY Qty: 30 0RF Discontinued pantoprazole 40 mg Tablet,Delayed Release (Dr/Ec) 40 mg PO DAILY No Action albuterol sulfate 90 mcg/actuation HFA aerosol inhaler 2 inh inhalation Q6H PRN (Reason: shortness of breath or wheezing) Qty: 6.7 0RF promethazine-DM 6.25-15 mg/5 mL syrup 10 ml PO Q6H PRN (Reason: cough) Qty: 473 0RF Discharge Orders: Discharge Order (Routine); Ordered 03/15/24 Ordered By: Maryam Paige Referrals: Amber Radford, [employer] [Nurse Practitioner] - 1 week (We have notified your physician's clinic of the need for a follow-up appointment to be scheduled. If you have not heard from them within the next 2 business days, please call them directly. ) Charlie,ALVARO Rivas [Primary Care Provider] - 03/20/24 3:30 pm Discharge Diet: Cardiac and Diabetic Discharge Activity: Resume usual activity Patient Instructions: Magnesium Oxide (By mouth), Chronic Kidney Disease (DC), Opioid Safety Discharge Attestations Time Spent in Discharge Care*: greater than 30 min Quality Metrics Clinical Quality Measures [ No reported AMI, CVA or VTE this stay] Coding Level of Care Code Acute Code for [facility] Diagnoses Atrial fibrillation with RVR I48.91 Accelerated hypertension I10 Chest pain, unspecified type R07.9 Chest pain type: unspecified Stage 3a chronic kidney disease N18.31 Chronic kidney disease stage: stage 3 (moderate) Chronic kidney disease stage 3 subtype: stage 3a (GFR 45-59) Mixed hyperlipidemia E78.2 Hyperlipidemia type: mixed hyperlipidemia Hypokalemia E87.6
--- NOTE | 2024-03-15 21:47 | NMCV_ITS ---
NM omid perf SPECT r/s* [id number] Jose Douglas Age: 48 Gender: M : 1975 Exam Date: 03/15/2024 06:39 Ordering Phys: Christie Gavin MD ([email or web address]) Technologist: CIPRIANO Amaya Exam Location: [facility] Indications: CP STRESS TEST Please see separate stress test report in [facility] for full findings IMAGE PROTOCOL Rest/Stress 1 Lexiscan Day Radiopharmaceutical Dose (mCi) Administration Site Administered by Rest: Tc-99m 11.0 IV CIPRIANO Amaya Sestamibi Stress:Tc-99m 33.0 IV CIPRIANO Bennett Sestamibi Rest: 15-Mar-2024 60 Discovery 630 Stress: 15-Mar-2024 45 Discovery 630 0.4mg Lexiscan. Images obtained in supine and prone position. SPECT RESULTS Technical Quality: Poor Raw Data Analysis: I had to scan this patient 6 times for patient motion. Image Corrections: Patient motion artifact - motion correction applied stress supine and rest study Summed Stress Score: 2 Summed Rest Score: 3 Summed Difference Score: 1 PERFUSION FINDINGS A small to moderate area of minimally decreased tracer uptake was noted in the basal inferolateral and mid inferior region. Some reversibility was noted in the mid inferior region with respect to supine imaging. However with respect to the prone imaging, no significant reversible defects were noted FUNCTIONAL RESULTS (calculated via Gated SPECT) Stress Image LV EF (%): 47 Stress EDV (mL):259 TID: 1.05 Stress ESV (mL):138 FUNCTIONAL FINDINGS: Segmental wall motion analysis revealed a mild diffuse hypokinesia of the left ventricle. IMPRESSIONS 1. Myocardial perfusion imaging revealing a small to moderate area of slightly decreased tracer uptake involving the basal inferolateral and mid inferior wall regions with an area of inconsistent reversibility in the mid inferior region most likely artifactual. 2. LV ejection fraction, estimated to be 47%. 3. LV wall motion analysis revealing mild diffuse hypokinesia of the left ventricle 4. Moderately dilated LV cavity with an end-systolic volume of 138 mL. Low probability for any significant coronary ischemia, based on the above findings. Compared to the previous study from 05/13/2021, there may not be a significant change Dr Christie Gavin MD FACC (Electronically Signed) Final Date: 15 March 2024 12:22 S
== END 2024-03-15 15:45 | disposition home or self-care (01) ==
LOC: ER 19:47 → CSU 03-14 00:12
PROVIDERS: Admitting Provider Internal Medicine; Emergency Provider Emergency Medicine; PCP Nurse Practitioner Family; Visit Provider Internal Medicine
DX: I48.0 Paroxysmal atrial fibrillation (principal); E66.01 Morbid (severe) obesity due to excess calories; Z68.38 Body mass index [BMI] 38.0-38.9, adult; I12.9 Hypertensive chronic kidney disease with stage 1 through stage 4 chronic kidney disease, or unspecified chronic kidney disease; N18.31 Chronic kidney disease, stage 3a; E78.2 Mixed hyperlipidemia; E87.6 Hypokalemia; G47.33 Obstructive sleep apnea (adult) (pediatric); I35.1 Nonrheumatic aortic (valve) insufficiency; K21.9 Gastro-esophageal reflux disease without esophagitis; Z79.82 Long term (current) use of aspirin; I25.10 Atherosclerotic heart disease of native coronary artery without angina pectoris; Z87.891 Personal history of nicotine dependence
CPT/HCPCS: 36415; 36416; 71045; 78452; 80048; 80053; 82962; 83690; 83735; 84478; 84484; 85025; 85610; 93005; 93010; 93017; 93306; 94762; 96365; 96366; 96375; 96376; 99223; 99232; 99254; 99285; A9500; G0378; J2785; J3475; J3480; J3490

== ENCOUNTER → 2024-03-16 11:48 | Outpatient (BNVA) | payer BC, SELFPAY | PROVIDERS: PCP Nurse Practitioner Family; Visit Provider Emergency Medicine | DX: J06.9 Acute upper respiratory infection, unspecified (principal) | CPT/HCPCS: 87400; 87426 ==

== ENCOUNTER 2024-06-02 13:52 | Emergency (ER) | payer BC, SELFPAY ==
[2024-06-02] VITALS (7 sets, daily range): BP systolic 152–171; BP diastolic 76–91; PULSE 78–87; RESP 11–21; TEMP 36.6; O2SAT 93–98; BMI 38.2
--- NOTE | 2024-06-02 14:10 | ECG_ITS ---
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 Measurements Intervals [place] Rate: 83 P: 56 KS: 259 QRS: 2 QRSD: 124 T: 99 QT: 398 QTc: 468 Interpretive Statements SINUS RHYTHM WITH FIRST DEGREE AV BLOCK MODERATE INTRAVENTRICULAR CONDUCTION DELAY [110+ ms QRS DURATION] ABNORMAL QRS-T ANGLE [QRS-T AXIS DIFFERENCE > 60] Compared to ECG 03/14/2024 01:30:37 First degree AV block now present Intraventricular conduction delay now present Sinus tachycardia no longer present T-wave abnormality no longer present Possible ischemia no longer present Electronically Signed On 06-02-2024 22:41:16 CDT by Christie Gavin M.D. [email or web address]
--- NOTE | 2024-06-02 14:10 | XRR_ITS ---
PROCEDURE INFORMATION: Exam: XR Chest Exam date and time: 06/02/2024 2:28 PM Age: 48 years old Clinical indication: Shortness of breath; Prior surgery; Surgery date: 6+ months; Surgery type: Cardiac ablation; PT presents with complaint of substernal burning/pressure chest pain. PT also reports SOB. PT states he was recently started taking a new medication for afib and believes this is a side effect of the med. TECHNIQUE: Imaging protocol: Radiologic exam of the chest. Views: 1 view. COMPARISON: CR XR chest 1V portable [id number] 03/13/2024 7:28 PM FINDINGS: Lungs: Asymmetrically increased right lower lobe opacity. Left lung is clear. Pleural spaces: Unremarkable. No pleural effusion. No pneumothorax. Heart/Mediastinum: Unremarkable. No cardiomegaly. Bones/joints: Unremarkable. XR/XR chest 1V portable [id number] IMPRESSION: Asymmetrically increased right lower lobe opacity, concerning for developing infectious process.
--- NOTE | 2024-06-02 14:30 | W.ED.CHESTPA ---
HPI - Chest Pain General: Chief Complaint: Chest Pain Stated Complaint: chest pain Time Seen by Provider: 06/02/24 14:09 Source: patient Mode of arrival: ambulatory Limitations: no limitations History of Present Illness: 48-year-old male has a history of A-fib states recently started flecainide he states after starting has been having some chest pressure shortness of breath that started on . States that it is continued he did not take his dose today states symptoms actually improved and very mild currently rates pain a 1 out of 10 he denies any recent travel denies any leg swelling denies any fever. He has had a cough since monday. Denies any nausea or diaphoresis Associated symptoms: Deny abdominal pain, dyspnea, fever(s), nausea or vomiting Related Data Home Medications ?Medication ?Instructions ?Recorded ?Confirmed glipizide 5 mg tablet 5 mg PO DAILY 03/24/19 06/02/24 apixaban 5 mg tablet (Eliquis) 5 mg PO BID 08/09/23 06/02/24 aspirin 81 mg tablet,delayed 81 mg PO DAILY 08/09/23 06/02/24 release mecobalamin (vitamin B12) 1,000 1,000 mcg PO DAILY 08/09/23 06/02/24 mcg chewable tablet (B12 Active) tamsulosin 0.4 mg capsule 0.4 mg PO DAILY 08/09/23 06/02/24 amlodipine 10 mg tablet (Norvasc) 10 mg PO DAILY 03/13/24 06/02/24 carvedilol 25 mg tablet (Coreg) 25 mg PO BID 03/13/24 06/02/24 diltiazem HCl 360 mg 360 mg PO DAILY 03/13/24 06/02/24 capsule,extended release 24 hr (Cardizem CD) polysaccharide iron complex 150 mg 150 mg PO DAILY 03/13/24 06/02/24 iron capsule (Poly-Iron) potassium chloride 20 mEq 20 meq PO DAILY 03/13/24 06/02/24 tablet,extended release (K-Tab) atorvastatin 40 mg tablet 40 mg PO QPM 06/02/24 06/02/24 empagliflozin 25 mg tablet 25 mg PO DAILY 06/02/24 06/02/24 (Jardiance) ergocalciferol (vitamin D2) 1,250 1,250 mcg PO Q7D 06/02/24 06/02/24 mcg (50,000 unit) capsule flecainide 100 mg tablet 100 mg PO Q12H 06/02/24 06/02/24 Previous Rx's ?Medication ?Instructions ?Recorded sitagliptin phosphate 50 mg tablet 50 mg PO DAILY #30 tabs 05/13/21 (Januvia) losartan 25 mg tablet (Cozaar) 50 mg (2 x 25 mg) PO DAILY #30 tabs 03/15/24 magnesium oxide 400 mg (241.3 mg 400 mg PO BID #60 tabs 03/15/24 magnesium) tablet albuterol sulfate 90 mcg/actuation 2 inh inhalation Q6H PRN shortness 03/16/24 aerosol inhaler of breath or wheezing #6.7 grams doxycycline hyclate 100 mg tablet 100 mg PO BID 7 days #14 tabs 06/02/24 Allergies Allergy/AdvReac Type Severity Reaction Status Date / Time No Known Allergies Allergy Verified 03/16/24 11:15 Review of Systems Const: Denies: fever(s), chills, body aches or change in appetite Eyes: Denies: blurry vision ENMT: Denies: throat pain or dental pain Card: Reports: chest pain Resp: Reports: non-productive cough; Denies: dyspnea GI: Denies: abdominal pain, nausea, vomiting or diarrhea : Denies: dysuria Musc: Denies: neck pain or back pain Skin/Breast: Denies: rash Neuro: Denies: headache(s) PFS ED PFSH: Medical History Aortic regurgitation Diabetes Coronary artery disease Nonobstructive on angiogram 2017 Nuclear stress test May/2021 mild global hypokinesis, no perfusion defects GERD (gastroesophageal reflux disease) History of retinal detachment Cardiomyopathy HTN (hypertension) Hyperlipidemia Surgical History H/O cardiac radiofrequency ablation History of knee surgery History of tonsillectomy History of cataract surgery Family History Other Cancer Diabetes Hypertension Social History Smoking and tobacco/nicotine status: former use of tobacco/nicotine Alcohol intake: current Alcohol intake frequency: other Substance/Drug Use: never Physical Exam Const: COMMON NORMALS: no acute distress, patient oriented x3 and healthy appearing HENMT: COMMON NORMALS: normocephalic and atraumatic HEAD & SCALP: normocephalic and atraumatic Eye: COMMON NORMALS: Equal, round and reactive pupils present and EOMs intact bilaterally PUPIL: Yes Equal, round and reactive pupils present Neck/C-Spine: COMMON NORMALS: full ROM and supple Chest: COMMONS NORMALS: normal inspection of the chest and normal palpation of entire chest wall Resp: COMMON NORMALS: normal respiratory effort, No retractions, No use of accessory muscles and clear to auscultation bilaterally AUSCULTATION: clear to auscultation bilaterally Cardio: COMMON NORMALS: regular rate, regular rhythm and No murmurs present (Cardio) RATE: regular rate RHYTHM: regular rhythm GI: COMMON NORMALS: Normal to inspection, nondistended, normoactive bowel sounds present, Soft to palpation, non-tender and no masses PALPATION: Yes Soft to palpation Extremity: COMMON NORMALS: normal to inspection and full ROM Neuro: COMMON NORMALS: patient oriented x3, moves all extremities and no focal motor deficits Psych: COMMON NORMALS: mental status grossly normal, Normal thought process present and cooperative THOUGHT PROCESS: Normal thought process present Skin: COMMON NORMALS: no rashes or lesions noted and no wounds GENERAL SKIN EXAM: no rashes or lesions noted Course Vital Signs: Vital signs: Vital Signs Temperature 97.9 F 06/02/24 13:59 Pulse Rate 87 06/02/24 13:59 Respiratory Rate 16 06/02/24 13:59 Blood Pressure 152/84 06/02/24 13:59 Pulse Oximetry 98 06/02/24 13:59 Oxygen Delivery Me thod Room Air 06/02/24 13:59 MDM - Chest Pain Medical Decision Making Patient presents for chest pain is atypical in nature no signs of ACS is dry troponins negative he does have possible pneumonia states he had a slight cough said no dyspnea is pulse ox here has been normal we will start him on doxycycline he is follow-up with PCP's return if worsening he understands agrees to plan. Medical Records I reviewed the patient's medical records. Lab Data I reviewed the patient's lab results. 06/02/24 14:19 06/02/24 14:19 Radiology Impressions Chest X-Ray 06/02/24 14:10 IMPRESSION: Asymmetrically increased right lower lobe opacity, concerning for developing infectious process. Laboratory Results WBC 12.75 10^3/uL (3.29-11.43) H 06/02/24 14:19 RBC 5.33 10^6/uL (3.85-5.65) 06/02/24 14:19 Hgb 12.20 g/dL (11.27-16.99) 06/02/24 14:19 Hct 39.7 % (37-53) 06/02/24 14:19 MCV 74.5 fl (82-101) L 06/02/24 14:19 MCH 22.9 pg (27-33) L 06/02/24 14:19 MCHC 30.7 g/dL (30-55) 06/02/24 14:19 RDW 16.1 % (12.1-15.1) H 06/02/24 14:19 Plt Count 259 10^3/cmm (157-399) 06/02/24 14:19 MPV 10.5 fL (7.4-10.4) H 06/02/24 14:19 Neut % (Auto) 84.5 % 06/02/24 14:19 Lymph % (Auto) 7.1 % 06/02/24 14:19 [place] % (Auto) 6.7 % 06/02/24 14:19 Eos % (Auto) 0.7 % 06/02/24 14:19 Baso % (Auto) 0.4 % 06/02/24 14:19 Neut # (Auto) 10.78 10^3/uL (1.8-7.7) H 06/02/24 14:19 Lymph # (Auto) 0.9 10^3/uL (0.8-4.8) 06/02/24 14:19 [place] # (Auto) 0.9 10^3/uL (0.2-0.9) 06/02/24 14:19 Eos # (Auto) 0.1 10^3/uL (0.0-0.8) 06/02/24 14:19 Baso # (Auto) 0.1 10^3/uL (0.0-0.1) 06/02/24 14:19 Nucleated RBC % (auto) 0 % 06/02/24 14:19 Nucleated RBCs # 0.0 /100WBC 06/02/24 14:19 PT 16.90 SECONDS (12.1-14.9) H 06/02/24 14:19 INR 1.29 (0.8-1.2) H 06/02/24 14:19 Sodium 137 mmol/L (136-145) 06/02/24 14:19 Potassium 4.2 mmol/L (3.5-5.1) 06/02/24 14:19 Chloride 103 mmol/L (98-107) 06/02/24 14:19 Carbon Dioxide 20 mmol/L (22-29) L 06/02/24 14:19 Anion Gap 18.2 (5-19) 06/02/24 14:19 BUN 23 mg/dL (6-20) H 06/02/24 14:19 Creatinine 1.7 mg/dL (0.7-1.2) H 06/02/24 14:19 GFR Calculation 42.9 mL/min (90-130) L 06/02/24 14:19 Glucose 155 mg/dL (65-115) H 06/02/24 14:19 Calculated Osmolality 291 mOsm/kg (285-295) 06/02/24 14:19 Calcium 9.4 mg/dL (8.5-10.5) 06/02/24 14:19 Total Bilirubin 1.4 mg/dL (0.15-1.2) H 06/02/24 14:19 AST 10 U/L (0-40) 06/02/24 14:19 ALT 11 U/L (0-41) 06/02/24 14:19 Alkaline Phosphatase 110 U/L (40-130) 06/02/24 14:19 Troponin T Baseline 42 ng/L (0-15) H 06/02/24 14:19 Troponin T 120 Minute 41.03 ng/L (0-15) H 06/02/24 16:17 Delta Troponin T -0.97 ABS# (0-10) L 06/02/24 16:17 NT-Pro-B Natriuret Pep 2639 pg/mL (0-125) H 06/02/24 14:19 Total Protein 7.4 g/dL (6.6-8.7) 06/02/24 14:19 Albumin 4.2 g/dL (3.5-5.2) 06/02/24 14:19 Globulin 3.2 g/dL (1.3-4.6) 06/02/24 14:19 All radiology interpretation(s) finalized by discharge EKG Data EKG 1: I personally reviewed and interpreted this EKG as follows: EKG interpretation date: 06/02/24 EKG interpretation time: 13:57 Interpretation: nsr hr [address] elevation qrs 124 qtc 437 EKG 2: I personally reviewed and interpreted this EKG as follows: EKG interpretation date: 06/02/24 EKG interpretation time: 15:49 Interpretation: nsr hr [address] elevation qrs 114 qtc 430 Discharge Plan Discharge Patient Disposition: Home Clinical Impression: Atypical chest pain, Pneumonia Condition: Stable Prescriptions: New doxycycline hyclate 100 mg tablet 100 mg PO BID 7 Days Qty: 14 0RF No Action Eliquis 5 mg tablet 5 mg PO BID aspirin 81 mg tablet,delayed release (DR/EC) 81 mg PO DAILY tamsulosin 0.4 mg capsule 0.4 mg PO DAILY mecobalamin (vitamin B12) [B12 Active] 1,000 mcg tablet,chewable 1,000 mcg PO DAILY albuterol sulfate 90 mcg/actuation HFA aerosol inhaler 2 inh inhalation Q6H PRN (Reason: shortness of breath or wheezing) Qty: 6.7 0RF Januvia 50 mg tablet 50 mg PO DAILY Qty: 30 0RF glipizide 5 mg Tablet 5 mg PO DAILY atorvastatin 40 mg tablet 40 mg PO QPM ergocalciferol (vitamin D2) 1,250 mcg (50,000 unit) capsule 1,250 mcg PO Q7D Jardiance 25 mg tablet 25 mg PO DAILY flecainide 100 mg tablet 100 mg PO Q12H amlodipine [Norvasc] 10 mg tablet 10 mg PO DAILY carvedilol [Coreg] 25 mg tablet 25 mg PO BID diltiazem HCl [Cardizem CD] 360 mg capsule,extended release 24hr 360 mg PO DAILY potassium chloride [K-Tab] 20 mEq tablet extended release 20 meq PO DAILY polysaccharide iron complex [Poly-Iron] 150 mg iron capsule 150 mg PO DAILY magnesium oxide 400 mg (241.3 mg magnesium) Tablet 400 mg PO BID Qty: 60 0RF losartan [Cozaar] 25 mg tablet 50 mg PO DAILY Qty: 30 0RF Discharge Orders: Discharge ED (Routine); Ordered 06/02/24 Ordered By: Alejandra Ndiaye Referrals: Charlie,LAURENT RivasP [Primary Care Provider] - 4-7 days Discharge Diet: Advance as tolerated Discharge Activity: Resume usual activity Patient Instructions: Chest Pain (ED), Pneumonia (ED) Print Language: Indonesian Coding Level of Care Code ED Educational Assistant Teacher for Luiz Botello
[2024-06-02 14:35] LABS: Basophils # 0.1 10^3/uL (0.0-0.1); Basophils % 0.4 %; Eosinophils # 0.1 10^3/uL (0.0-0.8); Eosinophils % 0.7 %; Hematocrit 39.7 % (37-53); Lymphocytes # 0.9 10^3/uL (0.8-4.8); Lymphocytes % 7.1 %; Mean Corpuscular HGB Conc 30.7 g/dL (30-55); Mean Corpuscular Hemoglobin 22.9 pg (27-33); Mean Corpuscular Volume 74.5 fl (82-101); Mean Platelet Volume 10.5 fL (7.4-10.4); Monocytes # 0.9 10^3/uL (0.2-0.9); Monocytes % 6.7 %; Neutrophils # 10.78 10^3/uL (1.8-7.7); Neutrophils % 84.5 %; Nucleated Red Blood Cells % 0 %; Platelet Count 259 10^3/cmm (157-399); Red Blood Count 5.33 10^6/uL (3.85-5.65); Red Cell Distribution Width 16.1 % (12.1-15.1); White Blood Count 12.75 10^3/uL (3.29-11.43)
[2024-06-02 14:48] LABS: INR 1.29 (0.8-1.2)
[2024-06-02 14:53] LABS: Alanine Aminotransferase 11 U/L (0-41); Albumin Level 4.2 g/dL (3.5-5.2); Alkaline Phosphatase 110 U/L (40-130); Anion Gap 18.2 (5-19); Aspartate Amino Transferase 10 U/L (0-40); Blood Urea Nitrogen 23 mg/dL (6-20); Calcium 9.4 mg/dL (8.5-10.5); Carbon Dioxide 20 mmol/L (22-29); Chloride 103 mmol/L (98-107); Creatinine Clr Calc Pharmacy 73.9388; Globulin 3.2 g/dL (1.3-4.6); Glomerular Filtration Rate 42.9 mL/min (90-130); Glucose 155 mg/dL (65-115); Osmolality Calculated 291 mOsm/kg (285-295); Potassium 4.2 mmol/L (3.5-5.1); Sodium 137 mmol/L (136-145); Total Bilirubin 1.4 mg/dL (0.15-1.2); Total Protein 7.4 g/dL (6.6-8.7)
[2024-06-02 14:56] LABS: Troponin(5th) Baseline 42 ng/L (0-15)
[2024-06-02 15:18] LABS: NT Pro B Type Natriuretic Pept 2639 pg/mL (0-125)
--- NOTE | 2024-06-02 16:10 | ECG_ITS ---
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 Measurements Intervals [place] Rate: 78 P: 42 ND: 237 QRS: 13 QRSD: 114 T: 96 QT: 396 QTc: 453 Interpretive Statements SINUS RHYTHM WITH FIRST DEGREE AV BLOCK MODERATE INTRAVENTRICULAR CONDUCTION DELAY [110+ ms QRS DURATION] ABNORMAL QRS-T ANGLE [QRS-T AXIS DIFFERENCE > 60] Compared to ECG 06/02/2024 13:57:03 No significant changes Electronically Signed On 06-02-2024 22:48:52 CDT by Christie Gavin M.D. [email or web address]
[2024-06-02 16:45] LABS: Troponin 5 2HR 41.03 ng/L (0-15)
[2024-06-02 16:50] LABS: Troponin 5 2HR Delta -0.97 ABS# (0-10)
[2024-06-02] MEDS: doxycycline 100 mg Tablet PO (17:10)
== END 2024-06-02 17:15 | disposition home or self-care (01) ==
PROVIDERS: Emergency Provider Emergency Medicine; PCP Nurse Practitioner Family
DX: R07.89 Other chest pain (principal); J18.9 Pneumonia, unspecified organism; Z79.01 Long term (current) use of anticoagulants; Z79.82 Long term (current) use of aspirin; Z87.891 Personal history of nicotine dependence; E78.5 Hyperlipidemia, unspecified; E11.9 Type 2 diabetes mellitus without complications; I25.10 Atherosclerotic heart disease of native coronary artery without angina pectoris; I10 Essential (primary) hypertension
CPT/HCPCS: 36415; 71045; 80053; 83880; 84484; 85025; 85610; 93005; 99285; J9999

== ENCOUNTER 2024-08-21 20:24 | Inpatient (IN) | payer BC, SELFPAY ==
--- NOTE | 2024-08-21 20:35 | ECG_ITS ---
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 Measurements Intervals [place] Rate: 91 P: 59 ID: [id number] QRS: 19 QRSD: 101 T: 99 QT: 363 QTc: 448 Interpretive Statements SINUS RHYTHM WITH FIRST DEGREE AV BLOCK WITH FREQUENT VENTRICULAR PREMATURE COMPLEXES ABNORMAL QRS-T ANGLE [QRS-T AXIS DIFFERENCE > 60] Compared to ECG 06/02/2024 15:49:29 Ventricular premature complex(es) now present Intraventricular conduction delay no longer present Electronically Signed On 08-21-2024 21:38:08 CDT by Christie Gavin M.D. [email or web address] [id number]
[2024-08-21 20:36] VITALS: BP 166/89; PULSE 100; RESP 28; TEMP 36.6; O2SAT 87
[2024-08-21 20:50] VITALS: BP 166/89; PULSE 90; RESP 22; O2SAT 93
--- NOTE | 2024-08-21 20:59 | XRR_ITS ---
PROCEDURE INFORMATION: Exam: XR Chest Exam date and time: 08/21/2024 9:01 PM Age: 49 years old Clinical indication: Pain; Chest pressure; Additional info: Chest pain TECHNIQUE: Imaging protocol: Radiologic exam of the chest. Views: 1 view. COMPARISON: CR XR chest 1V portable [id number] 06/02/2024 2:28 PM FINDINGS: Lungs: No new focal airspace abnormality. Improved right lung base hazy opacities. Pleural spaces: Unremarkable. No pleural effusion. No pneumothorax. Heart/Mediastinum: Unremarkable. No cardiomegaly. Bones/joints: Unremarkable. XR/XR chest 1V portable [id number] IMPRESSION: As above.
[2024-08-21 21:34] LABS: Basophils # 0.1 10^3/uL (0.0-0.1); Basophils % 0.9 %; Eosinophils # 0.3 10^3/uL (0.0-0.8); Eosinophils % 2.9 %; Hematocrit 42.1 % (37-53); Lymphocytes # 1.1 10^3/uL (0.8-4.8); Lymphocytes % 9.7 %; Mean Corpuscular HGB Conc 30.4 g/dL (30-55); Mean Corpuscular Hemoglobin 21.4 pg (27-33); Mean Corpuscular Volume 70.4 fl (82-101); Mean Platelet Volume 9.9 fL (7.4-10.4); Monocytes # 0.9 10^3/uL (0.2-0.9); Monocytes % 7.8 %; Neutrophils # 8.99 10^3/uL (1.8-7.7); Neutrophils % 78.2 %; Nucleated Red Blood Cells % 0 %; Platelet Count 337 10^3/cmm (157-399); Red Blood Count 5.98 10^6/uL (3.85-5.65); Red Cell Distribution Width 18.4 % (12.1-15.1); White Blood Count 11.49 10^3/uL (3.29-11.43)
[2024-08-21 21:57] LABS: Troponin(5th) Baseline 63 ng/L (0-15)
[2024-08-21 22:06] LABS: Alanine Aminotransferase 18 U/L (0-41); Albumin Level 4.3 g/dL (3.5-5.2); Alkaline Phosphatase 130 U/L (40-130); Aspartate Amino Transferase 12 U/L (0-40); Blood Urea Nitrogen 21 mg/dL (6-20); Calcium 9.3 mg/dL (8.5-10.5); Carbon Dioxide 19 mmol/L (22-29); Chloride 101 mmol/L (98-107); Creatinine Clr Calc Pharmacy 56.4997; Globulin 3.5 g/dL (1.3-4.6); Glomerular Filtration Rate 31.7 mL/min (90-130); Glucose 190 mg/dL (65-115); NT Pro B Type Natriuretic Pept 1928 pg/mL (0-125); Osmolality Calculated 292 mOsm/kg (285-295); Sodium 137 mmol/L (136-145); Total Bilirubin 0.4 mg/dL (0.15-1.2); Total Protein 7.8 g/dL (6.6-8.7)
[2024-08-21 22:17] VITALS: BP 155/75; PULSE 85; RESP 22; O2SAT 91
[2024-08-21 23:31] LABS: Troponin 5 2HR 57.17 ng/L (0-15); Troponin 5 2HR Delta -5.83 ABS# (0-10)
[2024-08-21 23:48] VITALS: BP 163/78; PULSE 88; RESP 24; O2SAT 94
[2024-08-22] VITALS (11 sets, daily range): BP systolic 143–168; BP diastolic 65–93; PULSE 76–90; RESP 16–24; TEMP 36.5–37.3; O2SAT 95–99; BMI 40.9
--- NOTE | 2024-08-22 00:12 | W.ED.SOB ---
HPI - SOB/Dyspnea General: Chief Complaint: Shortness of Breath/Dyspnea Stated Complaint: SOB Time Seen by Provider: 08/21/24 20:42 History of Present Illness: HPI Narrative: Patient with history of atrial fibrillation, stage 3B chronic kidney disease, and type 2 diabetes mellitus presents with several days of increased shortness of breath and wheezing, worse with exertion and at night. Reports recent cough with phlegm, difficulty catching breath, and increased lower extremity swelling, especially after starting a new job requiring prolonged standing. Noted weight gain compared to baseline, with prior admission for fluid overload in June (10L removed, weight peaked at 340 lbs, baseline approximately 290 lbs). Currently on torsemide (switched from furosemide due to CKD), with recent dose increase. Denies fever, recent viral illness, or orthopnea worse than baseline; sleeps propped up, no recent need for home oxygen. Used emergency inhaler (albuterol) with no relief. No recent chest pain or palpitations beyond baseline atrial fibrillation. Family at home has coughs, but patient denies similar viral symptoms. No recent hospitalizations for over-diuresis, but has history of acute kidney injury after aggressive diuresis. Reports intermittent atrial fibrillation episodes, sometimes with tachycardia, confirmed by home device. No recent significant improvement with inhaler use. Related Data Home Medications ?Medication ?Instructions ?Recorded ?Confirmed glipizide 5 mg tablet 5 mg PO DAILY 03/24/19 06/02/24 apixaban 5 mg tablet (Eliquis) 5 mg PO BID 08/09/23 06/02/24 aspirin 81 mg tablet,delayed 81 mg PO DAILY 08/09/23 06/02/24 release mecobalamin (vitamin B12) 1,000 1,000 mcg PO DAILY 08/09/23 06/02/24 mcg chewable tablet (B12 Active) tamsulosin 0.4 mg capsule 0.4 mg PO DAILY 08/09/23 06/02/24 amlodipine 10 mg tablet (Norvasc) 10 mg PO DAILY 03/13/24 06/02/24 carvedilol 25 mg tablet (Coreg) 25 mg PO BID 03/13/24 06/02/24 diltiazem HCl 360 mg 360 mg PO DAILY 03/13/24 06/02/24 capsule,extended release 24 hr (Cardizem CD) polysaccharide iron complex 150 mg 150 mg PO DAILY 03/13/24 06/02/24 iron capsule (Poly-Iron) potassium chloride 20 mEq 20 meq PO DAILY 03/13/24 06/02/24 tablet,extended release (K-Tab) atorvastatin 40 mg tablet 40 mg PO QPM 06/02/24 06/02/24 empagliflozin 25 mg tablet 25 mg PO DAILY 06/02/24 06/02/24 (Jardiance) ergocalciferol (vitamin D2) 1,250 1,250 mcg PO Q7D 06/02/24 06/02/24 mcg (50,000 unit) capsule flecainide 100 mg tablet 100 mg PO Q12H 06/02/24 06/02/24 Previous Rx's ?Medication ?Instructions ?Recorded sitagliptin phosphate 50 mg tablet 50 mg PO DAILY #30 tabs 05/13/21 (Januvia) losartan 25 mg tablet (Cozaar) 50 mg (2 x 25 mg) PO DAILY #30 tabs 03/15/24 magnesium oxide 400 mg (241.3 mg 400 mg PO BID #60 tabs 03/15/24 magnesium) tablet albuterol sulfate 90 mcg/actuation 2 inh inhalation Q6H PRN shortness 03/16/24 aerosol inhaler of breath or wheezing #6.7 grams Allergies Allergy/AdvReac Type Severity Reaction Status Date / Time No Known Allergies Allergy Verified 08/21/24 20:39 [facility] ED PFSH: Medical History (Updated 08/22/24 @ 01:12 by Giorgi Rocha MD) Iron deficiency anemia Aortic regurgitation Diabetes Coronary artery disease Nonobstructive on angiogram 2016 Nuclear stress test May/2021 mild global hypokinesis, no perfusion defects GERD (gastroesophageal reflux disease) History of retinal detachment Cardiomyopathy HTN (hypertension) Hyperlipidemia Surgical History H/O cardiac radiofrequency ablation History of knee surgery History of tonsillectomy History of cataract surgery Family History Other Cancer Diabetes Hypertension Social History (Updated 08/22/24 @ 00:59 by Giorgi Rocha MD) Smoking and tobacco/nicotine status: former use of tobacco/nicotine Alcohol intake: former Former alcohol use details: No longer drinks but was never heavy Substance/Drug Use: never Additional social history: 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 He wants full code as discussed with him today on 08/22/2024 in the presence of his fianclindsey Mckenzie by Giorgi Rocha MD Course Vital Signs: Vital signs: Vital Signs Temperature 98 F 08/21/24 20:36 Pulse Rate 84 08/22/24 01:45 Respiratory Rate 24 H 08/22/24 01:45 Blood Pressure 157/78 08/22/24 01:45 Pulse Oximetry 96 08/22/24 01:45 Oxygen Delivery Me thod Room Air 08/22/24 01:44 Oxygen Flow Rate 4 08/22/24 00:51 MDM - SOB/Dyspnea Medical Decision Making In summary, patient is a 49-year-old male seen for what appears to be both CHF exacerbation and JOLANTA superimposed on CKD. He is more orthopneic and has more dyspnea on exertion than usual. He almost felt that he was 1 to pass out walking from his house to his car and even called 911 thinking he would not be able to drive to the hospital. He also exhibits more peripheral edema than usual. He currently takes torsemide. Given his worsening fluid retention status and JOLANTA, he will be admitted to the hospitalist service for gentle diuresis. Patient is agreeable to the plan. Lab Data 08/21/24 21:25 08/21/24 21: Labs/Radiology: Radiology Impressions Chest X-Ray 08/21/24 20:59 IMPRESSION: As above. Laboratory Results WBC 11.49 10^3/uL (3.29-11.43) H 08/21/24 21: RBC 5.98 10^6/uL (3.85-5.65) H 08/21/24 21:25 Hgb 12.80 g/dL (11.27-16.99) 08/21/24 21: Hct 42.1 % (37-53) 08/21/24: MCV 70.4 fl (82-101) L 08/21/24: MCH 21.4 pg (27-33) L 08/21/24: MCHC 30.4 g/dL (30-55) 08/21/24: RDW 18.4 % (12.1-15.1) H 08/21/24 21: Plt Count 337 10^3/cmm (157-399) 08/21/24: MPV 9.9 fL (7.4-10.4) 08/21/24: Neut % (Auto) 78.2 % 08/21/24: Lymph % (Auto) 9.7 % 08/21/24: [place] % (Auto) 7.8 % 08/21/24: Eos % (Auto) 2.9 % 08/21/24: Baso % (Auto) 0.9 % 08/21/24: Neut # (Auto) 8.99 10^3/uL (1.8-7.7) H 08/21/24: Lymph # (Auto) 1.1 10^3/uL (0.8-4.8) 08/21/24: [place] # (Auto) 0.9 10^3/uL (0.2-0.9) 08/21/24: Eos # (Auto) 0.3 10^3/uL (0.0-0.8) 08/21/24: Baso # (Auto) 0.1 10^3/uL (0.0-0.1) 08/21/24: Nucleated RBC % (auto) 0 % 08/21/24: Nucleated RBCs # 0.0 /100WBC 08/21/24: Sodium 137 mmol/L (136-145) 08/21/24: Potassium 4.0 mmol/L (3.5-5.1) 08/21/24: Chloride 101 mmol/L (98-107) 08/21/24: Carbon Dioxide 19 mmol/L (22-29) L 08/21/24: Anion Gap 21.0 (5-19) H 08/21/24: BUN 21 mg/dL (6-20) H 08/21/24: Creatinine 2.2 mg/dL (0.7-1.2) H 08/21/24: GFR Calculation 31.7 mL/min (90-130) L 08/21/24: Glucose 190 mg/dL (65-115) H 08/21/24: Calculated Osmolality 292 mOsm/kg (285-295) 08/21/24 21:25 Calcium 9.3 mg/dL (8.5-10.5) 08/21/24 21:25 Total Bilirubin 0.4 mg/dL (0.15-1.2) 08/21/24 21:25 AST 12 U/L (0-40) 08/21/24 21:25 ALT 18 U/L (0-41) 08/21/24 21:25 Alkaline Phosphatase 130 U/L (40-130) 08/21/24 21:25 Troponin T Baseline 63 ng/L (0-15) H 08/21/24 21:25 Troponin T 120 Minute 57.17 ng/L (0-15) H 08/21/24 23:10 Delta Troponin T -5.83 ABS# (0-10) L 08/21/24 23:10 NT-Pro-B Natriuret Pep 1928 pg/mL (0-125) H 08/21/24 21: Total Protein 7.8 g/dL (6.6-8.7) 08/21/24 21:25 Albumin 4.3 g/dL (3.5-5.2) 08/21/24 21: Globulin 3.5 g/dL (1.3-4.6) 08/21/24 21:25 TSH 0.71 uIU/mL (0.27-4.20) 08/22/24 00:00 All radiology interpretation(s) finalized by discharge EKG Data EKG 1: Interpretation: Time?2034?sinus rhythm with first-degree block and frequent PVCs, rate of 91, no ST segment elevation or depression, no T wave inversions, intervals within normal limits. QTc = 412 Discharge Plan Discharge Patient Disposition: Admitted As Inpatient Admit Provider: Giorgi Rocha Clinical Impression: Acute exacerbation of CHF (congestive heart failure), Acute kidney injury superimposed on chronic kidney disease Condition: Stable Coding Level of Care Code ED Hot Metal Mixer Operator for Luiz Botello
--- NOTE | 2024-08-22 00:49 | PM.HP ---
Providers/Chief Complaint Primary Care Provider: Evelyn Guerra, BOBBIN STRIPPER Chief Complaint: SOB History of Present Illness Jose Douglas is a 49 year old male with history of diabetes, hyperlipidemia, hypertension, obesity and snoring with pauses noted by his nirali?e comes in for leg swelling and dyspnea on exertion. He is found to have acute kidney injury on chronic kidney disease, elevated but downtrending troponin and suspicion for but not formal diagnosis of sleep apnea. The patient had angiogram he thinks about 5 years ago but did not require stent. He had echocardiogram March 2024 showing LVEF 60 to 65% LVH biatrial enlargement and atrial fibrillation with diastolic dysfunction. Nuclear imaging done 03/15/2024 showed inferolateral and mid inferior wall regions of mildly decreased tracer uptake unclear if it was artifact LVEF 47% and mild diffuse hypokinesia. EKG today shows sinus rhythm with first-degree AV block and frequent PVCs. Troponin on arrival 63 dropped to 57. 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 Reports hyperlipidemia hypertension diabetes last A1c 7.8 he is typically on glipizide but not insulin. Review of Systems Narrative: General patient states his weight has been as high as 340 and then he was diuresed of 10 L of fluid on 1 admission with more recent weight around 293. Cardiovascular positive for dyspnea on exertion but not chest pain he has had bilateral leg edema worst in the feet Respiratory positive for cough and wheezing in the last 2 days he has been dyspneic for a week. Patient snores his fianc?e states that he does sometimes stop breathing and shifts in bed before starting breathing again but other nights is better GI no nausea vomiting diarrhea constipation positive for nocturia every 1 and half hours up to 6 times a night denies dysuria hematuria does have sometimes some dribbling Neuro no seizures or strokes Malignancy negative Hematologic no bleeding disorder or clots. I see from his labs that he has been iron deficiency anemic Medications/Allergies Home Medications ?Medication ?Instructions ?Recorded ?Confirmed ?Last Taken ?Type glipizide 5 mg tablet 5 mg PO DAILY 03/24/19 06/02/24 06/02/24 History sitagliptin phosphate 50 mg tablet 50 mg PO DAILY #30 tabs 05/13/21 06/02/24 06/02/24 Rx (Januvia) apixaban 5 mg tablet (Eliquis) 5 mg PO BID 08/09/23 06/02/24 06/02/24 History aspirin 81 mg tablet,delayed 81 mg PO DAILY 08/09/23 06/02/24 06/02/24 History release mecobalamin (vitamin B12) 1,000 1,000 mcg PO DAILY 08/09/23 06/02/24 06/02/24 History mcg chewable tablet (B12 Active) tamsulosin 0.4 mg capsule 0.4 mg PO DAILY 08/09/23 06/02/24 06/02/24 History amlodipine 10 mg tablet (Norvasc) 10 mg PO DAILY 03/13/24 06/02/24 06/02/24 History carvedilol 25 mg tablet (Coreg) 25 mg PO BID 03/13/24 06/02/24 06/02/24 History diltiazem HCl 360 mg 360 mg PO DAILY 03/13/24 06/02/24 06/02/24 History capsule,extended release 24 hr (Cardizem CD) polysaccharide iron complex 150 mg 150 mg PO DAILY 03/13/24 06/02/24 06/02/24 History iron capsule (Poly-Iron) potassium chloride 20 mEq 20 meq PO DAILY 03/13/24 06/02/24 06/02/24 History tablet,extended release (K-Tab) losartan 25 mg tablet (Cozaar) 50 mg (2 x 25 mg) PO DAILY #30 tabs 03/15/24 06/02/24 06/02/24 Rx magnesium oxide 400 mg (241.3 mg 400 mg PO BID #60 tabs 03/15/24 06/02/24 Unknown Rx magnesium) tablet albuterol sulfate 90 mcg/actuation 2 inh inhalation Q6H PRN shortness 03/16/24 06/02/24 Unknown Rx aerosol inhaler of breath or wheezing #6.7 grams atorvastatin 40 mg tablet 40 mg PO QPM 06/02/24 06/02/24 06/01/24 History empagliflozin 25 mg tablet 25 mg PO DAILY 06/02/24 06/02/24 06/02/24 History (Jardiance) ergocalciferol (vitamin D2) 1,250 1,250 mcg PO Q7D 06/02/24 06/02/24 Unknown History mcg (50,000 unit) capsule flecainide 100 mg tablet 100 mg PO Q12H 06/02/24 06/02/24 06/02/24 History Allergies Allergy/AdvReac Type Severity Reaction Status Date / Time No Known Allergies Allergy Verified 08/21/24 20:39 PFSH Acute PFSH: Medical History (Updated 08/22/24 @ 01:12 by Giorgi Rocha MD) Iron deficiency anemia Aortic regurgitation Diabetes Coronary artery disease Nonobstructive on angiogram 2016 Nuclear stress test May/2021 mild global hypokinesis, no perfusion defects GERD (gastroesophageal reflux disease) History of retinal detachment Cardiomyopathy HTN (hypertension) Hyperlipidemia Surgical History H/O cardiac radiofrequency ablation History of knee surgery History of tonsillectomy History of cataract surgery Family History Other Cancer Diabetes Hypertension Social History (Updated 08/22/24 @ 00:59 by Giorgi Rocha MD) Smoking and tobacco/nicotine status: former use of tobacco/nicotine Alcohol intake: former Former alcohol use details: No longer drinks but was never heavy Substance/Drug Use: never Additional social history: 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 He wants full code as discussed with him today on 08/22/2024 in the presence of his fianclindsey Mckenzie by Giorgi Rocha MD Vitals/I&O/Wt Last Vital Signs Temp 98 F 08/21/24 20:36 Pulse 88 08/21/24 23:48 Resp 24 H 08/21/24 23:48 BP 163/78 08/21/24 23:48 Pulse Ox 94 08/21/24 23:48 O2 Del Method Nasal Cannula 08/21/24 23:48 O2 Flow Rate 4 08/21/24 23:48 08/21/24 08/21/24 08/22/24 14:59 22:59 06:59 Output Total 425 / 425 Balance -425 / -425 Weight last 48 hrs Weight 131.542 kg Physical Exam Narrative: General Well-developed well-nourished tall obese male in no acute cardiopulmonary distress CV regular rate and rhythm with frequent ectopy Lungs trace basilar crackles mostly clears with deep breath no wheezing Abdomen positive bowel tones soft nontender Calves 2+ ankle edema and foot edema without asymmetry tenderness cords Skin warm and dry Oral Mallampati 1-2 no thrush Mentation alert and oriented x 3 mood and affect normal Data 08/21/24 21:25 08/21/24 21:25 A&P Assessment and plan (1) Acute kidney injury superimposed on chronic kidney disease: creatinine 2.2 and diabetes under modest control. Reports signs and symptoms of sleep apnea and has poorly controlled hypertension. Start hydralazine 25 mg 4 times daily continue home blood pressure medications. Is not entirely clear to me if he is taking amlodipine and diltiazem. I held the amlodipine for now initiate diuresis continue modest dose losartan but that may need to be stopped if renal functions worsening I held off on spironolactone due to potential for worsening renal function however with the patient's difficult to control hypertension he may have hyperaldosteronism with history of hypokalemia modestly intermittently and over the years (2) Acute exacerbation of CHF (congestive heart failure): Patient has PVCs atrial fibrillation history of nonobstructive coronary disease 2017 angiogram and decreased LVEF on recent nuclear study. I wonder if he has three-vessel disease with balanced ischemia on his nuclear test. He may benefit from a stress echo if noninvasive test is to be repeated. (3) Diabetes: Start sliding scale insulin low scale. I discussed with patient need for daily weights and calorie counting for goal 2 pounds weight loss per week patient appears to be receptive. (4) Coronary artery disease: Patient with recent equivocal nuclear imaging 03/15/2024 with LV EF 47% and diffuse hypokinesia. 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 Patient's LDL is 86 with known coronary artery disease and diabetes. I am going to increase his atorvastatin to 80 mg as tolerated for goal LDL closer to 40. He is due for TSH check (7) Iron deficiency anemia: Patient used to be anemic now he is just microcytic but has a history of low iron. Will need to follow-up with routine GI studies and we will continue on PPI given his anticoagulation. Obtain stool guaiac PDMP PDMP Reviewed: Not Reviewed Attestations Medical Necessity Statement*: Patient is admitted to the hospital for diuresis and expected to span greater than 2 midnights. Is also hypoxemic Coding Level of Care Code 80010 Diagnoses Acute kidney injury superimposed on chronic kidney disease N17.9; N18.9 Acute exacerbation of CHF (congestive heart failure) I50.9 Diabetes E11.65 Diabetes mellitus complication status: with hyperglycemia Diabetes mellitus retirement insulin use: without retirement use Diabetes mellitus type: type 2 Coronary artery disease I25.10 Paroxysmal atrial fibrillation I48.0 Atrial fibrillation type: paroxysmal Mixed hyperlipidemia E78.2 Hyperlipidemia type: mixed hyperlipidemia Iron deficiency anemia D50.9 Time Spent (min) 75
[2024-08-22] MEDS: tamsulosin 0.4 mg Capsule PO ×3 (00:55→16:49)
[2024-08-22 01:39] LABS: Thyroid Stimulating Hormone 0.71 uIU/mL (0.27-4.20)
[2024-08-22 03:59] LABS: Estmated Average Glucose 186; Hemoglobin A1C 8.1 % (4.0-6.0)
[2024-08-22 04:05] LABS: Chol HDL Ratio 2.71 mg/dL (1.0-5.00); Cholesterol 122 mg/dL (0-200); HDL Cholesterol 45 mg/dL (60-100); Iron 20 ug/dL (59-158); LDL Cholesterol Calculated 64 mg/dL (50-129); LDL HDL Ratio 1.42 RATIO (0.00-3.22); Percent Saturation 5.6 % (20-50); Total Iron Binding Capacity 357 mcg/dl; Triglycerides 64 mg/dL (0-150); Unsaturated Iron Binding 337 ug/dL (112-347)
[2024-08-22 07:08] LABS: Glucose Point of Care 160 mg/dL (70-110)
[2024-08-22] MEDS: iron sucrose 200 MG in sodium chloride 0.9% (100 ml) 100 ML 220 MG IV (07:56)
[2024-08-22] MEDS: potassium chloride ER 20 mEq Tablet PO (07:59)
[2024-08-22] MEDS: dilTIAZem ER (24HR) 180 mg Capsule 360 MG PO (07:59)
[2024-08-22] MEDS: iron polysaccharide complex 150 mg Capsule PO (07:59)
[2024-08-22] MEDS: aspirin 81 mg EC Tablet PO (07:59)
[2024-08-22] MEDS: apixaban 5 mg Tablet PO ×2 (07:59→16:49)
[2024-08-22] MEDS: magnesium oxide 400 mg tablet PO ×2 (08:00→16:49)
[2024-08-22] MEDS: sitagliptin 100 mg Tablet 50 MG PO (08:00)
[2024-08-22] MEDS: bumetanide 0.25 mg/mL SDV 4 mL 1 MG IVP ×2 (08:00→16:49)
[2024-08-22] MEDS: carvedilol 25 mg Tablet PO ×2 (08:00→16:49)
[2024-08-22] MEDS: hyDRALAzine 25 mg Tablet PO ×4 (08:00→20:07)
[2024-08-22 08:18] LABS: Blood Urea Nitrogen 23 mg/dL (6-20); Calcium 8.8 mg/dL (8.5-10.5); Carbon Dioxide 21 mmol/L (22-29); Chloride 103 mmol/L (98-107); Creatinine Clr Calc Pharmacy 58.5703; Glomerular Filtration Rate 31.7 mL/min (90-130); Glucose 184 mg/dL (65-115); Magnesium 2.2 mg/dL (1.7-2.3); Osmolality Calculated 296 mOsm/kg (285-295); Phosphorus 4.1 mg/dL (2.5-4.5); Sodium 139 mmol/L (136-145); Thyroid Stimulating Hormone 0.68 uIU/mL (0.27-4.20)
[2024-08-22 08:36] LABS: Anion Gap 18.9 (5-19); Potassium 3.9 mmol/L (3.5-5.1)
--- NOTE | 2024-08-22 08:45 | PC.PHAR ---
Med rec completed with Akiko and [facility] current records with last fill dates and day supply.
[2024-08-22 09:59] LABS: Vitamin B12 815 pg/mL (232-1245)
[2024-08-22 11:32] LABS: Glucose Point of Care 195 mg/dL (70-110)
[2024-08-22] MEDS: atorvastatin 40 mg Tablet PO (16:49)
[2024-08-22 17:11] LABS: Glucose Point of Care 119 mg/dL (70-110)
[2024-08-22 20:44] LABS: Glucose Point of Care 131 mg/dL (70-110)
[2024-08-23] VITALS (7 sets, daily range): BP systolic 119–163; BP diastolic 73–83; PULSE 70–77; RESP 9–16; TEMP 36.4–36.8; O2SAT 95–98
[2024-08-23 05:22] LABS: Basophils # 0.1 10^3/uL (0.0-0.1); Basophils % 0.8 %; Eosinophils # 0.4 10^3/uL (0.0-0.8); Eosinophils % 3.9 %; Hematocrit 39.4 % (37-53); Lymphocytes # 1.3 10^3/uL (0.8-4.8); Lymphocytes % 13.6 %; Mean Corpuscular HGB Conc 29.9 g/dL (30-55); Mean Corpuscular Hemoglobin 21.1 pg (27-33); Mean Corpuscular Volume 70.6 fl (82-101); Mean Platelet Volume 10.1 fL (7.4-10.4); Monocytes # 0.8 10^3/uL (0.2-0.9); Monocytes % 8.2 %; Neutrophils # 6.93 10^3/uL (1.8-7.7); Nucleated Red Blood Cells % 0 %; Platelet Count 287 10^3/cmm (157-399); Red Blood Count 5.58 10^6/uL (3.85-5.65)
[2024-08-23 05:33] LABS: Magnesium 2.1 mg/dL (1.7-2.3)
[2024-08-23 05:34] LABS: Alanine Aminotransferase 15 U/L (0-41); Albumin Level 3.8 g/dL (3.5-5.2); Alkaline Phosphatase 104 U/L (40-130); Anion Gap 16.8 (5-19); Aspartate Amino Transferase 11 U/L (0-40); Blood Urea Nitrogen 19 mg/dL (6-20); Calcium 8.8 mg/dL (8.5-10.5); Carbon Dioxide 23 mmol/L (22-29); Chloride 105 mmol/L (98-107); Creatinine Clr Calc Pharmacy 75.7969; Globulin 2.8 g/dL (1.3-4.6); Glomerular Filtration Rate 42.7 mL/min (90-130); Glucose 110 mg/dL (65-115); Osmolality Calculated 295 mOsm/kg (285-295); Potassium 3.8 mmol/L (3.5-5.1); Sodium 141 mmol/L (136-145); Total Bilirubin 0.4 mg/dL (0.15-1.2); Total Protein 6.6 g/dL (6.6-8.7)
[2024-08-23 05:52] LABS: Folate Level 11.2 ng/mL (4.5-32.2)
[2024-08-23 06:45] LABS: Glucose Point of Care 122 mg/dL (70-110)
[2024-08-23] MEDS: ergocalciferol (vitamin D2) 50,000 Unit Capsule 50000 UNIT PO (08:07)
[2024-08-23] MEDS: aspirin 81 mg EC Tablet PO (08:07)
[2024-08-23] MEDS: iron sucrose 200 MG in sodium chloride 0.9% (100 ml) 100 ML 220 MG IV (08:07)
[2024-08-23] MEDS: apixaban 5 mg Tablet PO ×2 (08:07→17:01)
[2024-08-23] MEDS: hyDRALAzine 25 mg Tablet PO (08:08)
[2024-08-23] MEDS: dilTIAZem ER (24HR) 180 mg Capsule 360 MG PO (08:08)
[2024-08-23] MEDS: tamsulosin 0.4 mg Capsule PO ×2 (08:08→17:01)
[2024-08-23] MEDS: carvedilol 25 mg Tablet PO ×2 (08:08→17:01)
[2024-08-23] MEDS: potassium chloride ER 20 mEq Tablet PO (08:08)
[2024-08-23] MEDS: magnesium oxide 400 mg tablet PO ×2 (08:08→17:00)
[2024-08-23] MEDS: sitagliptin 100 mg Tablet 50 MG PO (08:08)
[2024-08-23] MEDS: bumetanide 0.25 mg/mL SDV 4 mL 1 MG IVP ×2 (08:08→17:01)
--- NOTE | 2024-08-23 11:02 | PM.PN ---
Subjective Subjective: No acute events overnight. Has remained hemodynamically stable and afebrile. States she is feeling a lot better. On examination on 3-1/2 L of oxygen supplementation saturating 98% being weaned down to 2 L. Vitals/I&O/Wt Last Vital Signs Temp 97.7 F 08/23/24 08:00 Pulse 76 08/23/24 08:00 Resp 14 08/23/24 08:00 BP 156/79 08/23/24 08:00 Pulse Ox 98 08/23/24 08:00 O2 Del Method Nasal Cannula 08/23/24 08:00 O2 Flow Rate 2 08/22/24 16:00 08/22/24 08/23/24 08/23/24 22:59 06:59 14:59 Intake Total 240 / 590 150 / 740 110 / 110 Output Total 800 / 3750 900 / 4650 925 / 925 Balance -560 / -3160 -750 / -3910 -815 / -815 Weight last 48 hrs Weight 139.979 kg Weight 140.755 kg Weight 140.755 kg Weight 131.542 kg Physical Exam Narrative: General Well-developed well-nourished tall obese male in no acute cardiopulmonary distress CV regular rate and rhythm with frequent ectopy Lungs trace basilar crackles mostly clears with deep breath no wheezing Abdomen positive bowel tones soft nontender Calves 2+ ankle edema and foot edema without asymmetry tenderness cords Skin warm and dry Oral Mallampati 1-2 no thrush Mentation alert and oriented x 3 mood and affect normal Data 08/23/24 04:50 08/23/24 04:50 A&P Assessment and plan (1) Acute kidney injury superimposed on chronic kidney disease: creatinine 2.2 and diabetes under modest control. Reports signs and symptoms of sleep apnea and has poorly controlled hypertension. Start hydralazine 25 mg 4 times daily continue home blood pressure medications. Is not entirely clear to me if he is taking amlodipine and diltiazem. I held the amlodipine for now initiate diuresis continue modest dose losartan but that may need to be stopped if renal functions worsening I held off on spironolactone due to potential for worsening renal function however with the patient's difficult to control hypertension he may have hyperaldosteronism with history of hypokalemia modestly intermittently and over the years (2) Acute exacerbation of CHF (congestive heart failure): Patient has PVCs atrial fibrillation history of nonobstructive coronary disease 2017 angiogram and decreased LVEF on recent nuclear study. I wonder if he has three-vessel disease with balanced ischemia on his nuclear test. He may benefit from a stress echo if noninvasive test is to be repeated. (3) Diabetes: Start sliding scale insulin low scale. I discussed with patient need for daily weights and calorie counting for goal 2 pounds weight loss per week patient appears to be receptive. (4) Coronary artery disease: Patient with recent equivocal nuclear imaging 03/15/2024 with LV EF 47% and diffuse hypokinesia. 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 Patient's LDL is 86 with known coronary artery disease and diabetes. I am going to increase his atorvastatin to 80 mg as tolerated for goal LDL closer to 40. He is due for TSH check (7) Iron deficiency anemia: Patient used to be anemic now he is just microcytic but has a history of low iron. Will need to follow-up with routine GI studies and we will continue on PPI given his anticoagulation. Obtain stool guaiac Plan Plan for the day: Continue with aggressive IV diuresis with Bumex 1 mg IV twice daily. Fluid restriction 1500 cc. Repeat BMP in afternoon. Creatinine trending down. Close to baseline. 1.7 today. Oxygen supplementation keeping saturation over 90%. Goal blood pressure less than 140/90 mmHg. For now continue with Coreg 25 mg twice daily, Cardizem 360 mg oral daily, change hydralazine to 50 mg 3 times daily from 25 mg 4 times daily. Continue with current insulin sliding scale. Full code Carb consistent cardiac diet. Fluid restriction. 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
[2024-08-23 11:20] LABS: Bilirubin Urine Negative (Negative); Blood Urine Negative (Negative); Glucose Urine UA 3+ (Normal); Ketones Urine Negative (Negative); Leukocyte Esterase Urine Negative (Negative); Nitrate Urine Negative (Negative); Protein Urine Trace (Negative); Specific Gravity, Urine 1.013 (1.005-1.030); Urine Appearance Clear (CLEAR); Urine Color Yellow (Yellow); Urobilinogen Urine 0.2 mg/dL (Negative); pH Urine 5.5 (5-7)
[2024-08-23 11:22] LABS: Glucose Point of Care 146 mg/dL (70-110)
[2024-08-23 11:25] LABS: Add Urine Microscopic? YES; Bacteria Urine None Seen /hpf; Hyaline Casts Urine 1.21 /lpf; RBC Urine 0-2 /hpf (0-2); Squamous Epithelial Cell Urine 0-5 /hpf (0-5); WBC Urine 0-5 /hpf (0-5)
[2024-08-23 11:32] LABS: Potassium, Radom Urine 22 mmol/L; Urine Creatinine 42 mg/dL (39-259); Urine Random Chloride 106 mmol/L; Urine Random Sodium 98 mmol/L
[2024-08-23] MEDS: hyDRALAzine 25 mg Tablet 50 MG PO ×2 (14:43→21:14)
[2024-08-23 15:54] LABS: Blood Urea Nitrogen 20 mg/dL (6-20); Carbon Dioxide 23 mmol/L (22-29); Chloride 104 mmol/L (98-107); Creatinine Clr Calc Pharmacy 75.5712; Glomerular Filtration Rate 42.7 mL/min (90-130); Glucose 155 mg/dL (65-115); Osmolality Calculated 294 mOsm/kg (285-295); Sodium 139 mmol/L (136-145)
[2024-08-23] MEDS: atorvastatin 40 mg Tablet PO (17:00)
[2024-08-23 17:10] LABS: Glucose Point of Care 122 mg/dL (70-110)
[2024-08-23 19:55] LABS: Glucose Point of Care 211 mg/dL (70-110)
[2024-08-23] MEDS: insulin lispro 100 unit/1 mL SUBCUT (21:13)
[2024-08-24] VITALS: BP 139/77; PULSE 74; RESP 17; TEMP 36.9; O2SAT 98
[2024-08-24 04:00] VITALS: BP 133/71; PULSE 74; RESP 9; TEMP 36.8; O2SAT 97
[2024-08-24 05:25] LABS: Basophils # 0.1 10^3/uL (0.0-0.1); Basophils % 0.8 %; Eosinophils # 0.3 10^3/uL (0.0-0.8); Eosinophils % 3.7 %; Hematocrit 40.1 % (37-53); Lymphocytes # 1.2 10^3/uL (0.8-4.8); Lymphocytes % 14.4 %; Mean Corpuscular HGB Conc 30.7 g/dL (30-55); Mean Corpuscular Hemoglobin 21.7 pg (27-33); Mean Corpuscular Volume 70.7 fl (82-101); Monocytes # 0.8 10^3/uL (0.2-0.9); Neutrophils # 6.04 10^3/uL (1.8-7.7); Neutrophils % 71.5 %; Nucleated Red Blood Cells % 0 %; Platelet Count 278 10^3/cmm (157-399); Red Blood Count 5.67 10^6/uL (3.85-5.65); Red Cell Distribution Width 18.7 % (12.1-15.1); White Blood Count 8.45 10^3/uL (3.29-11.43)
[2024-08-24 05:56] LABS: Alanine Aminotransferase 16 U/L (0-41); Alkaline Phosphatase 108 U/L (40-130); Aspartate Amino Transferase 14 U/L (0-40); Blood Urea Nitrogen 19 mg/dL (6-20); Calcium 9.3 mg/dL (8.5-10.5); Carbon Dioxide 23 mmol/L (22-29); Chloride 104 mmol/L (98-107); Creatinine Clr Calc Pharmacy 84.2866; Globulin 2.9 g/dL (1.3-4.6); Glomerular Filtration Rate 49.3 mL/min (90-130); Glucose 116 mg/dL (65-115); Osmolality Calculated 291 mOsm/kg (285-295); Sodium 139 mmol/L (136-145); Total Bilirubin 0.4 mg/dL (0.15-1.2); Total Protein 6.9 g/dL (6.6-8.7)
[2024-08-24 05:57] LABS: Magnesium 2.3 mg/dL (1.7-2.3)
[2024-08-24 06:07] LABS: Glucose Point of Care 124 mg/dL (70-110)
[2024-08-24 08:00] VITALS: BP 141/73; PULSE 75; RESP 18; TEMP 36.3; O2SAT 98
[2024-08-24] MEDS: hyDRALAzine 25 mg Tablet 50 MG PO (08:12)
[2024-08-24] MEDS: aspirin 81 mg EC Tablet PO (08:13)
[2024-08-24] MEDS: dilTIAZem ER (24HR) 180 mg Capsule 360 MG PO (08:13)
[2024-08-24] MEDS: potassium chloride ER 20 mEq Tablet PO (08:13)
[2024-08-24] MEDS: bumetanide 0.25 mg/mL SDV 4 mL 1 MG IVP (08:13)
[2024-08-24] MEDS: sitagliptin 100 mg Tablet 50 MG PO (08:13)
[2024-08-24] MEDS: magnesium oxide 400 mg tablet PO (08:13)
[2024-08-24] MEDS: apixaban 5 mg Tablet PO (08:13)
[2024-08-24] MEDS: carvedilol 25 mg Tablet PO (08:13)
[2024-08-24] MEDS: iron sucrose 200 MG in sodium chloride 0.9% (100 ml) 100 ML 220 MG IV (08:15)
[2024-08-24] MEDS: tamsulosin 0.4 mg Capsule PO (08:24)
--- NOTE | 2024-08-24 08:24 | P.DS_ITS ---
Discharge Providers Date of Admission: 08/22/24 01:13 Date of Discharge: August 24, 2024 Attending Provider at Admission: Giorgi Rocha MD Attending Provider at Discharge: Benjamin Cobian MD Primary Care Provider: ALVARO Ellison Diagnoses at Discharge Discharge Diagnosis (1) Acute kidney injury superimposed on chronic kidney disease: Status: Acute (2) Acute exacerbation of CHF (congestive heart failure): Status: Acute (3) Diabetes: Status: Acute Qualifiers: Diabetes mellitus complication status: with hyperglycemia Diabetes mellitus it compliance analyst insulin use: without it compliance analyst use Diabetes mellitus type: type 2 Qualified Code(s): E11.65 - Type 2 diabetes mellitus with hyperglycemia (4) Coronary artery disease: Status: Acute Permanent problem details: Nonobstructive on angiogram 2017 Nuclear stress test May/2021 mild global hypokinesis, no perfusion defects (5) Atrial fibrillation: Status: Acute Qualifiers: Atrial fibrillation type: paroxysmal Qualified Code(s): I48.0 - Paroxysmal atrial fibrillation (6) Hyperlipidemia: Status: Acute Qualifiers: Hyperlipidemia type: mixed hyperlipidemia Qualified Code(s): E78.2 - Mixed hyperlipidemia (7) Iron deficiency anemia: Status: Acute Reason for Visit Reason for Visit: SOB Brief History: History as per HPI: Jose Douglas is a 49 year old male with history of diabetes, hyperlipidemia, hypertension, obesity and snoring with pauses noted by his fianc?e comes in for leg swelling and dyspnea on exertion. He is found to have acute kidney injury on chronic kidney disease, elevated but downtrending troponin and suspicion for but not formal diagnosis of sleep apnea. The patient had angiogram he thinks about 5 years ago but did not require stent. He had echocardiogram March 2024 showing LVEF 60 to 65% LVH biatrial enlargement and atrial fibrillation with diastolic dysfunction. Nuclear imaging done 03/15/2024 showed inferolateral and mid inferior wall regions of mildly decreased tracer uptake unclear if it was artifact LVEF 47% and mild diffuse hypokinesia. EKG today shows sinus rhythm with first-degree AV block and frequent PVCs. Troponin on arrival 63 dropped to 57. 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 Reports hyperlipidemia hypertension diabetes last A1c 7.8 he is typically on glipizide but not insulin. Hospital Course Hospital Course Patient was admitted to the hospital further evaluation and management of acute on chronic decompensated heart failure along with acute kidney injury. He was started on aggressive IV diuresis. While being on diuresis his hypoxia improved. His renal functions also improved and now back to baseline. He was overall 7.5 L negative during hospitalization. During hospitalization he was found to have elevated blood pressures for which his antihypertensives were adjusted. He is been discharged in medically stable condition on oral Bumex 1 mg daily. Lifestyle modification in setting of congestive heart failure were discussed in detail with the patient. His amlodipine was discontinued and he has been started on hydralazine 50 mg 3 times a day. He will benefit with a sleep study as an outpatient. Physical Exam Narrative: General Well-developed well-nourished tall obese male in no acute cardiopulmonary distress CV regular rate and rhythm with frequent ectopy Lungs trace basilar crackles mostly clears with deep breath no wheezing Abdomen positive bowel tones soft nontender Calves 2+ ankle edema and foot edema without asymmetry tenderness cords Skin warm and dry Oral Mallampati 1-2 no thrush Mentation alert and oriented x 3 mood and affect normal Discharge Data Studies Completed and Pending Completed Studies During Hospitalization Category Date Time Status XR chest 1V portable [id number] Stat Exams 08/21/24 20:59 Completed Pending at discharge Category Date Time Status Lipoprotein (a) Routine Lab 08/22/24 03:25 Received MAG [Magnesium] AM LABS Lab 08/25/24 04:00 Ordered Occult Blood Stool [Immunochemical Fecal OCB] Routine Lab 08/22/24 01:14 Uncollected Radiology Impressions Chest X-Ray 08/21/24 20:59 IMPRESSION: As above. Laboratory Results WBC 8.45 10^3/uL (3.29-11.43) 08/24/24 05:05 RBC 5.67 10^6/uL (3.85-5.65) H 08/24/24 05:05 Hgb 12.30 g/dL (11.27-16.99) 08/24/24 05:05 Hct 40.1 % (37-53) 08/24/24 05:05 MCV 70.7 fl (82-101) L 08/24/24 05:05 MCH 21.7 pg (27-33) L 08/24/24 05:05 MCHC 30.7 g/dL (30-55) 08/24/24 05:05 RDW 18.7 % (12.1-15.1) H 08/24/24 05:05 Plt Count 278 10^3/cmm (157-399) 08/24/24 05:05 MPV 10.0 fL (7.4-10.4) 08/24/24 05:05 Neut % (Auto) 71.5 % 08/24/24 05:05 Lymph % (Auto) 14.4 % 08/24/24 05:05 [place] % (Auto) 9.0 % 08/24/24 05:05 Eos % (Auto) 3.7 % 08/24/24 05:05 Baso % (Auto) 0.8 % 08/24/24 05:05 Neut # (Auto) 6.04 10^3/uL (1.8-7.7) 08/24/24 05:05 Lymph # (Auto) 1.2 10^3/uL (0.8-4.8) 08/24/24 05:05 [place] # (Auto) 0.8 10^3/uL (0.2-0.9) 08/24/24 05:05 Eos # (Auto) 0.3 10^3/uL (0.0-0.8) 08/24/24 05:05 Baso # (Auto) 0.1 10^3/uL (0.0-0.1) 08/24/24 05:05 Nucleated RBC % (auto) 0 % 08/24/24 05:05 Nucleated RBCs # 0.0 /100WBC 08/24/24 05:05 Sodium 139 mmol/L (136-145) 08/24/24 05:05 Potassium 4.0 mmol/L (3.5-5.1) 08/24/24 05:05 Chloride 104 mmol/L (98-107) 08/24/24 05:05 Carbon Dioxide 23 mmol/L (22-29) 08/24/24 05:05 Anion Gap 16.0 (5-19) 08/24/24 05:05 BUN 19 mg/dL (6-20) 08/24/24 05:05 Creatinine 1.5 mg/dL (0.7-1.2) H 08/24/24 05:05 GFR Calculation 49.3 mL/min (90-130) L 08/24/24 05:05 Glucose 116 mg/dL (65-115) H 08/24/24 05:05 POC Glucose 124 mg/dL (70-110) H 08/24/24 05:56 Estimat Average Glucose 186 08/22/24 03:25 Hemoglobin A1c 8.1 % (4.0-6.0) H 08/22/24 03:25 Calculated Osmolality 291 mOsm/kg (285-295) 08/24/24 05:05 Calcium 9.3 mg/dL (8.5-10.5) 08/24/24 05:05 Phosphorus 4.1 mg/dL (2.5-4.5) 08/22/24 03:25 Magnesium 2.3 mg/dL (1.7-2.3) 08/24/24 05:05 Iron 20 ug/dL (59-158) L 08/22/24 03:25 TIBC 357 mcg/dl 08/22/24 03:25 % Saturation 5.6 % (20-50) L 08/22/24 03:25 Unsat Iron Binding 337 ug/dL (112-347) 08/22/24 03:25 Total Bilirubin 0.4 mg/dL (0.15-1.2) 08/24/24 05:05 AST 14 U/L (0-40) 08/24/24 05:05 ALT 16 U/L (0-41) 08/24/24 05:05 Alkaline Phosphatase 108 U/L (40-130) 08/24/24 05:05 Troponin T Baseline 63 ng/L (0-15) H 08/21/24 21:25 Troponin T 120 Minute 57.17 ng/L (0-15) H 08/21/24 23:10 Delta Troponin T -5.83 ABS# (0-10) L 08/21/24 23:10 Troponin T Hi Sens 6Hr 48.60 ng/L (0-15) H 08/22/24 03:25 Troponin T Hi Sens 6Hr Delta -14.40 ng/L (0-12) L 08/22/24 03:25 C-React Prot High Sens 0.290 mg/dL (0.0-0.3) 08/22/24 03:25 NT-Pro-B Natriuret Pep 1928 pg/mL (0-125) H 08/21/24 21:25 Total Protein 6.9 g/dL (6.6-8.7) 08/24/24 05:05 Albumin 4.0 g/dL (3.5-5.2) 08/24/24 05:05 Globulin 2.9 g/dL (1.3-4.6) 08/24/24 05:05 Triglycerides 64 mg/dL (0-150) 08/22/24 03:25 Cholesterol 122 mg/dL (0-200) 08/22/24 03:25 LDL Cholesterol, Calc 64 mg/dL (50-129) 08/22/24 03:25 HDL Cholesterol 45 mg/dL (60-100) L 08/22/24 03:25 LDL/HDL Ratio 1.42 RATIO (0.00-3.22) 08/22/24 03:25 Cholesterol/HDL Ratio 2.71 mg/dL (1.0-5.00) 08/22/24 03:25 Vitamin B12 815 pg/mL (232-1245) 08/22/24 03:25 Folate 11.2 ng/mL (4.5-32.2) 08/23/24 04:50 TSH 0.68 uIU/mL (0.27-4.20) 08/22/24 03:25 Urine Color Yellow (Yellow) 08/23/24 11:00 Urine Appearance Clear (CLEAR) 08/23/24 11:00 Urine pH 5.5 (5-7) 08/23/24 11:00 Ur Specific [place] 1.013 (1.005-1.030) 08/23/24 11:00 Urine Protein Trace (Negative) A 08/23/24 11:00 Urine Glucose (UA) 3+ (Normal) H 08/23/24 11:00 Urine Ketones Negative (Negative) 08/23/24 11:00 Urine Blood Negative (Negative) 08/23/24 11:00 Urine Nitrate Negative (Negative) 08/23/24 11:00 Urine Bilirubin Negative (Negative) 08/23/24 11:00 Urine Urobilinogen 0.2 mg/dL (Negative) 08/23/24 11:00 Ur Leukocyte Esterase Negative (Negative) 08/23/24 11:00 Urine RBC 0-2 /hpf (0-2) 08/23/24 11:00 Urine WBC 0-5 /hpf (0-5) 08/23/24 11:00 Ur Squamous Epith Cells 0-5 /hpf (0-5) 08/23/24 11:00 Amorphous Sediment Not Reportable 08/23/24 11:00 Urine Bacteria None seen /hpf (NONE) 08/23/24 11:00 Hyaline Casts 1.21 /lpf 08/23/24 11:00 Ur Random Sodium 98 mmol/L 08/23/24 11:00 Ur Random Potassium 22 mmol/L 08/23/24 11:00 Ur Random Chloride 106 mmol/L 08/23/24 11:00 Urine Creatinine 42 mg/dL (39-259) 08/23/24 11:00 Vitals Last Vital Signs Temp 98.2 F 08/24/24 04:00 Pulse 74 08/24/24 04:00 Resp 9 L 08/24/24 04:00 BP 133/71 08/24/24 04:00 Pulse Ox 97 08/24/24 04:00 O2 Del Method Nasal Cannula 08/24/24 04:00 O2 Flow Rate 1 08/23/24 21:45 Discharge Plan Discharge Patient Disposition: Home Condition: Stable Prescriptions: New hydralazine 25 mg Tablet 50 mg PO TID 30 Days Qty: 180 0RF bumetanide 1 mg tablet 1 mg PO DAILY Qty: 30 0RF Continued Eliquis 5 mg tablet 5 mg PO BID aspirin 81 mg tablet,delayed release (DR/EC) 81 mg PO DAILY mecobalamin (vitamin B12) [B12 Active] 1,000 mcg tablet,chewable 1,000 mcg PO DAILY albuterol sulfate 90 mcg/actuation HFA aerosol inhaler 2 inh inhalation Q6H PRN (Reason: shortness of breath or wheezing) Qty: 6.7 0RF Januvia 50 mg tablet 50 mg PO DAILY Qty: 30 0RF glipizide 5 mg Tablet 5 mg PO DAILY atorvastatin 40 mg tablet 40 mg PO QPM ergocalciferol (vitamin D2) 1,250 mcg (50,000 unit) capsule 1,250 mcg PO Q7D Jardiance 25 mg tablet 25 mg PO DAILY losartan 50 mg tablet 50 mg PO DAILY pantoprazole 40 mg tablet,delayed release (DR/EC) 40 mg PO DAILY potassium chloride 20 mEq tablet extended release 20 meq PO DAILY carvedilol [Coreg] 25 mg tablet 25 mg PO BID diltiazem HCl [Cardizem CD] 360 mg capsule,extended release 24hr 360 mg PO DAILY polysaccharide iron complex [Poly-Iron] 150 mg iron capsule 150 mg PO DAILY magnesium oxide 400 mg (241.3 mg magnesium) Tablet 400 mg PO BID Qty: 60 0RF Changed tamsulosin 0.4 mg capsule 0.4 mg PO BIDWMEAL Qty: 60 0RF Discontinued amlodipine [Norvasc] 10 mg tablet 10 mg PO DAILY Discharge Orders: Discharge Order (Routine); Ordered 08/24/24 Ordered By: Benjamin Cobian Referrals: Evelyn Guerra FNP [Primary Care Provider, Nurse Practitioner] - 1 week Referral Note: Patient will need to call PCP for follow up in 7-10 days Office [phone] Discharge Diet: Cardiac Discharge Activity: Resume usual activity and Increase activity as tolerated Patient Instructions: Bumetanide (By mouth), Hydralazine (By mouth), Heart Failure (DC), CHF Stoplight, Opioid Safety Activity Restrictions/Additional Instructions: Restrict fluid intake to less than 1500 cc, salt intake to less than 2 g daily. Advised to check his weight daily at home. Is advised that weight today would be the dry weight and if body weight increases by around 5 pounds, patient is to take an extra dose of Bumex daily till body weight comes down to weight today. If not able to come down to dry body weight in 1 week, then is to call cardiology office for further recommendations. Patient was counseled in detail to take medications regularly as prescribed. Goal blood pressure of less than 140/90 mmHg. Please check your blood pressure daily at home and in a blood pressure diary. Do not take amlodipine anymore. Instead take hydralazine 50 mg 3 times a day. Follow-up with your primary care provider within next 1 week with your blood pressure diary for further adjustment of antihypertensive. You will benefit with a sleep study as an outpatient. Discharge Attestations Time Spent in Discharge Care*: greater than 30 min Specific Discharge Activities: educating patient, educating and/or supporting family/caregiver, discussing with pcp/other providers, discussing with case sealer/social workers/dc planners, documenting/other paperwork and evaluating patient/reviewing data Status at Discharge: Cognitive status at discharge: cognitively intact , Behavioral status at discharge: cooperative , Functional status at discharge: independent ambulation , Overall status at discharge: patient is back to baseline Quality Metrics Clinical Quality Measures [ No reported AMI, CVA or VTE this stay] Coding Level of Care Code 53779 Total time (in minutes) for Discharge: 60 Diagnoses Acute kidney injury superimposed on chronic kidney disease N17.9; N18.9 Acute exacerbation of CHF (congestive heart failure) I50.9 Diabetes E11.65 Diabetes mellitus complication status: with hyperglycemia Diabetes mellitus it compliance analyst insulin use: without [facility] use Diabetes mellitus type: type 2 Coronary artery disease I25.10 Paroxysmal atrial fibrillation I48.0 Atrial fibrillation type: paroxysmal Mixed hyperlipidemia E78.2 Hyperlipidemia type: mixed hyperlipidemia Iron deficiency anemia D50.9
[2024-08-24 09:33] VITALS: BP 141/73; PULSE 75; RESP 20; O2SAT 98
--- NOTE | 2024-08-24 10:09 | PC.NURSE ---
Patient discharged to home. Instruction provided regarding follow up needs, new medications with changes and heart failure with stoplight. Patient verbalized complete understanding. New Rx transmitted to [facility]. Patient taken by wheelchair to private vehicle. spouse to provide transportation. Patient denies pain or needs. No distress observed.
== END 2024-08-24 10:14 | disposition home or self-care (01) | DRG 291 ==
LOC: ER 08-22 00:49 → CSU 08-22 01:13
PROVIDERS: Admitting Provider Internal Medicine; Emergency Provider Student in an Organized Health Care Education/Training Program; PCP Nurse Practitioner Family; Visit Provider Student in an Organized Health Care Education/Training Program
DX: I13.0 Hypertensive heart and chronic kidney disease with heart failure and stage 1 through stage 4 chronic kidney disease, or unspecified chronic kidney disease (principal); I50.33 Acute on chronic diastolic (congestive) heart failure; N17.9 Acute kidney failure, unspecified; N18.32 Chronic kidney disease, stage 3b; E11.22 Type 2 diabetes mellitus with diabetic chronic kidney disease; E11.65 Type 2 diabetes mellitus with hyperglycemia; I25.10 Atherosclerotic heart disease of native coronary artery without angina pectoris; I48.0 Paroxysmal atrial fibrillation; E78.2 Mixed hyperlipidemia; D50.9 Iron deficiency anemia, unspecified; E66.9 Obesity, unspecified; I35.1 Nonrheumatic aortic (valve) insufficiency; K21.9 Gastro-esophageal reflux disease without esophagitis; I42.9 Cardiomyopathy, unspecified; Z68.39 Body mass index [BMI] 39.0-39.9, adult; Z79.84 Long term (current) use of oral hypoglycemic drugs; Z79.01 Long term (current) use of anticoagulants; Z79.82 Long term (current) use of aspirin; Z87.891 Personal history of nicotine dependence
CPT/HCPCS: 36415; 36416; 71045; 80048; 80053; 80061; 81001; 82436; 82570; 82607; 82746; 82962; 83036; 83540; 83550; 83695; 83735; 83880; 84100; 84133; 84300; 84443; 84484; 85025; 86141; 93005; 94664; 96372; 99285; J1756; J1815; J3490; J9999

== ENCOUNTER → 2024-10-19 10:25 | Outpatient (BNVA) | payer BC, SELFPAY | PROVIDERS: PCP Nurse Practitioner Family; Visit Provider Emergency Medicine | DX: M79.641 Pain in right hand (principal) | CPT/HCPCS: 73130 ==

== ENCOUNTER 2024-11-27 10:02 | Emergency (ER) | payer BC, SELFPAY ==
[2024-11-27 10:10] VITALS: BP 146/88; PULSE 130; TEMP 36.7; O2SAT 98
--- NOTE | 2024-11-27 10:14 | ECG_ITS ---
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 Measurements Intervals [place] Rate: 125 P: 112 [place]: 237 QRS: 3 QRSD: 91 T: 110 QT: 309 QTc: 446 Interpretive Statements SINUS TACHYCARDIA WITH FIRST DEGREE AV BLOCK WITH FREQUENT VENTRICULAR PREMATURE COMPLEXES Possible old septal myocardial infarction ABNORMAL QRS-T ANGLE [QRS-T AXIS DIFFERENCE > 60] INTERPRETATION BASED ON A DEFAULT AGE OF 40 YEARS Compared to ECG 08/21/2024 20:35:04 Sinus rhythm no longer present Electronically Signed On 11-27-2024 13:40:59 CDT by Christie Gavin M.D. [email or web address]
--- NOTE | 2024-11-27 11:36 | XR_ITS ---
WS: [id number] XR chest 1V portable [id number] REASON FOR EXAM: sob, hx afib/chf/ckd, off diuretics FINDINGS: The chest is unchanged compared to 08/21/2024. There is mild tortuosity of the thoracic aorta. There is cardiomegaly with moderate central pulmonary venous congestion. No acute pulmonary parenchymal or pleural abnormality is identified. XR/XR chest 1V portable [id number] IMPRESSION: Stable chest with cardiomegaly and pulmonary venous hypertension. No acute abno rmality.
[2024-11-27 11:58] VITALS: BP 138/94; PULSE 99; RESP 18; O2SAT 98
[2024-11-27 12:00] LABS: Base Excess VBG 1.6 mmol/L (-3.0-3.0); Blood Gas Operator Identificat WALCI; Blood Gas Sample Type Venous; HCO3 VBG 26.6 mmol/L (24-28); PCO2 VBG 42.4 mmHg (41-51); PO2 VBG 33.1 mmHg (25-40); Venous Blood Gas Hematocrit 39.6 % (42-52); pH VBG 7.41 (7.32-7.42)
[2024-11-27] MEDS: bumetanide 0.25 mg/mL SDV 4 mL 1 MG IVP (12:04)
[2024-11-27 12:09] LABS: Hematocrit 40.9 % (37-53); Hemoglobin 12.40 g/dL (11.27-16.99); Mean Corpuscular HGB Conc 30.3 g/dL (30-55); Mean Corpuscular Hemoglobin 21.6 pg (27-33); Mean Corpuscular Volume 71.1 fl (82-101); Nucleated Red Blood Cells % 0 %; Platelet Count 258 10^3/cmm (157-399); Red Blood Count 5.75 10^6/uL (3.85-5.65); White Blood Count 9.59 10^3/uL (3.29-11.43)
[2024-11-27 12:27] LABS: INR 1.34 (0.8-1.2); Partial Thromboplastin Time 35.6 SECONDS (23.9-36.7); Prothrombin Time 17.40 SECONDS (12.1-14.9)
[2024-11-27 12:29] LABS: Troponin(5th) Baseline 43 ng/L (0-15)
[2024-11-27 12:40] LABS: Alanine Aminotransferase 17 U/L (0-41); Albumin Level 4.1 g/dL (3.5-5.2); Alkaline Phosphatase 119 U/L (40-130); Anion Gap 15.1 (5-19); Aspartate Amino Transferase 12 U/L (0-40); Blood Urea Nitrogen 19 mg/dL (6-20); Calcium 9.3 mg/dL (8.5-10.5); Carbon Dioxide 25 mmol/L (22-29); Chloride 104 mmol/L (98-107); Creatinine Clr Calc Pharmacy 68.7257; Globulin 3.0 g/dL (1.3-4.6); Glucose 158 mg/dL (65-115); Magnesium 2.4 mg/dL (1.7-2.3); NT Pro B Type Natriuretic Pept 2449 pg/mL (0-125); Osmolality Calculated 296 mOsm/kg (285-295); Potassium 4.1 mmol/L (3.5-5.1); Sodium 140 mmol/L (136-145); Total Protein 7.1 g/dL (6.6-8.7)
[2024-11-27 13:03] VITALS: BP 120/85; PULSE 88; RESP 18; O2SAT 96
--- NOTE | 2024-11-27 13:31 | W.ED.SOB ---
HPI - SOB/Dyspnea General: Chief Complaint: Shortness of Breath/Dyspnea Stated Complaint: fluid build up Time Seen by Provider: 11/27/24 11:36 History of Present Illness: HPI Narrative: 49-year-old male history of CHF, CKD, CAD, A-fib on diltiazem and Eliquis which he is compliant with, [id number] diabetes, presenting the emergency department with noncompliance to his Bumex accidentally over the last 2-1/2 weeks with an associated 30 pound weight gain, increasing exertional dyspnea, no chest pain fever cough, lower extremity edema which is waxing and waning and slightly better today than it has been in recent days, he did refill his Bumex today after realizing he was not taking it and took a 1 mg tablet this morning prior to arrival, he reports he has urinated twice since he took this medication. Related Data Home Medications ?Medication ?Instructions ?Recorded ?Confirmed glipizide 5 mg tablet 5 mg PO DAILY 03/24/19 11/27/24 apixaban 5 mg tablet (Eliquis) 5 mg PO BID 08/09/23 11/27/24 aspirin 81 mg tablet,delayed 81 mg PO DAILY 08/09/23 11/27/24 release mecobalamin (vitamin B12) 1,000 1,000 mcg PO DAILY 08/09/23 11/27/24 mcg chewable tablet (B12 Active) carvedilol 25 mg tablet (Coreg) 25 mg PO BID 03/13/24 11/27/24 diltiazem HCl 360 mg 360 mg PO DAILY 03/13/24 11/27/24 capsule,extended release 24 hr (Cardizem CD) atorvastatin 40 mg tablet 40 mg PO QPM 06/02/24 11/27/24 empagliflozin 25 mg tablet 25 mg PO DAILY 06/02/24 11/27/24 (Jardiance) ergocalciferol (vitamin D2) 1,250 1,250 mcg PO .Q30D 06/02/24 11/27/24 mcg (50,000 unit) capsule losartan 50 mg tablet 50 mg PO DAILY 08/22/24 11/27/24 pantoprazole 40 mg tablet,delayed 40 mg PO DAILY 08/22/24 11/27/24 release potassium chloride 20 mEq 20 meq PO DAILY 08/22/24 11/27/24 tablet,extended release amlodipine 10 mg tablet 10 mg PO DAILY 11/27/24 11/27/24 bumetanide 1 mg tablet 1 mg PO BID 11/27/24 11/27/24 Previous Rx's ?Medication ?Instructions ?Recorded sitagliptin phosphate 50 mg tablet 50 mg PO DAILY #30 tabs 05/13/21 (Januvia) magnesium oxide 400 mg (241.3 mg 400 mg PO BID #60 tabs 03/15/24 magnesium) tablet albuterol sulfate 90 mcg/actuation 2 inh inhalation Q6H PRN shortness 03/16/24 aerosol inhaler of breath or wheezing #6.7 grams tamsulosin 0.4 mg capsule 0.4 mg PO BIDWMEAL #60 caps 08/24/24 Allergies Allergy/AdvReac Type Severity Reaction Status Date / Time No Known Allergies Allergy Verified 11/27/24 10:19 [facility] ED PFSH: Medical History Iron deficiency anemia Aortic regurgitation Diabetes Coronary artery disease Nonobstructive on angiogram 2016 Nuclear stress test May/2021 mild global hypokinesis, no perfusion defects GERD (gastroesophageal reflux disease) History of retinal detachment Cardiomyopathy HTN (hypertension) Hyperlipidemia Surgical History H/O cardiac radiofrequency ablation History of knee surgery History of tonsillectomy History of cataract surgery Family History Other Cancer Diabetes Hypertension Social History Smoking and tobacco/nicotine status: never used tobacco/nicotine Alcohol intake: former Former alcohol use details: No longer drinks but was never heavy Substance/Drug Use: never Additional social history: 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 He wants full code as discussed with him today on 08/22/2024 in the presence of his carolyne Mckenzie by Giorgi Rocha MD Physical Exam Narrative: EXAM NARRATIVE: Gen: A&Ox4, no acute distress, nontoxic appearing, obese HEENT: Normocephalic, atraumatic, no scleral icterus, external ears normal, moist mucous membranes Neck: Supple, full range of motion, no observable masses Lungs: No Respiratory distress, Lungs clear to auscultation bilaterally no rales, rhonchi, wheezing CV: Irregular rhythm, ranging from 90s to 110 range, no murmurs, positive bilateral lower extremity pitting edema 1+ Abdomen: Soft, nondistended, nontender to palpation MSK: No joint swelling, FROM all 4 extremities Skin: No rashes, petechiae, lesions. Normal color per patient. Neuro: Alert and oriented, no slurred speech, sensation and strength grossly intact all 4 extremities Psych: Appropriate for situation. Course Reevaluation(s): Reevaluation #1: Patient reevaluated at this time, he has urinated further while in the ED, he has no hypoxia, no significant pulmonary edema, hemodynamically is currently stable with a heart rate around 90, at this time he does not meet any emergent criteria for admission, he does have hypervolemia that will benefit from diuresis. At this time he feels comfortable with trial of home diuresis with resumption of his diuretic course, he will return to the ED if he develops worsening shortness of breath or chest pain. At this time this appears to be medically reasonable in my judgment and patient is stable for discharge to follow-up with his cabin agent Time: 14:40 Vital Signs: Vital signs: Vital Signs Temperature 98.0 F 11/27/24 10:10 Pulse Rate 97 11/27/24 14:04 Respiratory Rate 18 11/27/24 13:03 Blood Pressure 121/61 11/27/24 14:04 Pulse Oximetry 98 11/27/24 14:04 Oxygen Delivery Me thod Room Air 11/27/24 14:04 MDM - SOB/Dyspnea Medical Decision Making 49-year-old male history of CHF CKD CAD and atrial fibrillation, compliant with antihypertensives and diltiazem as well as Eliquis but accidentally nonadherent to Bumex due to forgetting that he ran out of it over the last 2-1/2 weeks presenting with increasing leg swelling, exertional dyspnea, and 30 pound weight gain, clinically consistent with hypervolemia. No chest pain, patient on arrival had a heart rate of 130 but now appears more rate controlled A-fib in the 90-100 range, he does appear moderately hypervolemic but without hypoxia, he is warm and well-perfused peripherally and does not appear to be in cardiogenic shock, plan for IV Bumex, labs to assess for any ACS or NSTEMI, reassess for disposition Lab Data Labs significant for elevated proBNP 2400, mildly elevated troponin 43, no leukocytosis or anemia, creatinine 1.9, Most recent baseline 1.5-1.7 in August, no acidemia or hypercapnia on blood gas 11/27/24 11:52 11/27/24 11:52 Labs/Radiology: Radiology Impressions Chest X-Ray 11/27/24 11:36 IMPRESSION: Stable chest with cardiomegaly and pulmonary venous hypertension. No acute abnormality. Laboratory Results WBC 9.59 10^3/uL (3.29-11.43) 11/27/24 11:52 RBC 5.75 10^6/uL (3.85-5.65) H 11/27/24 11:52 Hgb 12.40 g/dL (11.27-16.99) 11/27/24 11:52 Hct 40.9 % (37-53) 11/27/24 11:52 MCV 71.1 fl (82-101) L 11/27/24 11:52 MCH 21.6 pg (27-33) L 11/27/24 11:52 MCHC 30.3 g/dL (30-55) 11/27/24 11:52 RDW 17.2 % (12.1-15.1) H 11/27/24 11:52 Plt Count 258 10^3/cmm (157-399) 11/27/24 11:52 MPV 9.5 fL (7.4-10.4) 11/27/24 11:52 Neut % (Auto) 75.1 % 11/27/24 11:52 Lymph % (Auto) 11.3 % 11/27/24 11:52 Towns % (Auto) 8.3 % 11/27/24 11:52 Eos % (Auto) 3.5 % 11/27/24 11:52 Baso % (Auto) 0.8 % 11/27/24 11:52 Neut # (Auto) 7.19 10^3/uL (1.8-7.7) 11/27/24 11:52 Lymph # (Auto) 1.1 10^3/uL (0.8-4.8) 11/27/24 11:52 Towns # (Auto) 0.8 10^3/uL (0.2-0.9) 11/27/24 11:52 Eos # (Auto) 0.3 10^3/uL (0.0-0.8) 11/27/24 11:52 Baso # (Auto) 0.1 10^3/uL (0.0-0.1) 11/27/24 11:52 Nucleated RBC % (auto) 0 % 11/27/24 11:52 Nucleated RBCs # 0.0 /100WBC 11/27/24 11:52 PT 17.40 SECONDS (12.1-14.9) H 11/27/24 11:52 INR 1.34 (0.8-1.2) H 11/27/24 11:52 APTT 35.6 SECONDS (23.9-36.7) 11/27/24 11:52 Specimen Type Venous 11/27/24 11:52 Tad Test N/a 11/27/24 11:52 VBG pH 7.41 (7.32-7.42) 11/27/24 11:52 VBG pCO2 42.4 mmHg (41-51) 11/27/24 11:52 VBG pO2 33.1 mmHg (25-40) 11/27/24 11:52 VBG HCO3 26.6 mmol/L (24-28) 11/27/24 11:52 VBG Base Excess 1.6 mmol/L (-3.0-3.0) 11/27/24 11:52 VBG Hematocrit 39.6 % (42-52) L 11/27/24 11:52 O2 Delivery Device None 11/27/24 11:52 Prior Authorization Technician ID [employer]i 11/27/24 11:52 Sodium 140 mmol/L (136-145) 11/27/24 11:52 Potassium 4.1 mmol/L (3.5-5.1) 11/27/24 11:52 Chloride 104 mmol/L (98-107) 11/27/24 11:52 Carbon Dioxide 25 mmol/L (22-29) 11/27/24 11:52 Anion Gap 15.1 (5-19) 11/27/24 11:52 BUN 19 mg/dL (6-20) 11/27/24 11:52 Creatinine 1.9 mg/dL (0.7-1.2) H 11/27/24 11:52 GFR Calculation 37.6 mL/min (90-130) L 11/27/24 11:52 Glucose 158 mg/dL (65-115) H 11/27/24 11:52 Calculated Osmolality 296 mOsm/kg (285-295) H 11/27/24 11:52 Calcium 9.3 mg/dL (8.5-10.5) 11/27/24 11:52 Magnesium 2.4 mg/dL (1.7-2.3) H 11/27/24 11:52 Total Bilirubin 0.5 mg/dL (0.15-1.2) 11/27/24 11:52 AST 12 U/L (0-40) 11/27/24 11:52 ALT 17 U/L (0-41) 11/27/24 11:52 Alkaline Phosphatase 119 U/L (40-130) 11/27/24 11:52 Troponin T Baseline 43 ng/L (0-15) H 11/27/24 11:52 Troponin T 120 Minute 42.90 ng/L (0-15) H 11/27/24 13:27 Delta Troponin T -0.10 ABS# (0-10) L 11/27/24 13:27 NT-Pro-B Natriuret Pep 2449 pg/mL (0-125) H 11/27/24 11:52 Total Protein 7.1 g/dL (6.6-8.7) 11/27/24 11:52 Albumin 4.1 g/dL (3.5-5.2) 11/27/24 11:52 Globulin 3.0 g/dL (1.3-4.6) 11/27/24 11:52 All radiology interpretation(s) finalized by discharge ED provider radiology interpretation(s): Chest x-ray showing cardiomegaly and pulmonary venous hypertension without overt pulmonary edema EKG Data EKG 1: I personally reviewed and interpreted this EKG as follows: EKG Interpretation Date: 11/27/24 EKG interpretation time: 10:14 Interpretation: Atrial fibrillation at 125 bpm with frequent PVCs, no STEMI, QTc 446 ms, normal axis EKG 2: I personally reviewed and interpreted this EKG as follows: EKG Interpretation Date: 11/27/24 EKG interpretation time: 13:13 Computer Generated Interpretation: Atrial fibrillation with PVCs at 94 bpm, no STEMI, QTc 409 ms Discharge Plan Discharge Patient Disposition: Home Clinical Impression: Acute exacerbation of CHF (congestive heart failure) Qualifiers: Heart failure type: unspecified Qualified Code(s): I50.9 - Heart failure, unspecified Atrial fibrillation Qualifiers: Atrial fibrillation type: paroxysmal Qualified Code(s): I48.0 - Paroxysmal atrial fibrillation Condition: Stable Prescriptions: No Action Eliquis 5 mg tablet 5 mg PO BID aspirin 81 mg tablet,delayed release (DR/EC) 81 mg PO DAILY mecobalamin (vitamin B12) [B12 Active] 1,000 mcg tablet,chewable 1,000 mcg PO DAILY albuterol sulfate 90 mcg/actuation HFA aerosol inhaler 2 inh inhalation Q6H PRN (Reason: shortness of breath or wheezing) Qty: 6.7 0RF Januvia 50 mg tablet 50 mg PO DAILY Qty: 30 0RF glipizide 5 mg Tablet 5 mg PO DAILY atorvastatin 40 mg tablet 40 mg PO QPM ergocalciferol (vitamin D2) 1,250 mcg (50,000 unit) capsule 1,250 mcg PO .Q30D Rx Instructions: on Jardiance 25 mg tablet 25 mg PO DAILY losartan 50 mg tablet 50 mg PO DAILY pantoprazole 40 mg tablet,delayed release (DR/EC) 40 mg PO DAILY potassium chloride 20 mEq tablet extended release 20 meq PO DAILY tamsulosin 0.4 mg capsule 0.4 mg PO BIDWMEAL Qty: 60 0RF carvedilol [Coreg] 25 mg tablet 25 mg PO BID diltiazem HCl [Cardizem CD] 360 mg capsule,extended release 24hr 360 mg PO DAILY magnesium oxide 400 mg (241.3 mg magnesium) Tablet 400 mg PO BID Qty: 60 0RF amlodipine 10 mg tablet 10 mg PO DAILY bumetanide 1 mg tablet 1 mg PO BID Discharge Orders: Discharge ED (Routine); Ordered 11/27/24 Ordered By: Chente Cooper Referrals: Evelyn Guerra FNP [Primary Care Provider, Nurse Practitioner] Christie Gavin MD [Physician, Cardiology] Patient Instructions: Patient Portal & Manpreet Instructions, Heart Failure (DC) Print Language: Bengali Coding Level of Care Code ED Picker And Packer for Luiz Botello
--- NOTE | 2024-11-27 13:37 | ECG_ITS ---
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 Measurements Intervals [place] Rate: 94 P: 0 NV: 0 QRS: 14 QRSD: 98 T: 116 QT: 357 QTc: 449 Interpretive Statements NNormal Sinus Rhythm WITH ABERRANT CONDUCTION OR VENTRICULAR PREMATURE COMPLEXES and supraventricular ectopic MODERATE ST DEPRESSION [0.05+ mV ST DEPRESSION] ABNORMAL QRS-T ANGLE [QRS-T AXIS DIFFERENCE > 60] Compared to ECG 11/27/2024 10:14:38 Aberrant conduction of supraventricular beat(s) now present ST (T wave) deviation now present Sinus tachycardia no longer present First degree AV block no longer present Electronically Signed On 11-27-2024 13:52:57 CDT by Christie Gavin M.D. [email or web address]
[2024-11-27 14:02] LABS: Troponin 5 2HR 42.90 ng/L (0-15)
[2024-11-27 14:04] VITALS: BP 121/61; PULSE 97; O2SAT 98
[2024-11-27 14:04] LABS: Troponin 5 2HR Delta -0.10 ABS# (0-10)
[2024-11-27 14:56] VITALS: BP 132/95; PULSE 95; O2SAT 95
== END 2024-11-27 14:56 | disposition home or self-care (01) ==
PROVIDERS: Emergency Provider Student in an Organized Health Care Education/Training Program; PCP Nurse Practitioner Family
DX: I11.0 Hypertensive heart disease with heart failure (principal); I50.9 Heart failure, unspecified; I48.0 Paroxysmal atrial fibrillation; Z79.01 Long term (current) use of anticoagulants; Z79.82 Long term (current) use of aspirin; I25.10 Atherosclerotic heart disease of native coronary artery without angina pectoris; E11.9 Type 2 diabetes mellitus without complications; E78.5 Hyperlipidemia, unspecified
CPT/HCPCS: 36415; 71045; 80053; 82803; 83735; 83880; 84484; 85025; 85610; 85730; 93005; 96374; 99285; J3490; J9999

== ENCOUNTER 2024-12-12 10:39 | Emergency (ER) | payer BC, SELFPAY ==
[2024-12-12 10:48] VITALS: BP 184/111; PULSE 100; RESP 16; TEMP 37; O2SAT 94; BMI 41.6
--- NOTE | 2024-12-12 10:50 | ECG_ITS ---
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 Measurements Intervals [place] Rate: 107 P: 0 HI: 0 QRS: 6 QRSD: 107 T: 136 QT: 367 QTc: 490 Interpretive Statements ATRIAL FIBRILLATION WITH RAPID VENTRICULAR RESPONSE MODERATE INTRAVENTRICULAR CONDUCTION DELAY [105+ ms QRS DURATION, 80+ ms Q/S IN V1/V2, NO Q AND 60+ ms R IN I/aVL/V5/V6] ABNORMAL QRS-T ANGLE [QRS-T AXIS DIFFERENCE > 60] Compared to ECG 11/27/2024 13:13:12 Intraventricular conduction delay now present Sinus rhythm no longer present Ventricular premature complex(es) no longer present Aberrant conduction of supraventricular beat(s) no longer present ST (T wave) deviation no longer present Electronically Signed On 12-12-2024 18:49:29 CDT by Christie Gavin M.D. [email or web address] [id number]
--- NOTE | 2024-12-12 10:50 | XR_ITS ---
WS: [id number] XR chest 1V portable [id number] REASON FOR EXAM: chest pain FINDINGS: Mild tortuosity of the aortic arch and thoracic aorta. Mild cardiomegaly. Moderate central pulmonary venous congestion. Calcified granulomatous disease bilaterally. Compared to the examination of 11/27/2024, there are reticular interstitial and groundglass opacities in the right lower lung field. XR/XR chest 1V portable [id number] IMPRESSION: Interval development of right lower lung opacities compared to the previous exa mination. This may represent early congestive heart failure or less likely pneu monitis.
--- NOTE | 2024-12-12 10:56 | W.ED.ARRPALP ---
HPI - Arrhythmia/Palpitations General: Chief Complaint: Arrhythmia/Palpitations Stated Complaint: CP SOB Time Seen by Provider: 12/12/24 10:49 History of Present Illness: 49-year-old male with a history of atrial fibrillation was difficult to control. Came in complaining of A-fib. He he previously had an ablation he is on amiodarone carvedilol and diltiazem has been taking all that regularly his last dose change was a few weeks ago. They have been titrating up his Bumex because he has had increasing fluid buildup. He says worsening orthopnea and exertional dyspnea some mild chest heaviness but no sharp pain. He is on diltiazem as well. No pain radiating to the neck or arm or back. No syncope. He has taken all of his medications this morning. Related Data Home Medications ?Medication ?Instructions ?Recorded ?Confirmed glipizide 5 mg tablet 5 mg PO DAILY 03/24/19 11/27/24 apixaban 5 mg tablet (Eliquis) 5 mg PO BID 08/09/23 11/27/24 aspirin 81 mg tablet,delayed 81 mg PO DAILY 08/09/23 11/27/24 release mecobalamin (vitamin B12) 1,000 1,000 mcg PO DAILY 08/09/23 11/27/24 mcg chewable tablet (B12 Active) carvedilol 25 mg tablet (Coreg) 25 mg PO BID 03/13/24 11/27/24 diltiazem HCl 360 mg 360 mg PO DAILY 03/13/24 11/27/24 capsule,extended release 24 hr (Cardizem CD) atorvastatin 40 mg tablet 40 mg PO QPM 06/02/24 11/27/24 empagliflozin 25 mg tablet 25 mg PO DAILY 06/02/24 11/27/24 (Jardiance) ergocalciferol (vitamin D2) 1,250 1,250 mcg PO .Q30D 06/02/24 11/27/24 mcg (50,000 unit) capsule losartan 50 mg tablet 50 mg PO DAILY 08/22/24 11/27/24 pantoprazole 40 mg tablet,delayed 40 mg PO DAILY 08/22/24 11/27/24 release potassium chloride 20 mEq 20 meq PO DAILY 08/22/24 11/27/24 tablet,extended release amlodipine 10 mg tablet 10 mg PO DAILY 11/27/24 11/27/24 bumetanide 1 mg tablet 1 mg PO BID 11/27/24 11/27/24 Previous Rx's ?Medication ?Instructions ?Recorded sitagliptin phosphate 50 mg tablet 50 mg PO DAILY #30 tabs 05/13/21 (Januvia) magnesium oxide 400 mg (241.3 mg 400 mg PO BID #60 tabs 03/15/24 magnesium) tablet albuterol sulfate 90 mcg/actuation 2 inh inhalation Q6H PRN shortness 03/16/24 aerosol inhaler of breath or wheezing #6.7 grams tamsulosin 0.4 mg capsule 0.4 mg PO BIDWMEAL #60 caps 08/24/24 Allergies Allergy/AdvReac Type Severity Reaction Status Date / Time No Known Allergies Allergy Verified 11/27/24 10:19 Review of Systems Const: Denies: fever(s) or chills Card: Denies: chest pain Resp: Denies: dyspnea GI: Denies: abdominal pain : Denies: dysuria, urinary frequency or urinary urgency Musc: Denies: neck pain or back pain Skin/Breast: Denies: rash PFSH ED PFSH: Medical History Iron deficiency anemia Aortic regurgitation Diabetes Coronary artery disease Nonobstructive on angiogram 2017 Nuclear stress test May/2021 mild global hypokinesis, no perfusion defects GERD (gastroesophageal reflux disease) History of retinal detachment Cardiomyopathy HTN (hypertension) Hyperlipidemia Surgical History H/O cardiac radiofrequency ablation History of knee surgery History of tonsillectomy History of cataract surgery Family History Other Cancer Diabetes Hypertension Social History Smoking and tobacco/nicotine status: never used tobacco/nicotine Alcohol intake: former Former alcohol use details: No longer drinks but was never heavy Substance/Drug Use: never Additional social history: 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 He wants full code as discussed with him today on 08/22/2024 in the presence of his carolyne Mckenzie by Giorgi Rocha MD Physical Exam Const: GENERAL APPEARANCE: cooperative ORIENTATION/CONSCIOUSNESS: Yes awake, Yes oriented to person, Yes oriented to place and Yes oriented to time HENMT: COMMON NORMALS: normocephalic, atraumatic and hearing grossly normal bilaterally HEAD & SCALP: normocephalic and atraumatic Resp: COMMON NORMALS: normal respiratory effort, No retractions, No use of accessory muscles and clear to auscultation bilaterally AUSCULTATION: clear to auscultation bilaterally Cardio: COMMON NORMALS: No murmurs present (Cardio) RATE: tachycardic RHYTHM: abnormal rhythm irregularly irregular GI: COMMON NORMALS: Soft to palpation and No hepatosplenomegaly present AUSCULTATION: Yes normoactive bowel sounds PALPATION: Yes Soft to palpation, No Tenderness to palpation present (GI), No Guarding due to palpation present (GI) and Yes No hepatosplenomegaly present Extremity: COMMON NORMALS: normal to inspection, capillary refill normal, no clubbing, cyanosis or edema, no calf tenderness and no pedal edema Neuro: SENSORIUM/ORIENTATION: Yes oriented to person, Yes oriented to place and Yes oriented to time Skin: COMMON NORMALS: no rashes or lesions noted GENERAL SKIN EXAM: no rashes or lesions noted Course Vital Signs: Vital signs: Vital Signs Temperature 98.6 F 12/12/24 10:48 Pulse Rate 84 12/12/24 13:52 Respiratory Rate 17 12/12/24 13:12 Blood Pressure 150/83 12/12/24 13:52 Pulse Oximetry 94 12/12/24 13:52 Oxygen Delivery Me thod Room Air 12/12/24 10:48 MDM - Arrhythmia/Palpitations Medical Decision Making Patient given diuresis in the emergency room recommended observation he would prefer to go home at this time after discussion we did ultimately decide to discharge home he was given IV Bumex here increase his Bumex for the next 3 days and follow-up with his primary care doctor continue with other medications. Return if he has worsening symptoms Medical Records I reviewed the patient's medical records. Lab Data I reviewed the patient's lab results. 12/12/24 10:58 12/12/24 10:58 Radiology Impressions Chest X-Ray 12/12/24 10:50 IMPRESSION: Interval development of right lower lung opacities compared to the previous examination. This may represent early congestive heart failure or less likely pneumonitis. Laboratory Results WBC 12.73 10^3/uL (3.29-11.43) H 12/12/24 10:58 RBC 5.65 10^6/uL (3.85-5.65) 12/12/24 10:58 Hgb 12.00 g/dL (11.27-16.99) 12/12/24 10:58 Hct 39.8 % (37-53) 12/12/24 10:58 MCV 70.4 fl (82-101) L 12/12/24 10:58 MCH 21.2 pg (27-33) L 12/12/24 10:58 MCHC 30.2 g/dL (30-55) 12/12/24 10:58 RDW 17.9 % (12.1-15.1) H 12/12/24 10:58 Plt Count 296 10^3/cmm (157-399) 12/12/24 10:58 MPV 9.5 fL (7.4-10.4) 12/12/24 10:58 Neut % (Auto) 84.8 % 12/12/24 10:58 Lymph % (Auto) 6.7 % 12/12/24 10:58 [place] % (Auto) 5.8 % 12/12/24 10:58 Eos % (Auto) 1.7 % 12/12/24 10:58 Baso % (Auto) 0.5 % 12/12/24 10:58 Neut # (Auto) 10.79 10^3/uL (1.8-7.7) H 12/12/24 10:58 Lymph # (Auto) 0.9 10^3/uL (0.8-4.8) 12/12/24 10:58 [place] # (Auto) 0.7 10^3/uL (0.2-0.9) 12/12/24 10:58 Eos # (Auto) 0.2 10^3/uL (0.0-0.8) 12/12/24 10:58 Baso # (Auto) 0.1 10^3/uL (0.0-0.1) 12/12/24 10:58 Nucleated RBC % (auto) 0 % 12/12/24 10:58 Nucleated RBCs # 0.0 /100WBC 12/12/24 10:58 Sodium 140 mmol/L (136-145) 12/12/24 10:58 Potassium 3.9 mmol/L (3.5-5.1) 12/12/24 10:58 Chloride 102 mmol/L (98-107) 12/12/24 10:58 Carbon Dioxide 23 mmol/L (22-29) 12/12/24 10:58 Anion Gap 18.9 (5-19) 12/12/24 10:58 BUN 19 mg/dL (6-20) 12/12/24 10:58 Creatinine 2.0 mg/dL (0.7-1.2) H 12/12/24 10:58 GFR Calculation 35.4 mL/min (90-130) L 12/12/24 10:58 Glucose 175 mg/dL (65-115) H 12/12/24 10:58 Calculated Osmolality 297 mOsm/kg (285-295) H 12/12/24 10:58 Calcium 9.4 mg/dL (8.5-10.5) 12/12/24 10:58 Total Bilirubin 1.1 mg/dL (0.15-1.2) 12/12/24 10:58 AST 11 U/L (0-40) 12/12/24 10:58 ALT 15 U/L (0-41) 12/12/24 10:58 Alkaline Phosphatase 132 U/L (40-130) H 12/12/24 10:58 Troponin T Baseline 41 ng/L (0-15) H 12/12/24 10:58 Troponin T 120 Minute 40.73 ng/L (0-15) H 12/12/24 12:54 Delta Troponin T -0.27 ABS# (0-10) L 12/12/24 12:54 Total Protein 7.4 g/dL (6.6-8.7) 12/12/24 10:58 Albumin 4.4 g/dL (3.5-5.2) 12/12/24 10:58 Globulin 3.0 g/dL (1.3-4.6) 12/12/24 10:58 All radiology interpretation(s) finalized by discharge EKG Data EKG 1: EKG interpretation date: 12/12/24 Prior EKG tracings: available for review Interpretation: EKG 12/12/2024 1048 A-fib with RVR. Rate of 107 QTc 490 compared to previous EKG 11/27/2024. Previous EKG showed sinus rhythm with PVCs. Other EKG comments: Chest X-Ray 12/12/24 10:50 IMPRESSION: Interval development of right lower lung opacities compared to the previous examination. This may represent early congestive heart failure or less likely pneumonitis. EKG 2: EKG interpretation date: 12/12/24 Prior EKG tracings: available for review Interpretation: EKG 12/12/2024 1304 atrial fibrillation rate of 95 QTc 401 compared to EKG done earlier same day no acute changes noted. Other EKG comments: Chest X-Ray 12/12/24 10:50 IMPRESSION: Interval development of right lower lung opacities compared to the previous examination. This may represent early congestive heart failure or less likely pneumonitis. Discharge Plan Discharge Patient Disposition: Home Clinical Impression: Acute exacerbation of CHF (congestive heart failure) Qualifiers: Heart failure type: unspecified Qualified Code(s): I50.9 - Heart failure, unspecified CKD (chronic kidney disease) Qualifiers: Chronic kidney disease stage: stage 3 (moderate) Chronic kidney disease stage 3 subtype: stage 3a (GFR 45-59) Qualified Code(s): N18.31 - Chronic kidney disease, stage 3a Condition: Stable Prescriptions: No Action Eliquis 5 mg tablet 5 mg PO BID aspirin 81 mg tablet,delayed release (DR/EC) 81 mg PO DAILY mecobalamin (vitamin B12) [B12 Active] 1,000 mcg tablet,chewable 1,000 mcg PO DAILY albuterol sulfate 90 mcg/actuation HFA aerosol inhaler 2 inh inhalation Q6H PRN (Reason: shortness of breath or wheezing) Qty: 6.7 0RF Januvia 50 mg tablet 50 mg PO DAILY Qty: 30 0RF glipizide 5 mg Tablet 5 mg PO DAILY atorvastatin 40 mg tablet 40 mg PO QPM ergocalciferol (vitamin D2) 1,250 mcg (50,000 unit) capsule 1,250 mcg PO .Q30D Rx Instructions: on Jardiance 25 mg tablet 25 mg PO DAILY losartan 50 mg tablet 50 mg PO DAILY pantoprazole 40 mg tablet,delayed release (DR/EC) 40 mg PO DAILY potassium chloride 20 mEq tablet extended release 20 meq PO DAILY tamsulosin 0.4 mg capsule 0.4 mg PO BIDWMEAL Qty: 60 0RF carvedilol [Coreg] 25 mg tablet 25 mg PO BID diltiazem HCl [Cardizem CD] 360 mg capsule,extended release 24hr 360 mg PO DAILY magnesium oxide 400 mg (241.3 mg magnesium) Tablet 400 mg PO BID Qty: 60 0RF amlodipine 10 mg tablet 10 mg PO DAILY bumetanide 1 mg tablet 1 mg PO BID Discharge Orders: Discharge ED (Routine); Ordered 12/12/24 Ordered By: Tariq Mccormick Referrals: Evelyn Guerra FNP [Primary Care Provider, Nurse Practitioner] Discharge Diet: Cardiac and Low Salt Discharge Activity: Limit activity as instructed Patient Instructions: Opioid Safety, Pain Management, Patient Portal & Manpreet Instructions Activity Restrictions/Additional Instructions: Thank you for choosing [facility] for your healthcare needs today. It is very important that you follow up as instructed or that you return to the Emergency Department should you have concerns or if your condition changes or worsens in any way. Emergency department visits are focused on emergent conditions, in some cases you may require further evaluation on an outpatient basis. You were seen in the emergency room with atrial fibrillation. Your rate is controlled at this time but you have some worsening heart failure. We did give you extra Bumex while you were here with good results. Recommend you increase your Bumex at home to 3 mg twice a day as your doctor had previously prescribed. In addition to this recommend that you make a short-term follow-up within the next week with your primary care doctor to recheck your kidney function and reevaluate your overall condition. (Please note that included in your discharge packet is information concerning opioid safety and pain management. This information is given to all patients were discharged from the ER regardless of their discharge diagnosis or the medicines they usually take or are prescribed.) Print Language: Divehi Coding Level of Care Code ED Advertising Director for Luiz Botello
[2024-12-12 11:05] LABS: Hematocrit 39.8 % (37-53); Hemoglobin 12.00 g/dL (11.27-16.99); Mean Corpuscular HGB Conc 30.2 g/dL (30-55); Mean Corpuscular Hemoglobin 21.2 pg (27-33); Mean Corpuscular Volume 70.4 fl (82-101); Nucleated Red Blood Cells % 0 %; Platelet Count 296 10^3/cmm (157-399); Red Blood Count 5.65 10^6/uL (3.85-5.65); White Blood Count 12.73 10^3/uL (3.29-11.43)
[2024-12-12 11:22] VITALS: BP 150/93; PULSE 60; RESP 24; O2SAT 93
[2024-12-12 11:25] LABS: Troponin(5th) Baseline 41 ng/L (0-15)
[2024-12-12 11:39] LABS: Alanine Aminotransferase 15 U/L (0-41); Albumin Level 4.4 g/dL (3.5-5.2); Alkaline Phosphatase 132 U/L (40-130); Anion Gap 18.9 (5-19); Aspartate Amino Transferase 11 U/L (0-40); Blood Urea Nitrogen 19 mg/dL (6-20); Calcium 9.4 mg/dL (8.5-10.5); Carbon Dioxide 23 mmol/L (22-29); Chloride 102 mmol/L (98-107); Creatinine Clr Calc Pharmacy 65.0652; Globulin 3.0 g/dL (1.3-4.6); Glucose 175 mg/dL (65-115); Osmolality Calculated 297 mOsm/kg (285-295); Potassium 3.9 mmol/L (3.5-5.1); Sodium 140 mmol/L (136-145); Total Protein 7.4 g/dL (6.6-8.7)
[2024-12-12] MEDS: bumetanide 0.25 mg/mL SDV 10 mL 4 MG IVP (11:48)
[2024-12-12 12:27] VITALS: BP 154/88; PULSE 94; RESP 25; O2SAT 96
--- NOTE | 2024-12-12 12:50 | ECG_ITS ---
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 Measurements Intervals [place] Rate: 95 P: 0 NH: 0 QRS: 3 QRSD: 113 T: 115 QT: 401 QTc: 506 Interpretive Statements ATRIAL FIBRILLATION MODERATE INTRAVENTRICULAR CONDUCTION DELAY [110+ ms QRS DURATION] ABNORMAL QRS-T ANGLE [QRS-T AXIS DIFFERENCE > 60] Compared to ECG 12/12/2024 10:44:48 No significant changes Electronically Signed On 12-12-2024 18:58:23 CDT by Christie Gavin M.D. [email or web address]
[2024-12-12 13:12] VITALS: PULSE 96; RESP 17; O2SAT 96
[2024-12-12 13:28] LABS: Troponin 5 2HR 40.73 ng/L (0-15)
[2024-12-12 13:30] LABS: Troponin 5 2HR Delta -0.27 ABS# (0-10)
[2024-12-12 13:52] VITALS: BP 150/83; PULSE 84; O2SAT 94
== END 2024-12-12 13:58 | disposition home or self-care (01) ==
PROVIDERS: Emergency Provider Family Medicine; PCP Nurse Practitioner Family
DX: E11.22 Type 2 diabetes mellitus with diabetic chronic kidney disease (principal); I13.0 Hypertensive heart and chronic kidney disease with heart failure and stage 1 through stage 4 chronic kidney disease, or unspecified chronic kidney disease; N18.31 Chronic kidney disease, stage 3a; I50.9 Heart failure, unspecified; E78.5 Hyperlipidemia, unspecified; I25.10 Atherosclerotic heart disease of native coronary artery without angina pectoris; Z79.01 Long term (current) use of anticoagulants; Z79.82 Long term (current) use of aspirin
CPT/HCPCS: 36415; 71045; 80053; 84484; 85025; 93005; 96374; 99285; J3490

== ENCOUNTER 2025-02-23 15:09 | Emergency (ER) | payer BC, SELFPAY ==
[2025-02-23 15:15] VITALS: BP 182/74; PULSE 80; RESP 19; TEMP 36.7; O2SAT 97; BMI 39.5
[2025-02-23 15:23] VITALS: BP 182/74; PULSE 72; O2SAT 99
[2025-02-23] MEDS: orphenadrine 30 mg/mL Inj 2 mL 60 MG IM (15:41)
[2025-02-23 15:43] LABS: Glucose Urine UA 3+ (Normal); Nitrate Urine Negative (Negative); Specific Gravity, Urine 1.026 (1.005-1.030)
--- NOTE | 2025-02-23 15:44 | W.ED.BACK ---
HPI - Back Pain/Injury General: Chief Complaint: Back Pain/Injury Stated Complaint: back pain Time Seen by Provider: 02/23/25 15:12 Source: patient Mode of arrival: ambulatory Limitations: no limitations History of Present Illness: Patient is a 49-year-old male who presents emergency department complaining of right anterolateral chest wall pain that began last night. 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 It is specifically worse with deep breathing, coughing, and especially with with sneezing as he sneezed while on shift today and it was reportedly one of the worst pains of his life. Pain does increase with movement and palpation as well to the right anterolateral lower rib cage area, he is not short of breath but the pain is specifically exacerbated with anything respiratory or forceful coughing. He expresses concerns about possible kidney stone, but otherwise does not reporting burning with urination, blood in his urine, or abdominal pain. He is mildly hypertensive at this time, appears uncomfortable but overall nontoxic and rest of vitals are stable. He is afebrile. No anterior chest pain. No chest wall trauma is reported. MD elicited complaint: other (Lower anterolateral rib pain) Onset (ago): hour(s) Timing: constant Severity: severe Associated symptoms: Deny abdominal pain, chills, fever(s), nausea or vomiting Related Data Home Medications ?Medication ?Instructions ?Recorded ?Confirmed glipizide 5 mg tablet 5 mg PO DAILY 03/24/19 11/27/24 apixaban 5 mg tablet (Eliquis) 5 mg PO BID 08/09/23 11/27/24 aspirin 81 mg tablet,delayed 81 mg PO DAILY 08/09/23 11/27/24 release mecobalamin (vitamin B12) 1,000 1,000 mcg PO DAILY 08/09/23 11/27/24 mcg chewable tablet (B12 Active) carvedilol 25 mg tablet (Coreg) 25 mg PO BID 03/13/24 11/27/24 diltiazem HCl 360 mg 360 mg PO DAILY 03/13/24 11/27/24 capsule,extended release 24 hr (Cardizem CD) atorvastatin 40 mg tablet 40 mg PO QPM 06/02/24 11/27/24 empagliflozin 25 mg tablet 25 mg PO DAILY 06/02/24 11/27/24 (Jardiance) ergocalciferol (vitamin D2) 1,250 1,250 mcg PO .Q30D 06/02/24 11/27/24 mcg (50,000 unit) capsule losartan 50 mg tablet 50 mg PO DAILY 08/22/24 11/27/24 pantoprazole 40 mg tablet,delayed 40 mg PO DAILY 08/22/24 11/27/24 release potassium chloride 20 mEq 20 meq PO DAILY 08/22/24 11/27/24 tablet,extended release amlodipine 10 mg tablet 10 mg PO DAILY 11/27/24 11/27/24 bumetanide 1 mg tablet 1 mg PO BID 11/27/24 11/27/24 Previous Rx's ?Medication ?Instructions ?Recorded sitagliptin phosphate 50 mg tablet 50 mg PO DAILY #30 tabs 05/13/21 (Januvia) magnesium oxide 400 mg (241.3 mg 400 mg PO BID #60 tabs 03/15/24 magnesium) tablet albuterol sulfate 90 mcg/actuation 2 inh inhalation Q6H PRN shortness 03/16/24 aerosol inhaler of breath or wheezing #6.7 grams tamsulosin 0.4 mg capsule 0.4 mg PO BIDWMEAL #60 caps 08/24/24 hydrocodone 7.5 mg-acetaminophen 1 tab PO Q8H PRN pain #15 tabs 02/23/25 325 mg tablet methocarbamol 750 mg tablet 750 mg PO Q8H 5 days #15 tabs 02/23/25 Allergies Allergy/AdvReac Type Severity Reaction Status Date / Time No Known Allergies Allergy Verified 11/27/24 10:19 Review of Systems General: Reports: 10 or more systems reviewed and unremarkable except in HPI and below Const: Denies: fever(s) or chills Card: Denies: chest pain Resp: Denies: dyspnea or productive cough GI: Denies: abdominal pain, nausea, vomiting or diarrhea : Denies: flank pain Musc: Reports: other (Right rib pain); Denies: neck pain, back pain, extremity pain, extremity swelling, joint pain, joint swelling, joint redness, joint warmth, limited range of motion or muscle weakness Skin/Breast: Denies: rash Neuro: Denies: headache(s), numbness in extremities or weakness in extremities PFSH ED PFSH: Medical History Iron deficiency anemia Aortic regurgitation Diabetes Coronary artery disease Nonobstructive on angiogram 2017 Nuclear stress test May/2021 mild global hypokinesis, no perfusion defects GERD (gastroesophageal reflux disease) History of retinal detachment Cardiomyopathy HTN (hypertension) Hyperlipidemia Surgical History H/O cardiac radiofrequency ablation History of knee surgery History of tonsillectomy History of cataract surgery Family History Other Cancer Diabetes Hypertension Social History Smoking and tobacco/nicotine status: never used tobacco/nicotine Alcohol intake: former Former alcohol use details: No longer drinks but was never heavy Substance/Drug Use: never Additional social history: 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 He wants full code as discussed with him today on 08/22/2024 in the presence of his carolyne Mckenzie by Giorgi Rocha MD Physical Exam Const: COMMON NORMALS: no acute distress, patient oriented x3, no limitations, healthy appearing, alert and well nourished OTHER: Nontoxic HENMT: COMMON NORMALS: normocephalic and atraumatic HEAD & SCALP: normocephalic and atraumatic Neck/C-Spine: COMMON NORMALS: full ROM, supple and no meningeal signs Chest: OTHER: Tender to palpation lower right anterolateral ribs with no step-off deformity. No flail chest. Resp: COMMON NORMALS: normal respiratory effort, No use of accessory muscles and clear to auscultation bilaterally AUSCULTATION: clear to auscultation bilaterally OTHER: No respiratory distress Cardio: COMMON NORMALS: regular rate and regular rhythm RATE: regular rate RHYTHM: regular rhythm Extremity: COMMON NORMALS: normal to inspection, full ROM, capillary refill normal, no joint enlargement and no clubbing, cyanosis or edema Neuro: COMMON NORMALS: patient oriented x3, moves all extremities, no focal motor deficits and no sensory deficits noted SENSORIUM/ORIENTATION: Yes alert MENINGEAL SIGNS: Yes no meningeal signs Skin: COMMON NORMALS: no rashes or lesions noted GENERAL SKIN EXAM: no rashes or lesions noted Course Vital Signs: Vital signs: Vital Signs Temperature 98.0 F 02/23/25 15:15 Pulse Rate 78 02/23/25 16:42 Respiratory Rate 19 H 02/23/25 15:15 Blood Pressure 163/79 02/23/25 16:42 Pulse Oximetry 97 02/23/25 16:42 Oxygen Delivery Me thod Room Air 02/23/25 15:23 MDM - Back Pain/Injury Medical Decision Making Patient presented for right anterolateral chest wall pain beginning last night, worsening with deep breathing, coughing, sneezing, or any forceful exhalation. No anterior chest pain, no other associated symptoms. 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 Tender to palpation right anterolateral chest wall no step-off deformity. He had noted that he wanted kidney stones assessed, so urinalysis ordered showing negative blood and no infectious etiology and I do not suspect any kidney stone. Chest CT was ordered as chest x-ray was likely going to inadequately penetrate and evaluate for any musculoskeletal injury secondary to body habitus, so CT ordered showing no acute chest pathology. I suspect costochondritis in the setting, he was given medications here in the emergency department, he is diabetic and chronic kidney disease so this limits treatment at home of steroids and NSAIDs. Because of this we will do Supai for breakthrough pain only, he will do Tylenol and alternate ice and heat to the chest, and muscle relaxer due to his reports of spasmic back pain as well. Overall this patient stable for discharge home with symptomatic therapy is encouraged to return with any new or worsening. Labs Radiology Impressions Chest CT 02/23/25 15:55 IMPRESSION: 1. No acute chest pathology identified. 2. Mild skeletal degenerative; and other chronic/non-acute findings as described above. 3. Hepatomegaly and fatty infiltration favored, although other diffuse hepatocellular or infiltrative processes could produce a similar appearance. 4. Coronary moderate arterial atherosclerotic calcification, indicating the presence of coronary artery disease. Consider cardiovascular risk assessment if not already addressed. COMMENTS: 1. For ongoing symptoms consider CR in 7-10 days with fiducial marker; CT earlier for higher acute clinical concern or MRI for ongoing persistent/progressive symptoms. 2. Respiratory motion artifact limits evaluation. Laboratory Results Urine Color Yellow (Yellow) 02/23/25 15:27 Urine Appearance Clear (CLEAR) 02/23/25 15:27 Urine pH 6.0 (5-7) 02/23/25 15: Ur Specific [place] 1.026 (1.005-1.030) 02/23/25 15: Urine Protein 1+ (Negative) A 02/23/25 15:27 Urine Glucose (UA) 3+ (Normal) H 02/23/25 15:27 Urine Ketones Negative (Negative) 02/23/25 15: Urine Blood Negative (Negative) 02/23/25 15: Urine Nitrate Negative (Negative) 02/23/25 15: Urine Bilirubin Negative (Negative) 02/23/25 15: Urine Urobilinogen 0.2 mg/dL (Negative) 02/23/25 15: Ur Leukocyte Esterase Negative (Negative) 02/23/25 15: Urine RBC 0-2 /hpf (0-2) 02/23/25 15:27 Urine WBC 0-5 /hpf (0-5) 02/23/25 15:27 Ur Squamous Epith Cells 0-5 /hpf (0-5) 02/23/25 15: Amorphous Sediment Not Reportable 02/23/25 15:27 Urine Bacteria None seen /hpf (NONE) 02/23/25 15:27 Hyaline Casts 0-4 /lpf H 02/23/25 15:27 All radiology interpretation(s) finalized by discharge Discharge Plan Discharge Patient Disposition: Home Clinical Impression: Acute costochondritis Condition: Stable Prescriptions: New methocarbamol 750 mg tablet 750 mg PO Q8H 5 Days Qty: 15 0RF hydrocodone-acetaminophen 7.5-325 mg tablet 1 tab PO Q8H PRN (Reason: pain) Qty: 15 0RF No Action Eliquis 5 mg tablet 5 mg PO BID aspirin 81 mg tablet,delayed release (DR/EC) 81 mg PO DAILY mecobalamin (vitamin B12) [B12 Active] 1,000 mcg tablet,chewable 1,000 mcg PO DAILY albuterol sulfate 90 mcg/actuation HFA aerosol inhaler 2 inh inhalation Q6H PRN (Reason: shortness of breath or wheezing) Qty: 6.7 0RF Januvia 50 mg tablet 50 mg PO DAILY Qty: 30 0RF glipizide 5 mg Tablet 5 mg PO DAILY atorvastatin 40 mg tablet 40 mg PO QPM ergocalciferol (vitamin D2) 1,250 mcg (50,000 unit) capsule 1,250 mcg PO .Q30D Rx Instructions: on Jardiance 25 mg tablet 25 mg PO DAILY losartan 50 mg tablet 50 mg PO DAILY pantoprazole 40 mg tablet,delayed release (DR/EC) 40 mg PO DAILY potassium chloride 20 mEq tablet extended release 20 meq PO DAILY tamsulosin 0.4 mg capsule 0.4 mg PO BIDWMEAL Qty: 60 0RF carvedilol [Coreg] 25 mg tablet 25 mg PO BID diltiazem HCl [Cardizem CD] 360 mg capsule,extended release 24hr 360 mg PO DAILY magnesium oxide 400 mg (241.3 mg magnesium) Tablet 400 mg PO BID Qty: 60 0RF amlodipine 10 mg tablet 10 mg PO DAILY bumetanide 1 mg tablet 1 mg PO BID Discharge Orders: Discharge ED (Routine); Ordered 02/23/25 Ordered By: Ezekiel Fu Referrals: Charlie,Evelyn, [employer] [Primary Care Provider, Nurse Practitioner] Patient Instructions: Patient Portal & Manpreet Instructions Activity Restrictions/Additional Instructions: Discharge Instructions Diagnosis: Acute costochondritis (inflammation of the chest wall cartilage) on the right side What happened during your visit: - Your chest CT scan was normal, showing no problems with your heart, lungs, or other organs - Your urine test was normal, ruling out kidney stones - Your chest pain is due to inflammation of the cartilage connecting your ribs to your breastbone What is costochondritis? Costochondritis is inflammation of the cartilage in your chest wall. It causes chest pain that can be sharp or aching. The good news is that costochondritis is usually self-limited and benign, meaning it will get better on its own with time and proper treatment. Your medications: - Supai (hydrocodone/acetaminophen) 7.5-325 mg: Take as prescribed for pain relief - Robaxin (methocarbamol): Take as prescribed for muscle relaxation Important medication instructions: - Do not drive or operate heavy machinery while taking Supai, as it can cause drowsiness - Do not drink alcohol while taking these medications - Take medications with food to reduce stomach upset - Do not take more than prescribed Activity restrictions: - You are excused from work for 1 week to allow proper recovery - Avoid activities that worsen your chest pain, including heavy lifting, pushing, or pulling - Avoid activities that cause chest muscle overuse - You may gradually return to normal activities as your pain improves What to expect: - Your pain should gradually improve over the next 1-2 weeks - Some discomfort may persist for several weeks, but this is normal - Most people recover completely without complications When to seek immediate medical attention - call 911 or go to the emergency department if you experience: - New or worsening chest pain that feels different from your current pain - Chest pain that spreads to your jaw, neck, arms, or back - Shortness of breath or difficulty breathing - Dizziness, lightheadedness, or fainting - Rapid or irregular heartbeat - Sweating, nausea, or vomiting with chest pain - Fever over 100.4?F (38?C) Follow-up care: - Schedule an appointment with your primary care doctor within 1-2 weeks - If your pain is not improving after 1-2 weeks, contact your doctor - Return to work after 1 week if your symptoms have improved Additional tips: - Apply ice or heat to the affected area for 15-20 minutes at a time, whichever feels better - Practice good posture to reduce strain on your chest wall - Avoid sudden movements or positions that trigger pain Questions? If you have any questions or concerns about your condition or medications, contact your primary care doctor. Print Language: Belarusian Coding Level of Care Code ED Departure Clerk for Luiz Botello
[2025-02-23 15:48] LABS: Add Urine Microscopic? YES
--- NOTE | 2025-02-23 15:55 | CTR_ITS ---
PROCEDURE INFORMATION: Exam: CT Chest Without Contrast; Diagnostic Exam date and time: 02/23/2025 3:58 PM Age: 49 years old Clinical indication: Pain; Right-sided; Additional info: Right rib pain TECHNIQUE: Imaging protocol: Diagnostic computed tomography of the chest without contrast. Total images: 214 Radiation optimization: All CT scans at this facility use at least one of these dose optimization techniques: automated exposure control; mA and/or kV adjustment per patient size (includes targeted exams where dose is matched to clinical indication); or iterative reconstruction. COMPARISON: 1. CR XR chest 1V portable [id number] 12/12/2024 10:57 AM 2. CR XR chest 1V portable [id number] 11/27/2024 11:42 AM RADIATION DOSE METRICS: Total DLP (mGy-cm): 892.83 FINDINGS: Limitations: No fiducial skin marker was placed at the site of clinical concern. Image quality degraded by patient respiratory motion artifact. Lungs: No lung consolidation, mass, or acute pulmonary abnormality identified. Pleural spaces: No pathologic pleural thickening, significant pleural effusion or pneumothorax. Heart: Normal heart size. No pericardial fluid collection or pathologic thickening. Coronary arteries: Coronary moderate arterial atherosclerotic calcification, indicating the presence of coronary artery disease. Lymph nodes: No lymphadenopathy. Lymph nodes. Right hilum calcified granuloma nodule. Vasculature: Unremarkable. No aortic aneurysm. No major vessel critical narrowing, occlusion, or aneurysm. Liver: Liver is enlarged with diffusely increased fat content/fatty infiltration. No focal hepatic lesions identified; subtle or isoattenuating/isointense lesions may be obscured. Hepatic punctate calcifications, likely sequelae of prior granulomatous infection. Spleen: Splenic punctate calcification, likely chronic sequelae of prior granulomatous infection. Spleen of normal contour. No pathologic mass identified to the extent visualized. Adrenal glands: Adrenal glands are normal. Kidneys: Kidneys are normal insofar as visualized. No evidence of obstructing urinary tract calculus, hydroureteronephrosis or perinephric edema. Bones/joints: Mild generalized degenerative changes of the vertebral column characterized primarily by multilevel osteophyte formation, and degenerative facet arthrosis commensurate with patient's age. Acromioclavicular joint mild chronic degenerative arthrosis. Shoulder glenohumeral mild osteoarthritis. Bilateral sternoclavicular joint mild chronic degenerative arthrosis. Right 4th rib fusion (synostosis), normal developmental variant mentioned for completeness and not known to be of clinical significance. Flowing ventral bridging osteophytes involving more than four contiguous vertebrae, characteristic of diffuse idiopathic skeletal hyperostosis (DISH). Soft tissues: Mild gynecomastia is noted. Otherwise dermal and superficial subcutaneous soft tissues as visualized appear normal without pathologic mass or induration. CT/CT chest wo con [id number] IMPRESSION: 1. No acute chest pathology identified. 2. Mild skeletal degenerative; and other chronic/non-acute findings as described above. 3. Hepatomegaly and fatty infiltration favored, although other diffuse hepatocellular or infiltrative processes could produce a similar appearance. 4. Coronary moderate arterial atherosclerotic calcification, indicating the presence of coronary artery disease. Consider cardiovascular risk assessment if not already addressed. COMMENTS: 1. For ongoing symptoms consider CR in 7-10 days with fiducial marker; CT earlier for higher acute clinical concern or MRI for ongoing persistent/progressive symptoms. 2. Respiratory motion artifact limits evaluation.
[2025-02-23 16:42] VITALS: BP 163/79; PULSE 78; O2SAT 97
== END 2025-02-23 16:43 | disposition home or self-care (01) ==
PROVIDERS: Emergency Provider Physician Assistant; PCP Nurse Practitioner Family
DX: M94.0 Chondrocostal junction syndrome [Tietze] (principal)
CPT/HCPCS: 71250; 81001; 96372; 99284; J1100; J1885; J2360